=== PATIENT | female | born 1940 | race Caucasian/White ===

== ENCOUNTER 2016-11-30 12:11 | Outpatient (CLI) | END 2016-11-30 12:12 | disposition home or self-care (01) ==

== ENCOUNTER 2016-12-07 10:31 | Outpatient (CLI) | payer MEDICARE, OTHER | END 2016-12-07 10:32 | disposition home or self-care (01) | DX: G47.33 Obstructive sleep apnea (adult) (pediatric) (principal) | CPT/HCPCS: 99214; G0463 ==

== ENCOUNTER 2016-12-27 06:30 | Outpatient (CLI) | payer MEDICARE, OTHER | END 2016-12-27 06:31 | disposition home or self-care (01) | DX: N05.9 Unspecified nephritic syndrome with unspecified morphologic changes (principal); D70.9 Neutropenia, unspecified; R80.9 Proteinuria, unspecified ==

== ENCOUNTER 2016-12-27 13:57 | Outpatient (CLI) | payer MEDICARE, OTHER | END 2016-12-27 13:58 | disposition home or self-care (01) | DX: N05.9 Unspecified nephritic syndrome with unspecified morphologic changes (principal); D70.9 Neutropenia, unspecified; R80.9 Proteinuria, unspecified ==

== ENCOUNTER 2017-01-08 08:00 | Outpatient (CLI) | payer MEDICARE, OTHER | END 2017-01-08 23:59 | disposition home or self-care (01) | DX: D64.9 Anemia, unspecified (principal) ==

== ENCOUNTER 2017-01-17 08:00 | Outpatient (CLI) | payer MEDICARE, OTHER | END 2017-01-17 08:01 | disposition home or self-care (01) | DX: I50.9 Heart failure, unspecified (principal); N05.9 Unspecified nephritic syndrome with unspecified morphologic changes; D50.0 Iron deficiency anemia secondary to blood loss (chronic); D64.9 Anemia, unspecified; R80.9 Proteinuria, unspecified; D47.2 Monoclonal gammopathy ==

== ENCOUNTER 2017-03-19 14:47 | Outpatient (CLI) | payer MEDICARE, OTHER | END 2017-03-19 14:48 | disposition home or self-care (01) | DX: N19 Unspecified kidney failure (principal) ==

== ENCOUNTER 2017-04-09 09:23 | Outpatient (CLI) | payer MEDICARE, OTHER | END 2017-04-09 09:24 | disposition home or self-care (01) | DX: N05.9 Unspecified nephritic syndrome with unspecified morphologic changes (principal); I50.9 Heart failure, unspecified; D70.9 Neutropenia, unspecified ==

== ENCOUNTER 2017-06-25 08:00 | Outpatient (CLI) | payer MEDICARE, OTHER ==
[2017-06-25 10:48] LABS: BASOPHILS # (AUTO) 0.1 10^3/uL (0.0-0.1); EOSINOPHILS # (AUTO) 0.2 10^3/uL (0.0-0.7); EOSINOPHILS % (AUTO) 3.6 %; HCT - HEMATOCRIT 31.9 % (37.0-47.0); HGB - HEMOGLOBIN 10.4 g/dL (12.0-16.0); LYMPHOCYTES # (AUTO) 1.3 10^3/uL (1.5-3.5); LYMPHOCYTES % (AUTO) 25.2 %; MEAN CORPUSCULAR HEMOGLOBIN 28.8 pg (27.0-31.0); MEAN CORPUSCULAR HGB CONC 32.7 g/dL (32.0-36.0); MEAN CORPUSCULAR VOLUME 87.9 fL (81.0-99.0); MEAN PLATELET VOLUME 7.7 fL (7.9-10.8); MONOCYTES # (AUTO) 0.4 10^3/uL (0.0-1.0); MONOCYTES % (AUTO) 8.2 %; NEUTROPHILS # (AUTO) 3.2 10^3/uL (1.5-6.6); RED BLOOD COUNT 3.63 10^6/uL (4.20-5.40); RED CELL DISTRIBUTION WIDTH 16.7 % (12.0-15.0); UNCORRECTED WHITE BLOOD COUNT 5.2 x10^3/uL; WHITE BLOOD COUNT 5.2 x10^3/uL (4.8-10.8)
[2017-06-25 19:25] LABS: ALBUMIN/GLOBULIN RATIO 1.3 (1.0-2.2); BILIRUBIN,TOTAL 0.5 mg/dL (0.2-1.0); BUN - BLOOD UREA NITROGEN 38 mg/dL (6-20); CALCIUM 9.3 mg/dL (8.5-10.3); CARBON DIOXIDE - CO2 19 mmol/L (21-32); CHLORIDE 111 mmol/L (101-111); CHOL/HDL RATIO 2.3 (<4.4); CHOLESTEROL 205 mg/dL; CREATININE 1.9 mg/dL (0.4-1.0); GFR - MDRD 26 (>89); GLUCOSE 84 mg/dL (70-100); HDL CHOLESTEROL 90 mg/dL; LDL/HDL RATIO 0.9 (<4.4); SODIUM 143 mmol/L (135-145); TOTAL PROTEIN 7.8 g/dL (6.7-8.2); TRIGLYCERIDES 169 mg/dL; VLDL CHOLESTEROL 34 mg/dL
[2017-06-25 20:18] LABS: HEMOGLOBIN A1C 0.39 g/dL
== END 2017-06-25 08:01 | disposition home or self-care (01) ==
LOC: LAB.F 08:00
PROVIDERS: ATTEND Family Medicine
DX: E78.5 Hyperlipidemia, unspecified (principal); I13.0 Hypertensive heart and chronic kidney disease with heart failure and stage 1 through stage 4 chronic kidney disease, or unspecified chronic kidney disease; N18.3 Chronic kidney disease, stage 3 (moderate); I50.33 Acute on chronic diastolic (congestive) heart failure; D63.1 Anemia in chronic kidney disease; I48.0 Paroxysmal atrial fibrillation; R73.01 Impaired fasting glucose
CPT/HCPCS: 36415; 80053; 80061; 83036; 84443; 85025

== ENCOUNTER 2017-07-05 15:15 | Outpatient (CLI) | payer MEDICARE, OTHER ==
[2017-07-05 17:57] LABS: CALCIUM 8.8 mg/dL (8.5-10.3); CREATININE 2.3 mg/dL (0.4-1.0); POTASSIUM 3.7 mmol/L (3.5-5.0)
== END 2017-07-05 15:16 | disposition home or self-care (01) ==
LOC: LAB.F 15:15
PROVIDERS: ATTEND Family Medicine
DX: N28.9 Disorder of kidney and ureter, unspecified (principal)
CPT/HCPCS: 36415; 80048

== ENCOUNTER 2017-07-20 15:32 | Outpatient (CLI) | payer MEDICARE, OTHER ==
[2017-07-20 17:40] LABS: CALCIUM 8.9 mg/dL (8.5-10.3); POTASSIUM 4.4 mmol/L (3.5-5.0)
== END 2017-07-20 15:33 | disposition home or self-care (01) ==
LOC: LAB.F 15:32
PROVIDERS: ATTEND Family Medicine
DX: E87.6 Hypokalemia (principal); I50.9 Heart failure, unspecified; N28.9 Disorder of kidney and ureter, unspecified
CPT/HCPCS: 36415; 80048

== ENCOUNTER 2017-08-28 16:10 | Outpatient (CLI) | payer MEDICARE, OTHER ==
[2017-08-28 19:16] LABS: HCT - HEMATOCRIT 32.7 % (37.0-47.0); HGB - HEMOGLOBIN 10.4 g/dL (12.0-16.0); MEAN CORPUSCULAR HEMOGLOBIN 29.1 pg (27.0-31.0); MEAN CORPUSCULAR HGB CONC 31.9 g/dL (32.0-36.0); MEAN CORPUSCULAR VOLUME 91.3 fL (81.0-99.0); MEAN PLATELET VOLUME 7.9 fL (7.9-10.8); RED BLOOD COUNT 3.58 10^6/uL (4.20-5.40); RED CELL DISTRIBUTION WIDTH 17.4 % (12.0-15.0); WHITE BLOOD COUNT 5.8 x10^3/uL (4.8-10.8)
[2017-08-28 19:42] LABS: CALCIUM 8.8 mg/dL (8.5-10.3)
== END 2017-08-28 16:11 | disposition home or self-care (01) ==
LOC: LAB.F 16:10
PROVIDERS: ATTEND Internal Medicine Nephrology
DX: N05.9 Unspecified nephritic syndrome with unspecified morphologic changes (principal); I50.32 Chronic diastolic (congestive) heart failure; D63.1 Anemia in chronic kidney disease
CPT/HCPCS: 36415; 80048; 83880; 85025

== ENCOUNTER 2017-12-17 14:10 | Outpatient (CLI) | payer MEDICARE, OTHER ==
[2017-12-17 17:48] LABS: HGB - HEMOGLOBIN 13.6 g/dL (12.0-16.0); MEAN CORPUSCULAR HEMOGLOBIN 32.5 pg (27.0-31.0); MEAN CORPUSCULAR HGB CONC 32.6 g/dL (32.0-36.0); MEAN CORPUSCULAR VOLUME 99.7 fL (81.0-99.0); MEAN PLATELET VOLUME 7.8 fL (7.9-10.8); RED BLOOD COUNT 4.2 10^6/uL (4.20-5.40); RED CELL DISTRIBUTION WIDTH 15.5 % (12.0-15.0); WHITE BLOOD COUNT 6.6 x10^3/uL (4.8-10.8)
[2017-12-17 18:11] LABS: CALCIUM 8.8 mg/dL (8.5-10.3); CREATININE 1.8 mg/dL (0.4-1.0)
== END 2017-12-17 14:11 | disposition home or self-care (01) ==
LOC: LAB.F 14:10
PROVIDERS: ATTEND Internal Medicine Nephrology
DX: N05.9 Unspecified nephritic syndrome with unspecified morphologic changes (principal); I50.32 Chronic diastolic (congestive) heart failure; D70.9 Neutropenia, unspecified
CPT/HCPCS: 36415; 80048; 83880

== ENCOUNTER 2018-03-15 15:17 | Outpatient (CLI) | payer MEDICARE, OTHER ==
[2018-03-15 18:42] LABS: CALCIUM 9.1 mg/dL (8.5-10.3)
== END 2018-03-15 15:18 | disposition home or self-care (01) ==
LOC: LAB.F 15:17
PROVIDERS: ATTEND Nurse Practitioner Family
DX: E87.6 Hypokalemia (principal); I50.9 Heart failure, unspecified; N18.3 Chronic kidney disease, stage 3 (moderate)
CPT/HCPCS: 36415; 80048; 83880

== ENCOUNTER 2018-05-16 11:58 | Emergency (ER) | payer MEDICARE, OTHER ==
--- NOTE | 2018-05-16 13:06 | XRAY Report ---
Procedure Date: 05/16/2018 Accession Number: [id number] / [id number] Procedure: XR - Chest 2 View X-Ray CPT Code: 97013 FULL RESULT: EXAM: CHEST RADIOGRAPHY EXAM DATE: 05/16/2018 12:40 PM. CLINICAL HISTORY: SOA. COMPARISON: 10/02/2016. TECHNIQUE: 2 views. FINDINGS: Lungs/Pleura: No focal consolidation. No pneumothorax or pleural effusion. Mild blunting of the costophrenic angles is similar to prior. Mild hyperinflation. Mediastinum: Borderline enlargement of the cardiac silhouette. Tortuous, atherosclerotic thoracic aorta as before. Other: None. IMPRESSION: No radiographically apparent acute abnormality in the chest. No significant change from prior. COPD. RADIA
--- NOTE | 2018-05-16 13:56 | ED Physician Documentation ---
PD HPI DYSPNEA - Stated complaint Stated Complaint: SOA - Chief complaint Chief Complaint: Resp - History obtained from History obtained from: Patient - History of Present Illness Timing - onset: How many weeks ago (several) Timing - onset during: Exertion Timing - details: Gradual onset, Still present (has noted it more the past few days. Having dyspnea with activity, watery eyes, and some congestion.), Waxing and waning Inciting event(s): Other (some allergy symptoms. Dyspnea with activity. Feels okay rested.) Worsened by: Exertion Associated symptoms: Wheezing. No: Fever, Cough, Chest pain / discomfort, Bilateral edema Recently seen: Clinic (seen by PMD and given budesonide inhaler for this, considering COPD. She also was seen by [employer] today, who felt that it was not heart related (lungs sounded wheezing, no leg edema) and seemed COPD. She was feeling dypsnea so came to ED for further treatment ideas.) Review of Systems Constitutional: denies: Fever Eyes: reports: Irritation (watery and red eyes) Nose: reports: Rhinorrhea / runny nose, Congestion Throat: denies: Sore throat Cardiac: denies: Chest pain / pressure, Palpitations Respiratory: reports: Dyspnea, Wheezing. denies: Cough GI: denies: Nausea, Vomiting, Diarrhea Musculoskeletal: denies: Extremity swelling PD PAST MEDICAL HISTORY - Past Medical History Cardiovascular: Hypertension, High cholesterol, Arrhythmia Respiratory: Sleep apnea, CPAP use Endocrine/Autoimmune: HyPOthyroidism GI: GERD, C.difficile : None HEENT: Chronic vision loss Psych: Depression Musculoskeletal: None Derm: None - Past Surgical History Past Surgical History: Yes Ortho: Other Cardiovascular: Fempop bypass HEENT: Cataracts Derm: Skin cancer surgery - Present Medications Home Medications: Ambulatory Orders Medication Instructions Recorded Confirmed Acetaminophen [Pain Relief] 500 mg PO Q6HR PRN 04/18/14 01/05/16 Lactobacillus Combo No.6 1 cap PO DAILY 04/18/14 05/24/16 [Probiotic Complex] Levothyroxine [Synthroid] 50 mcg PO DAILY 04/18/14 05/24/16 Metoprolol Tartrate 50 mg PO BID 04/18/14 05/24/16 Pantoprazole Sodium 20 mg PO DAILY 04/18/14 05/24/16 Rosuvastatin Calcium [Crestor] 40 mg PO DAILY 04/18/14 05/24/16 amLODIPine [Norvasc] 10 mg PO DAILY 04/18/14 05/24/16 Zolpidem [Ambien] 10 mg PO HS 10/16/14 05/24/16 Furosemide 20 mg DAILY 01/05/16 05/24/16 Sertraline HCl 50 mg DAILY 01/05/16 05/24/16 Albuterol Sulf [Ventolin Hfa 1 - 2 puffs INH Q4HR PRN #1 inhaler 05/16/18 Inhaler] Budesonide [Pulmicort] 1 puffs INH BID #1 inhaler 05/16/18 Cetirizine [ZyrTEC] 10 mg PO DAILY #20 tablet 05/16/18 Dexamethasone [Decadron] 4 mg PO DAILY #8 tablet 05/16/18 Esomeprazole Magnesium [Nexium] 20 mg PO 05/16/18 - Allergies Allergies/Adverse Reactions: Allergies Allergy/AdvReac Type Severity Reaction Status Date / Time meperidine HCl * Allergy Unknown Unknown Verified 03/09/14 23:45 [From Demerol] sulfamethoxazole Allergy Unknown Unknown Verified 03/09/14 23:19 [From Bactrim] trimethoprim [From Bactrim] Allergy Unknown Unknown Verified 03/09/14 23:19 morphine AdvReac Intermediate Nausea Verified 05/16/18 12:03 - Social History Does the pt smoke?: No Smoking Status: Never smoker Does the pt drink ETOH?: Yes Does the pt have substance abuse?: No - Immunizations Immunizations are current?: Yes - POLST Patient has POLST: Yes PD ED PE NORMAL - Vitals Vital signs reviewed: Yes - General General: Alert and oriented X 3, Well developed/nourished - HEENT HEENT: PERRL (has some redness and mild edema of lower conjunctiva both sides. ) , Pharynx benign - Neck Neck: Supple, no meningeal sign, No adenopathy - Cardiac Cardiac: RRR, No murmur - Respiratory Respiratory: No respiratory distress, Other (expiratory wheezing diffusely. No coarse sounds. No fine crackles. ) - Abdomen Abdomen: Soft, Non tender - Back Back: No CVA TTP - Derm Derm: Normal color, Warm and dry - Extremities Extremities: No deformity, No tenderness to palpate, Normal ROM s pain, No edema , No calf tenderness / cord - Neuro Neuro: Alert and oriented X 3, No motor deficit, Normal speech Results - Vitals Vitals: Oxygen O2 Source [Without Activity] Room air O2 Source Room air - Rads (name of study) chest Radiology: Prelim report reviewed, EMP read contemporaneously (hyperinflated c/ w COPD. No infiltrates. ) PD MEDICAL DECISION MAKING - Sepsis Event Vital Signs: Oxygen O2 Source [Without Activity] Room air O2 Source Room air Departure - Departure Disposition: 01 Home, Self Care Clinical Impression: Mild chronic obstructive pulmonary disease Dyspnea Qualifiers: Dyspnea type: dyspnea on exertion Qualified Code(s): R06.09 - Other forms of dyspnea Condition: Stable Record reviewed to determine appropriate education?: Yes Instructions: ED COPD Flare Follow-Up: Terry Jameson MD [Primary Care Provider] - Prescriptions: Albuterol Sulf [Ventolin Hfa Inhaler] 1 - 2 puffs INH Q4HR PRN #1 inhaler PRN Reason: Shortness Of Air/Wheezing Budesonide [Pulmicort] 1 puffs INH BID #1 inhaler Cetirizine [ZyrTEC] 10 mg PO DAILY #20 tablet Dexamethasone [Decadron] 4 mg PO DAILY #8 tablet Comments: Continue your TR ectropium inhaler. Add Decadron oral steroid for the next week. After that start budesonide inhaled steroid twice daily. Add cetirizine allergy medicine daily for the next week or 2. Use albuterol rescue inhaler 2- 3 puffs initially 4 times a day regularly and extra times as needed. After 5 or 6 days, you can then cut back to just as needed. Recheck if not improved overall in the next several days to week. Discharge Date/Time: 05/16/18 15:24
[2018-05-16] MEDS ORDERED: ALBUTEROL NEB 2.5 MG/3 ML INH STA (14:21)
[2018-05-16] MEDS ORDERED: DEXAMETHASONE 10 MG/ML VIAL PO STA (14:21)
[2018-05-16 14:52] VITALS: BP 153/57
== END 2018-05-16 15:24 | disposition home or self-care (01) ==
LOC: ED 11:58
DX: J44.9 Chronic obstructive pulmonary disease, unspecified (principal); I10 Essential (primary) hypertension
CPT/HCPCS: 71046; 93005; 94640; 99283; 99284

== ENCOUNTER 2018-06-18 15:14 | Outpatient (CLI) | payer MEDICARE, OTHER ==
[2018-06-18 17:40] LABS: HGB - HEMOGLOBIN 13.8 g/dL (12.0-16.0); MEAN CORPUSCULAR HGB CONC 33.5 g/dL (32.0-36.0); MEAN CORPUSCULAR VOLUME 101.4 fL (81.0-99.0); MEAN PLATELET VOLUME 7.1 fL (7.9-10.8); RED BLOOD COUNT 4.07 10^6/uL (4.20-5.40); RED CELL DISTRIBUTION WIDTH 15.6 % (12.0-15.0); WHITE BLOOD COUNT 5.2 x10^3/uL (4.8-10.8)
[2018-06-18 17:52] LABS: CALCIUM 9.4 mg/dL (8.5-10.3); CREATININE 1.3 mg/dL (0.4-1.0)
== END 2018-06-18 15:15 | disposition home or self-care (01) ==
LOC: LAB.F 15:14
PROVIDERS: ATTEND Internal Medicine Nephrology
DX: N05.9 Unspecified nephritic syndrome with unspecified morphologic changes (principal); D70.9 Neutropenia, unspecified; D63.1 Anemia in chronic kidney disease; D50.0 Iron deficiency anemia secondary to blood loss (chronic)
CPT/HCPCS: 36415; 80048; 82728; 85027

== ENCOUNTER 2018-06-21 12:21 | Outpatient (CLI) | payer MEDICARE, OTHER | END 2018-06-21 12:22 | disposition critical access hospital (66) | LOC: EMS 12:21 | PROVIDERS: ATTEND Surgery | DX: S09.93XA Unspecified injury of face, initial encounter (principal); S81.012A Laceration without foreign body, left knee, initial encounter; S81.011A Laceration without foreign body, right knee, initial encounter; W10.1XXA Fall (on)(from) sidewalk curb, initial encounter; Y92.480 Sidewalk as the place of occurrence of the external cause | CPT/HCPCS: A0425; A0429 ==

== ENCOUNTER 2018-06-21 12:39 | Emergency (ER) | payer MEDICARE, OTHER ==
--- NOTE | 2018-06-21 12:58 | ED Physician Documentation ---
PD HPI HEAD INJURY - Stated complaint Stated Complaint: GLF - Chief complaint Chief Complaint: Laceration - History obtained from History obtained from: Patient, EMS - History of Present Illness Mechanism of head injury: Fell (She tripped on a curb and landed on concrete. There was no loss of consciousness or syncope and it was a mechanical fall. The paramedics were most concerned about a large subconjunctival hematoma on the left, but her vision is normal and she really does not have any pain there is just irritated. She does have pain of the right knee and left wrist and a little bit to the neck. Her tetanus is up-to-date.) Review of Systems Constitutional: denies: Fever Respiratory: denies: Dyspnea, Cough GI: denies: Abdominal Pain, Nausea, Vomiting PD PAST MEDICAL HISTORY - Past Medical History Cardiovascular: Hypertension, High cholesterol, Arrhythmia Respiratory: Sleep apnea, CPAP use Endocrine/Autoimmune: HyPOthyroidism GI: GERD, C.difficile : None HEENT: Chronic vision loss Psych: Depression Musculoskeletal: None Derm: None - Past Surgical History Past Surgical History: Yes Ortho: Other Cardiovascular: Fempop bypass HEENT: Cataracts Derm: Skin cancer surgery - Present Medications Home Medications: Ambulatory Orders Medication Instructions Recorded Confirmed Acetaminophen [Pain Relief] 500 mg PO Q6HR PRN 04/18/14 01/05/16 Lactobacillus Combo No.6 1 cap PO DAILY 04/18/14 05/24/16 [Probiotic Complex] Levothyroxine [Synthroid] 50 mcg PO DAILY 04/18/14 05/24/16 Metoprolol Tartrate 50 mg PO BID 04/18/14 05/24/16 Pantoprazole Sodium 20 mg PO DAILY 04/18/14 05/24/16 Rosuvastatin Calcium [Crestor] 40 mg PO DAILY 04/18/14 05/24/16 amLODIPine [Norvasc] 10 mg PO DAILY 04/18/14 05/24/16 Zolpidem [Ambien] 10 mg PO HS 10/16/14 05/24/16 Furosemide 20 mg DAILY 01/05/16 05/24/16 Sertraline HCl 50 mg DAILY 01/05/16 05/24/16 Albuterol Sulf [Ventolin Hfa 1 - 2 puffs INH Q4HR PRN #1 inhaler 05/16/18 Inhaler] Budesonide [Pulmicort] 1 puffs INH BID #1 inhaler 05/16/18 Cetirizine [ZyrTEC] 10 mg PO DAILY #20 tablet 05/16/18 Dexamethasone [Decadron] 4 mg PO DAILY #8 tablet 05/16/18 Esomeprazole Magnesium [Nexium] 20 mg PO 05/16/18 - Allergies Allergies/Adverse Reactions: Allergies Allergy/AdvReac Type Severity Reaction Status Date / Time meperidine HCl * Allergy Unknown Unknown Verified 03/09/14 23:45 [From Demerol] sulfamethoxazole Allergy Unknown Unknown Verified 03/09/14 23:19 [From Bactrim] trimethoprim [From Bactrim] Allergy Unknown Unknown Verified 03/09/14 23:19 morphine AdvReac Intermediate Nausea Verified 05/16/18 12:03 - Social History Does the pt smoke?: No Smoking Status: Never smoker Does the pt drink ETOH?: Yes Does the pt have substance abuse?: No - Immunizations Immunizations are current?: Yes - POLST Patient has POLST: Yes PD ED PE NORMAL - Vitals Vital signs reviewed: Yes - General General: Alert and oriented X 3, No acute distress - HEENT HEENT: PERRL, EOMI, Other (On the left side there is a circumferential and slightly swollen sub-conjunctival hematoma, but the pupil is normal and her visual acuity is normal. She does have evidence of allergic conjunctivitis on the right as well and there is some ecchymosis there as well although she says that is not bothering her. There is no facial bony tenderness.) - Neck Neck: Other (She has very mild low C-spine tenderness and is maintained in a collar pending imaging) - Cardiac Cardiac: RRR, No murmur - Respiratory Respiratory: No respiratory distress, Clear bilaterally - Abdomen Abdomen: Normal bowel sounds, Soft, Non tender - Back Back: No CVA TTP, No spinal TTP - Extremities Extremities: Other (There is a shallow stellate skin tear over the right knee and a little abrasion on the left knee, right knee does have some tenderness of the patella but the left knee is non Tender with normal range of motion, she is focal tenderness over the proximal thumb of the left wrist but she says it really does not hurt and she has full range of motion there.) - Neuro Neuro: Alert and oriented X 3, Normal speech Results - Vitals Vitals: Vital Signs - 24 hr 06/21/18 06/21/18 12:44 15:55 Temperature 36.4 C L Heart Rate 75 83 Respiratory 18 15 Rate Blood Pressure 155/59 H 151/74 H O2 Saturation 95 98 Oxygen O2 Source [] Room air O2 Source Room air - Rads (name of study) Ct Head and C Spine Radiology: EMP read contemporaneously (Atrophy in the head and cervical spine degenerative changes and submandibular stones without acute disease in the neck. ) X-rays of the left wrist and right knee Radiology: EMP read contemporaneously (There is a concern for dorsal tilt with the scapholunate interval measuring 3.5 mm concerning for ligamentous laxity or injury there. On the knee no obviously acute fracture but there appears to be potentially an old fracture or an acute on chronic fracture with the tibial plateau laterally subluxed 5 mm to the femoral condyles.) R knee CT Radiology: EMP read contemporaneously (There is an old depressed fracture of the tibial condyle without acute fracture, there is a joint effusion and osteoarthritis.) Procedures - Laceration (location) R knee Length in cm: 3 Wound type: Stellate, Flap, Superficial Wound Preparation: Irrigated copiously NS Skin layer closure: Steri strips Other: Tetanus UTD Complexity: Simple PD MEDICAL DECISION MAKING - ED course ED course: 78-year-old woman with mechanical ground-level fall, large some conjunctival hematoma but no major injuries found about the head or neck. She does have ligamentous instability in the wrist on the left and a concern for may be an acute on chronic right knee injury which was discussed by phone with the orthopedic beauty consultant, Dr. Witt who agreed with CT of that to see the acuity of it, although it is unlikely to be acute given the lack of lipohemarthrosis. If there is no acute injury she can weight-bear and if there is only a mild acute injury she can weight-bear. CT demonstrates no acute fracture, she was unaware of an old fracture but does remember an injury. The left wrist was placed in a splint and she will follow- up with orthopedics for that. - Sepsis Event Vital Signs: Vital Signs - 24 hr 06/21/18 06/21/18 12:44 15:55 Temperature 36.4 C L Heart Rate 75 83 Respiratory 18 15 Rate Blood Pressure 155/59 H 151/74 H O2 Saturation 95 98 Oxygen O2 Source [] Room air O2 Source Room air Departure - Departure Disposition: 01 Home, Self Care Clinical Impression: Laceration, Fall from ground level Contusion of right knee Qualifiers: Encounter type: initial encounter Qualified Code(s): S80.01XA - Contusion of right knee, initial encounter Left wrist sprain Qualifiers: Encounter type: initial encounter Qualified Code(s): S63.502A - Unspecified sprain of left wrist, initial encounter Subconjunctival hematoma Qualifiers: Laterality: left Qualified Code(s): H11.32 - Conjunctival hemorrhage, left eye Condition: Good Record reviewed to determine appropriate education?: Yes Instructions: ED Sprain Knee, ED Sprain Wrist, Subconjunctival Hemorrhage Follow-Up: [facility] [Provider Group] - Within 1 week Comments: Your blood pressure was elevated today on check into the emergency department. This does not mean that you have hypertension, it is a common phenomenon to come to the emergency department and have elevated blood pressure. I recommend that you see your primary care physician within the week to have it rechecked when you are feeling better.
--- NOTE | 2018-06-21 15:39 | XRAY Report ---
Procedure Date: 06/21/2018 Accession Number: [id number] / [id number] Procedure: XR - Knee 4 View RT CPT Code: FULL RESULT: EXAM: RIGHT KNEE RADIOGRAPHY EXAM DATE: 06/21/2018 02:17 PM. CLINICAL HISTORY: Knee injury. COMPARISON: None. TECHNIQUE: 4 views. FINDINGS: Bones: Normal. No fractures or bone lesions. Joints: Mild medial compartment narrowing, osteophytosis, and subchondral sclerosis. Mild patellofemoral compartment narrowing, osteophytosis, and subchondral sclerosis. Moderate to marked lateral compartment narrowing, osteophytosis, and subchondral sclerosis. No effusion. No dislocation. Tibial plateau is laterally subluxed 5 mm with respect to the femoral condyles. Soft Tissues: Mild infrapatellar soft tissue swelling. IMPRESSION: 1. No fracture. 2. No dislocation. 5 mm of lateral subluxation of the tibial plateau with respect to the femoral condyles. 3. Mild infrapatellar soft tissue swelling. 4. Moderate to marked lateral and mild right patellofemoral and medial compartment arthritis. RADIA
--- NOTE | 2018-06-21 15:39 | XRAY Report ---
Procedure Date: 06/21/2018 Accession Number: [id number] / [id number] Procedure: XR - Wrist 4 View LT CPT Code: FULL RESULT: EXAM: LEFT WRIST RADIOGRAPHY EXAM DATE: 06/21/2018 02:17 PM. CLINICAL HISTORY: Wrist injury. COMPARISON: None. TECHNIQUE: 3 views. FINDINGS: Bones: Normal. No fractures or bone lesions. Joints: No dislocation. Moderate to marked first carpometacarpal joint space narrowing, subchondral sclerosis and osteophytosis. Scapholunate interval measures 3.5 mm. On the lateral view, there is mild dorsal tilt of the lunate. Soft Tissues: Moderate soft tissue swelling noted. IMPRESSION: 1. No fracture. 2. No dislocation. Mild dorsal tilt of the lunate with scapholunate interval measuring 3.5 mm. Ligamentous laxity or injury not excluded. Correlate clinically. Wrist MRI would be confirmatory. 3. First carpometacarpal joint moderate osteoarthritis. 4. Mild to moderate wrist swelling. RADIA
--- NOTE | 2018-06-21 15:40 | CT Report ---
Procedure Date: 06/21/2018 Accession Number: [id number] / [id number] Procedure: CT - Head W/O CPT Code: FULL RESULT: EXAM: CT HEAD EXAM DATE: 06/21/2018 02:26 PM. CLINICAL HISTORY: Fall, head and neck injury. Left eye deformity. COMPARISON: None. TECHNIQUE: Multiaxial CT images were obtained from the foramen magnum to the vertex. Reformats: Coronal. IV contrast: None. In accordance with CT protocol optimization, one or more of the following dose reduction techniques were utilized for this exam: automated exposure control, adjustment of mA and/or KV based on patient size, or use of iterative reconstructive technique. FINDINGS: Parenchyma: No intraparenchymal hemorrhage. No evidence of mass, midline shift, or CT findings of acute infarction. Bell-white differentiation is distinct. Diffuse chronic microangiopathic white matter changes are evident. Extraaxial Spaces: Normal for age. No subdural or epidural collections identified. Ventricles: The ventricles and cortical sulci are enlarged, consistent with age-related tissue loss. Sinuses and orbits: Imaged paranasal sinuses, orbits, and mastoids show no significant abnormality. Bones: No evidence of fracture or calvarial defect. Other: None. IMPRESSION: Generalized age-related cortical atrophic changes without evidence of acute intracranial abnormality. RADIA
--- NOTE | 2018-06-21 15:41 | CT Report ---
Procedure Date: 06/21/2018 Accession Number: [id number] / [id number] Procedure: CT - Cervical Spine W/O CPT Code: FULL RESULT: EXAM: CT CERVICAL SPINE WITHOUT CONTRAST DATE: 06/21/2018 02:26 PM. HISTORY: Fall, head and neck injury. COMPARISONS: None. TECHNIQUE: Thin-section axial images were acquired of the cervical spine without contrast. Post-processing: Coronal and sagittal reformats. Other: None. In accordance with CT protocol optimization, one or more of the following dose reduction techniques were utilized for this exam: automated exposure control, adjustment of mA and/or KV based on patient size, or use of iterative reconstructive technique. FINDINGS: Alignment: Moderate kyphosis centered at C5. Multilevel grade 1 degenerative subluxation. Bones: No fracture or bone lesion. Interspace Levels/Facets: Multilevel marked degenerative changes, greatest at C5-C6 and T1-T2. Greatest degree of central spinal canal stenosis is mild at C4-C5 and C5-C6. T2-T3 acquired or congenital fusion. Multilevel mild to marked bony neural foramina compromise. Musculature: Normal. No fatty atrophy. Other: Several 1.8 cm stones clustered together in the left submandibular hilum. Moderate atrophy left submandibular gland. The lung apices are clear. IMPRESSION: 1. No acute bony abnormality. 2. Several large stones left submandibular gland hilum causing moderate atrophy. Incidental finding. RADIA
--- NOTE | 2018-06-21 17:14 | CT Report ---
Procedure Date: 06/21/2018 Accession Number: [id number] / [id number] Procedure: CT - Lower Extremity Right W/O CPT Code: FULL RESULT: EXAM: RIGHT KNEE CT WITHOUT CONTRAST EXAM DATE: 06/21/2018 04:08 PM. CLINICAL HISTORY: Possible tibial plateau fracture, knee pain post fall. COMPARISON: X-rays same day. Knee 4 view right 06/21/2018. TECHNIQUE: Thin-section axial images were acquired of the knee without contrast. Post-processing: Coronal and sagittal reformats. Other: None. In accordance with CT protocol optimization, one or more of the following dose reduction techniques were utilized for this exam: automated exposure control, adjustment of mA and/or KV based on patient size, or use of iterative reconstructive technique. FINDINGS: Bones: There is concavity of the posterior half of the lateral tibial condyle with underlying sclerosis and cyst formation. The findings are consistent with an old depressed tibial plateau fracture. There is tricompartmental osteophyte formation worst in the lateral compartment. There are no visible acute fractures. Joints: There is a moderate-sized joint effusion. Musculature: Normal. No fatty atrophy. Other: No Bakers cyst. No soft tissue swelling. IMPRESSION: 1. Old depressed fracture of the lateral tibial condyle. 2. 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 3. Joint effusion. 4. No acute fracture. RADIA
[2018-06-21 17:30] VITALS: BP 150/75
== END 2018-06-21 17:30 | disposition home or self-care (01) ==
LOC: EDUNIT# → ED 12:39
DX: S81.011A Laceration without foreign body, right knee, initial encounter (principal); S80.01XA Contusion of right knee, initial encounter; S80.212A Abrasion, left knee, initial encounter; S63.502A Unspecified sprain of left wrist, initial encounter; H11.32 Conjunctival hemorrhage, left eye; W01.198A Fall on same level from slipping, tripping and stumbling with subsequent striking against other object, initial encounter; Y93.01 Activity, walking, marching and hiking; I10 Essential (primary) hypertension
CPT/HCPCS: 70450; 72125; 99283; 99284

== ENCOUNTER 2018-08-15 08:00 | Outpatient (CLI) | payer MEDICARE, OTHER ==
[2018-08-15 17:37] LABS: CALCIUM 9.3 mg/dL (8.5-10.3); CREATININE 1.4 mg/dL (0.4-1.0)
== END 2018-08-15 08:01 | disposition home or self-care (01) ==
LOC: LAB.F 08:00
PROVIDERS: ATTEND Internal Medicine Nephrology
DX: N05.9 Unspecified nephritic syndrome with unspecified morphologic changes (principal); I50.32 Chronic diastolic (congestive) heart failure
CPT/HCPCS: 36415; 80048; 83880

== ENCOUNTER 2018-09-03 13:16 | Outpatient (CLI) | payer MEDICARE, OTHER | END 2018-09-03 13:17 | disposition home or self-care (01) | LOC: SC 13:16 | PROVIDERS: ATTEND Nurse Practitioner Family | DX: G47.33 Obstructive sleep apnea (adult) (pediatric) (principal) | CPT/HCPCS: 99215; G0463; 99212 ==

== ENCOUNTER 2018-10-04 08:52 | Outpatient (CLI) | payer MEDICARE, OTHER ==
[2018-10-04 17:44] LABS: BASOPHILS % (AUTO) 0.5 %; EOSINOPHILS # (AUTO) 0.2 10^3/uL (0.0-0.7); EOSINOPHILS % (AUTO) 3.9 %; HGB - HEMOGLOBIN 13.6 g/dL (12.0-16.0); LYMPHOCYTES # (AUTO) 1.4 10^3/uL (1.5-3.5); LYMPHOCYTES % (AUTO) 27.8 %; MEAN CORPUSCULAR HEMOGLOBIN 33.1 pg (27.0-31.0); MEAN CORPUSCULAR HGB CONC 33.4 g/dL (32.0-36.0); MEAN CORPUSCULAR VOLUME 99.2 fL (81.0-99.0); MEAN PLATELET VOLUME 8.1 fL (7.9-10.8); MONOCYTES # (AUTO) 0.5 10^3/uL (0.0-1.0); MONOCYTES % (AUTO) 10.1 %; NEUTROPHILS % (AUTO) 57.7 %; PLT - PLATELET COUNT 235 10^3/uL (130-450); RED BLOOD COUNT 4.12 10^6/uL (4.20-5.40); RED CELL DISTRIBUTION WIDTH 13.8 % (12.0-15.0); WHITE BLOOD COUNT 5.2 x10^3/uL (4.8-10.8)
[2018-10-04 18:38] LABS: ALBUMIN 4.1 g/dL (3.2-5.5); ALBUMIN/GLOBULIN RATIO 1.4 (1.0-2.2); ALKALINE PHOSPHATASE 72 IU/L (42-121); ALT ALANINE AMINOTRANSFERASE 17 IU/L (10-60); AST ASPARTATE AMINOTRANSFERASE 24 IU/L (10-42); BILIRUBIN,TOTAL 0.8 mg/dL (0.2-1.0); BUN - BLOOD UREA NITROGEN 32 mg/dL (6-20); CALCIUM 9.2 mg/dL (8.5-10.3); CARBON DIOXIDE - CO2 26 mmol/L (21-32); CHLORIDE 103 mmol/L (101-111); CHOL/HDL RATIO 2.9 (<4.4); CHOLESTEROL 203 mg/dL; CREATININE 1.3 mg/dL (0.4-1.0); GFR - MDRD 39 (>89); GLUCOSE 92 mg/dL (70-100); HDL CHOLESTEROL 70 mg/dL; LDL CHOLESTEROL,CALCULATED 111 mg/dL; LDL/HDL RATIO 1.6 (<4.4); SODIUM 140 mmol/L (135-145); TOTAL PROTEIN 7.1 g/dL (6.7-8.2); VLDL CHOLESTEROL 22 mg/dL
== END 2018-10-04 08:53 | disposition home or self-care (01) ==
LOC: LAB.F 08:52
PROVIDERS: ATTEND Nurse Practitioner Family
DX: N18.3 Chronic kidney disease, stage 3 (moderate) (principal); E78.5 Hyperlipidemia, unspecified; E03.9 Hypothyroidism, unspecified; I50.9 Heart failure, unspecified; D63.1 Anemia in chronic kidney disease
CPT/HCPCS: 36415; 80053; 80061; 83721; 84443; 85025

== ENCOUNTER 2018-10-14 08:00 | Outpatient (CLI) | payer MEDICARE, OTHER | END 2018-10-14 08:01 | LOC: LAB.R 08:00 | PROVIDERS: ATTEND Nurse Practitioner Family | DX: K11.5 Sialolithiasis (principal); K11.20 Sialoadenitis, unspecified | CPT/HCPCS: 82365 ==

== ENCOUNTER 2018-10-16 21:09 | Outpatient (CLI) | payer MEDICARE, OTHER | END 2018-10-16 21:10 | disposition EMS.NT | LOC: EMS 21:09 | PROVIDERS: ATTEND Surgery | DX: Z03.89 Encounter for observation for other suspected diseases and conditions ruled out (principal) ==

== ENCOUNTER 2019-02-10 12:41 | Outpatient (CLI) | payer MEDICARE, OTHER ==
[2019-02-10 18:06] LABS: CALCIUM 9.1 mg/dL (8.5-10.3); CREATININE 1.6 mg/dL (0.4-1.0)
== END 2019-02-10 12:42 | disposition home or self-care (01) ==
LOC: LAB.F 12:41
PROVIDERS: ATTEND Internal Medicine Nephrology
DX: N05.9 Unspecified nephritic syndrome with unspecified morphologic changes (principal); I50.32 Chronic diastolic (congestive) heart failure
CPT/HCPCS: 36415; 80048; 83880

== ENCOUNTER 2019-07-06 10:28 | Outpatient (CLI) | payer MEDICARE, OTHER | END 2019-07-06 10:29 | disposition critical access hospital (66) | LOC: EMS 10:28 | PROVIDERS: ATTEND Surgery | DX: R06.02 Shortness of breath (principal) | CPT/HCPCS: A0425; A0427 ==

== ENCOUNTER 2019-07-06 10:59 | Emergency (ER) | payer MEDICARE, OTHER ==
--- NOTE | 2019-07-06 12:02 | ED Physician Documentation ---
History of Present Illness - Stated complaint Stated Complaint: SOA - Chief complaint Chief Complaint: Resp - History obtained from History obtained from: Patient - Additonal information Additional information: Patient is an 79-year-old female with history of COPD and multiple other comorbidities although no diagnosis of CHF presenting with several days of worsening shortness of breath without cough, pain, or fever. Patient normally only requires oxygen at night, but is requiring oxygen during the day at this time. Patient uses multiple inhalers at home and these have not helped. No other abdominal complaints such as pain, nausea, vomiting, urinary or stool changes. No other improving or worsening factors noted. Review of Systems Constitutional: denies: Fever Cardiac: denies: Chest pain / pressure Respiratory: reports: Dyspnea. denies: Cough GI: denies: Abdominal Pain, Nausea, Vomiting, Diarrhea : denies: Dysuria PD PAST MEDICAL HISTORY - Past Medical History Past Medical History: Yes Cardiovascular: High cholesterol, Hypertension, Arrhythmia Respiratory: CPAP use, Sleep apnea Endocrine/Autoimmune: HyPOthyroidism GI: GERD, C.difficile : None HEENT: Chronic vision loss Psych: Depression Musculoskeletal: None Derm: None - Past Surgical History Past Surgical History: Yes Ortho: Other Cardiovascular: Fempop bypass HEENT: Cataracts Derm: Skin cancer surgery - Present Medications Home Medications: Ambulatory Orders Medication Instructions Recorded Confirmed Acetaminophen [Pain Relief] 500 mg PO Q6HR PRN 04/18/14 07/06/19 Lactobacillus Combo No.6 1 cap PO DAILY 04/18/14 07/06/19 [Probiotic Complex] Levothyroxine [Synthroid] 50 mcg PO DAILY 04/18/14 07/06/19 Metoprolol Tartrate 50 mg PO BID 04/18/14 07/06/19 Rosuvastatin Calcium [Crestor] 40 mg PO DAILY 04/18/14 07/06/19 amLODIPine [Norvasc] 10 mg PO DAILY 04/18/14 07/06/19 Furosemide 40 mg DAILY 01/05/16 07/06/19 Sertraline HCl 50 mg DAILY 01/05/16 07/06/19 Albuterol Sulf [Ventolin Hfa 1 - 2 puffs INH Q4HR PRN #1 inhaler 05/16/18 07/06/19 Inhaler] Budesonide [Pulmicort] 1 puffs INH BID #1 inhaler 05/16/18 07/06/19 Cetirizine [ZyrTEC] 10 mg PO DAILY #20 tablet 05/16/18 07/06/19 Esomeprazole Magnesium [Nexium] 20 mg PO DAILY 05/16/18 07/06/19 Tiotropium Br/Olodaterol HCl 4 gm IH DAILY 07/06/19 07/06/19 [Stiolto Respimat Inhal Isabella] - Allergies Allergies/Adverse Reactions: Allergies Allergy/AdvReac Type Severity Reaction Status Date / Time meperidine HCl * Allergy Unknown Unknown Verified 03/09/14 23:45 [From Demerol] sulfamethoxazole Allergy Unknown Unknown Verified 03/09/14 23:19 [From Bactrim] trimethoprim [From Bactrim] Allergy Unknown Unknown Verified 03/09/14 23:19 morphine AdvReac Intermediate Nausea Verified 05/16/18 12:03 - Social History Does the pt smoke?: No Smoking Status: Never smoker Does the pt drink ETOH?: Yes Does the pt have substance abuse?: No - Immunizations Immunizations are current?: Yes - POLST Patient has POLST: Yes PD ED PE NORMAL - Vitals Vital signs reviewed: Yes - General General: Alert and oriented X 3, No acute distress, Well developed/nourished - HEENT HEENT: Atraumatic, Moist mucous membranes - Neck Neck: Supple, no meningeal sign - Cardiac Cardiac: RRR, No murmur - Respiratory Respiratory: No respiratory distress. No: Clear bilaterally (Poor air movement and coarse breath sounds bilaterally with an occasional expiratory wheeze) - Abdomen Abdomen: Soft, Non tender, Non distended - Derm Derm: Normal color, Warm and dry, No rash - Extremities Extremities: No deformity, No tenderness to palpate, No edema - Neuro Neuro: Alert and oriented X 3, No motor deficit, No sensory deficit - Psych Psych: Normal mood, Normal affect Results - Vitals Vitals: Vital Signs - 24 hr 07/06/19 07/06/19 07/06/19 11:06 11:49 12:34 Temperature 36.9 C Heart Rate 82 79 77 Respiratory 22 23 19 Rate Blood Pressure 145/55 H 140/55 H O2 Saturation 95 93 07/06/19 13:32 Temperature Heart Rate 95 Respiratory 28 H Rate Blood Pressure 128/54 L O2 Saturation 88 L Oxygen O2 Source [] Room air O2 Source Nasal cannula Oxygen Flow Rate 3 - EKG (time done) 1150 Rate: Rate (enter#) (79) Rhythm: NSR Intervals: Prolonged QT Ischemia: Non specific changes - Labs Labs: Laboratory Tests 07/06/19 07/06/19 07/06/19 12:43 12:43 12:43 WBC 7.5 RBC 3.94 L Hgb 12.8 Hct 39.7 MCV 100.8 H MCH 32.5 H MCHC 32.2 RDW 14.5 Plt Count 221 MPV 9.8 Neut # (Auto) 6.1 Lymph # (Auto) 0.7 L Meeker # (Auto) 0.5 Eos # (Auto) 0.1 Baso # (Auto) 0.0 Absolute Nucleated RBC 0.00 Nucleated RBC % 0.0 VBG pH VBG pCO2 VBG pO2 VBG HCO3 VBG Total CO2 VBG O2 Saturation VBG Base Excess Sodium 142 Potassium 3.5 Chloride 108 Carbon Dioxide 21 Anion Gap 13.0 BUN 28 H Creatinine 1.5 H Estimated GFR (MDRD) 33 L Glucose 116 H Calcium 8.9 Total Bilirubin 1.2 H AST 19 ALT 16 Alkaline Phosphatase 73 Troponin I High Sens 4.9 B-Natriuretic Peptide Total Protein 7.7 Albumin 4.0 Globulin 3.7 Albumin/Globulin Ratio 1.1 Lipase 24 07/06/19 07/06/19 12:43 12:55 WBC RBC Hgb Hct MCV MCH MCHC RDW Plt Count MPV Neut # (Auto) Lymph # (Auto) Meeker # (Auto) Eos # (Auto) Baso # (Auto) Absolute Nucleated RBC Nucleated RBC % VBG pH 7.361 VBG pCO2 39.9 L VBG pO2 43.7 VBG HCO3 22.1 L VBG Total CO2 23.3 L VBG O2 Saturation 78.8 VBG Base Excess -3.1 L Sodium Potassium Chloride Carbon Dioxide Anion Gap BUN Creatinine Estimated GFR (MDRD) Glucose Calcium Total Bilirubin AST ALT Alkaline Phosphatase Troponin I High Sens B-Natriuretic Peptide 399 H Total Protein Albumin Globulin Albumin/Globulin Ratio Lipase PD MEDICAL DECISION MAKING - ED course Complexity details: reviewed old records, reviewed results, re-evaluated patient, considered differential, d/w patient, d/w family, d/w residential sales consultant ED course: Patient presenting with likely COPD exacerbation and started on multiple duo nebs, as well as Solu-Medrol and magnesium. Patient requiring submental oxygen by nasal cannula. Patient denies discomfort and have lower suspicion for PE, ACS, [place], unstable angina, dissection, aneurysm, but considered. EKG did not reflect ischemia and cardiac enzymes within normal limits. Chest x-ray also concerning for mild pulmonary edema, although no history of CHF diagnosis or significant fluid overload on exam. Patient to receive a dose of Lasix as well.Patient additionally received first dose of azithromycin given concern for COPD exacerbation. Patient continued to be monitored in the ED and had significant improvement although was not able to be weaned fully off of oxygen. Remainder of screening lab work was relatively unremarkable except for elevation in BNP. Hopeful of discharging patient home on oral medications and supplemental oxygen as she has some oxygen available to her at home, however, this is difficult to obtain given multiple issues including insurance and supplies available to her. At this time, patient will require hospitalization given her hypoxia. Discussed results recommendations with patient and friend who are amenable to this plan. Also spoke with hospitalist, who is amenable to this plan. Departure - Departure Disposition: ED Place in Observation Clinical Impression: COPD exacerbation
--- NOTE | 2019-07-06 12:08 | XRAY Report ---
Reason: shortness of breath Procedure Date: 07/06/2019 Accession Number: [id number] / [id number] Procedure: XR - Chest 1 View X-Ray CPT Code: 18246 FULL RESULT: EXAM: CHEST RADIOGRAPHY EXAM DATE: 07/06/2019 11:49 AM. CLINICAL HISTORY: Shortness of breath. COMPARISON: CHEST 2 VIEW 05/16/2018 12:32 PM. TECHNIQUE: 1 view. FINDINGS: Lungs/Pleura: Developing mild pulmonary edema pattern, with trace bilateral effusions. Mediastinum: Heart size at upper limits of normal. Other: None. IMPRESSION: Developing mild pulmonary edema pattern with trace bilateral effusions. RADIA
[2019-07-06] MEDS ORDERED: IPRATROPIUM/ALBUTEROL 3 ML NEB INH STA (12:15)
[2019-07-06] MEDS ORDERED: methylPREDNISolone SUCCINATE 125 MG/2 ML VIAL IVP STA (12:15)
[2019-07-06] MEDS ORDERED: FUROSEMIDE 40 MG/4 ML VIAL IVP STA (12:41)
[2019-07-06 12:53] LABS: BASOPHILS % (AUTO) 0.4 %; EOSINOPHILS # (AUTO) 0.1 10^3/uL (0.0-0.7); EOSINOPHILS % (AUTO) 0.8 %; HGB - HEMOGLOBIN 12.8 g/dL (12.0-16.0); LYMPHOCYTES # (AUTO) 0.7 10^3/uL (1.5-3.5); LYMPHOCYTES % (AUTO) 9.7 %; MEAN CORPUSCULAR HEMOGLOBIN 32.5 pg (27.0-31.0); MEAN CORPUSCULAR HGB CONC 32.2 g/dL (32.0-36.0); MEAN CORPUSCULAR VOLUME 100.8 fL (81.0-99.0); MEAN PLATELET VOLUME 9.8 fL (7.9-10.8); MONOCYTES # (AUTO) 0.5 10^3/uL (0.0-1.0); MONOCYTES % (AUTO) 6.9 %; NEUTROPHILS # (AUTO) 6.1 10^3/uL (1.5-6.6); NEUTROPHILS % (AUTO) 81.9 %; PLT - PLATELET COUNT 221 10^3/uL (130-450); RED BLOOD COUNT 3.94 10^6/uL (4.20-5.40); RED CELL DISTRIBUTION WIDTH 14.5 % (12.0-15.0); WHITE BLOOD COUNT 7.5 x10^3/uL (4.8-10.8)
[2019-07-06] MEDS ORDERED: MAGNESIUM SULFATE 2 GRAM 2 GM/50 ML BAG IV ONE (13:01)
[2019-07-06 13:05] LABS: VBG BASE EXCESS -3.1 mmol/L (-2 - +2); VBG PCO2 39.9 mmHg (41-51); VBG PH 7.361 (7.31-7.41); VBG PO2 43.7 mmHg (25-47); VBG TOTAL CO2 23.3 mmol/L (24-29)
[2019-07-06 13:19] LABS: ALBUMIN/GLOBULIN RATIO 1.1 (1.0-2.2); BILIRUBIN,TOTAL 1.2 mg/dL (0.2-1.0); CALCIUM 8.9 mg/dL (8.5-10.3); CREATININE 1.5 mg/dL (0.4-1.0); TOTAL PROTEIN 7.7 g/dL (6.7-8.2)
[2019-07-06] MEDS ORDERED: AZITHROMYCIN 250 MG TABLET PO STA (15:08)
--- NOTE | 2019-07-06 16:21 | HISTORY & PHYSICAL EXAMINATION ---
Chief Complaint - Chief Complaint Chief Complaint: shortness of breath History of Present Illness - Admitted From Admitted From:: HOme/ER - History Obtained From Records Reviewed: [facility] History obtained from: patient and ED MD Exam Limitations: none - History of Present Illness HPI Comment/Other: She is an 79 year old white femal with COPD and who is suppose to be on home O2 but ran out months ago. She has a concentrator, but did not see her PCP for this nor did she contact her pharmacy that took care of the O2 tanks. She last saw her PCP 06/16/19: Visit Type: Consult CC: Chronic conditions. History of Present Illness: Transition of care and to discuss Chronic conditions ...................................................................Severiano Carrasco MA June 16, 2019 9:42 AM Chief concern(s): Transfer care Present illness: None Chronic conditions include: COPD - Patient doesn't feel that it impacts her daily life much with the exception that she was told she is not a surgical candidate for knee replacement due to poor pulmonary function. Quit smoking 20 years ago. Takes Stiolto respimat and pulmicort inhalers daily as prescribed. SaO2 95% on room air. CKD Stage 3 - takes furosemide daily. Last saw prepper a few months ago and was told she would need to follow up in one year. No known changes in care plan. Congestive heart failure - doesn't feel as if she is affected much daily. Saw drive away driver for her annual check a few months ago; told she should follow up in a year. Sleep apnea - CPAP-adherent; wakes rested. Insomnia - taking Ambien for years; willing to try something else. Goes to sleep easily, wakes in middle of night. Has habit of falling asleep in front of television. Denies any anxiety or situational worries. GERD - OTC Nexium controls symptoms of heartburn. Hyperlipidemia - denies myalgias on statin therapy. Annual depression screening completed today with PHQ-9 and brief discussion. Screening for alcohol misuse: In the past 3 months, have you on any occasion consumed 4 (women) or 5 (men) or more drinks containing alcohol? Patient answered, "no" She now present to the ER with grey that has worsened over several days. No fever, chills, cough. Mild increase in pitting edema. Denies chest pain, change in her meds or diet. She came to the ER and is alert, well nourished and NAD. Not dehydrated on exam. Clear lungs from rhonchi or crackels but poor air movement and coarse breath sounds with occ wheeze. No JVD and no edema. She responded to nebs, steroids and IV lasix. Feels much better and can go home, but is noted to have increased O2 requirements from the last time she was certified. She needs O2 tanks at home. But her pharmacy is not open and they no longer handle O2 anyway. So I have to bring her in to OBV status, since DME certification is not allowed out of the ER. History - Past Medical History Cardiovascular: reports: Congestive heart failure (with pEF. ALIX with EF 60-70%, diastolic dysfunction, and pulmonary HTN), Hypertension, High cholesterol, Coronary artery disease, Peripheral Vascular Disease (Right iliac stenting and right to left femoral-femoral bypass 09/2013. Seen 04/17/19 before being considered for TKR. 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 Last visit 06/21/18 had her Stage 4, hgb 13.8, O2 at 92% RA rest and he doubled her lasix from 20 to 40.) HEENT: reports: Chronic vision loss, Other (sialadenitis w stone in past) Psych: reports: Depression, Anxiety Musculoskeletal: reports: Chronic back pain, Other (chronic leg pain) Derm: reports: None MRSA Hx?: No - Past Surgical History Ortho: reports: Other Cardiovascular: reports: Fempop bypass HEENT: reports: Cataracts Derm: reports: Skin cancer surgery (sq cell of thigh) - Family & Social History Family History Comment/Other: Mom had stomach cancer,HTN, heart disease. Dad had heart attack, HTN. Brother with a bleeding disease. Sisterd of COPD Living arrangement: At home Living Situation: Alone Social History Notes: former smoker, 3 ppd for 35 years, quit 11/12/1990. drinks ~10 oz/week with two "BIG" vodka drinks a day - Substance History Use: Uses substance without health or social issues: NONE Abuse: Recurrent use of substance despite neg consequences: NONE - POLST Patient has POLST: No Meds/Allgy - Home Medications Home Medications: Ambulatory Orders Medication Instructions Recorded Confirmed Acetaminophen [Pain Relief] 500 mg PO Q6HR PRN 04/18/14 07/06/19 Lactobacillus Combo No.6 1 cap PO DAILY 04/18/14 07/06/19 [Probiotic Complex] Levothyroxine [Synthroid] 50 mcg PO DAILY 04/18/14 07/06/19 Metoprolol Tartrate 50 mg PO BID 04/18/14 07/06/19 Rosuvastatin Calcium [Crestor] 40 mg PO DAILY 04/18/14 07/06/19 amLODIPine [Norvasc] 10 mg PO DAILY 04/18/14 07/06/19 Furosemide 40 mg DAILY 01/05/16 07/06/19 Sertraline HCl 50 mg DAILY 01/05/16 07/06/19 Albuterol Sulf [Ventolin Hfa 1 - 2 puffs INH Q4HR PRN #1 inhaler 05/16/18 07/06/19 Inhaler] Budesonide [Pulmicort] 1 puffs INH BID #1 inhaler 05/16/18 07/06/19 Cetirizine [ZyrTEC] 10 mg PO DAILY #20 tablet 05/16/18 07/06/19 Esomeprazole Magnesium [Nexium] 20 mg PO DAILY 05/16/18 07/06/19 Prednisone [Saba] 5 mg PO UD #20 tablet. 07/06/19 Tiotropium Br/Olodaterol HCl 4 gm IH DAILY 07/06/19 07/06/19 [Stiolto Respimat Inhal [place]] traZODone [Desyrel] 25 mg PO DAILY PRN 07/06/19 07/06/19 - Allergies Allergies/Adverse Reactions: Allergies Allergy/AdvReac Type Severity Reaction Status Date / Time meperidine HCl * Allergy Unknown Unknown Verified 03/09/14 23:45 [From Demerol] sulfamethoxazole Allergy Unknown Unknown Verified 03/09/14 23:19 [From Bactrim] trimethoprim [From Bactrim] Allergy Unknown Unknown Verified 03/09/14 23:19 morphine AdvReac Intermediate Nausea Verified 05/16/18 12:03 Review of Systems - Constitutional Constitutional: denies: Fever, Chills, Malaise, Weakness, Poor appetite - Eyes Eyes: denies: Pain, Amaurosis, Blurred vision - Ears, Nose & Throat Ears, Nose & Throat: reports: Hearing loss. denies: Ear pain, Hearing aids, Nasal obstruction, Nasal congestion, Postnasal drainage, Sore throat - Cardiovascular Cariovascular: reports: Exertional dyspnea, Decr. exercise tolerance. denies: Irregular heart rate, Palpitations, Chest pain, Edema, Lightheadedness, Syncope - Respiratory Respiratory: reports: Wheezing, SOB with exertion. denies: Cough, Sputum production, Snoring, Hemoptysis, Orthopnea, SOB at rest - Gastrointestinal Gastrointestinal: denies: Abdominal pain, Constipation, Diarrhea - Genitourinary Genitourinary: denies: Dysuria, Frequency, Urgency - Musculoskeletal Musculoskeletal: denies: Muscle pain, Back pain, Joint pain - Integumentary Integumentary: denies: Rash, Lesions - Neurological Neurological: reports: Memory problems. denies: General weakness, Focal weakness, Headache - Psychiatric Psychiatric: denies: Depression, Anxiety, Suicidal - Endocrine Endocrine: denies: Polyuria, Polydypsia - Hematologic/Lymphatic Hematologic/Lymphatic: denies: Anemia, Bruising Prior Level of Functionality: Independent at home. Needs some help with housework bc of knees but able to take care of ADLs Exam - Vital Signs Reviewed Vital Signs: Yes Vital Signs: Vital Signs x48h Temp Pulse Resp BP Pulse Ox 07/06/19 13:32 95 28 H 128/54 L 88 L 07/06/19 12:34 77 19 07/06/19 11:49 79 23 140/55 H 93 07/06/19 11:06 36.9 C 82 22 145/55 H 95 - Physical Exam General Appearance: positive: No acute distress, Other (short, stocky white female at 4'11", 72.57 kg who is sitting at bedside, speaking to another frien d/sister? at the bedside. NAD) Eyes Bilateral: positive: PERRL ENT: positive: No signs of dehydration Neck: positive: No JVD Respiratory: positive: Chest non-tender, No respiratory distress, Wheezes. negative: Rales, Rhonchi Cardiovascular: positive: Regular rate & rhythm, Systolic murmur. negative: Gallop/S4, Friction rub Peripheral Pulses: positive: 1+ Abdomen: positive: Non-tender, No distention, Other (obese). negative: Tenderness Skin: positive: Warm, Dry Extremities: positive: Non-tender, Pedal edema (1+ or less) Neurologic/Psychiatric: positive: Oriented x3, CN's nml (2-12), Motor nml Conclusion/Plan - Problem List (1) COPD exacerbation Conclusion/Plan: No history of infection and no pneumonia. responded to ER treatment. Will go home with same meds except will now go home with increased O2. Room air O2 sats at rest were 88% At rest on 2 lpm NC her sats were 92% With exertion on 2 lpm, her sats were 84%, 3 lpm were 85%, 4 lpm were 87% and finally on 5 lpm with exertion, her O2 sats improved to 90% I am ordering home O2, 2 lpm at rest, and 5 lpm with exertion to treat her COPD, CHF and hypoxia. (2) Acute diastolic CHF (congestive heart failure), NYHA class 2 Conclusion/Plan: go home on lasix 3 in the morning for 2 days then resume 2 a day as usual. Followup with PCP in the next 1-2 weeks. Needs BMP and BNP checked in office. She responded well to the ER lasix and wants to go home. Feels back to baseline. (3) CKD (chronic kidney disease) stage 3, GFR 30-59 ml/min Conclusion/Plan: Her nephrology notes state Stage 4 but she is stable here. NO change in meds to fu at usal time frame. - Lab Results Lab results reviewed: Yes Fish Bones: 07/06/19 12:43 07/06/19 12:43 - Diagnostic Imaging Results Diagnostic Imaging Results: positive: Final report reviewed Diagnostic Imaging Results Comments: CHEST RADIOGRAPHY EXAM DATE: 07/06/2019 11:49 AM. CLINICAL HISTORY: Shortness of breath. COMPARISON: CHEST 2 VIEW 05/16/2018 12:32 PM. TECHNIQUE: 1 view. FINDINGS: Lungs/Pleura: Developing mild pulmonary edema pattern, with trace bilateral effusions. Mediastinum: Heart size at upper limits of normal. Other: None. IMPRESSION: Developing mild pulmonary edema pattern with trace bilateral effusions. Core Measures - Anticipated LOS I expect patient to be DC'd or transferred within 96 hours.: Yes - DVT/VTE - Prophylaxis VTE/DVT Device ordered at admit?: Yes
--- NOTE | 2019-07-06 17:34 | Discharge Plan ---
Discharge Plan Problem Reviewed?: Yes Disposition: Home, Self Care Condition: Stable Prescriptions: Prednisone [Saba] 5 mg PO UD #20 tablet. Diet: Low Sodium Activity Restrictions: Activity as Tolerated Shower Restrictions: No Driving Restrictions: No Health Concerns: You presented to the emergency room with shortness of breath gradually getting worse for the last few days. We know that you have emphysema and congestive heart failure and you were evaluated for worsening of those diseases. You did not have pneumonia and your EKG and blood tests showed stable chronic kidney disease, no infection, and no heart attack. Plan of Treatment: You responded well to the intravenous lasix given to you as well as the steroids and nebulizers. The chest xray showed fluid from congestive heart failure that was mild. Care Goals: 1. Finish a tapering dose of steroids for the emphysema over the next 5 days 2. We are sending you home with a new oxygen prescription. 3. Take (3) 20 mg lasix tablets in the morning for the next 2 days then go back to 2 tablets a day as Dr. Aguillon ordered last year. 4. See Dr. Aguillon and your Bi Lead in the next few weeks for followup. Do not wait for your regularly scheduled time. Be seen sooner. 5. See your new primary care provider that you saw 06/16/19 in followup as well so they know you use oxygen and can keep on top of the prescription. Assessment: Patient feels stable enough and at baseline to go home. Agrees to plan. No Smoking: If you smoke, Please STOP! Call for help. Follow-up with: Indira Ledesma ARNP [Credentialed Staff Provider] -
[2019-07-06 18:03] VITALS: BP 143/78
== END 2019-07-06 18:54 | disposition home or self-care (01) ==
LOC: EDUNIT# → ED 10:59
DX: J44.1 Chronic obstructive pulmonary disease with (acute) exacerbation (principal); R09.02 Hypoxemia; I10 Essential (primary) hypertension; Z99.81 Dependence on supplemental oxygen
CPT/HCPCS: 36415; 71045; 80053; 82803; 83690; 83880; 84484; 85025; 93005; 94640; 94761; 96374; 96375; 99284; 99285; A9270

== ENCOUNTER 2019-10-16 08:56 | Outpatient (CLI) | payer MEDICARE, OTHER ==
[2019-10-16 18:01] LABS: BASOPHILS % (AUTO) 0.6 %; EOSINOPHILS # (AUTO) 0.2 10^3/uL (0.0-0.7); EOSINOPHILS % (AUTO) 3.1 %; HGB - HEMOGLOBIN 12.5 g/dL (12.0-16.0); LYMPHOCYTES # (AUTO) 1.6 10^3/uL (1.5-3.5); LYMPHOCYTES % (AUTO) 31.1 %; MEAN CORPUSCULAR HGB CONC 30.4 g/dL (32.0-36.0); MEAN PLATELET VOLUME 9.8 fL (7.9-10.8); MONOCYTES # (AUTO) 0.5 10^3/uL (0.0-1.0); MONOCYTES % (AUTO) 9.3 %; NEUTROPHILS # (AUTO) 2.9 10^3/uL (1.5-6.6); NEUTROPHILS % (AUTO) 55.5 %; PLT - PLATELET COUNT 246 10^3/uL (130-450); RED BLOOD COUNT 4.03 10^6/uL (4.20-5.40); RED CELL DISTRIBUTION WIDTH 15.1 % (12.0-15.0); WHITE BLOOD COUNT 5.2 x10^3/uL (4.8-10.8)
[2019-10-16 18:10] LABS: HB2 TOTAL 13.1 g/dL; HEMOGLOBIN A1C 0.53 g/dL; HEMOGLOBIN A1C % 5.9 % (4.6-6.2)
[2019-10-16 18:15] LABS: ALBUMIN 4.4 g/dL (3.2-5.5); ALBUMIN/GLOBULIN RATIO 1.3 (1.0-2.2); ALKALINE PHOSPHATASE 67 IU/L (42-121); ALT ALANINE AMINOTRANSFERASE 20 IU/L (10-60); AST ASPARTATE AMINOTRANSFERASE 30 IU/L (10-42); BILIRUBIN,TOTAL 0.8 mg/dL (0.2-1.0); BUN - BLOOD UREA NITROGEN 27 mg/dL (6-20); CARBON DIOXIDE - CO2 24 mmol/L (21-32); CHLORIDE 105 mmol/L (101-111); CHOL/HDL RATIO 2.7 (<4.4); CHOLESTEROL 195 mg/dL; CREATININE 1.7 mg/dL (0.4-1.0); GFR - MDRD 29 (>89); GLUCOSE 104 mg/dL (70-100); HDL CHOLESTEROL 71 mg/dL; LDL CHOLESTEROL,CALCULATED 104 mg/dL; LDL/HDL RATIO 1.5 (<4.4); SODIUM 142 mmol/L (135-145); TOTAL PROTEIN 7.7 g/dL (6.7-8.2); VLDL CHOLESTEROL 20 mg/dL
[2019-10-16 18:20] LABS: CREATININE,URINE 63.2 mg/dL; MICROALBUM/CREATININE RATIO,UR 441.5 ug/mg (<30.0); MICROALBUMIN,URINE 27.9 mg/dL (0-300.0)
== END 2019-10-16 08:57 | disposition home or self-care (01) ==
LOC: LAB.S 08:56
PROVIDERS: ATTEND Registered Nurse
DX: I11.0 Hypertensive heart disease with heart failure (principal); I50.9 Heart failure, unspecified; I13.0 Hypertensive heart and chronic kidney disease with heart failure and stage 1 through stage 4 chronic kidney disease, or unspecified chronic kidney disease; N18.3 Chronic kidney disease, stage 3 (moderate); D63.1 Anemia in chronic kidney disease; J44.9 Chronic obstructive pulmonary disease, unspecified; E78.5 Hyperlipidemia, unspecified
CPT/HCPCS: 36415; 80053; 80061; 82043; 82570; 83036; 83721; 84443; 85025

== ENCOUNTER 2020-02-24 13:29 | Outpatient (CLI) | payer MEDICARE, OTHER ==
--- NOTE | 2020-02-24 13:09 | SLEEP CARE CONSULTATION ---
Information from patient questionnaire entered by Mary Deshpande. I have reviewed and concur with the information entered by Mary Deshpande. This document represents the service I personally performed and the decisions made by me, Opal Vang MD, [facility]. History of Present Illness Previous diagnosis: Moderate, Obstructive Sleep Apnea-Hypopnea Syndrome AHI: 25.3 (in 2016) Reason for follow up: annual (last seen 2018) Equipment type: CPAP Equipment obtained from: [facility] HPI additional information: To minimize the risk of COVID-19 exposure, we have the option to conduct your visit with me over the phone. I will be able to discuss your health and offer medical advice. If you agree, we will bill your insurance. Do you agree to this telephone service: YES. HPI: Ms. Ho was called today to follow up of nasal CPAP therapy. She was diagnosed to have moderate obstructive sleep apnea-hypopnea syndrome. The patient wears with a full face mask. She has not gotten supplies from [facility] for a while. She reports using the device nightly and all through the night. The compliance data show usage in 180 out of the past 180 nights, averagi ng 9.6 hours a night. The > 4 hour compliance rate for the past 180 days is 100%. She complained of no particular problem with the device such as soreness on the face, dry nose, epistaxis, nasal congestion or headache. She thinks that the pressure at 9 cmH2O is comfortable. On the CPAP therapy she notices improvement in her sleep quality, and that she wakes up feeling fresher in the morning and more awake/alert during the day. The average residual AHI is 1.6; and average time in large leak per day is 11 minutes. CPAP Compliance Data - Data Reviewed with Patient Average duration of nightly device use: 9.6 Compliance rate %: 100 (180 days) Current pressure setting (cmH2O): 9 Humidity settin Average residual AHI: 1.6 Average large leak: 11 min 43 sec Subjective Initial [place] Sleepiness Scale score: 0 Allergies and Home Medications Drug allergies reviewed: Yes Home medication list reviewed: Yes Review of Systems Review of systems same as previous: Yes Physical Exam Height: 4 ft 11 in Impression and Plan IMPRESSION: 1. Obstructive Sleep Apnea-Hypopnea Syndrome, moderate (AHI was 25.3) with the patient doing well on nasal CPAP therapy. She has excellent compliance and significant clinical improvement. The current pressure appears effective and comfortable. Her mask fits well. Overall, she is very satisfied with treatment and plans to continue with it long-term. No adjustment is necessary today. PLAN: 1. Continue with CPAP set at 9 cmH2O. 2. Try newer full face masks 3. Prescription made for supplies. 4. Return in 6 months when she is eligible for a new machine. I spent 100% of the 12 minute phone call with the patient with greater than 50% of this spent counseling the patient and coordination of care.
== END 2020-02-24 13:30 | disposition home or self-care (01) ==
LOC: SC 13:29
PROVIDERS: ATTEND Internal Medicine Pulmonary Disease
DX: G47.33 Obstructive sleep apnea (adult) (pediatric) (principal)

== ENCOUNTER 2020-10-06 14:59 | Outpatient (CLI) | payer MEDICARE, OTHER ==
[2020-10-06 20:10] LABS: BASOPHILS % (AUTO) 0.5 %; EOSINOPHILS # (AUTO) 0.3 10^3/uL (0.0-0.7); EOSINOPHILS % (AUTO) 4.1 %; LYMPHOCYTES # (AUTO) 1.8 10^3/uL (1.5-3.5); LYMPHOCYTES % (AUTO) 30.2 %; MEAN CORPUSCULAR VOLUME 103.3 fL (81.0-99.0); MEAN PLATELET VOLUME 9.4 fL (7.9-10.8); MONOCYTES # (AUTO) 0.4 10^3/uL (0.0-1.0); NEUTROPHILS # (AUTO) 3.5 10^3/uL (1.5-6.6); PLT - PLATELET COUNT 253 10^3/uL (130-450); RED BLOOD COUNT 4.24 10^6/uL (4.20-5.40); RED CELL DISTRIBUTION WIDTH 14.8 % (12.0-15.0)
[2020-10-06 20:24] LABS: ALBUMIN 4.2 g/dL (3.2-5.5); ALBUMIN/GLOBULIN RATIO 1.3 (1.0-2.2); BILIRUBIN,TOTAL 0.9 mg/dL (0.2-1.0); CREATININE 1.7 mg/dL (0.4-1.0); TOTAL PROTEIN 7.5 g/dL (6.7-8.2)
== END 2020-10-06 15:00 | disposition home or self-care (01) ==
LOC: LAB.S 14:59
PROVIDERS: ATTEND Registered Nurse
DX: E78.5 Hyperlipidemia, unspecified (principal); E03.9 Hypothyroidism, unspecified; I48.0 Paroxysmal atrial fibrillation; I10 Essential (primary) hypertension; K21.9 Gastro-esophageal reflux disease without esophagitis
CPT/HCPCS: 36415; 80053; 84443; 85025

== ENCOUNTER 2020-10-26 08:00 | Outpatient (CLI) | payer MEDICARE, OTHER | END 2020-10-26 08:01 | disposition critical access hospital (66) | LOC: EMS 08:00 | PROVIDERS: ATTEND Surgery | DX: R42 Dizziness and giddiness (principal); R53.1 Weakness | CPT/HCPCS: A0425; A0427 ==

== ENCOUNTER 2020-11-30 11:06 | Outpatient (CLI) | payer MEDICARE ==
--- OUTSIDE RECORDS SUMMARY | 2020-12-08 00:20 | EXTERNAL MEDICAL SUMMARY RPT | Continuity of Care Document ---
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 Unavailable Unavailable Trino Unavailable Unavailable Katus Unavailable Unavailable TRINO Unavailable Unavailable Picco Unavailable Unavailable Kosloff Unavailable Unavailable Werve Unavailable Unavailable Henna Unavailable Unavailable Problems Allergies date description facility ADHESIVE \T\ TAPE [facility] AMOXICILLIN [facility] CODEINE [facility] DULOXETINE [facility] LEVETIRACETAM [facility] METHADONE [facility] PHENAZOPYRIDINE HCL [facility] PREGABALIN [facility] SULFAMETHOXAZOLE-TRIMETHOPRIM [facility] NO KNOWN ENVIRONMENTAL ALLERGIES [facility] PENICILLINS [facility] NO KNOWN ALLERGIES [facility] LACTOSE [facility] PREGABALIN [facility] ALOE VERA OIL [facility] VARENICLINE [facility] BROCCOLI [facility] HYDROCODONE [facility] SHRIMP [facility] CARBAMAZEPINE [facility] ALOE VERA [facility] FLUOXETINE [facility] MELOXICAM [facility] VENOM-HONEY BEE [facility] BANANA [facility] DULOXETINE [facility] meperidine HCl * [facility] morphine [facility] sulfamethoxazole [facility] trimethoprim [facility] ACETAMINOPHEN [facility] CODEINE [facility] FLUOCINOLONE [facility] SULFA ANTIBIOTICS [facility] NO KNOWN ALLERGIES [facility] CODEINE [facility] LISINOPRIL [facility] Gluten* [facility] ACETAMINOPHEN [facility] ADHESIVE \T\ TAPE [facility] ATORVASTATIN [facility] CODEINE [facility] HYDROCODONE [facility] LOVASTATIN [facility] OXYCODONE [facility] POLLEN [facility]TR[facility] MEPERIDINE AND RELATED [facility] NO KNOWN ENVIRONMENTAL ALLERGIES [facility] PENICILLINS [facility] SULFA ANTIBIOTICS [facility] Ciprofloxacin [facility] Penicillins [facility] Statins [facility] DISPOSABLE GLOVES [facility] PENICILLINS [facility] NO KNOWN ALL[facility]GIES [facility] CHEESE [facility] LATEX [facility] PEANUTS [facility] CODEINE [facility] RISPERIDONE [facility] ATORVASTATIN [facility] BEE VENOM PROTEIN (HONEY BEE) [facility] meperidine HCl * [facility] morphine [facility] sulfamethoxazole [facility] trimethoprim [facility] ADHESIVE \T\ TAPE [facility] CODEINE [facility] HYDROCODONE [facility] METHSCOPOLAMINE [facility] ONDANSETRON [facility] NO ALLERGY INFORMATION AVAILABLE [facility] LATEX [facility] MARCUS [facility] MILK [facility] WHEAT [facility] CODEINE [facility] METOPROLOL [facility] ISOSORBIDE MONONITRATE [facility] LISINOPRIL [facility] [id number] [facility] [place] meperidine HCl * [facility] morphine [facility] sulfamethoxazole [facility] trimethoprim [facility] meperidine HCl * [facility] morphine [facility] sulfamethoxazole [facility] trimethoprim [facility] ADHESIVE \T\ TAPE [facility] ATORVASTATIN [facility] CIPROFLOXACIN [facility]INE [facility]IBROZIL [facility] MORPHINE [facility] TRAMADOL [facility] LIPITOR [facility] PENICILLINS [facility] NO ALLERGY INFORMATION ON FILE [facility] NO ALLERGY INFORMATION AVAILABLE [facility] meperidine HCl * [facility] morphine [facility] sulfamethoxazole [facility] trimethoprim [facility] AMOXICILLIN [facility] HYDROCODONE [facility] LISINOPRIL [facility] MORPHINE [facility] ROSUVASTATIN CALCIUM [facility] SULFAMETHOXAZOLE W/TRIMETHOPRIM [facility] (CO-TRIMOXAZOLE) SULFAMETHOXAZOLE-TRIMETHOPRIM [facility] NO KNOWN ALLERGIES [facility] TOPAMAX [facility] NO KNOWN ENVIRONMENTAL ALLERGIES [facility] SULFA ANTIBIOTICS [facility] CLINDAMYCIN [facility] DIPHENHYDRAMINE-PSEUDOEPHED [facility] IODINE [facility] LATEX [facility] LISINOPRIL [facility] MORPHINE [facility] PACLITAXEL [facility] PENICILLINS [facility] [id number] REDUCTASE INHIBITORS [facility] SULFA (SULFONAMIDE ANTIBIOTICS) [facility] TRAMADOL [facility] No Known Medication Allergies [facility] NO ALLERGY INFORMATION AVAILABLE [facility] SULFA (SULFONAMIDE ANTIBIOTICS) [facility] NO KNOWN ALLERGIES [facility] GLUTEN MEAL [facility] LATEX [facility] MORPHINE [facility] SPIRONOLACTONE [facility] ACETAZOLAMIDE [facility] HYDRALAZINE [facility] TERBUTALINE [facility] ATORVASTATIN [facility] meperidine HCl * [facility] morphine [facility] sulfamethoxazole [facility] trimethoprim [facility] DOXYCYCLINE [facility] GABAPENTIN [facility] METOPROLOL [facility] LATEX [facility] meperidine HCl * [facility] morphine [facility] sulfamethoxazole [facility] trimethoprim [facility] Medications date description facility 2020-11-04 00:00:00 null [facility] 2020-11-04 00:00:00 null [facility] 2020-11-04 00:00:00 null [facility] 2020-11-04 00:00:00 null [facility] 2020-11-04 00:00:00 ESOMEPRAZOLE MAGNESIUM [facility] [place] [facility] 2020-11-04 00:00:00 DICLOFENAC SODIUM [facility] 2020-11-04 00:00:00 ESOMEPRAZOLE MAGNESIUM [facility] [place] [facility] Procedures date description facility 2020-09-26 00:00:00 COMPREHENSIVE METABOLIC PANEL [facility] date description facility 2020-09-26 00:00:[address] [facility] date description facility 2020-09-26 00:00:00 CBC W/Diff/Plt [facility] date description facility 2020-09-26 00:00:00 [facility] Results Social History date description facility 2020-11-04 00:00:00 Former smoker [facility] Social History date description facility 2020-11-04 00:00:00 Former smoker [facility] date description facility [id number]
== END 2020-11-30 11:07 | disposition critical access hospital (66) ==
LOC: EMS 11:06
PROVIDERS: ATTEND Surgery
DX: R06.09 Other forms of dyspnea (principal); R53.1 Weakness; R05 Cough
CPT/HCPCS: A0425; A0429

== ENCOUNTER 2020-11-30 11:34 | Observation (INO) | payer MEDICARE ==
--- NOTE | 2020-11-30 13:45 | XRAY Report ---
PROCEDURE: Chest 1 View X-Ray INDICATIONS: Chest Pain TECHNIQUE: One view of the chest was acquired. COMPARISON: CXR 10/26/2020, 07/06/2019. Lung apices on CT cervical spine 06/23/2018. FINDINGS: Surgical changes and devices: None. Lungs and pleura: No definite pleural effusions. No pneumothorax. Similar diffuse increased pulmonar y markings. No consolidative opacity is identified. Mediastinum: Mediastinal contours appear normal. Heart size is prominent. Bones and chest wall: No suspicious bony lesions. Overlying soft tissues appear unremarkable. IMPRESSION: Similar diffuse increased pulmonary markings. Prominent heart size. This could be due to pulmonary va sculature encouragement/pulmonary edema. Interstitial disease could have a similar appearance. Reviewed by: Angel Brito MD on 11/30/2020 12:43 PM [facility] Approved by: Angel Brito MD on 11/30/2020 12:43 PM [facility]UST Station ID: [id number]
[2020-11-30 14:10] LABS: BASOPHILS % (AUTO) 0.3 %; EOSINOPHILS # (AUTO) 0.1 10^3/uL (0.0-0.7); EOSINOPHILS % (AUTO) 0.9 %; HGB - HEMOGLOBIN 13.6 g/dL (12.0-16.0); LYMPHOCYTES # (AUTO) 0.9 10^3/uL (1.5-3.5); LYMPHOCYTES % (AUTO) 13.9 %; MEAN CORPUSCULAR HEMOGLOBIN 33.1 pg (27.0-31.0); MEAN CORPUSCULAR HGB CONC 32.7 g/dL (32.0-36.0); MEAN CORPUSCULAR VOLUME 101.2 fL (81.0-99.0); MEAN PLATELET VOLUME 9.5 fL (7.9-10.8); MONOCYTES # (AUTO) 0.4 10^3/uL (0.0-1.0); MONOCYTES % (AUTO) 6.7 %; NEUTROPHILS # (AUTO) 5.1 10^3/uL (1.5-6.6); NEUTROPHILS % (AUTO) 77.9 %; PLT - PLATELET COUNT 225 10^3/uL (130-450); RED BLOOD COUNT 4.11 10^6/uL (4.20-5.40); RED CELL DISTRIBUTION WIDTH 14.7 % (12.0-15.0); WHITE BLOOD COUNT 6.5 x10^3/uL (4.8-10.8)
[2020-11-30 14:28] LABS: ALBUMIN 4.5 g/dL (3.2-5.5); ALBUMIN/GLOBULIN RATIO 1.3 (1.0-2.2); BILIRUBIN,TOTAL 1.1 mg/dL (0.2-1.0); CALCIUM 9.2 mg/dL (8.5-10.3); CREATININE 1.5 mg/dL (0.4-1.0); TOTAL PROTEIN 8.1 g/dL (6.7-8.2)
--- NOTE | 2020-11-30 14:50 | ED Physician Documentation ---
PD HPI DYSPNEA - Stated complaint Stated Complaint: SOA - Chief complaint Chief Complaint: Resp - History obtained from History obtained from: Patient - History of Present Illness Timing - onset: How many days ago (3-4) Timing - onset during: Light activity Timing - duration: Days (3-4) Timing - details: Gradual onset, Still present (The patient has had gradual onset and worsening of shortness of breath initially with moderate activity and now with just walking across the room. History of COPD as well as CHF in the past.) Inciting event(s): No: Out of meds, URI (She denies any fever productive cough sore throat or congestion) Improved by: O2 (She typically uses 3 L nasal cannula for sleep but is not on it during the day. She was using it during the day to help with symptoms.). No: Inhaler/neb (She has inhaler but no nebulizer at home. Only mild improvement with this.) Associated symptoms: Cough, Wheezing, Chest pain / discomfort (tightness), Bilateral edema (somewhat worse than baseline). No: Fever Similar symptoms before: Diagnosis (COPD and CHF.) Recently seen: Admitted (1month ago for similar symptoms. She states current symptoms feel worse than that episode.) Review of Systems Constitutional: reports: Myalgias, Fatigue. denies: Fever, Chills Nose: denies: Rhinorrhea / runny nose, Congestion Throat: denies: Sore throat Cardiac: reports: Chest pain / pressure, Pedal edema. denies: Palpitations, Calf pain Respiratory: reports: Dyspnea, Cough (nonproductive), Wheezing GI: denies: Abdominal Pain, Nausea, Vomiting, Diarrhea, Bloody / black stool : denies: Dysuria Skin: denies: Rash Neurologic: denies: Near syncope, Altered mental status, Headache Endocrine: denies: Weight loss Immunocompromised: denies: Immunocompromised PD PAST MEDICAL HISTORY - Past Medical History Past Medical History: Yes Cardiovascular: Congestive heart failure, Hypertension, High cholesterol, Coronary artery disease, Peripheral Vascular Disease, Arrhythmia Respiratory: COPD, Sleep apnea, CPAP use Neuro: None Endocrine/Autoimmune: HyPOthyroidism, Other GI: GERD, C.difficile, 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 : Other HEENT: Chronic vision loss, Other Psych: Depression, Anxiety Musculoskeletal: Chronic back pain, Other Derm: None - Past Surgical History Past Surgical History: Yes Ortho: Other Cardiovascular: Fempop bypass HEENT: Cataracts Derm: Skin cancer surgery - Present Medications Home Medications: Ambulatory Orders Medication Instructions Recorded Confirmed Acetaminophen [Pain Relief] 500 mg PO Q6HR PRN 04/18/14 11/30/20 Lactobacillus Combo No.6 1 cap PO BID 04/18/14 11/30/20 [Probiotic Complex] Levothyroxine [Synthroid] 50 mcg PO DAILY 04/18/14 11/30/20 Rosuvastatin Calcium [Crestor] 40 mg PO QPM 04/18/14 11/30/20 amLODIPine [Norvasc] 10 mg PO DAILY 04/18/14 11/30/20 Furosemide 40 mg PO DAILY 01/05/16 11/30/20 Albuterol Sulf [Ventolin Hfa 1 - 2 puffs INH Q4HR PRN #1 inhaler 05/16/18 11/30/20 Inhaler] traZODone [Desyrel] 25 - 50 mg PO QPM PRN 07/06/19 11/30/20 Ipratropium [Atrovent] 2 puffs INH TID 10/26/20 11/30/20 Metoprolol Succinate [Toprol Xl] 150 mg PO DAILY 10/26/20 11/30/20 Potassium Chloride [Klor-Con 10] 20 meq PO DAILY 10/26/20 11/30/20 Sertraline [Zoloft] 50 mg PO DAILY 10/26/20 11/30/20 Umeclidinium Brm/Vilanterol Tr 1 puffs INH DAILY 10/26/20 11/30/20 [Anoro Ellipta 62.5-25 Mcg INH] Esomeprazole Magnesium [Nexium 20 mg PO DAILY 12/01/20 12/01/20 24Hr] - Allergies Allergies/Adverse Reactions: Allergies Allergy/AdvReac Type Severity Reaction Status Date / Time meperidine HCl * Allergy Unknown Unknown Verified 11/30/20 11:39 [From Demerol] sulfamethoxazole Allergy Unknown Unknown Verified 11/30/20 11:39 [From Bactrim] trimethoprim [From Bactrim] Allergy Unknown Unknown Verified 11/30/20 11:39 morphine AdvReac Intermediate Nausea Verified 11/30/20 11:39 - Social History Does the pt smoke?: No Smoking Status: Former smoker Does the pt drink ETOH?: Yes Does the pt have substance abuse?: No - Immunizations Immunizations are current?: Yes - POLST Patient has POLST: No PD ED PE NORMAL - Vitals Vital signs reviewed: Yes (sats 86-88% RA initially) - General General: Alert and oriented X 3, Well developed/nourished, Other (On oxygen initially on presentation. She is taken off oxygen and showed a 86 to 88% on room air. She had work of breathing with some accessory muscle use even with oxygen.) - HEENT HEENT: Pharynx benign - Neck Neck: Supple, no meningeal sign, No adenopathy, No bruit, Other (mild JVD noted at 45 degrees) - Cardiac Cardiac: RRR, No murmur - Respiratory Respiratory: No respiratory distress (some accessory muscle use, orthopnea - feels much worse lying reclined. ). No: Clear bilaterally (diffuse exp wheezing and prolonged exp phase. No coarse sounds. ) - Abdomen Abdomen: Normal bowel sounds, Soft, Non distended, No organomegaly - Back Back: No CVA TTP - Derm Derm: Normal color, Warm and dry - Extremities Extremities: No tenderness to palpate, Normal ROM s pain, No calf tenderness / cord, Other (1+ edema in both lower legs up to the knees. No calf tenderness or swelling.) - Neuro Neuro: Alert and oriented X 3, No motor deficit, Normal speech Eye Opening: Spontaneous Motor: Obeys Commands Verbal: Oriented GCS Score: 15 - Psych Psych: No: Normal affect (anxious) Results - Vitals Vitals: Vital Signs - 24 hr 11/30/20 11/30/20 11/30/20 11:39 15:25 15:40 Temperature 36.9 C Heart Rate 77 81 Respiratory 18 19 Rate Blood Pressure 155/56 H 160/62 H O2 Saturation 99 88 L 95 11/30/20 15:51 Temperature Heart Rate 79 Respiratory 26 H Rate Blood Pressure O2 Saturation Oxygen O2 Source [Without Activity] Room air O2 Source Nasal cannula Oxygen Flow Rate 2 - Labs Labs: Laboratory Tests 11/30/20 11/30/20 11/30/20 13:36 13:36 13:36 WBC 6.5 RBC 4.11 L Hgb 13.6 Hct 41.6 MCV 101.2 H MCH 33.1 H MCHC 32.7 RDW 14.7 Plt Count 225 MPV 9.5 Neut # (Auto) 5.1 Lymph # (Auto) 0.9 L [place] # (Auto) 0.4 Eos # (Auto) 0.1 Baso # (Auto) 0.0 Absolute Nucleated RBC 0.00 Nucleated RBC % 0.0 Sodium 141 Potassium 3.4 L Chloride 103 Carbon Dioxide 26 Anion Gap 12.0 BUN 31 H Creatinine 1.5 H Estimated GFR (MDRD) 33 L Glucose 110 H Calcium 9.2 Total Bilirubin 1.1 H AST 22 ALT 20 Alkaline Phosphatase 69 Troponin I High Sens 5.4 B-Natriuretic Peptide Total Protein 8.1 Albumin 4.5 Globulin 3.6 Albumin/Globulin Ratio 1.3 Lipase 24 Nasal Adenovirus (PCR) Nasal B. parapertussis DNA (PCR) Nasal Coronavir 229E PCR Nasal Coronavir HKU1 PCR Nasal Coronavir NL63 PCR Nasal Coronavir OC43 PCR Nasal Enterovir/Rhinovir PCR Nasal Influenza B PCR Nasal Influenza A PCR Nasal Parainfluen 1 PCR Nasal Parainfluen 2 PCR Nasal Parainfluen 3 PCR Nasal Parainfluen 4 PCR Nasal RSV (PCR) Nasal B.pertussis DNA PCR Nasal C.pneumoniae (PCR) Cedric Human Metapneumo PCR Nasal M.pneumoniae (PCR) Nasal SARS-CoV-2 (PCR) 11/30/20 11/30/20 13:36 15:33 WBC RBC Hgb Hct MCV MCH MCHC RDW Plt Count MPV Neut # (Auto) Lymph # (Auto) [place] # (Auto) Eos # (Auto) Baso # (Auto) Absolute Nucleated RBC Nucleated RBC % Sodium Potassium Chloride Carbon Dioxide Anion Gap BUN Creatinine Estimated GFR (MDRD) Glucose Calcium Total Bilirubin AST ALT Alkaline Phosphatase Troponin I High Sens B-Natriuretic Peptide 334 H Total Protein Albumin Globulin Albumin/Globulin Ratio Lipase Nasal Adenovirus (PCR) NOT DETECTED Nasal B. parapertussis DNA (PCR) NOT DETECTED Nasal Coronavir 229E PCR NOT DETECTED Nasal Coronavir HKU1 PCR NOT DETECTED Nasal Coronavir NL63 PCR NOT DETECTED Nasal Coronavir OC43 PCR NOT DETECTED Nasal Enterovir/Rhinovir PCR NOT DETECTED Nasal Influenza B PCR NOT DETECTED Nasal Influenza A PCR NOT DETECTED Nasal Parainfluen 1 PCR NOT DETECTED Nasal Parainfluen 2 PCR NOT DETECTED Nasal Parainfluen 3 PCR NOT DETECTED Nasal Parainfluen 4 PCR NOT DETECTED Nasal RSV (PCR) NOT DETECTED Nasal B.pertussis DNA PCR NOT DETECTED Nasal C.pneumoniae (PCR) NOT DETECTED Cedric Human Metapneumo PCR NOT DETECTED Nasal M.pneumoniae (PCR) NOT DETECTED Nasal SARS-CoV-2 (PCR) NOT DETECTED - Rads (name of study) chest xray Radiology: Prelim report reviewed (Increased interstitial markings consistent with possible failure. Diffuse infectious process could look similar.), See rad report PD MEDICAL DECISION MAKING - ED course Complexity details: reviewed old records, reviewed results, re-evaluated patient (Less work of breathing after nebulizer treatments. She has been given Decadron and furosemide as well. It seems a combination of COPD and CHF.), considered differential, d/w patient, d/w bilingual sales consultant (hospitalist) Departure - Departure Disposition: ED Place in Observation Clinical Impression: Acute exacerbation of COPD with asthma, Hypoxia Dyspnea Qualifiers: Dyspnea type: shortness of breath Qualified Code(s): R06.02 - Shortness of breath CHF (congestive heart failure) Qualifiers: Heart failure type: unspecified Heart failure chronicity: acute on chronic Qualified Code(s): I50.9 - Heart failure, unspecified Condition: Stable Record reviewed to determine appropriate education?: Yes Discharge Date/Time: 11/30/20 17:10
[2020-11-30] MEDS ORDERED: FUROSEMIDE 40 MG/4 ML VIAL IVP STA ×2 (15:08→16:58)
[2020-11-30] MEDS ORDERED: IPRATROPIUM/ALBUTEROL 3 ML NEB INH STA (15:08)
[2020-11-30] MEDS ORDERED: DEXAMETHASONE 10 MG/ML VIAL IVP STA (15:08)
[2020-11-30] MEDS ORDERED: ALBUTEROL NEB 2.5 MG/3 ML INH STA (16:22)
[2020-11-30] MEDS ORDERED: ONDANSETRON ODT 4 MG TABLET TL PRN (16:35)
[2020-11-30] MEDS ORDERED: PROCHLORPERAZINE 10 MG/2 ML VIAL IVP PRN (16:35)
[2020-11-30] MEDS ORDERED: oxyCODONE 5 MG TABLET PO PRN (16:35)
[2020-11-30] MEDS ORDERED: ONDANSETRON 4 MG/2 ML VIAL IVP PRN (16:35)
[2020-11-30 16:44] LABS: C. PNEUMONIAE- RESP PCR PANEL NOT DETECTED
[2020-11-30] MEDS ORDERED: POTASSIUM CHLORIDE 20 MEQ TABLET PO ONE (16:46)
--- NOTE | 2020-11-30 17:28 | HISTORY & PHYSICAL EXAMINATION ---
Chief Complaint - Chief Complaint Chief Complaint: shortness of breath History of Present Illness - Admitted From Admitted From:: ER - History Obtained From Records Reviewed: [facility] History obtained from: pt Exam Limitations: no - History of Present Illness HPI Comment/Other: This is a 80-yrs old female with a PMH significant for COPD with home oxygen usage, Congestive heart failure, Hypertension, High cholesterol, Coronary artery disease, Peripheral Vascular Disease, Arrhythmia, Sleep apnea, CPAP use, HyPOthyroidism, GERD, C.difficile, Chronic vision loss, Depression, Anxiety, Chronic back pain, who present ER complain of shortness of breath. Pt report she has increased shortness of breath over last 3 days and felt she was getting progressively worse, " when I tried to get something out of the kitchen and couldn't breath. It takes me so long time to recover from difficult breath after I walk short distance". Pt can speak full sentences without difficult. She denies fever, chill, chest pain, abdominal pain, nausea, vomiting or diarrhea. Patient report she takes 3 L oxygen at night, and on and off oxygen in the daytime and depend her need. Routine laboratory show patient had creatinine 1.5, elevated BNP 334. Chest x-ray show Similar diffuse increased pulmonary markings which could be due to pulmonary vasculature encouragement or pulmonary edema. Echo in 10/2020 review preserved EF with elevated right heart abnormal pressure and elevated RVSP. COVID-19 test is negative. 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 Dad had heart attack, HTN. Brother with a bleeding disease. Sisterd of COPD Social History Notes: former smoker, 3 ppd for 35 years, quit 11/12/1990. drinks ~10 oz/week with two "BIG" vodka drinks a day - Substance History Use: Uses substance without health or social issues: NONE - POLST Patient has POLST: No Meds/Allgy - Home Medications Home Medications: Ambulatory Orders Medication Instructions Recorded Confirmed Acetaminophen [Pain Relief] 500 mg PO Q6HR PRN 04/18/14 11/30/20 Lactobacillus Combo No.6 1 cap PO BID 04/18/14 11/30/20 [Probiotic Complex] Levothyroxine [Synthroid] 50 mcg PO DAILY 04/18/14 11/30/20 Rosuvastatin Calcium [Crestor] 40 mg PO QPM 04/18/14 11/30/20 amLODIPine [Norvasc] 10 mg PO DAILY 04/18/14 11/30/20 Furosemide 40 mg PO DAILY 01/05/16 11/30/20 Albuterol Sulf [Ventolin Hfa 1 - 2 puffs INH Q4HR PRN #1 inhaler 05/16/18 11/30/20 Inhaler] traZODone [Desyrel] 25 - 50 mg PO QPM PRN 07/06/19 11/30/20 Ipratropium [Atrovent] 2 puffs INH TID 10/26/20 11/30/20 Metoprolol Succinate [Toprol Xl] 150 mg PO DAILY 10/26/20 11/30/20 Potassium Chloride [Klor-Con 10] 20 meq PO DAILY 10/26/20 11/30/20 Sertraline [Zoloft] 50 mg PO DAILY 10/26/20 11/30/20 Umeclidinium Brm/Vilanterol Tr 1 puffs INH DAILY 10/26/20 11/30/20 [Anoro Ellipta 62.5-25 Mcg INH] - Allergies Allergies/Adverse Reactions: Allergies Allergy/AdvReac Type Severity Reaction Status Date / Time meperidine HCl * Allergy Unknown Unknown Verified 11/30/20 11:39 [From Demerol] sulfamethoxazole Allergy Unknown Unknown Verified 11/30/20 11:39 [From Bactrim] trimethoprim [From Bactrim] Allergy Unknown Unknown Verified 11/30/20 11:39 morphine AdvReac Intermediate Nausea Verified 11/30/20 11:39 Review of Systems - Constitutional Constitutional: denies: Fatigue, Fever, Chills, Malaise, Weakness, Diaphoresis, Night sweats - Eyes Eyes: denies: Pain, Blurred vision, Field loss, Vision loss - Ears, Nose & Throat Ears, Nose & Throat: denies: Ear pain, Vertigo, Nosebleeds, Sore throat, Mouth lesions - Cardiovascular Cariovascular: reports: Exertional dyspnea, Decr. exercise tolerance. denies: Irregular heart rate, Palpitations, Chest pain, Lightheadedness, Syncope - Respiratory Respiratory: reports: SOB with exertion. denies: Cough, Sputum production, Wheezing, Snoring, Hemoptysis, Orthopnea, SOB at rest - Gastrointestinal Gastrointestinal: denies: Abdominal pain, Constipation, Diarrhea, Rectal bleeding, Nausea, Vomiting - Genitourinary Genitourinary: denies: Dysuria, Urgency, Incontinence - Musculoskeletal Musculoskeletal: denies: Muscle pain, Muscle aches - Integumentary Integumentary: denies: Rash, Lesions, Lumps - Neurological Neurological: reports: General weakness. denies: Focal weakness, Headache, Dizziness, Numbness, Pre-existing deficit, Abnormal gait, Seizures, Incoordination, Slurred speech - Psychiatric Psychiatric: denies: Depression, Delusions, Hallucinations - Endocrine Endocrine: denies: Polyuria, Polyphagia - Hematologic/Lymphatic Hematologic/Lymphatic: denies: Anemia, Blood clots Exam - Vital Signs Vital Signs: Vital Signs x48h Temp Pulse Resp BP Pulse Ox 11/30/20 16:50 104 H 28 H 11/30/20 16:46 90 20 155/57 H 97 11/30/20 15:51 79 26 H 11/30/20 15:40 81 19 160/62 H 95 11/30/20 15:25 88 L 11/30/20 11:39 36.9 C 77 18 155/56 H 99 - Physical Exam General Appearance: positive: No acute distress, Alert. negative: Lethargic Eyes Bilateral: positive: Normal inspection, PERRL, No lid inflammation ENT: positive: ENT inspection nml, No signs of dehydration. negative: Purulent nasal drainage Neck: positive: Nml inspection, Trachea midline. negative: Thyromegaly, Tracheal deviation Respiratory: positive: Chest non-tender, Rales. negative: Breath sounds nml, Wheezes Cardiovascular: positive: Regular rate & rhythm, No murmur. negative: Tachycardia, Bradycardia, Systolic murmur, Diastolic murmur Peripheral Pulses: positive: 2+ Abdomen: positive: Non-tender, Nml bowel sounds, No distention. negative: Tenderness, Guarding, Rebound Back: positive: Nml inspection Skin: positive: Color nml, Warm, Dry. negative: Cyanosis, Diaphoresis, Pallor Extremities: positive: Non-tender, Full ROM, Nml appearance. negative: Calf tenderness Neurologic/Psychiatric: positive: Oriented x3, Motor nml, Sensation nml, Mood/affect nml. negative: Weakness, Sensory loss, Facial droop, Slurred/abnml speech, Depressed mood/affect Sepsis Event Note (H) - Evaluation Current Stage of Sepsis: Ruled out Conclusion/Plan - Problem List (1) Acute on chronic diastolic heart failure Conclusion/Plan: Patient had hx of chronic diastolic heart failure, Echo in last time show patient had diastolic heart failure with preserved EF. patient had elevated BNP, chest x-ray show Pulmonary edema. Patient take oral Lasix in the home, we will give patient intravenous twice daily of Lasix, spironolactone. BNP monitor, Supplemental oxygen as needed. (2) COPD exacerbation Patient shortness of breathing, weakness. Patient Report she take 3 liter of oxygen in the night but she was on and off in the daytime with oxygen. She denies fever, chill. COVID-19 test is negative. 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
[2020-11-30] MEDS: methylPREDNISolone SUCCINATE 40 MG/ML VIAL IVP SCH ×2 (18:09→21:32)
[2020-11-30] MEDS: SODIUM CHLORIDE FLUSH 0.9% 10 ML SYRINGE IVP SCH (18:10)
[2020-11-30] MEDS: SPIRONOLACTONE 25 MG TABLET PO SCH (19:20)
[2020-11-30] MEDS: AZITHROMYCIN 250 MG TABLET PO SCH (19:20)
[2020-11-30] MEDS: ACETAMINOPHEN 325 MG TABLET PO PRN (19:24)
[2020-11-30] MEDS ORDERED: FUROSEMIDE 40 MG/4 ML VIAL IVP SCH ×2 (21:00)
[2020-11-30] MEDS: BUDESONIDE 0.5 MG/2 ML NEB INH SCH (21:02)
[2020-11-30] MEDS: IPRATROPIUM/ALBUTEROL 3 ML NEB INH PRN (21:03)
[2020-11-30] MEDS: traZODone 50 MG TABLET PO PRN (21:26)
[2020-12-01] MEDS: ACETAMINOPHEN 325 MG TABLET PO PRN ×2 (01:35→21:31)
[2020-12-01] MEDS: SODIUM CHLORIDE FLUSH 0.9% 10 ML SYRINGE IVP SCH ×3 (01:35→17:10)
[2020-12-01 06:36] LABS: HGB - HEMOGLOBIN 12.6 g/dL (12.0-16.0); LYMPHOCYTES # (AUTO) 0.4 10^3/uL (1.5-3.5); LYMPHOCYTES % (AUTO) 9.5 %; MEAN CORPUSCULAR HEMOGLOBIN 33.2 pg (27.0-31.0); MEAN CORPUSCULAR HGB CONC 32.9 g/dL (32.0-36.0); MEAN CORPUSCULAR VOLUME 101.1 fL (81.0-99.0); MEAN PLATELET VOLUME 9.7 fL (7.9-10.8); MONOCYTES % (AUTO) 1.1 %; NEUTROPHILS # (AUTO) 3.4 10^3/uL (1.5-6.6); NEUTROPHILS % (AUTO) 88.9 %; PLT - PLATELET COUNT 207 10^3/uL (130-450); RED BLOOD COUNT 3.79 10^6/uL (4.20-5.40); RED CELL DISTRIBUTION WIDTH 14.6 % (12.0-15.0); WHITE BLOOD COUNT 3.8 x10^3/uL (4.8-10.8)
[2020-12-01 06:40] LABS: CREATININE 1.5 mg/dL (0.4-1.0)
[2020-12-01] MEDS: methylPREDNISolone SUCCINATE 40 MG/ML VIAL IVP SCH ×3 (06:46→21:20)
[2020-12-01] MEDS: FUROSEMIDE 40 MG/4 ML VIAL IVP SCH ×2 (06:47→14:23)
[2020-12-01] MEDS: SODIUM CHLORIDE FLUSH 0.9% 10 ML SYRINGE IVP PRN ×3 (06:47→21:20)
[2020-12-01] MEDS: IPRATROPIUM/ALBUTEROL 3 ML NEB INH PRN ×3 (07:44→18:18)
[2020-12-01] MEDS: BUDESONIDE 0.5 MG/2 ML NEB INH SCH ×2 (07:44→18:18)
[2020-12-01] MEDS: AZITHROMYCIN 250 MG TABLET PO SCH (08:10)
[2020-12-01] MEDS: METOPROLOL SUCCINATE 50 MG TABLET PO SCH (08:10)
[2020-12-01] MEDS: LEVOTHYROXINE 25 MCG TABLET PO SCH (08:10)
[2020-12-01] MEDS: SERTRALINE 25 MG TABLET PO SCH (08:10)
[2020-12-01] MEDS: SPIRONOLACTONE 25 MG TABLET PO SCH (08:10)
[2020-12-01] MEDS: amLODIPine 5 MG TABLET PO SCH (08:10)
--- NOTE | 2020-12-01 10:45 | PHARMACY PROGRESS NOTE ---
- Best Possible Medication History Admit Date and Time: 11/30/20 1635 Processed by: Pharmacy Medication History completed: Yes Patient Interview: Completed Secondary Source(s): Insurance records (PATIENT INTERVIEWED BY DOGMAN/WOMAN. PATIENT ABLE TO CONFIRM HOME MEDICATIONS.) As the person ultimately responsible for medication therapy, providers are able to order a medication from an existing home medication list in [facility] via the "Reconcile Routine" prior to Confirmation of that medication by learning support assistant. Such practice is discouraged except when the physician, in their clinical judgment, deems that a medical need exists for a medication without regard to previous use.
--- NOTE | 2020-12-01 15:12 | PROVIDER PROGRESS NOTE ---
Subjective - Prog Note Date Prog Note Date: 12/01/20 - Subjective Pt reports feeling: No change Subjective: I observe patient still show significantly short of breathing when she go to bathroom. Patient denied fever, Chest pain. Current Medications - Current Medications Current Medications: Active Medications Acetaminophen (Acetaminophen 325 Mg Tablet) 650 mg PO Q4HR PRN PRN Reason: Pain 1 to 4 Last Admin: 12/01/20 01:35 Dose: 650 mg Documented by: Albuterol/Ipratropium (Ipratropium/Albuterol 3 Ml Neb) 3 ml INH Q4HR PRN PRN Reason: Wheezing Last Admin: 12/01/20 13:49 Dose: 3 ml Documented by: Amlodipine Besylate (Amlodipine 5 Mg Tablet) 10 mg PO DAILY [facility] Last Admin: 12/01/20 08:10 Dose: 10 mg Documented by: Azithromycin (Azithromycin 250 Mg Tablet) 250 mg PO DAILY [facility] Stop: 12/04/20 09:01 Last Admin: 12/01/20 08:10 Dose: 250 mg Documented by: Budesonide (Budesonide 0.5 Mg/2 Ml Neb) 0.5 mg INH RTBID [facility] Last Admin: 12/01/20 07:44 Dose: 0.5 mg Documented by: Furosemide (Furosemide 40 Mg/4 Ml Vial) 40 mg IVP BIDDIURETIC [facility] Last Admin: 12/01/20 14:23 Dose: 40 mg Documented by: Levothyroxine Sodium (Levothyroxine 25 Mcg Tablet) 50 mcg PO DAILY [facility] Last Admin: 12/01/20 08:10 Dose: 50 mcg Documented by: Methylprednisolone (Methylprednisolone Succinate 40 Mg/Ml Vial) 40 mg IVP TID [facility] Last Admin: 12/01/20 14:23 Dose: 40 mg Documented by: Metoprolol Succinate (Metoprolol Succinate 50 Mg Tablet) 150 mg PO DAILY [facility] Last Admin: 12/01/20 08:10 Dose: 150 mg Documented by: Ondansetron HCl (Ondansetron Odt 4 Mg Tablet) 4 mg TL Q6HR PRN PRN Reason: Nausea / Vomiting Ondansetron HCl (Ondansetron 4 Mg/2 Ml Vial) 4 mg IVP Q6HR PRN PRN Reason: Nausea / Vomiting Oxycodone HCl (Oxycodone 5 Mg Tablet) 5 mg PO Q4HR PRN PRN Reason: Pain 5 to 7 Prochlorperazine Edisylate (Prochlorperazine 10 Mg/2 Ml Vial) 10 mg IVP Q6HR PRN PRN Reason: Nausea / Vomiting Sertraline HCl (Sertraline 25 Mg Tablet) 50 mg PO DAILY [facility] Last Admin: 12/01/20 08:10 Dose: 50 mg Documented by: Sodium Chloride (Sodium Chloride Flush 0.9% 10 Ml Syringe) 10 ml IVP PRN PRN PRN Reason: NEEDED PER PROVIDER ORDERS Last Admin: 12/01/20 14:23 Dose: 10 ml Documented by: Sodium Chloride (Sodium Chloride Flush 0.9% 10 Ml Syringe) 10 ml IVP 0100,0900,1700 [facility] Last Admin: 12/01/20 06:47 Dose: 10 ml Documented by: Spironolactone (Spironolactone 25 Mg Tablet) 25 mg PO DAILY [facility] Last Admin: 12/01/20 08:10 Dose: 25 mg Documented by: Trazodone HCl (Trazodone 50 Mg Tablet) 50 mg PO QPM PRN PRN Reason: Insomnia Last Admin: 11/30/20 21:26 Dose: 50 mg Documented by: Acetaminophen [Pain Relief] 1 - 2 tab PO Q6HR PRN 04/18/14 Lactobacillus Combo No.6 [Probiotic Complex] 1 cap PO BID 04/18/14 Levothyroxine [Synthroid] 50 mcg PO DAILY 04/18/14 Rosuvastatin Calcium [Crestor] 40 mg PO QPM 04/18/14 amLODIPine [Norvasc] 10 mg PO DAILY 04/18/14 Furosemide 40 mg PO DAILY 01/05/16 traZODone [Desyrel] 25 - 50 mg PO QPM PRN 07/06/19 Ipratropium [Atrovent] 2 puffs INH TID 10/26/20 Metoprolol Succinate [Toprol Xl] 150 mg PO DAILY 10/26/20 Potassium Chloride [Klor-Con 10] 20 meq PO DAILY 10/26/20 Sertraline [Zoloft] 50 mg PO DAILY 10/26/20 Umeclidinium Brm/Vilanterol Tr [Anoro Ellipta 62.5-25 Mcg INH] 1 puffs INH DAILY 10/26/20 Aspirin Chewable [[facility] Eudardo Aspirin] 81 mg PO DAILY 12/01/20 Cetirizine [ZyrTEC] 10 mg PO DAILY 12/01/20 Esomeprazole Magnesium [Nexium 24Hr] 20 mg PO DAILY 12/01/20 Multivitamin/Iron/Folic Acid [Centrum Women Tablet] 1 tab PO DAILY 12/01/20 Objective - Vital Signs/Intake & Output Vital Signs: Vital Signs x48h Temp Pulse Pulse Pulse Pulse Resp BP 12/01/20 13:49 78 18 12/01/20 11:45 85 82 119/67 12/01/20 11:42 36.9 C 82 16 12/01/20 07:50 36.6 C 85 16 12/01/20 07:44 82 18 BP BP Pulse Ox 12/01/20 13:49 12/01/20 11:45 129/49 L 12/01/20 11:42 124/49 L 93 12/01/20 07:50 145/60 H 95 12/01/20 07:44 Intake & Output: Intake & Output 11/28/20 11/29/20 11/30/20 12/01/20 23:59 23:59 23:59 23:59 Intake Total 640 690 Output Total 450 850 Balance 190 -160 - Objective General Appearance: positive: Alert, Mild distress. negative: Lethargic Eyes Bilateral: positive: Normal inspection, PERRL, No lid inflammation ENT: positive: ENT inspection nml, No signs of dehydration. negative: Purulent nasal drainage Neck: positive: Nml inspection, Trachea midline. negative: Thyromegaly, Tracheal deviation Respiratory: positive: Chest non-tender, Rhonchi. negative: No respiratory distress, Breath sounds nml, Wheezes, Rales Cardiovascular: positive: Regular rate & rhythm, No murmur. negative: Tachycardia, Bradycardia, Systolic murmur, Diastolic murmur Peripheral Pulses: 2+ Radial (R), 2+ Radial (L) Abdomen: positive: Non-tender, Nml bowel sounds, No distention. negative: Tenderness, Guarding, Rebound Back: positive: Nml inspection. negative: CVA tenderness (R), CVA tenderness (L) Skin: positive: Color nml, Warm, Dry. negative: Cyanosis, Diaphoresis, Pallor Extremities: positive: Non-tender, Full ROM, Nml appearance. negative: Calf tenderness Neurologic/Psychiatric: positive: Oriented x3, Motor nml, Sensation nml, Mood/affect nml. negative: Weakness, Sensory loss, Facial droop, Slurred/abnml speech, Depressed mood/affect - Lab Results Fish Bones: 12/01/20 06:12 12/01/20 06:12 Other Labs: Lab Results x24hrs 12/01/20 12/01/20 12/01/20 Range/Units 06:12 06:12 06:12 WBC 3.8 L (4.8-10.8) x10^3/uL RBC 3.79 L (4.20-5.40) 10^6/uL Hgb 12.6 (12.0-16.0) g/dL Hct 38.3 (37.0-47.0) % MCV 101.1 H (81.0-99.0) fL MCH 33.2 H (27.0-31.0) pg MCHC 32.9 (32.0-36.0) g/dL RDW 14.6 (12.0-15.0) % Plt Count 207 (130-450) 10^3/uL MPV 9.7 (7.9-10.8) fL Neut # (Auto) 3.4 (1.5-6.6) 10^3/uL Lymph # (Auto) 0.4 L (1.5-3.5) 10^3/uL [place] # (Auto) 0.0 (0.0-1.0) 10^3/uL Eos # (Auto) 0.0 (0.0-0.7) 10^3/uL Baso # (Auto) 0.0 (0.0-0.1) 10^3/uL Absolute Nucleated RBC 0.00 x10^3/uL Nucleated RBC % 0.0 /100WBC Sodium 143 (135-145) mmol/L Potassium 3.7 (3.5-5.0) mmol/L Chloride 107 (101-111) mmol/L Carbon Dioxide 25 (21-32) mmol/L Anion Gap 11.0 (6-13) BUN 31 H (6-20) mg/dL Creatinine 1.5 H (0.4-1.0) mg/dL Estimated GFR (MDRD) 33 L (>89) Glucose 165 H (70-100) mg/dL Calcium 9.0 (8.5-10.3) mg/dL B-Natriuretic Peptide 447 H (5-100) pg/mL TSH (0.34-5.60) uIU/mL Nasal Adenovirus (PCR) Nasal B. parapertussis DNA (PCR) Nasal Coronavir 229E PCR Nasal Coronavir HKU1 PCR Nasal Coronavir NL63 PCR Nasal Coronavir OC43 PCR Nasal Enterovir/Rhinovir PCR Nasal Influenza B PCR Nasal Influenza A PCR Nasal Parainfluen 1 PCR Nasal Parainfluen 2 PCR Nasal Parainfluen 3 PCR Nasal Parainfluen 4 PCR Nasal RSV (PCR) Nasal B.pertussis DNA PCR Nasal C.pneumoniae (PCR) Cedric Human Metapneumo PCR Nasal M.pneumoniae (PCR) Nasal SARS-CoV-2 (PCR) 12/01/20 11/30/20 Range/Units 06:12 15:33 WBC (4.8-10.8) x10^3/uL RBC (4.20-5.40) 10^6/uL Hgb (12.0-16.0) g/dL Hct (37.0-47.0) % MCV (81.0-99.0) fL MCH (27.0-31.0) pg MCHC (32.0-36.0) g/dL RDW (12.0-15.0) % Plt Count (130-450) 10^3/uL MPV (7.9-10.8) fL Neut # (Auto) (1.5-6.6) 10^3/uL Lymph # (Auto) (1.5-3.5) 10^3/uL [place] # (Auto) (0.0-1.0) 10^3/uL Eos # (Auto) (0.0-0.7) 10^3/uL Baso # (Auto) (0.0-0.1) 10^3/uL Absolute Nucleated RBC x10^3/uL Nucleated RBC % /100WBC Sodium (135-145) mmol/L Potassium (3.5-5.0) mmol/L Chloride (101-111) mmol/L Carbon Dioxide (21-32) mmol/L Anion Gap (6-13) BUN (6-20) mg/dL Creatinine (0.4-1.0) mg/dL Estimated GFR (MDRD) (>89) Glucose (70-100) mg/dL Calcium (8.5-10.3) mg/dL B-Natriuretic Peptide (5-100) pg/mL TSH 0.76 (0.34-5.60) uIU/mL Nasal Adenovirus (PCR) NOT DETECTED Nasal B. parapertussis DNA (PCR) NOT DETECTED Nasal Coronavir 229E PCR NOT DETECTED Nasal Coronavir HKU1 PCR NOT DETECTED Nasal Coronavir NL63 PCR NOT DETECTED Nasal Coronavir OC43 PCR NOT DETECTED Nasal Enterovir/Rhinovir PCR NOT DETECTED Nasal Influenza B PCR NOT DETECTED Nasal Influenza A PCR NOT DETECTED Nasal Parainfluen 1 PCR NOT DETECTED Nasal Parainfluen 2 PCR NOT DETECTED Nasal Parainfluen 3 PCR NOT DETECTED Nasal Parainfluen 4 PCR NOT DETECTED Nasal RSV (PCR) NOT DETECTED Nasal B.pertussis DNA PCR NOT DETECTED Nasal C.pneumoniae (PCR) NOT DETECTED Cedric Human Metapneumo PCR NOT DETECTED Nasal M.pneumoniae (PCR) NOT DETECTED Nasal SARS-CoV-2 (PCR) NOT DETECTED ABX Reporting Has patient been on IV antibiotics over the past 48 hours?: No Sepsis Event Note (H) - Evaluation Current Stage of Sepsis: Ruled out Assessment/Plan - Problem List (1) Shortness of breath on exertion Impression: Patient Show significantly shortness breathing in exertion. Patient has a history of diastolic heart failure and COPD. None patient was treated for acute on chronic diastolic heart failure and COPD exacerbation. We will continue treat patient with intravenous diuretics, patient intravenous steroids and DuoNeb breathing treatment, supply oxygen as needed. 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 patient had elevated BNP, chest x-ray show Pulmonary edema. Patient take oral Lasix in the home, we will give patient intravenous twice daily of Lasix, spironolactone. BNP monitor, Supplemental oxygen as needed. (3) COPD exacerbation 12/01 lung sound show right more than left crackles, We will continue DuoNeb, Pulmicort and intravenous Solu-Medrol, Supplemental oxygen as needed Patient shortness of breathing, weakness. Patient Report she take 3 liter of oxygen in the night but she was on and off in the daytime with oxygen. She denies fever, chill. COVID-19 test is negative. 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
[2020-12-01] MEDS: traZODone 50 MG TABLET PO PRN (21:20)
[2020-12-02] MEDS: IPRATROPIUM/ALBUTEROL 3 ML NEB INH PRN ×2 (00:22→07:20)
[2020-12-02] MEDS: SODIUM CHLORIDE FLUSH 0.9% 10 ML SYRINGE IVP SCH ×2 (01:17→05:28)
[2020-12-02 05:21] LABS: BASOPHILS % (AUTO) 0.1 %; EOSINOPHILS % (AUTO) 0.1 %; HGB - HEMOGLOBIN 13.1 g/dL (12.0-16.0); LYMPHOCYTES # (AUTO) 0.5 10^3/uL (1.5-3.5); LYMPHOCYTES % (AUTO) 6.7 %; MEAN CORPUSCULAR HEMOGLOBIN 33.1 pg (27.0-31.0); MEAN CORPUSCULAR HGB CONC 32.6 g/dL (32.0-36.0); MEAN CORPUSCULAR VOLUME 101.5 fL (81.0-99.0); MEAN PLATELET VOLUME 9.6 fL (7.9-10.8); MONOCYTES # (AUTO) 0.2 10^3/uL (0.0-1.0); MONOCYTES % (AUTO) 2.9 %; NEUTROPHILS # (AUTO) 6.6 10^3/uL (1.5-6.6); NEUTROPHILS % (AUTO) 89.9 %; PLT - PLATELET COUNT 239 10^3/uL (130-450); RED BLOOD COUNT 3.96 10^6/uL (4.20-5.40); RED CELL DISTRIBUTION WIDTH 14.6 % (12.0-15.0); WHITE BLOOD COUNT 7.4 x10^3/uL (4.8-10.8)
[2020-12-02 05:25] LABS: CALCIUM 9.1 mg/dL (8.5-10.3); CREATININE 1.6 mg/dL (0.4-1.0)
[2020-12-02] MEDS: FUROSEMIDE 40 MG/4 ML VIAL IVP SCH (05:28)
[2020-12-02] MEDS: methylPREDNISolone SUCCINATE 40 MG/ML VIAL IVP SCH (05:28)
[2020-12-02] MEDS: SODIUM CHLORIDE FLUSH 0.9% 10 ML SYRINGE IVP PRN ×2 (05:28→09:51)
[2020-12-02] MEDS: BUDESONIDE 0.5 MG/2 ML NEB INH SCH (07:20)
[2020-12-02] MEDS ORDERED: POTASSIUM CHLORIDE 20 MEQ TABLET PO ONE (07:42)
[2020-12-02] MEDS: LEVOTHYROXINE 25 MCG TABLET PO SCH (09:50)
[2020-12-02] MEDS: METOPROLOL SUCCINATE 50 MG TABLET PO SCH (09:50)
[2020-12-02] MEDS: amLODIPine 5 MG TABLET PO SCH (09:50)
[2020-12-02] MEDS: SERTRALINE 25 MG TABLET PO SCH (09:51)
[2020-12-02] MEDS: AZITHROMYCIN 250 MG TABLET PO SCH (09:51)
[2020-12-02] MEDS: SPIRONOLACTONE 25 MG TABLET PO SCH (09:51)
--- NOTE | 2020-12-02 10:37 | Discharge Plan ---
Discharge Plan Problem Reviewed?: Yes Disposition: Home, Self Care Condition: Stable Prescriptions: Spironolactone [Aldactone] 25 mg PO DAILY #30 tablet predniSONE [Deltasone] 10 mg PO DAILY #16 tab Azithromycin [Zithromax] 250 mg PO DAILY #3 tablet Diet: Cardiac Activity Restrictions: Activity as Tolerated Shower Restrictions: No (fall precaution) Instruction Topics: Azithromycin tablets, Prednisone tablets, Spironolactone tablets, Heart Failure Meds Control, Heart Failure, COPD, Oxygen Home Use, Heart Failure Coping Health Concerns: heart failure, COPD Plan of Treatment: you are prescribed new medication Spironolactone plus your home medication Lasix help to remove your extra body fluid, you may control your sodium intake and watch closely your weight, followup with your PCP and your orchestra leader as out- pt, and followup with [facility] and cardiac rehab. You are prescribed shortness term of Steroid Prednisone and Azithromycin, continue home breathing treatment, followup with [facility]hab and out-pt channel marketing specialist. Care Goals: stabilization, improvement of your medical conditions, and reduce of hospitalization times Assessment: discussed the care plan with you, you understood and agreed. Additional Instructions or Follow Up instructions: You may followup with your PCP in one week, followup with orchestra leader and channel marketing specialist as out-pt, followup with [facility] and cardiac rehab. Should your symptoms return or worsen, you may present ER or call 911 for help. Follow-Up Care: [facility], [facility], [facility] No Smoking: If you smoke, Please STOP! Call for help. Follow-up with: Indira Ledesma ARNP [Primary Care Provider] -
--- NOTE | 2020-12-02 11:02 | DISCHARGE SUMMARY ---
Discharge Summary Admit Date: 11/30/20 Discharge Date: 12/02/20 Discharging Provider: Tod Santos Primary Care Provider: Indira Pollock Condition at Discharge: Stable Discharge Disposition: 01 Home, Self Care Discharge Facility Name: home - DIAGNOSES Discharge Diagnoses with Status of Each Condition: (1) Shortness of breath on exertion Resolved.Patient has no acute respiratory distress. Respiratory rate is 16, pt had 95% sat on room air. (2) Acute on chronic diastolic heart failure improved. BNP is down to 250, Patient has no acute respiratory distress. Respiratory rate is 16, pt had 95% sat on room air. Patient will arrange for cardiac wellness rehab, (3) COPD exacerbation resolved in exacerbation. Patient has no acute respiratory distress. Respiratory rate is 16, pt had 95% sat on room air. Patient is prescribed short-term of Prednisone. Resume home medication (4) CKD (chronic kidney disease) stage 3, GFR 30-59 ml/min stable (5)Hypertension Stable (6)Hypothyroidism stable - HPI History of Present Illness: This is a 80-yrs old female with a PMH significant for COPD with home oxygen usage, Congestive heart failure, Hypertension, High cholesterol, Coronary artery disease, Peripheral Vascular Disease, Arrhythmia, Sleep apnea, CPAP use, H yPOthyroidism, GERD, C.difficile, Chronic vision loss, Depression, Anxiety, Chronic back pain, who present ER complain of shortness of breath. Pt report she has increased shortness of breath over last 3 days and felt she was getting progressively worse, " when I tried to get something out of the kitchen and couldn't breath. It takes me so long time to recover from difficult breath after I walk short distance". Pt can speak full sentences without difficult. She denies fever, chill, chest pain, abdominal pain, nausea, vomiting or diarrhea. Patient report she takes 3 L oxygen at night, and on and off oxygen in the daytime and depend her need. Routine laboratory show patient had creatinine 1.5, elevated BNP 334. Chest x-ray show Similar diffuse increased pulmonary markings which could be due to pulmonary vasculature encouragement or pulmonary edema. Echo in 10/2020 review preserved EF with elevated right heart abnormal pressure and elevated RVSP. COVID-19 test is negative. Discussed the care goal with the patient patient request full code - HOSPITAL COURSE Hospital Course: Patient was admitted for shortness of breathing. Patient was found to have CHF exacerbation and COPD exacerbation. Patient was treated with intravenous diuretic Lasix, intravenous Solu-Medrol and DuoNeb for COPD. After treatment, patient symptoms had significantly improved, patient prescript short term of steroid. Patient had PT treatment and evaluation in hospital. Patient also was arranged for cardiac and pulmonary rehab. - ALLERGIES Allergies/Adverse Reactions: Allergies Allergy/AdvReac Type Severity Reaction Status Date / Time meperidine HCl * Allergy Unknown Unknown Verified 11/30/20 11:39 [From Demerol] sulfamethoxazole Allergy Unknown Unknown Verified 11/30/20 11:39 [From Bactrim] trimethoprim [From Bactrim] Allergy Unknown Unknown Verified 11/30/20 11:39 morphine AdvReac Intermediate Nausea Verified 11/30/20 11:39 - MEDICATIONS Home Medications: Ambulatory Orders Medication Instructions Recorded Confirmed Acetaminophen [Pain Relief] 1 - 2 tab PO Q6HR PRN 04/18/14 12/01/20 Lactobacillus Combo No.6 1 cap PO BID 04/18/14 12/01/20 [Probiotic Complex] Levothyroxine [Synthroid] 50 mcg PO DAILY 04/18/14 11/30/20 Rosuvastatin Calcium [Crestor] 40 mg PO QPM 04/18/14 11/30/20 amLODIPine [Norvasc] 10 mg PO DAILY 04/18/14 11/30/20 Furosemide 40 mg PO DAILY 01/05/16 11/30/20 Albuterol Sulf [Ventolin Hfa 1 - 2 puffs INH Q4HR PRN #1 inhaler 05/16/18 11/30/20 Inhaler] traZODone [Desyrel] 25 - 50 mg PO QPM PRN 07/06/19 11/30/20 Ipratropium [Atrovent] 2 puffs INH TID 10/26/20 11/30/20 Metoprolol Succinate [Toprol Xl] 150 mg PO DAILY 10/26/20 11/30/20 Potassium Chloride [Klor-Con 10] 20 meq PO DAILY 10/26/20 11/30/20 Sertraline [Zoloft] 50 mg PO DAILY 10/26/20 11/30/20 Umeclidinium Brm/Vilanterol Tr 1 puffs INH DAILY 10/26/20 11/30/20 [Anoro Ellipta 62.5-25 Mcg INH] Aspirin Chewable [St Eduardo 81 mg PO DAILY 12/01/20 12/01/20 Aspirin] Cetirizine [ZyrTEC] 10 mg PO DAILY 12/01/20 12/01/20 Esomeprazole Magnesium [Nexium 20 mg PO DAILY 12/01/20 12/01/20 24Hr] Multivitamin/Iron/Folic Acid 1 tab PO DAILY 12/01/20 12/01/20 [Centrum Women Tablet] Azithromycin [Zithromax] 250 mg PO DAILY #3 tablet 12/02/20 Spironolactone [Aldactone] 25 mg PO DAILY #30 tablet 12/02/20 predniSONE [Deltasone] 10 mg PO DAILY #16 tab 12/02/20 - PHYSICAL EXAM AT DISCHARGE General Appearance: positive: No acute distress, Alert. negative: Lethargic Eyes Bilateral: positive: Normal inspection, PERRL, No lid inflammation ENT: positive: ENT inspection nml, No signs of dehydration. negative: Purulent nasal drainage Neck: positive: Nml inspection, Trachea midline. negative: Thyromegaly, Tracheal deviation Respiratory: positive: Chest non-tender, No respiratory distress. negative: Wheezes, Rales, Rhonchi Cardiovascular: positive: Regular rate & rhythm, No murmur. negative: Tachycardia, Bradycardia, Systolic murmur, Diastolic murmur Peripheral Pulses: positive: 2+ Abdomen: positive: Non-tender, Nml bowel sounds, No distention. negative: Tenderness, Guarding, Rebound Back: positive: Nml inspection. negative: CVA tenderness (R), CVA tenderness (L) Skin: positive: Color nml, No rash, Warm, Dry. negative: Cyanosis, Diaphoresis, Pallor Extremities: positive: Non-tender, Nml appearance. negative: Calf tenderness Neurologic/Psychiatric: positive: Oriented x3, Motor nml, Sensation nml, Mood/affect nml. negative: Weakness, Sensory loss, Facial droop, Slurred/abnml speech, Depressed mood/affect - LABS Result Diagrams: 12/02/20 05:08 12/02/20 05:08 - SEPSIS Current Stage of Sepsis: Ruled out - FOLLOW UP Follow Up: you are prescribed new medication Spironolactone plus your home medication Lasix help to remove your extra body fluid, you may control your sodium intake and watch closely your weight, followup with your PCP and your aix architect as out- pt, and followup with [facility] and cardiac rehab. You are prescribed shortness term of Steroid Prednisone and Azithromycin, continue home breathing treatment, followup with [facility] and out-pt guest room inspector. You may followup with your PCP in one week, followup with aix architect and guest room inspector as out-pt, followup with [facility] and cardiac rehab. Sh ould your symptoms return or worsen, you may present ER or call 911 for help. - TIME SPENT Time Spent in Discharge (Minutes): 30
[2020-12-02 12:58] VITALS: BP 127/53
== END 2020-12-02 14:02 | disposition home or self-care (01) ==
LOC: EDUNIT# → ED 11:34 → MS2 16:35
PROVIDERS: ADMIT Specialist; ATTEND Nurse Practitioner Gerontology
DX: I13.10 Hypertensive heart and chronic kidney disease without heart failure, with stage 1 through stage 4 chronic kidney disease, or unspecified chronic kidney disease (principal); I50.33 Acute on chronic diastolic (congestive) heart failure; J44.1 Chronic obstructive pulmonary disease with (acute) exacerbation; N18.30 Chronic kidney disease, stage 3 unspecified; G47.30 Sleep apnea, unspecified; E03.9 Hypothyroidism, unspecified; E78.00 Pure hypercholesterolemia, unspecified; I25.10 Atherosclerotic heart disease of native coronary artery without angina pectoris; I73.9 Peripheral vascular disease, unspecified; I49.9 Cardiac arrhythmia, unspecified; K21.9 Gastro-esophageal reflux disease without esophagitis; H54.7 Unspecified visual loss; F32.9 Major depressive disorder, single episode, unspecified; F41.9 Anxiety disorder, unspecified; G89.29 Other chronic pain; M54.9 Dorsalgia, unspecified; Z99.81 Dependence on supplemental oxygen; Z87.891 Personal history of nicotine dependence; Z79.51 Long term (current) use of inhaled steroids
CPT/HCPCS: 36415; 71045; 80048; 80053; 83690; 83880; 84443; 84484; 85025; 87631; 93005; 94640; 96374; 96375; 96376; 97116; 97161; 99284; 99285; A9270; G0378; J7626; Q0162; 0202U

== ENCOUNTER 2021-06-07 12:14 | Outpatient (CLI) | payer MEDICARE ==
[2021-06-07 14:49] LABS: BASOPHILS % (AUTO) 0.2 %; EOSINOPHILS # (AUTO) 0.2 10^3/uL (0.0-0.7); EOSINOPHILS % (AUTO) 3.1 %; HCT - HEMATOCRIT 42.1 % (37.0-47.0); HGB - HEMOGLOBIN 13.5 g/dL (12.0-16.0); LYMPHOCYTES # (AUTO) 1.6 10^3/uL (1.5-3.5); LYMPHOCYTES % (AUTO) 29.3 %; MEAN CORPUSCULAR HEMOGLOBIN 32.6 pg (27.0-31.0); MEAN CORPUSCULAR HGB CONC 32.1 g/dL (32.0-36.0); MEAN CORPUSCULAR VOLUME 101.7 fL (81.0-99.0); MEAN PLATELET VOLUME 9.6 fL (7.9-10.8); MONOCYTES # (AUTO) 0.4 10^3/uL (0.0-1.0); MONOCYTES % (AUTO) 6.5 %; NEUTROPHILS # (AUTO) 3.3 10^3/uL (1.5-6.6); NEUTROPHILS % (AUTO) 60.5 %; PLT - PLATELET COUNT 232 10^3/uL (130-450); RED BLOOD COUNT 4.14 10^6/uL (4.20-5.40); RED CELL DISTRIBUTION WIDTH 14.6 % (12.0-15.0); WHITE BLOOD COUNT 5.4 x10^3/uL (4.8-10.8)
[2021-06-07 15:01] LABS: CALCIUM 8.9 mg/dL (8.5-10.3); CREATININE 1.6 mg/dL (0.4-1.0); POTASSIUM 3.7 mmol/L (3.5-5.0)
== END 2021-06-07 12:15 | disposition home or self-care (01) ==
LOC: LAB.S 12:14
PROVIDERS: ATTEND Registered Nurse
DX: I50.9 Heart failure, unspecified (principal)
CPT/HCPCS: 36415; 80048; 83880; 85025

== ENCOUNTER 2021-07-19 12:46 | Observation (INO) | payer MEDICARE ==
--- NOTE | 2021-07-19 14:19 | XRAY Report ---
PROCEDURE: Chest 2 View X-Ray INDICATIONS: dyspnea/ cough TECHNIQUE: 2 view(s) of the chest. COMPARISON: CXR 11/30/20 FINDINGS: Surgical changes and devices: None. Lungs and pleura: Increased vascularity is present. There is blunting of the costophrenic angles. Mediastinum: Mediastinal contours are normal. Heart size is enlarged. Bones and chest wall: No suspicious bony abnormalities. Soft tissues appear unremarkable. IMPRESSION: Cardiomegaly with increased vascularity consistent with edema. There are trace effusion s. Reviewed by: Zaida Dalton MD on 07/19/2021 2:17 PM PDT Approved by: Zaida Dalton MD on 07/19/2021 2:17 PM PDT Station ID: [id number]
[2021-07-19 15:21] LABS: BASOPHILS % (AUTO) 0.2 %; EOSINOPHILS # (AUTO) 0.1 10^3/uL (0.0-0.7); EOSINOPHILS % (AUTO) 1.1 %; HCT - HEMATOCRIT 40.6 % (37.0-47.0); HGB - HEMOGLOBIN 13.2 g/dL (12.0-16.0); LYMPHOCYTES % (AUTO) 15.2 %; MEAN CORPUSCULAR HEMOGLOBIN 32.8 pg (27.0-31.0); MEAN CORPUSCULAR HGB CONC 32.5 g/dL (32.0-36.0); MONOCYTES # (AUTO) 0.4 10^3/uL (0.0-1.0); MONOCYTES % (AUTO) 6.5 %; NEUTROPHILS % (AUTO) 76.7 %; PLT - PLATELET COUNT 204 10^3/uL (130-450); RED BLOOD COUNT 4.02 10^6/uL (4.20-5.40); RED CELL DISTRIBUTION WIDTH 14.1 % (12.0-15.0); WHITE BLOOD COUNT 6.5 x10^3/uL (4.8-10.8)
[2021-07-19] MEDS ORDERED: FUROSEMIDE 40 MG/4 ML VIAL IVP STA (15:41)
[2021-07-19] MEDS ORDERED: IPRATROPIUM/ALBUTEROL 3 ML NEB INH STA (15:41)
--- NOTE | 2021-07-19 15:46 | ED Physician Documentation ---
History of Present Illness - Stated complaint Stated Complaint: SOA - Chief complaint Chief Complaint: Resp - Additonal information Additional information: 81-year-old female presents to the emergency department for evaluation of 3 days progressive dyspnea especially with exertion as well as orthopnea. She denies any cough or fevers. She denies any wheezing. She has not had any change in her baseline pedal edema/leg swelling. Pt was noted to be quite dyspneic simply transferring from wheelchair to the bed She does have a history of COPD. Former smoker quitting more than 30 years ago. At baseline she is on 3 L nasal cannula. For about 1 week she was taking 60 mg of Lasix daily on the advice of her primary care provider but did not feel that this improved her dyspnea. For the last 4 to 5 days she is only been taking 40 mg. She denies any chest pain. She is fully vaccinated for Covid. She denies cough, congestion loss of taste or smell. No abdominal pain nausea vomiting or diarrhea. Last echocardiogram completed in October 2020 showed a preserved ejection fraction of 65%. Noted pulmonary hypertension however normal right ventricular size. There is some mild mitral valve regurgitation as well as findings of d iastolic dysfunction. Review of Systems Constitutional: denies: Fever, Chills Eyes: reports: Reviewed and negative Ears: reports: Reviewed and negative Nose: reports: Reviewed and negative Throat: reports: Reviewed and negative Cardiac: reports: Pedal edema. denies: Chest pain / pressure, Palpitations Respiratory: reports: Dyspnea. denies: Cough, Hemoptysis, Wheezing GI: denies: Abdominal Pain, Nausea, Vomiting : denies: Dysuria, Frequency, Hesitancy, Unable to Void Skin: denies: Rash, Lesions Musculoskeletal: reports: Reviewed and negative Neurologic: reports: Generalized weakness Psychiatric: denies: Depressed, Suicidal PD PAST MEDICAL HISTORY - Past Medical History Cardiovascular: Congestive heart failure, Hypertension, High cholesterol, Coronary artery disease, Peripheral Vascular Disease, Arrhythmia Respiratory: COPD, Sleep apnea, CPAP use Neuro: None Endocrine/Autoimmune: HyPOthyroidism, Other GI: GERD, C.difficile, 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 : Other HEENT: Chronic vision loss, Other Psych: Depression, Anxiety Musculoskeletal: Chronic back pain, Other Derm: None - Past Surgical History Past Surgical History: Yes Ortho: Other Cardiovascular: Fempop bypass HEENT: Cataracts Derm: Skin cancer surgery - Present Medications Home Medications: Ambulatory Orders Medication Instructions Recorded Confirmed Acetaminophen [Pain Relief] 1 - 2 tab PO Q6HR PRN 04/18/14 12/01/20 Lactobacillus Combo No.6 1 cap PO BID 04/18/14 12/01/20 [Probiotic Complex] Levothyroxine [Synthroid] 50 mcg PO DAILY 04/18/14 11/30/20 Rosuvastatin Calcium [Crestor] 40 mg PO QPM 04/18/14 11/30/20 amLODIPine [Norvasc] 10 mg PO DAILY 04/18/14 11/30/20 Furosemide 40 mg PO DAILY 01/05/16 11/30/20 Albuterol Sulf [Ventolin Hfa 1 - 2 puffs INH Q4HR PRN #1 inhaler 05/16/18 11/30/20 Inhaler] traZODone [Desyrel] 25 - 50 mg PO QPM PRN 07/06/19 11/30/20 Ipratropium [Atrovent] 2 puffs INH TID 10/26/20 11/30/20 Metoprolol Succinate [Toprol Xl] 150 mg PO DAILY 10/26/20 11/30/20 Potassium Chloride [Klor-Con 10] 20 meq PO DAILY 10/26/20 11/30/20 Sertraline [Zoloft] 50 mg PO DAILY 10/26/20 11/30/20 Umeclidinium Brm/Vilanterol Tr 1 puffs INH DAILY 10/26/20 11/30/20 [Anoro Ellipta 62.5-25 Mcg INH] Aspirin Chewable [St Eduardo 81 mg PO DAILY 12/01/20 12/01/20 Aspirin] Cetirizine [ZyrTEC] 10 mg PO DAILY 12/01/20 12/01/20 Esomeprazole Magnesium [Nexium 20 mg PO DAILY 12/01/20 12/01/20 24Hr] Multivitamin/Iron/Folic Acid 1 tab PO DAILY 12/01/20 12/01/20 [Centrum Women Tablet] Azithromycin [Zithromax] 250 mg PO DAILY #3 tablet 12/02/20 Spironolactone [Aldactone] 25 mg PO DAILY #30 tablet 12/02/20 predniSONE [Deltasone] 10 mg PO DAILY #16 tab 12/02/20 - Allergies Allergies/Adverse Reactions: Allergies Allergy/AdvReac Type Severity Reaction Status Date / Time meperidine HCl * Allergy Unknown Unknown Verified 07/19/21 12:49 [From Demerol] sulfamethoxazole Allergy Unknown Unknown Verified 07/19/21 12:49 [From Bactrim] trimethoprim [From Bactrim] Allergy Unknown Unknown Verified 07/19/21 12:49 morphine AdvReac Intermediate Nausea Verified 07/19/21 12:49 - Social History Does the pt smoke?: No Smoking Status: Former smoker Does the pt drink ETOH?: Yes Does the pt have substance abuse?: No - Immunizations Immunizations are current?: Yes - POLST Patient has POLST: No PD ED PE EXPANDED - General General: Alert, Other (Dyspnea with mild tachypnea.) - Neck Neck: Supple w/out meningeal sx. No: Adenopathy - Cardiac Cardiac: Regular Rate, Murmur Present, Radial strong equal, Pedal strong equal, Cap refill < 2 sec - Respiratory Respiratory: Labored (Mild tachypnea and increased work of breathing without retractions. RR 26), Wheezing (Scant expiratory wheeze in bilateral upper lung luna. Otherwise generally clear to auscultation without crackles or other adventitious breath sounds.) - Abdomen Abdomen: Normal Bowel sounds. No: Tender to palpation - Derm Derm: Normal color, Warm and dry. No: Rash - Neuro Neuro: Alert and Oriented X 3, CNII-XII intact - GCS Eye Opening: Spontaneous Motor: Obeys Commands Verbal: Oriented Total: 15 Results - Vitals Vitals: Vital Signs - 24 hr 07/19/21 07/19/21 12:50 16:14 Temperature 36.9 C Heart Rate 73 78 Respiratory 16 23 Rate Blood Pressure 159/52 H 163/72 H O2 Saturation 92 99 Oxygen O2 Source [] Room air O2 Source Nasal cannula Oxygen Flow Rate 2 - EKG (time done) 1553 Rate: Rate (enter#) (70) Rhythm: NSR Lyon: Normal Intervals: Normal MA. No: Prolonged QT (480 Qtc) QRS: Normal Ischemia: Non specific changes (repol abnormality diffusely) Compare to prior EKG: Unchanged from prior EKG Computer interpretation: Agree with computer - Labs Labs: Laboratory Tests 07/19/21 07/19/21 07/19/21 15:14 15:14 15:14 WBC 6.5 RBC 4.02 L Hgb 13.2 Hct 40.6 MCV 101.0 H MCH 32.8 H MCHC 32.5 RDW 14.1 Plt Count 204 MPV 9.0 Neut # (Auto) 5.0 Lymph # (Auto) 1.0 L [place] # (Auto) 0.4 Eos # (Auto) 0.1 Baso # (Auto) 0.0 Absolute Nucleated RBC 0.00 Nucleated RBC % 0.0 Sodium 143 Potassium 3.6 Chloride 106 Carbon Dioxide 25 Anion Gap 12.0 BUN 41 H Creatinine 1.5 H Estimated GFR (MDRD) 33 L Glucose 105 H Calcium 9.3 Total Bilirubin 1.1 H AST 24 ALT 30 Alkaline Phosphatase 80 Troponin I High Sens 6.5 B-Natriuretic Peptide Total Protein 8.0 Albumin 4.4 Globulin 3.6 Albumin/Globulin Ratio 1.2 Lipase 29 TSH 07/19/21 07/19/21 15:14 15:14 WBC RBC Hgb Hct MCV MCH MCHC RDW Plt Count MPV Neut # (Auto) Lymph # (Auto) [place] # (Auto) Eos # (Auto) Baso # (Auto) Absolute Nucleated RBC Nucleated RBC % Sodium Potassium Chloride Carbon Dioxide Anion Gap BUN Creatinine Estimated GFR (MDRD) Glucose Calcium Total Bilirubin AST ALT Alkaline Phosphatase Troponin I High Sens B-Natriuretic Peptide 419 H Total Protein Albumin Globulin Albumin/Globulin Ratio Lipase TSH 2.50 - Rads (name of study) CXR Radiology: Final report received (Cardiomegaly with increased vascularity consistent with edema. Trace effusions.) PD MEDICAL DECISION MAKING - ED course Complexity details: reviewed old records, reviewed results, d/w patient, d/w rn lactation consultant ED course: 81-year-old female presents emergency department for evaluation of worsening exertional dyspnea and orthopnea over the last 3 days. She does have a known history of COPD but no increase in her baseline oxygen requirements. However simple tasks simply like transferring from the bed to the wheelchair causes significant dyspnea. In 2019 a echocardiogram showed preserved ejection fraction though she had markedly elevated pulmonary hypertension. There was noted mild mitral valve regurg but no aortic stenosis. Over the last few weeks patient has trialed increasing doses of Lasix at home without improvement in her dyspnea and it has markedly worsened over the last 3 days. Chest x-ray does suggest mild pulmonary overload. Her BNP is elevated at 419 though not markedly so from baseline. Her troponin is negative and her EKG is nonischemic. However the worsening dyspnea is likely suggestive of cor pulmonale or worsening pulmonary hypertension. Patient was given 40 mg of Lasix here in the emergency department and though she has diuresed there is no significant change in her symptoms. I doubt a COPD exacerbation given the lack of productive cough or significant wheeze. Again there is been no increase in oxygen demand. Patient will be admitted to the hospital under observation status. Dr. Paola Askew has graciously agreed. Patient has been notified and agrees. Departure - Departure Disposition: ED Place in Observation Clinical Impression: Exertional shortness of breath, Pulmonary hypertension CHF (congestive heart failure) Qualifiers: Heart failure type: diastolic Heart failure chronicity: acute on chronic Qualified Code(s): I50.33 - Acute on chronic diastolic (congestive) heart failure Condition: Stable
[2021-07-19 15:50] LABS: ALBUMIN 4.4 g/dL (3.2-5.5); ALBUMIN/GLOBULIN RATIO 1.2 (1.0-2.2); BILIRUBIN,TOTAL 1.1 mg/dL (0.2-1.0); CALCIUM 9.3 mg/dL (8.5-10.3); CREATININE 1.5 mg/dL (0.4-1.0); POTASSIUM 3.6 mmol/L (3.5-5.0)
--- NOTE | 2021-07-19 17:11 | HISTORY & PHYSICAL EXAMINATION ---
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 She only recently started weighing herself (? since last admit in Nov) and notes a 5 lb increase. She denies worsening cough (denies that she has a baseline cough or sputum w/ her known COPD), no chest pain, no lightheadedness, no diaphoresis. No fever, chills. Hasnt done her own grocery shopping for a very long time, much is prepared, of note she says by "[employer]" and may have a burger at the club when there. Reports her normal BP is 120's over/ ?. BP on presentation is 159/52, 163/72, 17 0/92 (arm may have been bent on the final check). Negative troponins, BNP 419 (255 in may) . Sleeps on 3 pillows but that has always been the case, no change, no PND Not tachynpenic on presntation. mid 90's Sa02 o home flow of 3L. CXR: Cardiomegaly w/ increased vascularity c/w edema; Trace effusions Respiratory panel negative Got covid vaccine For BP is on amlodipine and toprol 150 (she has an old discharge med rec form with her from 2019 e.g with metop tartrate 50 bid "I guess I should get rid of this list" acknowledges she is on the toprol. no missed doses No significant relief after initial dose of 40 mg lasix in ED, History - Past Medical History Cardiovascular: reports: Congestive heart failure, Hypertension, High cholesterol, Coronary artery disease (patient DENIES CAD, says the ASA is for PAD, had femoral artery "replacement" (? graft?)), Peripheral Vascular Disease, Arrhythmia Respiratory: reports: COPD, Sleep apnea, CPAP use Neuro: reports: None Endocrine/Autoimmune: reports: HyPOthyroidism, Other GI: reports: GERD, C.difficile, Other SCRAP WHEELER: reports: None : reports: Other HEENT: reports: Chronic vision loss, Other Psych: reports: Depression, Anxiety Musculoskeletal: reports: Chronic back pain, Other Derm: reports: None MRSA Hx?: No - Past Surgical History Ortho: reports: Other Cardiovascular: reports: Fempop bypass HEENT: reports: Cataracts Derm: reports: Skin cancer surgery - Family & Social History Family History: Mother: , Father: Family History Comment/Other: Mom had stomach cancer,HTN, heart disease. Dad had heart attack, HTN. Brother with a bleeding disease. Sister of COPD Living arrangement: At home (lives alone , single story small apartment, 4 steps to get in) Social History Notes: former smoker, 4 ppd for 35 years, quit 11/12/1990. drinks ~10 oz/week with two "BIG" vodka drinks a day. 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 [employer] Substance History Use: Uses substance without health or social issues: NONE - POLST Patient has POLST: No Meds/Allgy - Home Medications Home Medications: Ambulatory Orders Medication Instructions Recorded Confirmed Acetaminophen [Pain Relief] 1 - 2 tab PO Q6HR PRN 04/18/14 07/19/21 Lactobacillus Combo No.6 1 cap PO BID 04/18/14 07/19/21 [Probiotic Complex] Rosuvastatin Calcium [Crestor] 40 mg PO QPM 04/18/14 07/19/21 Albuterol Sulf [Ventolin Hfa 1 - 2 puffs INH Q4HR PRN #1 inhaler 05/16/18 07/19/21 Inhaler] traZODone [Desyrel] 25 - 50 mg PO QPM PRN 07/06/19 07/19/21 Ipratropium [Atrovent] 2 puffs INH QID 10/26/20 07/19/21 Metoprolol Succinate [Toprol Xl] 150 mg PO DAILY 10/26/20 07/19/21 Potassium Chloride [Klor-Con 10] 20 meq PO DAILY 10/26/20 07/19/21 Umeclidinium Brm/Vilanterol Tr 1 puffs INH DAILY 10/26/20 07/19/21 [Anoro Ellipta 62.5-25 Mcg INH] Aspirin Chewable [St Eduardo 81 mg PO DAILY 12/01/20 07/19/21 Aspirin] Cetirizine [ZyrTEC] 10 mg PO DAILY PRN 12/01/20 07/19/21 Esomeprazole Magnesium [Nexium 20 mg PO QDAC 12/01/20 07/19/21 24Hr] Multivitamin/Iron/Folic Acid 1 tab PO DAILY 12/01/20 07/19/21 [Centrum Women Tablet] Amlodipine Besylate [Norvasc] 10 mg PO DAILY 07/19/21 07/19/21 Furosemide [Lasix] 40 mg PO DAILY 07/19/21 07/19/21 Levothyroxine Sodium [Levoxyl] 50 mcg PO QDAC 07/19/21 07/19/21 Sertraline [Zoloft] 50 mg PO DAILY 07/19/21 07/19/21 - Allergies Allergies/Adverse Reactions: Allergies Allergy/AdvReac Type Severity Reaction Status Date / Time meperidine HCl * Allergy Unknown Unknown Verified 07/19/21 12:49 [From Demerol] sulfamethoxazole Allergy Unknown Unknown Verified 07/19/21 12:49 [From Bactrim] trimethoprim [From Bactrim] Allergy Unknown Unknown Verified 07/19/21 12:49 morphine AdvReac Intermediate Nausea Verified 07/19/21 12:49 Review of Systems - Constitutional Constitutional: reports: Weight gain (5lbs as per HPI in recent 2weeks). denies: Fever, Chills - Eyes Eyes: reports: Corrective lenses. denies: Blurred vision, Field loss, Vision loss, Dipolpia - Ears, Nose & Throat Ears, Nose & Throat: reports: Dental decay (broke a tooth while brushing yesterday, own teeth) - Cardiovascular Cariovascular: reports: Decr. exercise tolerance (as per HPI). denies: Palpitations, Chest pain, Edema, Orthopnea (Has always slept on 3 pillows, for GERD as well, not for breathing, no change) - Respiratory Respiratory: reports: Other (as per HPI) - Gastrointestinal Gastrointestinal: denies: Abdominal pain, Abdominal distention, Constipation, Diarrhea, Black stools - Genitourinary Genitourinary: denies: Dysuria, Frequency, Urgency - Musculoskeletal Musculoskeletal: reports: Muscle pain (mild chronic back pain) - Integumentary Integumentary: reports: Dryness (dry flaky lower extremtiy) - Neurological Neurological: denies: Focal weakness, Headache, Dizziness, Memory problems - Psychiatric Psychiatric: reports: Depression (mood stable on zoloft) - Hematologic/Lymphatic Hematologic/Lymphatic: denies: Anemia, Bruising Exam - Vital Signs Reviewed Vital Signs: Yes Vital Signs: Vital Signs x48h Temp Pulse Resp BP Pulse Ox 07/19/21 16:50 76 19 07/19/21 16:14 78 23 163/72 H 99 07/19/21 12:50 36.9 C 73 16 159/52 H 92 - Physical Exam General Appearance: positive: Alert, Other (pleasant rotund older female wearing glasses and covid mask sitting on edge of stretcher in ED, alert, oriented, appropriate). negative: No acute distress Eyes Bilateral: positive: Normal inspection, PERRL, EOMI, Other (wearing glasses) ENT: positive: ENT inspection nml, Pharynx nml, Other (own teeth) Respiratory: positive: Chest non-tender. negative: No respiratory distress ( not tachypneic while sitting at test, speaks full sentences, no cyanosis, Sl distant BS, do not appreciate adventitious sounds at time of my exam) Cardiovascular: positive: Regular rate & rhythm, No murmur, No gallop. negative: JVD present (unable to appreciate JVD w/ habitus) Abdomen: positive: Nml bowel sounds, No distention. negative: Tenderness (obese abdomen, no organomegaly appreciable w/ habitus) Skin: positive: Warm, Dry, Other (multiple ecchymosis bilateral upper ex tremities) Extremities: negative: Pedal edema Neurologic/Psychiatric: positive: Oriented x3, CN's nml (2-12), Motor nml, Mood/affect nml Conclusion/Plan - Problem List (1) Acute on chronic heart failure with preserved ejection fraction (HFpEF) Conclusion/Plan: I suspect her increased dyspnea given the elevated BP c/w her norm, and a diet w/ inherent salt (e.g [employer] meats) and known Grade II Ddysfxn may be primarily related to the dietary salt. Not c/w COPD exacerbation, no ischemia, trop not elevated, BNP only modestly increased . Her oxygen requirement is not really over her baseline. (in 90's on home flow). Her obesity/ habitus may be contributing There is not alot of room to diurese based on BUN;, will check in AMj No increased troponin, Since she just had a echo 10/2020, I dont think there will be marked change on echo, no Murmur to suggest new valve problem Nutrition consult re: salt (she does try, but since relies on "outside/ prepared food", needs to limit her choices Will consider added BP agent if diuresis reaches limit of renal fxn and still elevated BP Lovenox sq for VTE prophylaxis Code status; patient confirms full code (2) Prerenal azotemia Conclusion/Plan: Cr is ~ baseline at 1.5. BUN is 41 . Not much room to diurese. (3) COPD (chronic obstructive pulmonary disease) Conclusion/Plan: on Breo ellipta at home, uses regularly, rarely uses albuterol prn, takes atrovent twice daily presentation not c/w COPD exacerbation continue home fow (4) Obesity (BMI 30-39.9) Conclusion/Plan: chronic Weight loss would help her dyspnea Nutrition d/w salt and can address possible habit changes re eating (5) Peripheral arterial disease Conclusion/Plan: with history of R iliac stenting and R L femoral femoral bypass 09/2013 On ASA (patient denies CAD,says the ASA and Crestor are for PAD (6) Hyperlipemia Conclusion/Plan: stable , continue statin (7) GERD (gastroesophageal reflux disease) Conclusion/Plan: controlled on PPI per patient, sleeps sl up on pillows (8) Depression Conclusion/Plan: Stable on zoloft per patient; continue zoloft - Lab Results Fish Bones: 07/19/21 15:14 07/20/21 06:34 - EKG Results EKG Interpreted Independently: Yes EKG Findings: 12 lead today, NSR, sl low voltage rate 70, no Q's, no acute ischemic changes, poor RWP unchanged from 10/2020 EKG (septic cleaner baseline on that EKG)
[2021-07-19 17:30] LABS: B. PARAPERTUSSIS- RESP PCR PAN NOT DETECTED; B. PERTUSSIS- RESP PCR PANEL NOT DETECTED; C. PNEUMONIAE- RESP PCR PANEL NOT DETECTED; CORONAVIRUS 229E-RESP PCR NOT DETECTED; CORONAVIRUS HKU1-RESP PCR NOT DETECTED; CORONAVIRUS NL63-RESP PCR NOT DETECTED; CORONAVIRUS OC43-RESP PCR NOT DETECTED; HUMAN METAPNEUMOVIRUS NOT DETECTED; INFLUENZA A- RESP PCR PANEL NOT DETECTED; INFLUENZA B - RESP PCR PANEL NOT DETECTED; M. PNEUMONIAE- RESP PCR PANEL NOT DETECTED; PARAINFLUENZA VIRUS 1 NOT DETECTED; PARAINFLUENZA VIRUS 2 NOT DETECTED; PARAINFLUENZA VIRUS 3 NOT DETECTED; PARAINFLUENZA VIRUS 4 NOT DETECTED; RHINOVIRUS/ENTEROVIRUS NOT DETECTED; RSV- RESP PCR PANEL NOT DETECTED; SARS-CoV-2 -RESP PCR PANEL NOT DETECTED
--- NOTE | 2021-07-19 17:42 | PHARMACY PROGRESS NOTE ---
- Best Possible Medication History Admit Date and Time: 07/19/21 6859 Processed by: Pharmacy Medication History completed: Yes Patient Interview: Completed Secondary Source(s): Physician records, Pharmacy records, Insurance records As the person ultimately responsible for medication therapy, providers are able to order a medication from an existing home medication list in [facility] via the "Reconcile Routine" prior to Confirmation of that medication by clinical support associate. Such practice is discouraged except when the physician, in their clinical judgment, deems that a medical need exists for a medication without regard to previous use.
[2021-07-19] MEDS ORDERED: amLODIPine 5 MG TABLET PO STA (18:03)
[2021-07-19] MEDS ORDERED: traZODone 50 MG TABLET PO PRN (18:04)
[2021-07-19] MEDS ORDERED: CETIRIZINE 10 MG TABLET PO PRN (18:22)
[2021-07-19] MEDS ORDERED: ALBUTEROL NEB 2.5 MG/3 ML INH PRN (18:30)
[2021-07-19] MEDS ORDERED: FUROSEMIDE 40 MG/4 ML VIAL IVP SCH (19:00)
[2021-07-19] MEDS: SODIUM CHLORIDE FLUSH 0.9% 10 ML SYRINGE IVP PRN (19:07)
[2021-07-19] MEDS: ATORVASTATIN 40 MG TABLET PO SCH (20:11)
[2021-07-19] MEDS: POTASSIUM CHLORIDE 20 MEQ TABLET PO SCH (20:11)
[2021-07-19] MEDS: LACTOBACILLUS RHAMNOSUS GG CAPSULE PO SCH (20:11)
[2021-07-19] MEDS ORDERED: IPRATROPIUM/ALBUTEROL 3 ML NEB INH SCH (21:00)
[2021-07-19] MEDS: ACETAMINOPHEN 500 MG TABLET PO PRN (22:04)
[2021-07-19] MEDS: traZODone 50 MG TABLET PO PRN ×2 (22:05→22:07)
[2021-07-19] MEDS ORDERED: LORazepam 2 MG/ML VIAL IVP PRN (22:39)
[2021-07-19 22:58] LABS: CALCIUM 9.1 mg/dL (8.5-10.3); CREATININE 1.7 mg/dL (0.4-1.0); MAGNESIUM 2.6 mg/dL (1.7-2.8); POTASSIUM 3.7 mmol/L (3.5-5.0)
[2021-07-20] MEDS: SODIUM CHLORIDE FLUSH 0.9% 10 ML SYRINGE IVP SCH ×4 (00:46→23:38)
[2021-07-20] MEDS: LEVOTHYROXINE 25 MCG TABLET PO SCH (06:02)
[2021-07-20] MEDS: PANTOPRAZOLE 40 MG TABLET PO SCH (06:02)
[2021-07-20] MEDS: FUROSEMIDE 40 MG/4 ML VIAL IVP SCH ×2 (06:05→13:56)
[2021-07-20 06:56] LABS: INR 1.1 (0.8-1.2); PT - PROTHROMBIN TIME 12.6 secs (9.9-12.6)
[2021-07-20 07:02] LABS: CALCIUM 9.2 mg/dL (8.5-10.3); CREATININE 1.4 mg/dL (0.4-1.0); POTASSIUM 3.6 mmol/L (3.5-5.0)
[2021-07-20] MEDS: IPRATROPIUM 0.2 MG/ML NEB INH SCH ×4 (08:42→21:55)
[2021-07-20] MEDS: FORMOTEROL FUMARATE NEB 20 MCG/2 ML INH SCH ×3 (08:42→21:55)
[2021-07-20] MEDS ORDERED: POTASSIUM CHLORIDE 10 MEQ PO SCH (09:00)
--- NOTE | 2021-07-20 10:22 | PROVIDER PROGRESS NOTE ---
Subjective - Prog Note Date Prog Note Date: 07/20/21 Prog Note Time: 10:19 - Subjective Pt reports feeling: Improved (feels about 50% better, still winded getting to the shower, admits its been years since she was able to shower with out feeling SOB whicle showering. Re: ETOH , for years has had 2 vodka drinks a day. Denies withdrawal history (says she was once here for several days w/ Cdif , denies withdrawal the) Current Medications - Current Medications Current Medications: Active Medications Generic Name Dose Route Start Last Admin Trade Name Freq PRN Reason Stop Dose Admin Acetaminophen 500 mg 07/19/21 18:22 07/19/21 22:04 Acetaminophen 500 Mg Tablet PO 500 mg Q6HR PRN Administration PAIN Albuterol 2.5 mg 07/19/21 18:30 Albuterol Neb 2.5 Mg/3 Ml INH Q4HR PRN Shortness of Air/Wheezing Amlodipine Besylate 10 mg 07/20/21 09:00 Amlodipine 5 Mg Tablet PO DAILY ROSA Aspirin 81 mg 07/20/21 09:00 Aspirin Chew 81 Mg Tablet PO DAILY ROSA Atorvastatin Calcium 80 mg 07/19/21 21:00 07/19/21 20:11 Atorvastatin 40 Mg Tablet PO 80 mg QPM ROSA Administration Cetirizine HCl 10 mg 07/19/21 18:22 Cetirizine 10 Mg Tablet PO DAILY PRN Allergy Symptoms Enoxaparin Sodium 30 mg 07/20/21 09:00 Enoxaparin 30 Mg/0.3 Ml Syringe SUBQ DAILY ROSA Formoterol Fumarate 20 mcg 07/19/21 19:00 07/20/21 08:57 Formoterol Fumarate Neb 20 Mcg/2 Ml INH Not Given RTBID ROSA Furosemide 40 mg 07/20/21 06:00 07/20/21 06:05 Furosemide 40 Mg/4 Ml Vial IVP 40 mg BIDDIURETIC ROSA Administration Ipratropium [place] 0.5 mg 07/19/21 19:00 07/20/21 08:57 Ipratropium 0.2 Mg/Ml Neb INH Not Given RTQ6H ROSA Lactobacillus Rhamnosus 1 cap 07/19/21 21:00 07/19/21 20:11 Lactobacillus Rhamnosus Gg Capsule PO 1 cap BID ROSA Administration Levothyroxine Sodium 50 mcg 07/20/21 07:00 07/20/21 06:02 Levothyroxine 25 Mcg Tablet PO 50 mcg QDAC ROSA Administration Lorazepam 1 mg 07/19/21 22:39 Lorazepam 2 Mg/Ml Vial IVP Q30M PRN CIWA >8 Protocol Metoprolol Succinate 150 mg 07/20/21 09:00 Metoprolol Succinate 50 Mg Tablet PO DAILY ROSA Multivitamins/Minerals 1 tab 07/20/21 08:00 Multivitamin W/Minerals Tablet PO DAILYWM ROSA Pantoprazole Sodium 40 mg 07/20/21 07:00 07/20/21 06:02 Pantoprazole 40 Mg Tablet PO 40 mg QDAC ROSA Administration Potassium Chloride 20 meq 07/19/21 21:00 07/19/21 20:11 Potassium Chloride 20 Meq Tablet PO 20 meq BID ROSA Administration Multivit/Folic Acid/Iron 1 tab 07/20/21 09:00 Vitamin Tablet PO DAILY ROSA Sertraline HCl 50 mg 07/20/21 09:00 Sertraline 50 Mg Tablet PO DAILY ROSA Sodium Chloride 10 ml 07/19/21 16:58 07/19/21 19:07 Sodium Chloride Flush 0.9% 10 Ml Syringe IVP 10 ml PRN PRN Administration NEEDED PER PROVIDER ORDERS Sodium Chloride 10 ml 07/20/21 01:00 07/20/21 00:46 Sodium Chloride Flush 0.9% 10 Ml Syringe IVP 10 ml 0100,0900,1700 ROSA Administration Thiamine HCl 100 mg 07/20/21 09:00 Thiamine 100 Mg Tablet PO DAILY [facility] Trazodone HCl 25 mg 07/19/21 18:22 07/19/21 22:07 Trazodone 50 Mg Tablet PO 25 mg QPM PRN Administration Insomnia Acetaminophen [Pain Relief] 1 - 2 tab PO Q6HR PRN 04/18/14 Lactobacillus Combo No.6 [Probiotic Complex] 1 cap PO BID 04/18/14 Rosuvastatin Calcium [Crestor] 40 mg PO QPM 04/18/14 traZODone [Desyrel] 25 - 50 mg PO QPM PRN 07/06/19 Ipratropium [Atrovent] 2 puffs INH QID 10/26/20 Metoprolol Succinate [Toprol Xl] 150 mg PO DAILY 10/26/20 Potassium Chloride [Klor-Con 10] 20 meq PO DAILY 10/26/20 Umeclidinium Brm/Vilanterol Tr [Anoro Ellipta 62.5-25 Mcg INH] 1 puffs INH DAILY 10/26/20 Aspirin Chewable [[facility] [place] Aspirin] 81 mg PO DAILY 12/01/20 Cetirizine [ZyrTEC] 10 mg PO DAILY PRN 12/01/20 Esomeprazole Magnesium [Nexium 24Hr] 20 mg PO QDAC 12/01/20 Multivitamin/Iron/Folic Acid [Centrum Women Tablet] 1 tab PO DAILY 12/01/20 Amlodipine Besylate [Norvasc] 10 mg PO DAILY 07/19/21 Furosemide [Lasix] 40 mg PO DAILY 07/19/21 Levothyroxine Sodium [Levoxyl] 50 mcg PO QDAC 07/19/21 Sertraline [Zoloft] 50 mg PO DAILY 07/19/21 Objective - Vital Signs/Intake & Output Reviewed Vital Signs: Yes Vital Signs: Weight 81.6 o 07/19, 80.5 laer on 79 kg todayVital Signs x48h Temp Pulse Resp BP Pulse Ox 07/20/21 08:49 14 07/20/21 08:37 36.6 C 96 24 156/66 H 96 07/20/21 05:15 36.5 C 70 18 134/52 H 95 Intake & Output: Intake & Output 07/17/21 07/18/21 07/19/21 07/20/21 23:59 23:59 23:59 23:59 Intake Total 240 Output Total 600 900 Balance -600 -660 - Objective General Appearance: positive: No acute distress, Alert, Other (sitting up in chair, animatedly says no problem w/ SOB with eating "thats never a problem") Eyes Bilateral: positive: Normal inspection, PERRL, Other (glasss on) Respiratory: positive: Chest non-tender, No respiratory distress, Breath sounds nml (no adventitious sounds appreciated; specifically no wheeze, no crackles or rhonchi, no cough, speaks full sentences; on 3L NC) Cardiovascular: positive: Regular rate & rhythm, Systolic murmur (faint 1/6 [place]) Abdomen: positive: Non-tender, Nml bowel sounds, No distention (No distension, but obese) Extremities: positive: Pedal edema (sl nonpitting pretibial and pedal edema vs obesity; hard to distinguish (she says "thats as good as my legs get") - Lab Results Fish Bones: 07/19/21 15:14 07/21/21 04:20 Other Labs: Lab Results x24hrs 07/20/21 07/20/21 07/20/21 Range/Units 06:34 06:34 06:34 WBC (4.8-10.8) x10^3/uL RBC (4.20-5.40) 10^6/uL Hgb (12.0-16.0) g/dL Hct (37.0-47.0) % MCV (81.0-99.0) fL MCH (27.0-31.0) pg MCHC (32.0-36.0) g/dL RDW (12.0-15.0) % Plt Count (130-450) 10^3/uL MPV (7.9-10.8) fL Neut # (Auto) (1.5-6.6) 10^3/uL Lymph # (Auto) (1.5-3.5) 10^3/uL Ellis # (Auto) (0.0-1.0) 10^3/uL Eos # (Auto) (0.0-0.7) 10^3/uL Baso # (Auto) (0.0-0.1) 10^3/uL Absolute Nucleated RBC x10^3/uL Nucleated RBC % /100WBC PT 12.6 (9.9-12.6) secs INR 1.1 (0.8-1.2) Sodium 144 (135-145) mmol/L Potassium 3.6 (3.5-5.0) mmol/L Chloride 105 (101-111) mmol/L Carbon Dioxide 27 (21-32) mmol/L Anion Gap 12.0 (6-13) BUN 38 H (6-20) mg/dL Creatinine 1.4 H (0.4-1.0) mg/dL Estimated GFR (MDRD) 36 L (>89) Glucose 110 H (70-100) mg/dL Calcium 9.2 (8.5-10.3) mg/dL Magnesium (1.7-2.8) mg/dL Total Bilirubin (0.2-1.0) mg/dL GGT 55 H (8-38) IU/L AST (10-42) IU/L ALT (10-60) IU/L Alkaline Phosphatase (42-121) IU/L Troponin I High Sens (2.3-14.8) ng/L B-Natriuretic Peptide 299 H (5-100) pg/mL Total Protein (6.7-8.2) g/dL Albumin (3.2-5.5) g/dL Globulin (2.1-4.2) g/dL Albumin/Globulin Ratio (1.0-2.2) Lipase (22-51) U/L TSH (0.34-5.60) uIU/mL Nasal Adenovirus (PCR) Nasal B. parapertussis DNA (PCR) Nasal Coronavir 229E PCR Nasal Coronavir HKU1 PCR Nasal Coronavir NL63 PCR Nasal Coronavir OC43 PCR Nasal Enterovir/Rhinovir PCR Nasal Influenza B PCR Nasal Influenza A PCR Nasal Parainfluen 1 PCR Nasal Parainfluen 2 PCR Nasal Parainfluen 3 PCR Nasal Parainfluen 4 PCR Nasal RSV (PCR) Nasal B.pertussis DNA PCR Nasal C.pneumoniae (PCR) Cedric Human Metapneumo PCR Nasal M.pneumoniae (PCR) Nasal SARS-CoV-2 (PCR) 07/19/21 07/19/21 07/19/21 Range/Units 22:45 16:10 15:14 WBC (4.8-10.8) x10^3/uL RBC (4.20-5.40) 10^6/uL Hgb (12.0-16.0) g/dL Hct (37.0-47.0) % MCV (81.0-99.0) fL MCH (27.0-31.0) pg MCHC (32.0-36.0) g/dL RDW (12.0-15.0) % Plt Count (130-450) 10^3/uL MPV (7.9-10.8) fL Neut # (Auto) (1.5-6.6) 10^3/uL Lymph # (Auto) (1.5-3.5) 10^3/uL Ellis # (Auto) (0.0-1.0) 10^3/uL Eos # (Auto) (0.0-0.7) 10^3/uL Baso # (Auto) (0.0-0.1) 10^3/uL Absolute Nucleated RBC x10^3/uL Nucleated RBC % /100WBC PT (9.9-12.6) secs INR (0.8-1.2) Sodium 142 (135-145) mmol/L Potassium 3.7 (3.5-5.0) mmol/L Chloride 102 (101-111) mmol/L Carbon Dioxide 24 (21-32) mmol/L Anion Gap 16.0 H (6-13) BUN 42 H (6-20) mg/dL Creatinine 1.7 H (0.4-1.0) mg/dL Estimated GFR (MDRD) 29 L (>89) Glucose 125 H (70-100) mg/dL Calcium 9.1 (8.5-10.3) mg/dL Magnesium 2.6 (1.7-2.8) mg/dL Total Bilirubin (0.2-1.0) mg/dL GGT (8-38) IU/L AST (10-42) IU/L ALT (10-60) IU/L Alkaline Phosphatase (42-121) IU/L Troponin I High Sens (2.3-14.8) ng/L B-Natriuretic Peptide (5-100) pg/mL Total Protein (6.7-8.2) g/dL Albumin (3.2-5.5) g/dL Globulin (2.1-4.2) g/dL Albumin/Globulin Ratio (1.0-2.2) Lipase (22-51) U/L TSH 2.50 (0.34-5.60) uIU/mL Nasal Adenovirus (PCR) NOT DETECTED Nasal B. parapertussis DNA (PCR) NOT DETECTED Nasal Coronavir 229E PCR NOT DETECTED Nasal Coronavir HKU1 PCR NOT DETECTED Nasal Coronavir NL63 PCR NOT DETECTED Nasal Coronavir OC43 PCR NOT DETECTED Nasal Enterovir/Rhinovir PCR NOT DETECTED Nasal Influenza B PCR NOT DETECTED Nasal Influenza A PCR NOT DETECTED Nasal Parainfluen 1 PCR NOT DETECTED Nasal Parainfluen 2 PCR NOT DETECTED Nasal Parainfluen 3 PCR NOT DETECTED Nasal Parainfluen 4 PCR NOT DETECTED Nasal RSV (PCR) NOT DETECTED Nasal B.pertussis DNA PCR NOT DETECTED Nasal C.pneumoniae (PCR) NOT DETECTED Cedric Human Metapneumo PCR NOT DETECTED Nasal M.pneumoniae (PCR) NOT DETECTED Nasal SARS-CoV-2 (PCR) NOT DETECTED 07/19/21 07/19/21 07/19/21 Range/Units 15:14 15:14 15:14 WBC (4.8-10.8) x10^3/uL RBC (4.20-5.40) 10^6/uL Hgb (12.0-16.0) g/dL Hct (37.0-47.0) % MCV (81.0-99.0) fL MCH (27.0-31.0) pg MCHC (32.0-36.0) g/dL RDW (12.0-15.0) % Plt Count (130-450) 10^3/uL MPV (7.9-10.8) fL Neut # (Auto) (1.5-6.6) 10^3/uL Lymph # (Auto) (1.5-3.5) 10^3/uL Ellis # (Auto) (0.0-1.0) 10^3/uL Eos # (Auto) (0.0-0.7) 10^3/uL Baso # (Auto) (0.0-0.1) 10^3/uL Absolute Nucleated RBC x10^3/uL Nucleated RBC % /100WBC PT (9.9-12.6) secs INR (0.8-1.2) Sodium 143 (135-145) mmol/L Potassium 3.6 (3.5-5.0) mmol/L Chloride 106 (101-111) mmol/L Carbon Dioxide 25 (21-32) mmol/L Anion Gap 12.0 (6-13) BUN 41 H (6-20) mg/dL Creatinine 1.5 H (0.4-1.0) mg/dL Estimated GFR (MDRD) 33 L (>89) Glucose 105 H (70-100) mg/dL Calcium 9.3 (8.5-10.3) mg/dL Magnesium (1.7-2.8) mg/dL Total Bilirubin 1.1 H (0.2-1.0) mg/dL GGT (8-38) IU/L AST 24 (10-42) IU/L ALT 30 (10-60) IU/L Alkaline Phosphatase 80 (42-121) IU/L Troponin I High Sens 6.5 (2.3-14.8) ng/L B-Natriuretic Peptide 419 H (5-100) pg/mL Total Protein 8.0 (6.7-8.2) g/dL Albumin 4.4 (3.2-5.5) g/dL Globulin 3.6 (2.1-4.2) g/dL Albumin/Globulin Ratio 1.2 (1.0-2.2) Lipase 29 (22-51) U/L TSH (0.34-5.60) uIU/mL Nasal Adenovirus (PCR) Nasal B. parapertussis DNA (PCR) Nasal Coronavir 229E PCR Nasal Coronavir HKU1 PCR Nasal Coronavir NL63 PCR Nasal Coronavir OC43 PCR Nasal Enterovir/Rhinovir PCR Nasal Influenza B PCR Nasal Influenza A PCR Nasal Parainfluen 1 PCR Nasal Parainfluen 2 PCR Nasal Parainfluen 3 PCR Nasal Parainfluen 4 PCR Nasal RSV (PCR) Nasal B.pertussis DNA PCR Nasal C.pneumoniae (PCR) Cedric Human Metapneumo PCR Nasal M.pneumoniae (PCR) Nasal SARS-CoV-2 (PCR) 07/19/21 Range/Units 15:14 WBC 6.5 (4.8-10.8) x10^3/uL RBC 4.02 L (4.20-5.40) 10^6/uL Hgb 13.2 (12.0-16.0) g/dL Hct 40.6 (37.0-47.0) % MCV 101.0 H (81.0-99.0) fL MCH 32.8 H (27.0-31.0) pg MCHC 32.5 (32.0-36.0) g/dL RDW 14.1 (12.0-15.0) % Plt Count 204 (130-450) 10^3/uL MPV 9.0 (7.9-10.8) fL Neut # (Auto) 5.0 (1.5-6.6) 10^3/uL Lymph # (Auto) 1.0 L (1.5-3.5) 10^3/uL Ellis # (Auto) 0.4 (0.0-1.0) 10^3/uL Eos # (Auto) 0.1 (0.0-0.7) 10^3/uL Baso # (Auto) 0.0 (0.0-0.1) 10^3/uL Absolute Nucleated RBC 0.00 x10^3/uL Nucleated RBC % 0.0 /100WBC PT (9.9-12.6) secs INR (0.8-1.2) Sodium (135-145) mmol/L Potassium (3.5-5.0) mmol/L Chloride (101-111) mmol/L Carbon Dioxide (21-32) mmol/L Anion Gap (6-13) BUN (6-20) mg/dL Creatinine (0.4-1.0) mg/dL Estimated GFR (MDRD) (>89) Glucose (70-100) mg/dL Calcium (8.5-10.3) mg/dL Magnesium (1.7-2.8) mg/dL Total Bilirubin (0.2-1.0) mg/dL GGT (8-38) IU/L AST (10-42) IU/L ALT (10-60) IU/L Alkaline Phosphatase (42-121) IU/L Troponin I High Sens (2.3-14.8) ng/L B-Natriuretic Peptide (5-100) pg/mL Total Protein (6.7-8.2) g/dL Albumin (3.2-5.5) g/dL Globulin (2.1-4.2) g/dL Albumin/Globulin Ratio (1.0-2.2) Lipase (22-51) U/L TSH (0.34-5.60) uIU/mL Nasal Adenovirus (PCR) Nasal B. parapertussis DNA (PCR) Nasal Coronavir 229E PCR Nasal Coronavir HKU1 PCR Nasal Coronavir NL63 PCR Nasal Coronavir OC43 PCR Nasal Enterovir/Rhinovir PCR Nasal Influenza B PCR Nasal Influenza A PCR Nasal Parainfluen 1 PCR Nasal Parainfluen 2 PCR Nasal Parainfluen 3 PCR Nasal Parainfluen 4 PCR Nasal RSV (PCR) Nasal B.pertussis DNA PCR Nasal C.pneumoniae (PCR) Cedric Human Metapneumo PCR Nasal M.pneumoniae (PCR) Nasal SARS-CoV-2 (PCR) Assessment/Plan - Problem List (1) Acute on chronic heart failure with preserved ejection fraction (HFpEF) Impression: (1) Acute on chronic heart failure with preserved ejection fraction (HFpEF) Conclusion/Plan: subjectively improving w/ diuresis but not at baseline, Weight down 1.5 kg / I/O -660 BNP reducing BP still over goal (on toprol xl 150 and amlodipine 10 mg) BUN/Cr actually improving w/ diuresis (I do not suspect a systolic problem, last echo 11/14 as per H/P; no need to repeat) There is room to continue to diurese and gets another IV lasix dose this pm and tomorrow am. May need to be on bid lasix at home, BUT primarily needs dietary info ( and compliance) to not be fighting with her antihypertensive. Could add ACEI to regimen, but I think Na+ compliance is the bigger issue. Advised her ETOH can contribute to HTN as well She does know to weigh self 07/19 note I suspect her increased dyspnea given the elevated BP c/w her norm, and a diet w/ inherent salt (e.g Boars head meats) and known Grade II Ddysfxn may be primarily related to the dietary salt. Not c/w COPD exacerbation, no ischemia, trop not elevated, BNP only modestly increased . Her oxygen requirement is not really over her baseline. (in 90's on home flow). Her obesity/ habitus may be contributing There is not alot of room to diurese based on BUN;, will check in AMj No increased troponin, Since she just had a echo 10/2020, I dont think there will be marked change on echo, no Murmur to suggest new valve problem Nutrition consult re: salt (she does try, but since relies on "outside/ prepared food", needs to limit her choices Will consider added BP agent if diuresis reaches limit of renal fxn and still elevated BP Lovenox sq for VTE prophylaxis 6p; no findings on tele since admit; will d/c Code status; patient confirms full code on 07/19 admit (2) Prerenal azotemia Conclusion/Plan: As above, actually improving w/ diuresis; contiknuing w/ IV Lasix BUN/Cr 42/1.7>> 38/1.4 baseline Cr ~ 1.5-1.6 (3) COPD (chronic obstructive pulmonary disease) Conclusion/Plan: on Breo ellipta at home, uses regularly, rarely uses albuterol prn, takes atrovent twice daily presentation not c/w COPD exacerbation continue home flow 02 (4) Obesity (BMI 30-39.9) Conclusion/Plan: chronic Weight loss would help her dyspnea/deconditioning. Briefly discussed parking slightly greater distance (but she notes knee arthritis) She has had this BMI most of adult life Nutrition d/w salt and can address possible habit changes re eating (5) Peripheral arterial disease/ NOTE: NO CAD Conclusion/Plan: with history of R iliac stenting and R L femoral femoral bypass 09/2013 On ASA and statin (NOTE: reviewed outpatient records in [place]. CAD autopopulates into problem list via ED when patient admitted However patient DOES NOT HAVE DIAGNOSis of CAD (6) Hyperlipemia Conclusion/Plan: stable , continue statin 7) GERD stable continue PPI (our formulary 8) Depression ; stable mood on home zoloft ;
[2021-07-20] MEDS: ASPIRIN CHEW 81 MG TABLET PO SCH (10:29)
[2021-07-20] MEDS: MULTIVITAMIN W/MINERALS TABLET PO SCH (10:29)
[2021-07-20] MEDS: THIAMINE 100 MG TABLET PO SCH (10:29)
[2021-07-20] MEDS: amLODIPine 5 MG TABLET PO SCH (10:29)
[2021-07-20] MEDS: POTASSIUM CHLORIDE 20 MEQ TABLET PO SCH ×2 (10:29→21:19)
[2021-07-20] MEDS: PRENATAL VITAMIN TABLET PO SCH (10:29)
[2021-07-20] MEDS: SERTRALINE 50 MG TABLET PO SCH (10:30)
[2021-07-20] MEDS: ENOXAPARIN 30 MG/0.3 ML SYRINGE SUBQ SCH (10:30)
[2021-07-20] MEDS: METOPROLOL SUCCINATE 50 MG TABLET PO SCH (10:30)
[2021-07-20] MEDS: LACTOBACILLUS RHAMNOSUS GG CAPSULE PO SCH ×2 (10:30→21:19)
[2021-07-20] MEDS: SODIUM CHLORIDE FLUSH 0.9% 10 ML SYRINGE IVP PRN (13:56)
[2021-07-20] MEDS: ATORVASTATIN 40 MG TABLET PO SCH (21:19)
[2021-07-20] MEDS: ACETAMINOPHEN 500 MG TABLET PO PRN (21:26)
[2021-07-20] MEDS: traZODone 50 MG TABLET PO PRN ×2 (21:26→21:37)
[2021-07-21 05:02] LABS: CALCIUM 9.1 mg/dL (8.5-10.3); CREATININE 1.8 mg/dL (0.4-1.0)
[2021-07-21] MEDS: FUROSEMIDE 40 MG/4 ML VIAL IVP SCH (05:45)
[2021-07-21] MEDS: PANTOPRAZOLE 40 MG TABLET PO SCH (05:45)
[2021-07-21] MEDS: LEVOTHYROXINE 25 MCG TABLET PO SCH (05:45)
[2021-07-21] MEDS: IPRATROPIUM 0.2 MG/ML NEB INH SCH ×3 (06:39→07:38)
[2021-07-21] MEDS: FORMOTEROL FUMARATE NEB 20 MCG/2 ML INH SCH (07:38)
[2021-07-21] MEDS: ENOXAPARIN 30 MG/0.3 ML SYRINGE SUBQ SCH (08:42)
[2021-07-21] MEDS: METOPROLOL SUCCINATE 50 MG TABLET PO SCH (08:45)
[2021-07-21] MEDS: ASPIRIN CHEW 81 MG TABLET PO SCH (08:45)
[2021-07-21] MEDS: LACTOBACILLUS RHAMNOSUS GG CAPSULE PO SCH (08:45)
[2021-07-21] MEDS: PRENATAL VITAMIN TABLET PO SCH (08:45)
[2021-07-21] MEDS: amLODIPine 5 MG TABLET PO SCH (08:48)
[2021-07-21] MEDS: POTASSIUM CHLORIDE 20 MEQ TABLET PO SCH (08:48)
[2021-07-21] MEDS: SERTRALINE 50 MG TABLET PO SCH (08:49)
[2021-07-21] MEDS: THIAMINE 100 MG TABLET PO SCH (08:49)
[2021-07-21] MEDS: MULTIVITAMIN W/MINERALS TABLET PO SCH (08:50)
[2021-07-21] MEDS: SODIUM CHLORIDE FLUSH 0.9% 10 ML SYRINGE IVP SCH (08:51)
--- NOTE | 2021-07-21 10:48 | Discharge Plan ---
Discharge Plan Problem Reviewed?: Yes Disposition: Home, Self Care Condition: Stable Diet: Low Sodium (as instructed! Reduce alcohol (alcohol increases Blood pressure)) Activity Restrictions: No Restrictions Shower Restrictions: Yes Driving Restrictions: No Weight Bearing: Full Weight Health Concerns: Heart Failure with Preserved EF decompensated (or "Diastolic heart failure) You came to the hospital with progressive shortness of breath over ~ 2 weeks. you also noted your weight was up by 5 lbs. . Your EKG and heart enzymes did not show a heart attack or fast rate, this did not seem to be a COPD exacerbation. There was no fever or chills. Respiratory panel was negative (no Covid), Your oxygen level was actually ok on your home oxygen flow, but you were winded with activity. CXR showed mild lung vessel congestion. In reviewing possible causes of worse heart failure it seems a salt "load" (too much salt in your diet) is causing you to hold on to fluid (doesnt allow your blood pressure pills or your water pill to work optimally You were diuresed for 2 days with IV lasix and feeling at your baseline activity tolerance by today 07/21. Continue your home medications (Resume your lasix Sunday as we discussed since we "dried you out"/ Creatinine 1.8 on 07/21. Weigh yourself on arrival home; Consider that your "goal" or "dry" weight. IF your weight increases by 2 lbs from your dry weight in a day or in a few days take 40 mg in the morning and the evening for 1 day , but do not make that a routine. Keep your cardiology appointment coming up. Your PCP may consider an additonal Blood pressure medication depending on your recorded blood pressures. 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 (On admission you weighed____81.5 kg__or 180 lb___ Take additional 40 mg lasix in the pm IF weight increasing by 2 lbs as detailed above Follow low salt diet as instructed REduce alcohol intake as above Care Goals: Avoid decompensated heart failure No Smoking: If you smoke, Please STOP! Call for help. Follow-up with: Indira Ledesma ARNP [Primary Care Provider] -
[2021-07-21 12:52] VITALS: BP 126/53
--- NOTE | 2021-07-22 14:10 | DISCHARGE SUMMARY ---
Discharge Summary Admit Date: 07/19/21 Discharge Date: 07/21/21 Discharging Provider: Bredna Almanza NP Primary Care Provider: Lillie Ledesma DAIRY STORE MANAGER Code Status: Attempt Resuscitation Condition at Discharge: Stable Discharge Disposition: 01 Home, Self Care Discharge Facility Name: [email or web address] - DIAGNOSES Admission Diagnoses: Acute on chronic heart failure w/ preserved EF Prerenal azotemia COPD Obesity BMI 30-39.9 (36) Peripheral arerial disease Hyperlipidemia GERD Depression Discharge Diagnoses with Status of Each Condition: Acute on chronic heart failure w/ preserved EF; acute resolved; D/C weight 169lbs on our standing scale. 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 She only recently started weighing herself (? since last admit in Nov) and notes a 5 lb increase. thinks her Dry is ~ 175lbs. She denies worsening cough (denies that she has a baseline cough or sputum w/ her known COPD), no chest pain, no lightheadedness, no diaphoresis. No fever, chills. Hasnt done her own grocery shopping for a very long time, much is prepared, of note she says by "[place]" and may have a burger at the club when there. Reports her normal BP is 120's over/ ?. BP on presentation is 159/52, 163/72, 170/92 (arm may have been bent on the final check). Negative troponins, BNP 419 (255 in may) . Sleeps on 3 pillows but that has always been the case, no change, no PND Not tachynpenic on presntation. mid 90's Sa02 o home flow of 3L. CXR: Cardiomegaly w/ increased vascularity c/w edema; Trace effusions Respiratory panel negative Got covid vaccine For BP is on amlodipine and toprol 150 (she has an old discharge med rec form with her from a 2019 sischarge e.g with metop tartrate 50 bid even tho her current Rx is toprol xl 150mg/ day "I guess I should get rid of this list" acknowledges she is on the toprol. no missed doses No significant relief after initial dose of 40 mg lasix in ED - HOSPITAL COURSE Hospital Course: 1) Acute on chronic heart failure with preserved ejection fraction (HFpEF) The decompensation seems most c/w dietary salt load (chronic) as the precipitant No significant hypoxemia on her home flow 02 3L, but more dyspneic (no new ischemia, no tachy or kehinde dysrthmia, no missed meds, not c/w COPD exacerbation, covid neg, CXR no infiltrate). She eats a fair bit of prepared food and has daily EToH 2 vodka drinks as well which may contribute to Htn. Mobid obesity/habitus also contributing. Improved w/ IV diuresis 40 mg IV bid over 2 days Exam ; had fine basilar crackles on admit, clear on discharge, better activity tolerance. Pretibial and pedal nonpitting edema (which couldnt be distinguished from obesity) WAS improved on d/c w/ slight saucedo wrinkling. REceived extensive education by nutritiionist re: dietary choices and Na Admit weight was 81.5 kg or 180 lbs Discharge weight ON OUR STANDING SCALE 169 Lbs (bedscale weight at same time was 79kg or 174 lbs Advised to resume Lasix on Sunday (hold off on po lasix on sunday 07/22) see #2 Advised to take a pm dose of lasix 40 po (in addition to am dose) IF weight increases by 2lbs. Advised patient very important to weigh self on arrival home and use her scale as her baseline (she reported dry weight at home of 175) (2) Prerenal azotemia Cr is ~ baseline at 1.5. BUN is 41 /1.7 on admit . this actually improved to Cr 38/1.4 07/20 after first night of diuresis 52/1.8 on morning of discharge. Weight as above 169. She is likley very slightly under her goal weight of 170 lbs on discharge As above advised to not resume her PO lasix until Sat 07/23. Same dose 40 mg daily , take 2nd dose 40 mg in pm ONLY if weight increasing by 2 lbs (3) COPD (chronic obstructive pulmonary disease) presentation not c/w COPD exacerbation continues home regimen Breo/ellipta continues home flow 3L (4) Obesity (BMI 30-39.9) chronic AdvisedWeight loss would help her dyspnea Nutrition d/w salt and can address possible habit changes re eating (5) Peripheral arterial disease with history of R iliac stenting and R L femoral femoral bypass 09/2013 On ASA (patient denies CAD,says the ASA and Crestor are for PAD Reviewed old records; Patient DOES NOT HAVE a diagnosis of CAD ; this autopopulates in the ED from prior admissions but it is not a diagnosis she has (6) Hyperlipemia stable , continue statin (7) GERD (gastroesophageal reflux disease) controlled on PPI per patient, sleeps sl up on pillows (8) Depression Stable on zoloft per patient; continue zoloft - ALLERGIES Allergies/Adverse Reactions: Allergies Allergy/AdvReac Type Severity Reaction Status Date / Time meperidine HCl * Allergy Unknown Unknown Verified 07/19/21 12:49 [From Demerol] sulfamethoxazole Allergy Unknown Unknown Verified 07/19/21 12:49 [From Bactrim] trimethoprim [From Bactrim] Allergy Unknown Unknown Verified 07/19/21 12:49 morphine AdvReac Intermediate Nausea Verified 07/19/21 12:49 - MEDICATIONS Home Medications: Ambulatory Orders Medication Instructions Recorded Confirmed Acetaminophen [Pain Relief] 1 - 2 tab PO Q6HR PRN 04/18/14 07/19/21 Lactobacillus Combo No.6 1 cap PO BID 04/18/14 07/19/21 [Probiotic Complex] Rosuvastatin Calcium [Crestor] 40 mg PO QPM 04/18/14 07/19/21 Albuterol Sulf [Ventolin Hfa 1 - 2 puffs INH Q4HR PRN #1 inhaler 05/16/18 07/19/21 Inhaler] traZODone [Desyrel] 25 - 50 mg PO QPM PRN 07/06/19 07/19/21 Ipratropium [Atrovent] 2 puffs INH QID 10/26/20 07/19/21 Metoprolol Succinate [Toprol Xl] 150 mg PO DAILY 10/26/20 07/19/21 Potassium Chloride [Klor-Con 10] 20 meq PO DAILY 10/26/20 07/19/21 Umeclidinium Brm/Vilanterol Tr 1 puffs INH DAILY 10/26/20 07/19/21 [Anoro Ellipta 62.5-25 Mcg INH] Aspirin Chewable [St Eduardo 81 mg PO DAILY 12/01/20 07/19/21 Aspirin] Cetirizine [ZyrTEC] 10 mg PO DAILY PRN 12/01/20 07/19/21 Esomeprazole Magnesium [Nexium 20 mg PO QDAC 12/01/20 07/19/21 24Hr] Multivitamin/Iron/Folic Acid 1 tab PO DAILY 12/01/20 07/19/21 [Centrum Women Tablet] Amlodipine Besylate [Norvasc] 10 mg PO DAILY 07/19/21 07/19/21 Furosemide [Lasix] 40 mg PO DAILY 07/19/21 07/19/21 Levothyroxine Sodium [Levoxyl] 50 mcg PO QDAC 07/19/21 07/19/21 Sertraline [Zoloft] 50 mg PO DAILY 07/19/21 07/19/21 - PHYSICAL EXAM AT DISCHARGE General Appearance: positive: No acute distress, Alert, Other (wearing glasses) Eyes Bilateral: positive: Normal inspection Respiratory: positive: No respiratory distress, Breath sounds nml. negative: Wheezes, Rales, Rhonchi Cardiovascular: positive: Regular rate & rhythm, No murmur Abdomen: positive: Nml bowel sounds, No distention, Other (obese abdomen). negative: Tenderness Skin: positive: Warm, Dry Extremities: negative: Pedal edema (of note , she does have a little bit of saucedo wrinkling (appropriate for age) c/w admit when none. On admit could not tell if she had slight nonpitting pretibial edema vs obese habitus. In retrospect she did have slight edema at admit weight) Neurologic/Psychiatric: positive: Oriented x3, Motor nml - LABS Result Diagrams: 07/19/21 15:14 07/21/21 04:20 - DIAGNOSTIC IMAGING Diagnostic Imaging Results: Final report reviewed Diagnostic Imaging Results Comments: CXR ; Cardiomegaly with vascularity suggestive of edema, very small pleural effusions - TIME SPENT Time Spent in Discharge (Minutes): 40 (>30 minutes spent on exam, educating patient, getting standing scale wt, ensuring pt full understanding of d/c plan)
== END 2021-07-21 13:00 | disposition home or self-care (01) ==
LOC: ED 12:46 → MS3 16:58
PROVIDERS: ADMIT Nurse Practitioner; ATTEND Nurse Practitioner
DX: I11.0 Hypertensive heart disease with heart failure (principal); I50.33 Acute on chronic diastolic (congestive) heart failure; R79.89 Other specified abnormal findings of blood chemistry; J44.9 Chronic obstructive pulmonary disease, unspecified; Z68.36 Body mass index [BMI] 36.0-36.9, adult; I73.9 Peripheral vascular disease, unspecified; E78.5 Hyperlipidemia, unspecified; K21.9 Gastro-esophageal reflux disease without esophagitis; F32.9 Major depressive disorder, single episode, unspecified; I27.20 Pulmonary hypertension, unspecified; E66.01 Morbid (severe) obesity due to excess calories; G47.30 Sleep apnea, unspecified; E03.9 Hypothyroidism, unspecified; Z87.891 Personal history of nicotine dependence
CPT/HCPCS: 36415; 71046; 80048; 80053; 82977; 83690; 83735; 83880; 84443; 84484; 85025; 85610; 87631; 93005; 94640; 94664; 96372; 96374; 96376; 99284; 99285; A9270; G0378; J1650; 0202U

== ENCOUNTER 2021-10-11 07:08 | Outpatient (CLI) | payer MEDICARE | END 2021-10-11 07:09 | disposition critical access hospital (66) | LOC: EMS 07:08 | DX: R42 Dizziness and giddiness (principal) | CPT/HCPCS: A0425; A0429 ==

== ENCOUNTER 2021-10-11 07:33 | Emergency (ER) | payer MEDICARE ==
--- NOTE | 2021-10-11 07:44 | ED Physician Documentation ---
PD HPI HEENT - Stated complaint Stated Complaint: DIZZY - Chief complaint Chief Complaint: Neuro - History obtained from History obtained from: Patient - History of Present Illness Timing - onset: Last night (awoke during the night at midnight to go to bathroom and noted feeling of vertigo and difficulty balance. No focal weakness. No headache. Awoke again at 3 am and got up again and felt worse vertigo with sitting up. Feels better with lying down.) Timing - duration: Hours (since midnight last night.) Timing - details: Abrupt onset, Still present Location: Throat. No: Right ear, Left ear Improves: Other (lying still.) Worsens: Position (sitting up and turning head.) Associated symptoms: Congestion (ongoing, not acutely worse.). No: Fever Similar symptoms before: Diagnosis (has had vertigo remotely, not a chronic i ssue.) Recently seen: Not recently seen Review of Systems Constitutional: denies: Fever, Chills Eyes: denies: Loss of vision Ears: denies: Ear pain, Tinnitus/ringing Nose: reports: Congestion. denies: Rhinorrhea / runny nose Throat: denies: Sore throat Respiratory: reports: Dyspnea (chronic and is on home oxygen.). denies: Cough GI: denies: Abdominal Pain, Nausea, Vomiting Neurologic: denies: Focal weakness, Numbness Endocrine: reports: Weight gain (has had 6 lb weight gain the past 1-2 weeks, so she is concerned about fluid retention. Minimal increase leg edema.) PD PAST MEDICAL HISTORY - Past Medical History Cardiovascular: Congestive heart failure, Hypertension, High cholesterol, Coronary artery disease (patient DENIES CAD, says the ASA is for PAD, had femoral artery "replacement" (? graft?)), Peripheral Vascular Disease, Arrhythmia Respiratory: COPD, Sleep apnea, CPAP use Neuro: None Endocrine/Autoimmune: HyPOthyroidism, Other GI: GERD, C.difficile, Other THIRD RIGGER: None : Other HEENT: Chronic vision loss, Other Psych: Depression, Anxiety Musculoskeletal: Chronic back pain, Other Derm: None - Past Surgical History Past Surgical History: Yes Ortho: Other Cardiovascular: Fempop bypass HEENT: Cataracts Derm: Skin cancer surgery - Present Medications Home Medications: Ambulatory Orders Medication Instructions Recorded Confirmed Acetaminophen [Pain Relief] 1 - 2 tab PO Q6HR PRN 04/18/14 10/11/21 Lactobacillus Combo No.6 1 cap PO BID 04/18/14 10/11/21 [Probiotic Complex] Rosuvastatin Calcium [Crestor] 40 mg PO QPM 04/18/14 10/11/21 Albuterol Sulf [Ventolin Hfa 1 - 2 puffs INH Q4HR PRN #1 inhaler 05/16/18 10/11/21 Inhaler] traZODone [Desyrel] 25 - 50 mg PO QPM PRN 07/06/19 10/11/21 Ipratropium [Atrovent] 2 puffs INH QID 10/26/20 10/11/21 Metoprolol Succinate [Toprol Xl] 150 mg PO DAILY 10/26/20 10/11/21 Potassium Chloride [Klor-Con 10] 20 meq PO DAILY 10/26/20 10/11/21 Umeclidinium Brm/Vilanterol Tr 1 puffs INH DAILY 10/26/20 10/11/21 [Anoro Ellipta 62.5-25 Mcg INH] Aspirin Chewable [St Eduardo 81 mg PO DAILY 12/01/20 10/11/21 Aspirin] Cetirizine [ZyrTEC] 10 mg PO DAILY PRN 12/01/20 10/11/21 Esomeprazole Magnesium [Nexium 20 mg PO QDAC 12/01/20 10/11/21 24Hr] Multivitamin/Iron/Folic Acid 1 tab PO DAILY 12/01/20 10/11/21 [Centrum Women Tablet] Amlodipine Besylate [Norvasc] 10 mg PO DAILY 07/19/21 10/11/21 Furosemide [Lasix] 40 mg PO DAILY 07/19/21 10/11/21 Levothyroxine Sodium [Levoxyl] 50 mcg PO QDAC 07/19/21 10/11/21 Sertraline [Zoloft] 50 mg PO DAILY 07/19/21 10/11/21 Meclizine HCl [Motion Sickness] 25 mg PO Q8H PRN #30 tablet 10/11/21 dexAMETHasone [Decadron] 4 mg PO DAILY #5 tablet 10/11/21 - Allergies Allergies/Adverse Reactions: Allergies Allergy/AdvReac Type Severity Reaction Status Date / Time meperidine HCl * Allergy Unknown Unknown Verified 07/19/21 12:49 [From Demerol] sulfamethoxazole Allergy Unknown Unknown Verified 07/19/21 12:49 [From Bactrim] trimethoprim [From Bactrim] Allergy Unknown Unknown Verified 07/19/21 12:49 morphine AdvReac Intermediate Nausea Verified 07/19/21 12:49 - Social History Does the pt smoke?: No Smoking Status: Current every day smoker Does the pt drink ETOH?: Yes Does the pt have substance abuse?: No - Immunizations Immunizations are current?: Yes - POLST Patient has POLST: No PD ED PE NORMAL - Vitals Vital signs reviewed: Yes - General General: Alert and oriented X 3, Well developed/nourished - HEENT HEENT: PERRL, EOMI (nystagmus noted to left with eye movement. No resting nystagmus. ) - Neck Neck: Supple, no meningeal sign, No adenopathy, No bruit - Cardiac Cardiac: RRR, No murmur - Respiratory Respiratory: No: Clear bilaterally (faint crackles just at bases. Lungs otherwise clear. ) - Abdomen Abdomen: Soft, Non tender - Derm Derm: Normal color, Warm and dry - Extremities Extremities: Normal ROM s pain, No calf tenderness / cord, Other (1+ edema in both lower legs and ankles. Not tender. 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, No motor deficit, No sensory deficit, Normal speech, Other Results - Vitals Vitals: Vital Signs - 24 hr 10/11/21 10/11/21 10/11/21 07:37 08:56 10:24 Temperature 36.7 C 37.0 C Heart Rate 73 80 68 Respiratory 16 16 14 Rate Blood Pressure 153/56 H 145/64 H 144/59 H O2 Saturation 100 96 99 10/11/21 12:07 Temperature 36.7 C Heart Rate 75 Respiratory 16 Rate Blood Pressure 136/69 H O2 Saturation 98 Oxygen O2 Source [Without Activity] Room air O2 Source Room air - Labs Labs: Laboratory Tests 10/11/21 10/11/21 10/11/21 08:20 08:20 08:20 WBC 5.8 RBC 4.10 L Hgb 13.6 Hct 40.7 MCV 99.3 H MCH 33.2 H MCHC 33.4 RDW 13.7 Plt Count 216 MPV 9.0 Neut # (Auto) 3.9 Lymph # (Auto) 1.4 L Austin # (Auto) 0.4 Eos # (Auto) 0.1 Baso # (Auto) 0.0 Absolute Nucleated RBC 0.00 Nucleated RBC % 0.0 ESR 25 Sodium 143 Potassium 3.6 Chloride 105 Carbon Dioxide 24 Anion Gap 14.0 H BUN 38 H Creatinine 1.6 H Estimated GFR (MDRD) 31 L Glucose 117 H Calcium 9.5 Magnesium 2.6 Total Bilirubin 0.6 AST 27 ALT 24 Alkaline Phosphatase 60 Total Protein 7.4 Albumin 4.4 Globulin 3.0 Albumin/Globulin Ratio 1.5 Lipase 35 Ethyl Alcohol < 5.0 - Rads (name of study) head CT Radiology: Prelim report reviewed (no acute process. No ICH. ), See rad report PD MEDICAL DECISION MAKING - ED course Complexity details: re-evaluated patient (improved vertigo but still feeling it moderately with sitting up and moving. AMbulation testing per nursing showed ability to walk, but was slow and deliberate, holding head still. Able to do it though, so does not seem to meet criteria for hospitalization. ), considered differential (seems like peripheral vertigo. Can try meclizine and diazepam. Check labs/sodium in particular, head CT. No other neuro symptoms; clinically seem not central. ), d/w patient Departure - Departure Disposition: 01 Home, Self Care Clinical Impression: Acute severe vertigo, Fluid retention Condition: Stable Record reviewed to determine appropriate education?: Yes Follow-Up: Indira Ledesma ARNP [Primary Care Provider] - Prescriptions: dexAMETHasone [Decadron] 4 mg PO DAILY #5 tablet Meclizine HCl [Motion Sickness] 25 mg PO Q8H PRN #30 tablet PRN Reason: Vertigo Comments: Continue usual medications. Add Decadron daily for the next 5 days. Meclizine every 6-8 hours if needed for dizziness. Move slowly and change positions slowly. Use the walker to help with your balance as needed. I would anticipate improvement with anti-inflammatories and antivertigo medicine over the next few days. Continue your other usual medications. You could potentially increase your Lasix dose to a second dose in noontime or early afternoon for the next few days if you are feeling some weight gain. I transmitted your prescriptions to [facility] in [place]. Discharge Date/Time: 10/11/21 12:35
[2021-10-11] MEDS ORDERED: diazePAM INJ 5 MG/ML SYRINGE IVP STA (08:03)
[2021-10-11] MEDS ORDERED: MECLIZINE 12.5 MG TABLET PO STA ×2 (08:03→10:21)
[2021-10-11 08:28] LABS: BASOPHILS % (AUTO) 0.5 %; EOSINOPHILS # (AUTO) 0.1 10^3/uL (0.0-0.7); EOSINOPHILS % (AUTO) 2.4 %; HCT - HEMATOCRIT 40.7 % (37.0-47.0); HGB - HEMOGLOBIN 13.6 g/dL (12.0-16.0); LYMPHOCYTES # (AUTO) 1.4 10^3/uL (1.5-3.5); LYMPHOCYTES % (AUTO) 24.3 %; MEAN CORPUSCULAR HEMOGLOBIN 33.2 pg (27.0-31.0); MEAN CORPUSCULAR HGB CONC 33.4 g/dL (32.0-36.0); MEAN CORPUSCULAR VOLUME 99.3 fL (81.0-99.0); MONOCYTES # (AUTO) 0.4 10^3/uL (0.0-1.0); NEUTROPHILS # (AUTO) 3.9 10^3/uL (1.5-6.6); NEUTROPHILS % (AUTO) 66.6 %; PLT - PLATELET COUNT 216 10^3/uL (130-450); RED CELL DISTRIBUTION WIDTH 13.7 % (12.0-15.0); WHITE BLOOD COUNT 5.8 x10^3/uL (4.8-10.8)
[2021-10-11 08:41] LABS: ALBUMIN 4.4 g/dL (3.2-5.5); ALBUMIN/GLOBULIN RATIO 1.5 (1.0-2.2); ALKALINE PHOSPHATASE 60 IU/L (42-121); ALT ALANINE AMINOTRANSFERASE 24 IU/L (10-60); AST ASPARTATE AMINOTRANSFERASE 27 IU/L (10-42); BILIRUBIN,TOTAL 0.6 mg/dL (0.2-1.0); BUN - BLOOD UREA NITROGEN 38 mg/dL (6-20); CALCIUM 9.5 mg/dL (8.5-10.3); CARBON DIOXIDE - CO2 24 mmol/L (21-32); CHLORIDE 105 mmol/L (101-111); CREATININE 1.6 mg/dL (0.4-1.0); ETOH - ETHANOL < 5.0 mg/dL; GFR - MDRD 31 (>89); GLUCOSE 117 mg/dL (70-100); LIPASE 35 U/L (22-51); MAGNESIUM 2.6 mg/dL (1.7-2.8); POTASSIUM 3.6 mmol/L (3.5-5.0); SODIUM 143 mmol/L (135-145); TOTAL PROTEIN 7.4 g/dL (6.7-8.2)
--- NOTE | 2021-10-11 08:48 | CT Report ---
PROCEDURE: HEAD WO INDICATIONS: onset vertigo with movement overnight TECHNIQUE: Noncontrast 4.5 mm thick angled axial sections acquired from the foramen magnum to the vertex. For r adiation dose reduction, the following was used: automated exposure control, adjustment of mA and/or kV according to patient size. COMPARISON: 06/21/2018 FINDINGS: Image quality: Excellent. CSF spaces: Basal cisterns are patent. No extra-axial fluid collections. Ventricles are normal in size and shape. Brain: No midline shift. No intracranial masses or hemorrhage. Bell-white matter interface is norm al. Densely calcified choroid plexus is incidentally noted. Age-appropriate brain parenchymal volume loss and chronic small vessel ischemic change can be seen. There are a few foci of low density seen along the falx anteriorly, which are similar to 2018 and regarded to be benign. Skull and face: Calvarium and visualized facial bones are intact, without suspicious lesions. Sinuses: Mild to moderate mucosal thickening is partially seen within the left maxillary sinus. Visu alized sinuses and mastoids are otherwise relatively clear. IMPRESSION: No imaging explanation is found for the patient's presenting symptoms. Age-appropriate brain parenchymal volume loss and chronic small vessel ischemic change can be seen. Reviewed by: Ruddy Antonio MD on 10/11/2021 7:47 AM [facility] Approved by: Ruddy Antonio MD on 10/11/2021 7:47 AM [facility] Station ID: [id number]
[2021-10-11] MEDS ORDERED: FUROSEMIDE 40 MG/4 ML VIAL IVP STA (09:13)
[2021-10-11 12:08] VITALS: BP 136/69
== END 2021-10-11 12:35 | disposition home or self-care (01) ==
LOC: EDUNIT# → ED 07:33
DX: R42 Dizziness and giddiness (principal); R60.9 Edema, unspecified; F17.200 Nicotine dependence, unspecified, uncomplicated
CPT/HCPCS: 36415; 70450; 80053; 83690; 83735; 85025; 85651; 93005; 96374; 96375; 99283; 99284; A9270; G0480; 80320

== ENCOUNTER 2022-01-07 10:01 | Observation (INO) | payer MEDICARE ==
--- NOTE | 2022-01-07 10:18 | ED Physician Documentation ---
PD HPI DYSPNEA - Stated complaint Stated Complaint: SOA - Chief complaint Chief Complaint: Resp - History obtained from History obtained from: Patient - History of Present Illness Timing - onset: How many days ago (several days) Timing - duration: Days (3-4 days) Timing - details: Gradual onset, Still present Inciting event(s): No: URI Improved by: O2, Rest, Sitting up Worsened by: Exertion (Even slight exertion was causing marked dyspnea which is off of her baseline. She typically is able to ambulate with her oxygen. Last night into the day was even having rest dyspnea), Laying flat (the past day) Associated symptoms: Cough, Bilateral edema (has noted edema above baseline with weight gain the past week.). No: Fever, Hemoptysis, Wheezing, Chest pain / discomfort, Palpitations Similar symptoms before: Diagnosis (history of COPD and CHF with exacerbations of both at times.) Recently seen: Not recently seen Review of Systems Constitutional: denies: Fever, Chills Nose: denies: Rhinorrhea / runny nose, Congestion Throat: denies: Sore throat Cardiac: reports: Pedal edema. denies: Chest pain / pressure, Palpitations Respiratory: reports: Dyspnea. denies: Cough, Wheezing (but is feeling tightness in chest with breathing.) GI: denies: Abdominal Pain, Nausea, Vomiting, Diarrhea, Bloody / black stool Musculoskeletal: reports: Extremity swelling (increased edema in both lower legs the past several days.) Neurologic: reports: Generalized weakness. denies: Focal weakness, Near syncope Endocrine: reports: Weight gain PD PAST MEDICAL HISTORY - Past Medical History Cardiovascular: Congestive heart failure, Hypertension, High cholesterol, Coronary artery disease (patient DENIES CAD, says the ASA is for PAD, had femoral artery "replacement" (? 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 : Other HEENT: Chronic vision loss, Other Psych: Depression, Anxiety Musculoskeletal: Chronic back pain, Other Derm: None - Past Surgical History Past Surgical History: Yes Ortho: Other Cardiovascular: Fempop bypass HEENT: Cataracts Derm: Skin cancer surgery - Present Medications Home Medications: Ambulatory Orders Medication Instructions Recorded Confirmed Acetaminophen [Pain Relief] 1 - 2 tab PO Q6HR PRN 04/18/14 10/11/21 Rosuvastatin Calcium [Crestor] 40 mg PO QPM 04/18/14 10/11/21 Albuterol Sulf [Ventolin Hfa 1 - 2 puffs INH Q4HR PRN #1 inhaler 05/16/18 10/11/21 Inhaler] traZODone [Desyrel] 25 - 50 mg PO QPM PRN 07/06/19 10/11/21 Ipratropium [Atrovent] 2 puffs INH QID 10/26/20 10/11/21 Metoprolol Succinate [Toprol Xl] 150 mg PO DAILY 10/26/20 10/11/21 Potassium Chloride [Klor-Con 10] 20 meq PO DAILY 10/26/20 10/11/21 Umeclidinium Brm/Vilanterol Tr 1 puffs INH DAILY 10/26/20 10/11/21 [Anoro Ellipta 62.5-25 Mcg INH] Aspirin Chewable [St Eduardo 81 mg PO DAILY 12/01/20 10/11/21 Aspirin] Cetirizine [ZyrTEC] 10 mg PO DAILY PRN 12/01/20 10/11/21 Esomeprazole Magnesium [Nexium 20 mg PO QDAC 12/01/20 10/11/21 24Hr] Multivitamin/Iron/Folic Acid 1 tab PO DAILY 12/01/20 10/11/21 [Centrum Women Tablet] Amlodipine Besylate [Norvasc] 10 mg PO DAILY 07/19/21 10/11/21 Furosemide [Lasix] 40 mg PO DAILY 07/19/21 10/11/21 Levothyroxine Sodium [Levoxyl] 50 mcg PO QDAC 07/19/21 10/11/21 Sertraline [Zoloft] 50 mg PO DAILY 07/19/21 10/11/21 - Allergies Allergies/Adverse Reactions: Allergies Allergy/AdvReac Type Severity Reaction Status Date / Time meperidine HCl * Allergy Unknown Unknown Verified 01/07/22 10:14 [From Demerol] sulfamethoxazole Allergy Unknown Unknown Verified 01/07/22 10:14 [From Bactrim] trimethoprim [From Bactrim] Allergy Unknown Unknown Verified 01/07/22 10:14 morphine AdvReac Intermediate Nausea Verified 01/07/22 10:14 - Social History Does the pt smoke?: No Smoking Status: Current every day smoker Does the pt drink ETOH?: Yes Does the pt have substance abuse?: No - Immunizations Immunizations are current?: Yes - POLST Patient has POLST: No PD ED PE NORMAL - Vitals Vital signs reviewed: Yes - General General: Alert and oriented X 3, Well developed/nourished, Other (sitting upright with accessory muscle use. Partial sentence dyspnea. ) - HEENT HEENT: Pharynx benign - Neck Neck: Supple, no meningeal sign, No adenopathy, Other (JVD noted at 45 degrees, improved sitting up. ) - Cardiac Cardiac: RRR, No murmur - Respiratory Respiratory: No: Clear bilaterally (no wheezes but has low tidal volume. Fine crackles noted lower third of both lungs c/w CHF.) - Abdomen Abdomen: Soft, Non tender - Derm Derm: Normal color, Warm and dry - Extremities Extremities: No calf tenderness / cord, Other (1-2+ edema both lower legs) - Neuro Neuro: Alert and oriented X 3, No motor deficit. No: Normal speech (able to talk in partial sentences on her usual NC 3 lpm. ) Results - Vitals Vitals: Vital Signs - 24 hr 01/07/22 01/07/22 01/07/22 10:09 10:22 10:46 Temperature 37.5 C Heart Rate 93 109 H 90 Respiratory 20 20 22 Rate Blood Pressure 169/62 H O2 Saturation 97 96 01/07/22 01/07/22 01/07/22 10:48 11:22 11:54 Temperature Heart Rate 90 95 88 Respiratory 25 H 16 17 Rate Blood Pressure 142/58 H 168/58 H 154/54 H O2 Saturation 100 100 97 01/07/22 01/07/22 01/07/22 12:21 12:32 13:09 Temperature Heart Rate 84 93 82 Respiratory 16 29 H 24 Rate Blood Pressure 143/55 H 121/72 121/72 O2 Saturation 100 95 99 01/07/22 01/07/22 01/07/22 13:55 14:01 14:18 Temperature Heart Rate 81 78 Respiratory 15 16 Rate Blood Pressure 130/51 L O2 Saturation 88 L 100 Oxygen O2 Source [Without Activity] Room air O2 Source Nasal cannula Oxygen Flow Rate 3 - EKG (time done) 10:14 Rate: Rate (enter#) (86) Rhythm: NSR [place]: Normal Intervals: Normal MI QRS: Normal Ischemia: Normal ST segments. No: ST elevation c/w ischemia, ST depression - Labs Labs: Laboratory Tests 01/07/22 01/07/22 01/07/22 10:15 10:15 10:15 WBC 6.9 RBC 3.92 L Hgb 12.9 Hct 39.9 MCV 101.8 H MCH 32.9 H MCHC 32.3 RDW 14.1 Plt Count 240 MPV 9.3 Neut # (Auto) 4.5 Lymph # (Auto) 1.7 [place] # (Auto) 0.4 Eos # (Auto) 0.2 Baso # (Auto) 0.0 Absolute Nucleated RBC 0.00 Nucleated RBC % 0.0 Sodium 143 Potassium 3.3 L Chloride 104 Carbon Dioxide 24 Anion Gap 15.0 H BUN 34 H Creatinine 1.4 H Estimated GFR (MDRD) 36 L Glucose 115 H Calcium 9.4 Magnesium Total Bilirubin 0.5 AST 25 ALT 22 Alkaline Phosphatase 68 Troponin I High Sens 7.1 B-Natriuretic Peptide Total Protein 7.6 Albumin 4.3 Globulin 3.3 Albumin/Globulin Ratio 1.3 Lipase 32 Nasal Adenovirus (PCR) Nasal B. parapertussis DNA (PCR) Nasal Coronavir 229E PCR Nasal Coronavir HKU1 PCR Nasal Coronavir NL63 PCR Nasal Coronavir OC43 PCR Nasal Enterovir/Rhinovir PCR Nasal Influenza B PCR Nasal Influenza A PCR Nasal Parainfluen 1 PCR Nasal Parainfluen 2 PCR Nasal Parainfluen 3 PCR Nasal Parainfluen 4 PCR Nasal RSV (PCR) Nasal B.pertussis DNA PCR Nasal C.pneumoniae (PCR) Cedric Human Metapneumo PCR Nasal M.pneumoniae (PCR) Nasal SARS-CoV-2 (PCR) 01/07/22 01/07/22 01/07/22 10:15 10:15 13:11 WBC RBC Hgb Hct MCV MCH MCHC RDW Plt Count MPV Neut # (Auto) Lymph # (Auto) [place] # (Auto) Eos # (Auto) Baso # (Auto) Absolute Nucleated RBC Nucleated RBC % Sodium Potassium Chloride Carbon Dioxide Anion Gap BUN Creatinine Estimated GFR (MDRD) Glucose Calcium Magnesium 2.5 Total Bilirubin AST ALT Alkaline Phosphatase Troponin I High Sens B-Natriuretic Peptide 254 H Total Protein Albumin Globulin Albumin/Globulin Ratio Lipase Nasal Adenovirus (PCR) NOT DETECTED Nasal B. parapertussis DNA (PCR) NOT DETECTED Nasal Coronavir 229E PCR NOT DETECTED Nasal Coronavir HKU1 PCR NOT DETECTED Nasal Coronavir NL63 PCR NOT DETECTED Nasal Coronavir OC43 PCR NOT DETECTED Nasal Enterovir/Rhinovir PCR NOT DETECTED Nasal Influenza B PCR NOT DETECTED Nasal Influenza A PCR NOT DETECTED Nasal Parainfluen 1 PCR NOT DETECTED Nasal Parainfluen 2 PCR NOT DETECTED Nasal Parainfluen 3 PCR NOT DETECTED Nasal Parainfluen 4 PCR NOT DETECTED Nasal RSV (PCR) NOT DETECTED Nasal B.pertussis DNA PCR NOT DETECTED Nasal C.pneumoniae (PCR) NOT DETECTED Cedric Human Metapneumo PCR NOT DETECTED Nasal M.pneumoniae (PCR) NOT DETECTED Nasal SARS-CoV-2 (PCR) NOT DETECTED - Rads (name of study) chest xray Radiology: Prelim report reviewed (moderate vascular congestion with small bibasilar effusions. ), See rad report PD MEDICAL DECISION MAKING - ED course Complexity details: re-evaluated patient (The patient's breathing characteristic has improved with diuresing and she has put out about 400 to 500 mL. She did feel some improvement with nebulizer as well. However still exertional dyspnea just to the commode bedside.), considered differential (The patient does have history of COPD and CHF. Current exacerbation seems more CHF on exam and symptoms. We will treat for both with nebulizers and diuretics.), d/w patient ED course: After several hours in the ER with fairly good diuresis and a couple of nebulizer treatments, the patient is much more improved at rest but still having a marked exertional component. She was walked just from bedside to the door and back to her 3 times and desatted to 86 to 88% on her normal 3 L nasal cannula. She also had considerable effort of breathing. I do not feel she is clinically well enough at this point for managing at home. We will consult the hospitalist for evaluation. Departure - Departure Disposition: ED Place in Observation Clinical Impression: Dyspnea on exertion, COPD exacerbation, CHF exacerbation, Hypoxia
[2022-01-07 10:28] LABS: BASOPHILS % (AUTO) 0.4 %; EOSINOPHILS # (AUTO) 0.2 10^3/uL (0.0-0.7); EOSINOPHILS % (AUTO) 2.5 %; HCT - HEMATOCRIT 39.9 % (37.0-47.0); HGB - HEMOGLOBIN 12.9 g/dL (12.0-16.0); LYMPHOCYTES # (AUTO) 1.7 10^3/uL (1.5-3.5); MEAN CORPUSCULAR HEMOGLOBIN 32.9 pg (27.0-31.0); MEAN CORPUSCULAR HGB CONC 32.3 g/dL (32.0-36.0); MEAN CORPUSCULAR VOLUME 101.8 fL (81.0-99.0); MEAN PLATELET VOLUME 9.3 fL (7.9-10.8); MONOCYTES # (AUTO) 0.4 10^3/uL (0.0-1.0); MONOCYTES % (AUTO) 5.8 %; NEUTROPHILS # (AUTO) 4.5 10^3/uL (1.5-6.6); PLT - PLATELET COUNT 240 10^3/uL (130-450); RED BLOOD COUNT 3.92 10^6/uL (4.20-5.40); RED CELL DISTRIBUTION WIDTH 14.1 % (12.0-15.0); WHITE BLOOD COUNT 6.9 x10^3/uL (4.8-10.8)
[2022-01-07] MEDS ORDERED: FUROSEMIDE 40 MG/4 ML VIAL IVP STA ×2 (10:30→11:34)
[2022-01-07] MEDS ORDERED: IPRATROPIUM/ALBUTEROL 3 ML NEB INH STA (10:30)
[2022-01-07 10:41] LABS: ALBUMIN 4.3 g/dL (3.2-5.5); ALBUMIN/GLOBULIN RATIO 1.3 (1.0-2.2); BILIRUBIN,TOTAL 0.5 mg/dL (0.2-1.0); CALCIUM 9.4 mg/dL (8.5-10.3); CREATININE 1.4 mg/dL (0.4-1.0); POTASSIUM 3.3 mmol/L (3.5-5.0); TOTAL PROTEIN 7.6 g/dL (6.7-8.2)
--- NOTE | 2022-01-07 11:19 | XRAY Report ---
PROCEDURE: Chest 1 View X-Ray INDICATIONS: Chest pain TECHNIQUE: One view of the chest was acquired. COMPARISON: 07/19/2021 FINDINGS: Surgical changes and devices: None. Lungs and pleura: Mild vascular congestion. Blunting the left costophrenic angle and the right costop hrenic angle. Mediastinum: Mediastinal contours appear normal. Heart size is enlarged. Atherosclerotic vascular calcification noted in the aortic arch. Bones and chest wall: No suspicious bony lesions. Overlying soft tissues appear unremarkable. Gleno humeral degenerative changes. IMPRESSION: Cardiomegaly, moderate vascular congestion small bibasilar pleural effusions Aortic atherosclerosis and bilateral shoulder osteoarthritis Reviewed by: Ba Cabezas MD on 01/07/2022 10:18 AM [facility] Approved by: Ba Cabezas MD on 01/07/2022 10:18 AM [facility] Station ID: [id number]
[2022-01-07] MEDS ORDERED: METOPROLOL 5 MG/5 ML VIAL IVP STA (11:34)
[2022-01-07] MEDS ORDERED: DEXAMETHASONE 10 MG/ML VIAL IVP STA (13:14)
[2022-01-07] MEDS: ALBUTEROL NEB 2.5 MG/3 ML INH STA (14:01)
[2022-01-07 14:19] LABS: B. PARAPERTUSSIS- RESP PCR PAN NOT DETECTED; B. PERTUSSIS- RESP PCR PANEL NOT DETECTED; C. PNEUMONIAE- RESP PCR PANEL NOT DETECTED; CORONAVIRUS 229E-RESP PCR NOT DETECTED; CORONAVIRUS HKU1-RESP PCR NOT DETECTED; CORONAVIRUS NL63-RESP PCR NOT DETECTED; CORONAVIRUS OC43-RESP PCR NOT DETECTED; HUMAN METAPNEUMOVIRUS NOT DETECTED; INFLUENZA A- RESP PCR PANEL NOT DETECTED; INFLUENZA B - RESP PCR PANEL NOT DETECTED; M. PNEUMONIAE- RESP PCR PANEL NOT DETECTED; PARAINFLUENZA VIRUS 1 NOT DETECTED; PARAINFLUENZA VIRUS 2 NOT DETECTED; PARAINFLUENZA VIRUS 3 NOT DETECTED; PARAINFLUENZA VIRUS 4 NOT DETECTED; RHINOVIRUS/ENTEROVIRUS NOT DETECTED; RSV- RESP PCR PANEL NOT DETECTED; SARS-CoV-2 -RESP PCR PANEL NOT DETECTED
[2022-01-07] MEDS ORDERED: POTASSIUM CHLORIDE 20 MEQ TABLET PO STA (14:37)
[2022-01-07] MEDS ORDERED: ONDANSETRON 4 MG/2 ML VIAL IVP PRN (14:51)
[2022-01-07] MEDS ORDERED: SODIUM CHLORIDE FLUSH 0.9% 10 ML SYRINGE IVP PRN (14:51)
[2022-01-07] MEDS ORDERED: ACETAMINOPHEN 325 MG TABLET PO PRN (14:51)
[2022-01-07] MEDS ORDERED: IPRATROPIUM/ALBUTEROL 3 ML NEB INH PRN (14:58)
[2022-01-07] MEDS ORDERED: traZODone 50 MG TABLET PO PRN (15:03)
--- NOTE | 2022-01-07 15:08 | HISTORY & PHYSICAL EXAMINATION ---
Chief Complaint - Chief Complaint Chief Complaint: dyspnea, hypoxia History of Present Illness - Admitted From Admitted From:: [facility] ED - History Obtained From Records Reviewed: yes History obtained from: patient and medical records Exam Limitations: none - History of Present Illness HPI Comment/Other: Is an 81-year-old female with an extensive medical history who presented to the ED today with complaint of dyspnea. Symptoms have been ongoing for the past couple of days. Today she got up and went to the bathroom and back. After this she was significantly winded and decided to come to the emergency room for evaluation. At baseline she is on 3 L of oxygen via nasal cannula with oxygen saturation around 96%. She also uses a CPAP at home. While this was consistent with her oxygen saturation in the ED, upon ambulation her oxygen saturation dropped into the 80s. Consequently she was presented for admission for further treatment. At bedside she is resting comfortably she has been given 40 mg of Lasix IV and had diuresed with about 1200 mils of urine out. She denies chest pain, abdominal pain, nausea, vomiting, fever or chills. Further work-up included a BNP which was in the 200s and a chest x-ray was largely unremarkable. She had mild crackles on auscultation of the lungs History - Past Medical History Cardiovascular: reports: Congestive heart failure, Hypertension, High cholesterol, Coronary artery disease (patient DENIES CAD, says the ASA is for PAD, had femoral artery "replacement" (? 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 Dad had heart attack, HTN. Brother with a bleeding disease. Sister of COPD Social History Notes: former smoker, 4 ppd for 35 years, quit 11/12/1990. drinks ~10 oz/week with two "BIG" vodka drinks a day. 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 [employer] Substance History Use: Uses substance without health or social issues: NONE - POLST Patient has POLST: No POLST Status: Full Code Meds/Allgy - Home Medications Home Medications: Ambulatory Orders Medication Instructions Recorded Confirmed Acetaminophen [Pain Relief] 1 - 2 tab PO Q6HR PRN 04/18/14 01/07/22 Rosuvastatin Calcium [Crestor] 40 mg PO QPM 04/18/14 01/07/22 Albuterol Sulf [Ventolin Hfa 1 - 2 puffs INH Q4HR PRN #1 inhaler 05/16/18 01/07/22 Inhaler] traZODone [Desyrel] 25 - 50 mg PO QPM PRN 07/06/19 01/07/22 Ipratropium [Atrovent] 2 puffs INH QID 10/26/20 01/07/22 Metoprolol Succinate [Toprol Xl] 150 mg PO DAILY 10/26/20 01/07/22 Potassium Chloride [Klor-Con 10] 20 meq PO DAILY 10/26/20 01/07/22 Umeclidinium Brm/Vilanterol Tr 1 puffs INH DAILY 10/26/20 01/07/22 [Anoro Ellipta 62.5-25 Mcg INH] Aspirin Chewable [St Eduardo 81 mg PO DAILY 12/01/20 01/07/22 Aspirin] Cetirizine [ZyrTEC] 10 mg PO DAILY PRN 12/01/20 01/07/22 Esomeprazole Magnesium [Nexium 20 mg PO QDAC 12/01/20 01/07/22 24Hr] Multivitamin/Iron/Folic Acid 1 tab PO DAILY 12/01/20 01/07/22 [Centrum Women Tablet] Amlodipine Besylate [Norvasc] 10 mg PO DAILY 07/19/21 01/07/22 Furosemide [Lasix] 40 mg PO DAILY 07/19/21 01/07/22 Levothyroxine Sodium [Levoxyl] 50 mcg PO QDAC 07/19/21 01/07/22 Sertraline [Zoloft] 50 mg PO DAILY 07/19/21 01/07/22 - Allergies Allergies/Adverse Reactions: Allergies Allergy/AdvReac Type Severity Reaction Status Date / Time meperidine HCl * Allergy Unknown Unknown Verified 01/07/22 10:14 [From Demerol] sulfamethoxazole Allergy Unknown Unknown Verified 01/07/22 10:14 [From Bactrim] trimethoprim [From Bactrim] Allergy Unknown Unknown Verified 01/07/22 10:14 morphine AdvReac Intermediate Nausea Verified 01/07/22 10:14 Review of Systems - Constitutional Constitutional: denies: Fatigue, Fever, Chills - Eyes Eyes: denies: Pain, Vision loss, Dipolpia - Ears, Nose & Throat Ears, Nose & Throat: denies: Ear pain, Vertigo, Sore throat - Cardiovascular Cariovascular: reports: Exertional dyspnea. denies: Irregular heart rate, Palpitations, Chest pain, Edema, Lightheadedness, Syncope - Respiratory Respiratory: reports: SOB with exertion, Other (Mild dyspnea). denies: Cough, Sputum production, Wheezing - Gastrointestinal Gastrointestinal: denies: Abdominal pain, Abdominal distention, Constipation, Diarrhea, Nausea, Vomiting, Coffee grounds emesis, Reflux/heartburn - Genitourinary Genitourinary: denies: Dysuria, Frequency, Urgency, Hematuria - Musculoskeletal Musculoskeletal: denies: Muscle pain, Back pain, Muscle aches - Integumentary Integumentary: denies: Rash, Pruritis - Neurological Neurological: denies: Focal weakness - Psychiatric Psychiatric: denies: Depression, Anxiety - Endocrine Endocrine: denies: Polyuria, Polydypsia - Hematologic/Lymphatic Hematologic/Lymphatic: denies: Anemia, Bruising, Petechiae Prior Level of Functionality: The patient lives alone. She is independent of activities of daily living. She gets around using her walker. She uses 3 L of oxygen via nasal cannula at home and a CPAP at night. Exam - Vital Signs Vital Signs: Vital Signs x48h Temp Pulse Resp BP Pulse Ox 01/07/22 15:04 86 24 140/82 H 97 01/07/22 14:33 88 25 H 130/53 L 100 01/07/22 14:18 78 16 01/07/22 14:01 81 15 130/51 L 100 01/07/22 13:55 88 L 01/07/22 13:09 82 24 121/72 99 01/07/22 12:32 93 29 H 121/72 95 01/07/22 12:21 84 16 143/55 H 100 01/07/22 11:54 88 17 154/54 H 97 01/07/22 11:22 95 16 168/58 H 100 01/07/22 10:48 90 25 H 142/58 H 100 01/07/22 10:46 90 22 01/07/22 10:22 109 H 20 169/62 H 96 01/07/22 10:09 37.5 C 93 20 97 - Physical Exam General Appearance: positive: No acute distress, Alert Eyes Bilateral: positive: PERRL, EOMI ENT: positive: ENT inspection nml, No signs of dehydration Neck: positive: No JVD, Trachea midline Respiratory: positive: Chest non-tender, Other (Mild crackles on auscultation of lungs) Cardiovascular: positive: Regular rate & rhythm, No murmur Abdomen: positive: Non-tender, No organomegaly, Nml bowel sounds, No distention. negative: Guarding, Rebound Back: positive: Nml inspection Skin: positive: No rash, Warm, Dry Extremities: positive: Non-tender, Full ROM, Nml appearance, No pedal edema Neurologic/Psychiatric: positive: Oriented x3, Mood/affect nml Conclusion/Plan - Problem List (1) Acute respiratory failure with hypoxia Conclusion/Plan: Likely multifactorial secondary to COPD and CHF. With ambulation and while on 3 L of oxygen via nasal cannula patient's oxygen saturation dropped into the 80s. She was given Lasix 40 mg IV x1 in the ED with significant diuresis of about 1200 mL of urine. We will continue Lasix 40 mg IV twice daily. Supplemental oxygen. Patient was given a dose of dexamethasone 10 mg IV x1 in the ED. We will continue DuoNeb every 3 hours as needed. Budesonide twice daily. Perforomist twice daily (2) COPD (chronic obstructive pulmonary disease) Conclusion/Plan: Supplemental oxygen. Patient was given a dose of dexamethasone 10 mg IV x1 in the ED. We will continue DuoNeb every 3 hours as needed. Budesonide twice daily. Perforomist twice daily (3) CHF (congestive heart failure) Conclusion/Plan: BNP was 254 She was given Lasix 40 mg IV x1 in the ED with significant diuresis of about 1200 mL of urine. We will continue Lasix 40 mg IV twice daily. Metroprolol succinate 150 mg p.o. daily Qualifiers: Heart failure type: diastolic Heart failure chronicity: acute on chronic Qualified Code(s): I50.33 - Acute on chronic diastolic (congestive) heart failure (4) Hypothyroidism Conclusion/Plan: Synthroid 50 mcg p.o. daily AC (5) Hypertension Conclusion/Plan: On Lasix daily and metoprolol succinate 150 mg p.o. daily. Amlodipine 10 mg p.o. daily. (6) Alcoholism Conclusion/Plan: Patient has to be drinks with vodka daily. CIWA protocol initiated. (7) Depression Conclusion/Plan: Sertraline 50 mg p.o. daily (8) GERD (gastroesophageal reflux disease) Conclusion/Plan: Protonix 40 mg p.o. daily ordered. (9) Hyperlipemia Conclusion/Plan: On rosuvastatin 40 mg p.o. every afternoon - Lab Results Fish Bones: 01/07/22 10:15 01/07/22 10:15 Core Measures - Anticipated LOS I expect patient to be DC'd or transferred within 96 hours.: Yes - DVT/VTE - Prophylaxis VTE/DVT Device ordered at admit?: Yes VTE/DVT Prophylaxis med ordered at admit?: Yes
[2022-01-07] MEDS: FUROSEMIDE 40 MG/4 ML VIAL IVP SCH (16:52)
[2022-01-07] MEDS: SODIUM CHLORIDE FLUSH 0.9% 10 ML SYRINGE IVP SCH (16:52)
[2022-01-07] MEDS: FORMOTEROL FUMARATE NEB 20 MCG/2 ML INH SCH (20:04)
[2022-01-07] MEDS: BUDESONIDE 0.5 MG/2 ML NEB INH SCH (20:05)
[2022-01-08 05:42] LABS: BASOPHILS % (AUTO) 0.2 %; EOSINOPHILS % (AUTO) 2.5 %; HCT - HEMATOCRIT 37.8 % (37.0-47.0); HGB - HEMOGLOBIN 12.3 g/dL (12.0-16.0); LYMPHOCYTES % (AUTO) 13.2 %; MEAN CORPUSCULAR HGB CONC 32.5 g/dL (32.0-36.0); MEAN CORPUSCULAR VOLUME 101.3 fL (81.0-99.0); MEAN PLATELET VOLUME 9.4 fL (7.9-10.8); MONOCYTES % (AUTO) 1.8 %; NEUTROPHILS % (AUTO) 82.1 %; PLT - PLATELET COUNT 224 10^3/uL (130-450); RED BLOOD COUNT 3.73 10^6/uL (4.20-5.40); RED CELL DISTRIBUTION WIDTH 14.1 % (12.0-15.0); WHITE BLOOD COUNT 4.3 x10^3/uL (4.8-10.8)
[2022-01-08 05:44] LABS: ABNORMAL LYMPHS % (MANUAL) 0 %; BAND NEUTROPHILS % (MANUAL) 0 %
[2022-01-08 05:49] LABS: CALCIUM 8.7 mg/dL (8.5-10.3); CREATININE 1.4 mg/dL (0.4-1.0); POTASSIUM 3.4 mmol/L (3.5-5.0)
[2022-01-08 06:01] LABS: DIFFERENTIAL COMMENT MANUAL DIFFERENTIAL; EOSINOPHILS # (MANUAL) 0.1 10^3/uL (0-0.7); LYMPHOCYTES # (MANUAL) 0.6 10^3/uL (1.5-3.5); LYMPHOCYTES % (MANUAL) 14 %; MONOCYTES # (MANUAL) 0.1 10^3/uL (0.0-1.0); NEUTROPHILS # (MANUAL) 3.4 10^3/uL (1.5-6.6); PLATELET ESTIMATE, MANUAL NORMAL (130-450,000) (NORMAL); PLATELET MORPHOLOGY NORMAL APPEARANCE (NORMAL); RBC MORPHOLOGY (MULTIPLE) NORMAL APPEARANCE (NORMAL); WBC MORPHOLOGY (MULTIPLE) NORMAL APPEARANCE (NORMAL)
[2022-01-08] MEDS: SODIUM CHLORIDE FLUSH 0.9% 10 ML SYRINGE IVP SCH ×2 (06:26→09:15)
[2022-01-08] MEDS: FUROSEMIDE 40 MG/4 ML VIAL IVP SCH (06:27)
[2022-01-08] MEDS ORDERED: PANTOPRAZOLE 40 MG TABLET PO SCH (07:00)
[2022-01-08] MEDS ORDERED: LEVOTHYROXINE 25 MCG TABLET PO SCH (07:00)
[2022-01-08] MEDS: BUDESONIDE 0.5 MG/2 ML NEB INH SCH (07:28)
[2022-01-08] MEDS: FORMOTEROL FUMARATE NEB 20 MCG/2 ML INH SCH (07:28)
[2022-01-08] MEDS ORDERED: POTASSIUM CHLORIDE 20 MEQ TABLET PO SCH (08:00)
--- NOTE | 2022-01-08 08:10 | PHARMACY PROGRESS NOTE ---
- Best Possible Medication History Admit Date and Time: 01/07/22 1457 Processed by: Nursing Medication History completed: Yes As the person ultimately responsible for medication therapy, providers are able to order a medication from an existing home medication list in [facility] via the "Reconcile Routine" prior to Confirmation of that medication by technical sales support specialist. Such practice is discouraged except when the physician, in their clinical judgment, deems that a medical need exists for a medication without regard to previous use.
[2022-01-08] MEDS ORDERED: PRENATAL VITAMIN TABLET PO SCH (09:00)
[2022-01-08] MEDS ORDERED: THIAMINE 100 MG TABLET PO SCH (09:00)
[2022-01-08] MEDS ORDERED: SERTRALINE 50 MG TABLET PO SCH (09:00)
[2022-01-08] MEDS ORDERED: ASPIRIN EC 81 MG TABLET PO SCH (09:00)
[2022-01-08] MEDS ORDERED: ENOXAPARIN 30 MG/0.3 ML SYRINGE SUBQ SCH (09:00)
[2022-01-08] MEDS ORDERED: METOPROLOL SUCCINATE 50 MG TABLET PO SCH (09:00)
[2022-01-08] MEDS ORDERED: ENOXAPARIN 40 MG/0.4 ML SYRINGE SUBQ SCH (09:00)
[2022-01-08] MEDS ORDERED: amLODIPine 5 MG TABLET PO SCH (09:00)
--- NOTE | 2022-01-08 10:08 | Discharge Plan ---
Discharge Plan Problem Reviewed?: Yes Disposition: Home, Self Care Condition: Stable Diet: Low Sodium Activity Restrictions: Activity as Tolerated Assistance Devices: Walker Weight Bearing: Full Weight Health Concerns: You were admitted on 01/07/2022 with difficulty breathing. It is likely that the difficulty breathing was due to fluid overload. Normally you use 3 L of oxygen via nasal cannula at home. However with ambulation even on 3 L her oxygen saturation dropped to the 80s. You were given Lasix during the course of your hospital stay with significant diuresis. The following day you report to be breathing better. Consequently you are being discharged home. You have been advised to monitor the amount of salt you consume. You have been advised to weigh yourself daily and if your weight is greater than 2 pounds from 1 day to the next you may take an extra dose of your Lasix. You expressed understanding of the above plan and are agreeable with it. You are being discharged in stable condition. You may follow-up with your primary care physician as needed. No Smoking: If you smoke, Please STOP! Call for help. Follow-up with: Indira Ledesma ARNP [Primary Care Provider] -
--- NOTE | 2022-01-08 10:09 | DISCHARGE SUMMARY ---
Discharge Summary Admit Date: 01/07/22 Discharge Date: 01/08/22 Discharging Provider: Dr. Yokasta Mcclure Primary Care Provider: PARVIN Ledesma Code Status: Attempt Resuscitation Condition at Discharge: Stable Discharge Disposition: 01 Home, Self Care - DIAGNOSES Admission Diagnoses: Acute respiratory failure with hypoxia COPD (chronic obstructive pulmonary disease CHF (congestive heart failure) Hypothyroidism Hypertension Alcoholism Depression GERD (gastroesophageal reflux disease) Hyperlipidemia Discharge Diagnoses with Status of Each Condition: Acute respiratory failure with hypoxia- acute, resolved COPD (chronic obstructive pulmonary disease- chronic, stable, continue home medication CHF (congestive heart failure); acute on chronic, improved, continue home medication Hypothyroidism-chronic, stable, continue home medication Hypertension-chronic, stable, continue home medication Alcoholism- chronic, stable Depression-chronic, stable, continue home medication GERD (gastroesophageal reflux disease)- chronic, stable, continue home medication Hyperlipidemia- chronic, stable, continue home medication - HPI History of Present Illness: Per admitting provider, Dr. Yokasta Mcclure. Is an 81-year-old female with an extensive medical history who presented to the ED today with complaint of dyspnea. Symptoms have been ongoing for the past couple of days. Today she got up and went to the bathroom and back. After this she was significantly winded and decided to come to the emergency room for evaluation. At baseline she is on 3 L of oxygen via nasal cannula with oxygen saturation around 96%. She also uses a CPAP at home. While this was consistent with her oxygen saturation in the ED, upon ambulation her oxygen saturation dropped into the 80s. Consequently she was presented for admission for further treatment. At bedside she is resting comfortably she has been given 40 mg of Lasix IV and had diuresed with about 1200 mils of urine out. She denies chest pain, abdominal pain, nausea, vomiting, fever or chills. Further work-up included a BNP which was in the 200s and a chest x-ray was largely unremarkable. She had mild crackles on auscultation of the lungs - HOSPITAL COURSE Hospital Course: Patient was admitted to the hospital for observation after presenting to the ED with dyspnea. While in the ED she received 2 doses of Lasix 40mg IVP and Dexamethasone 10mg IVP x1. She had a good response with 1200 mls of urine out and decreased dyspnea. BNP was 254. Admission chest x-ray showed "cardiomegaly, moderate vascular congestion, small bibasilar pleural effusions, aortic atheosclerosis, and bilateral shoulder osteoarthritis". While hospitalized she remained on 3L/min nasal cannula with oxygen saturations 95-97%. She continued to have fine bibasilar crackles and was given an additional Lasix 40mg IVP twice daily. She had a good response with approximately 2 additional liters of urine out. A desaturation study concluded that she does NOT require oxygen at rest with a bedside saturation of 92% on room air. With activity her saturation decreased into the 86% on room air, then 88% on 2L/min. She was able to tolerate activity with 3L/min with oxygen saturation remaining 92%. - ALLERGIES Allergies/Adverse Reactions: Allergies Allergy/AdvReac Type Severity Reaction Status Date / Time meperidine HCl * Allergy Unknown Unknown Verified 01/07/22 10:14 [From Demerol] sulfamethoxazole Allergy Unknown Unknown Verified 01/07/22 10:14 [From Bactrim] trimethoprim [From Bactrim] Allergy Unknown Unknown Verified 01/07/22 10:14 morphine AdvReac Intermediate Nausea Verified 01/07/22 10:14 - MEDICATIONS Home Medications: Ambulatory Orders Medication Instructions Recorded Confirmed Acetaminophen [Pain Relief] 1 - 2 tab PO Q6HR PRN 04/18/14 01/07/22 Rosuvastatin Calcium [Crestor] 40 mg PO QPM 04/18/14 01/07/22 Albuterol Sulf [Ventolin Hfa 1 - 2 puffs INH Q4HR PRN #1 inhaler 05/16/18 01/07/22 Inhaler] traZODone [Desyrel] 25 - 50 mg PO QPM PRN 07/06/19 01/07/22 Ipratropium [Atrovent] 2 puffs INH QID 10/26/20 01/07/22 Metoprolol Succinate [Toprol Xl] 150 mg PO DAILY 10/26/20 01/07/22 Potassium Chloride [Klor-Con 10] 20 meq PO DAILY 10/26/20 01/07/22 Umeclidinium Brm/Vilanterol Tr 1 puffs INH DAILY 10/26/20 01/07/22 [Anoro Ellipta 62.5-25 Mcg INH] Aspirin Chewable [St Eduardo 81 mg PO DAILY 12/01/20 01/07/22 Aspirin] Cetirizine [ZyrTEC] 10 mg PO DAILY PRN 12/01/20 01/07/22 Esomeprazole Magnesium [Nexium 20 mg PO QDAC 12/01/20 01/07/22 24Hr] Multivitamin/Iron/Folic Acid 1 tab PO DAILY 12/01/20 01/07/22 [Centrum Women Tablet] Amlodipine Besylate [Norvasc] 10 mg PO DAILY 07/19/21 01/07/22 Furosemide [Lasix] 40 mg PO DAILY 07/19/21 01/07/22 Levothyroxine Sodium [Levoxyl] 50 mcg PO QDAC 07/19/21 01/07/22 Sertraline [Zoloft] 50 mg PO DAILY 07/19/21 01/07/22 - PHYSICAL EXAM AT DISCHARGE General Appearance: positive: No acute distress, Alert, Other (Sitting up in chair) Eyes Bilateral: positive: Normal inspection, EOMI Respiratory: positive: Chest non-tender, No respiratory distress, Rales (Fine bibasilar rales) Cardiovascular: positive: Regular rate & rhythm, No murmur, No gallop Abdomen: positive: Non-tender, Nml bowel sounds, No distention Skin: positive: Color nml, No rash, Warm, Dry Extremities: positive: Non-tender, Nml appearance, No pedal edema Neurologic/Psychiatric: positive: Oriented x3, Motor nml, Mood/affect nml - LABS Result Diagrams: 01/08/22 05:17 01/08/22 05:17 - DIAGNOSTIC IMAGING Diagnostic Imaging Results: Final report reviewed Diagnostic Imaging Results Comments: 01/07/2022 Chest x-ray showed "Cardiomegaly, moderate vascular congestion small bibasilar pleural effusions. Aortic atherosclerosis and bilateral shoulder osteoarthritis". - SEPSIS Current Stage of Sepsis: Ruled out - QUALITY (Female Hip Fx Only) Was patient sent home on osteoporosis medication?: No - FOLLOW UP Follow Up: Follow up with your primary care provider in 1 to 2 weeks or earlier as needed. - TIME SPENT Time Spent in Discharge (Minutes): 20
[2022-01-08 11:51] VITALS: BP 134/50
== END 2022-01-08 13:30 | disposition home or self-care (01) ==
LOC: ED 10:01 → MS2 14:51
PROVIDERS: ADMIT Internal Medicine; ATTEND Internal Medicine
DX: J96.01 Acute respiratory failure with hypoxia (principal); J44.9 Chronic obstructive pulmonary disease, unspecified; I11.0 Hypertensive heart disease with heart failure; I50.33 Acute on chronic diastolic (congestive) heart failure; E03.9 Hypothyroidism, unspecified; F10.20 Alcohol dependence, uncomplicated; Z99.81 Dependence on supplemental oxygen; F32.A Depression, unspecified; E78.5 Hyperlipidemia, unspecified; K21.9 Gastro-esophageal reflux disease without esophagitis; Z20.822 Contact with and (suspected) exposure to COVID-19
CPT/HCPCS: 36415; 71045; 80048; 80053; 83690; 83735; 83880; 84484; 85025; 87631; 93005; 94640; 94664; 94761; 96372; 96374; 96375; 96376; 99284; 99285; A9270; G0378; J1650; J7626; 0202U

== ENCOUNTER 2022-01-25 09:18 | Observation (INO) | payer MEDICARE ==
[2022-01-25] MEDS ORDERED: IPRATROPIUM/ALBUTEROL 3 ML NEB INH STA (09:35)
[2022-01-25] MEDS ORDERED: DEXAMETHASONE 10 MG/ML VIAL IV STA (09:35)
[2022-01-25 09:49] LABS: BASOPHILS % (AUTO) 0.5 %; EOSINOPHILS # (AUTO) 0.5 10^3/uL (0.0-0.7); EOSINOPHILS % (AUTO) 5.6 %; HCT - HEMATOCRIT 37.6 % (37.0-47.0); HGB - HEMOGLOBIN 12.2 g/dL (12.0-16.0); LYMPHOCYTES # (AUTO) 1.7 10^3/uL (1.5-3.5); LYMPHOCYTES % (AUTO) 19.3 %; MEAN CORPUSCULAR HGB CONC 32.4 g/dL (32.0-36.0); MEAN CORPUSCULAR VOLUME 101.6 fL (81.0-99.0); MEAN PLATELET VOLUME 9.2 fL (7.9-10.8); MONOCYTES # (AUTO) 0.6 10^3/uL (0.0-1.0); MONOCYTES % (AUTO) 6.8 %; NEUTROPHILS # (AUTO) 5.8 10^3/uL (1.5-6.6); NEUTROPHILS % (AUTO) 67.5 %; PLT - PLATELET COUNT 279 10^3/uL (130-450); RED CELL DISTRIBUTION WIDTH 13.6 % (12.0-15.0); WHITE BLOOD COUNT 8.6 x10^3/uL (4.8-10.8)
[2022-01-25 09:56] LABS: ABG BASE EXCESS -1.2 mmol/L (-2.0-3.0); ABG PCO2 32 mmHg (34-45); ABG PH 7.45 (7.35-7.45); ABG PO2 68 mmHg (80-100)
[2022-01-25 09:57] LABS: ABG OXYGEN SATURATION 93 % (94-98); ALLEN TEST POSITIVE
[2022-01-25 10:01] LABS: ALBUMIN 3.7 g/dL (3.2-5.5); ALBUMIN/GLOBULIN RATIO 0.9 (1.0-2.2); BILIRUBIN,TOTAL 0.8 mg/dL (0.2-1.0); CALCIUM 9.2 mg/dL (8.5-10.3); CREATININE 1.4 mg/dL (0.4-1.0); POTASSIUM 3.4 mmol/L (3.5-5.0); TOTAL PROTEIN 7.6 g/dL (6.7-8.2)
--- NOTE | 2022-01-25 10:06 | XRAY Report ---
PROCEDURE: Chest 1 View X-Ray INDICATIONS: chest pain TECHNIQUE: One view of the chest was acquired. COMPARISON: Chest x-ray 01/07/2022 FINDINGS: Surgical changes and devices: None. Lungs and pleura: Increased pulmonary vascularity is present. There is blunting of the costophrenic a ngles bilaterally. Mild increased opacity is noted within the right base. Mediastinum: Mediastinal contours appear normal. Heart size is enlarged. Bones and chest wall: No suspicious bony lesions. Overlying soft tissues appear unremarkable. IMPRESSION: Increased pulmonary opacity suggestive of edema. However, increased opacity within the right base is present which could represent edema versus developing atelectasis/pneumonia. Reviewed by: Zaida Dalton MD on 01/25/2022 10:05 AM [facility] Approved by: Zaida Dalton MD on 01/25/2022 10:05 AM [facility] Station ID: [id number]
[2022-01-25] MEDS ORDERED: ALBUTEROL NEB 2.5 MG/3 ML INH STA (10:33)
[2022-01-25] MEDS ORDERED: FUROSEMIDE 20 MG/2 ML VIAL IVP STA (10:51)
[2022-01-25] MEDS ORDERED: LORazepam 2 MG/ML VIAL IVP STA (11:03)
[2022-01-25 11:47] LABS: B. PARAPERTUSSIS- RESP PCR PAN NOT DETECTED; B. PERTUSSIS- RESP PCR PANEL NOT DETECTED; C. PNEUMONIAE- RESP PCR PANEL NOT DETECTED; CORONAVIRUS 229E-RESP PCR NOT DETECTED; CORONAVIRUS HKU1-RESP PCR NOT DETECTED; CORONAVIRUS NL63-RESP PCR NOT DETECTED; CORONAVIRUS OC43-RESP PCR NOT DETECTED; HUMAN METAPNEUMOVIRUS NOT DETECTED; INFLUENZA A- RESP PCR PANEL NOT DETECTED; INFLUENZA B - RESP PCR PANEL NOT DETECTED; M. PNEUMONIAE- RESP PCR PANEL NOT DETECTED; PARAINFLUENZA VIRUS 1 NOT DETECTED; PARAINFLUENZA VIRUS 2 NOT DETECTED; PARAINFLUENZA VIRUS 3 NOT DETECTED; PARAINFLUENZA VIRUS 4 NOT DETECTED; RHINOVIRUS/ENTEROVIRUS NOT DETECTED; RSV- RESP PCR PANEL NOT DETECTED; SARS-CoV-2 -RESP PCR PANEL NOT DETECTED
--- NOTE | 2022-01-25 12:41 | ED Physician Documentation ---
PD HPI DYSPNEA - Stated complaint Stated Complaint: SOA, BODY ACHES - Chief complaint Chief Complaint: Resp - History obtained from History obtained from: Patient - Additional information Additional information: The patient comes to the emergency department chief complaint of difficulty breathing. She states that she has had increased shortness of breath over the last approximately 1 week, but that it suddenly got worse last night. She has a history of both COPD and CHF and normally is on 3 L of oxygen per nasal cannula at home. She does not currently smoke. She uses inhalers but does not have a nebulizer machine at home. Patient denies any chest pain. No fevers. She has been coughing a little more than usual, she states, but this has not been prominent. She has been wheezing. No swelling in her lower extremities. No unilateral pain or enlargement of one lower extremity or the other. No history of PE. The patient is vaccinated for COVID. No sick contacts. Review of Systems Ten Systems: 10 systems reviewed and negative Constitutional: reports: Reviewed and negative Eyes: reports: Reviewed and negative Ears: reports: Reviewed and negative Nose: reports: Reviewed and negative Throat: reports: Reviewed and negative Cardiac: reports: Reviewed and negative Respiratory: reports: Dyspnea, Wheezing GI: reports: Reviewed and negative : reports: Reviewed and negative Skin: reports: Reviewed and negative Musculoskeletal: reports: Reviewed and negative Neurologic: reports: Reviewed and negative Psychiatric: reports: Reviewed and negative Endocrine: reports: Reviewed and negative Immunocompromised: reports: Reviewed and negative PD PAST MEDICAL HISTORY - Past Medical History Past Medical History: Yes Cardiovascular: Congestive heart failure, Hypertension, High cholesterol, Coronary artery disease, Peripheral Vascular Disease, Arrhythmia Respiratory: COPD, Sleep apnea, CPAP use Neuro: None Endocrine/Autoimmune: HyPOthyroidism, Other GI: GERD, C.difficile, Other DECALER: None : Other HEENT: Chronic vision loss, Other Psych: Depression, Anxiety Musculoskeletal: Chronic back pain, Other Derm: None - Past Surgical History Past Surgical History: Yes Ortho: Other Cardiovascular: Fempop bypass HEENT: Cataracts Derm: Skin cancer surgery - Present Medications Home Medications: Ambulatory Orders Medication Instructions Recorded Confirmed Acetaminophen [Pain Relief] 1 - 2 tab PO Q6HR PRN 04/18/14 01/07/22 Rosuvastatin Calcium [Crestor] 40 mg PO QPM 04/18/14 01/07/22 Albuterol Sulf [Ventolin Hfa 1 - 2 puffs INH Q4HR PRN #1 inhaler 05/16/18 01/07/22 Inhaler] traZODone [Desyrel] 25 - 50 mg PO QPM PRN 07/06/19 01/07/22 Ipratropium [Atrovent] 2 puffs INH QID 10/26/20 01/07/22 Metoprolol Succinate [Toprol Xl] 150 mg PO DAILY 10/26/20 01/07/22 Potassium Chloride [Klor-Con 10] 20 meq PO DAILY 10/26/20 01/07/22 Umeclidinium Brm/Vilanterol Tr 1 puffs INH DAILY 10/26/20 01/07/22 [Anoro Ellipta 62.5-25 Mcg INH] Aspirin Chewable [St Eduardo 81 mg PO DAILY 12/01/20 01/07/22 Aspirin] Cetirizine [ZyrTEC] 10 mg PO DAILY PRN 12/01/20 01/07/22 Esomeprazole Magnesium [Nexium 20 mg PO QDAC 12/01/20 01/07/22 24Hr] Multivitamin/Iron/Folic Acid 1 tab PO DAILY 12/01/20 01/07/22 [Centrum Women Tablet] Amlodipine Besylate [Norvasc] 10 mg PO DAILY 07/19/21 01/07/22 Furosemide [Lasix] 40 mg PO DAILY 07/19/21 01/07/22 Levothyroxine Sodium [Levoxyl] 50 mcg PO QDAC 07/19/21 01/07/22 Sertraline [Zoloft] 50 mg PO DAILY 07/19/21 01/07/22 - Allergies Allergies/Adverse Reactions: Allergies Allergy/AdvReac Type Severity Reaction Status Date / Time meperidine HCl * Allergy Unknown Unknown Verified 01/25/22 09:29 [From Demerol] sulfamethoxazole Allergy Unknown Unknown Verified 01/25/22 09:29 [From Bactrim] trimethoprim [From Bactrim] Allergy Unknown Unknown Verified 01/25/22 09:29 morphine AdvReac Intermediate Nausea Verified 01/25/22 09:29 - Social History Does the pt smoke?: No Smoking Status: Never smoker Does the pt drink ETOH?: Yes Does the pt have substance abuse?: No - Immunizations Immunizations are current?: Yes - POLST Patient has POLST: No POLST Status: Full Code PD ED PE NORMAL - Vitals Vital signs reviewed: Yes - General General: Alert and oriented X 3, Well developed/nourished, Other (Moderate respiratory distress. 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, Normal speech - Psych Psych: Normal mood, Normal affect Results - Vitals Vitals: Vital Signs - 24 hr 01/25/22 01/25/22 01/25/22 09:24 09:30 09:37 Heart Rate 85 85 Respiratory 20 19 Rate Blood Pressure 144/54 H 145/75 H O2 Saturation 79 L 94 96 01/25/22 01/25/22 01/25/22 09:40 10:00 10:30 Heart Rate 84 81 83 Respiratory 24 20 33 H Rate Blood Pressure 148/58 H O2 Saturation 100 94 01/25/22 01/25/22 01/25/22 10:56 11:00 11:30 Heart Rate 80 88 90 Respiratory 21 26 H 18 Rate Blood Pressure 141/61 H 131/57 H O2 Saturation 94 92 01/25/22 01/25/22 01/25/22 12:00 12:30 13:00 Heart Rate 94 92 90 Respiratory 27 H 31 H 27 H Rate Blood Pressure 136/55 H 135/59 H 140/52 H O2 Saturation 91 L 94 93 Oxygen O2 Source [] Room air O2 Source Nasal cannula Oxygen Flow Rate 3 - Labs Labs: Laboratory Tests 01/25/22 01/25/22 01/25/22 09:35 09:35 09:35 WBC 8.6 RBC 3.70 L Hgb 12.2 Hct 37.6 MCV 101.6 H MCH 33.0 H MCHC 32.4 RDW 13.6 Plt Count 279 MPV 9.2 Neut # (Auto) 5.8 Lymph # (Auto) 1.7 [place] # (Auto) 0.6 Eos # (Auto) 0.5 Baso # (Auto) 0.0 Absolute Nucleated RBC 0.00 Nucleated RBC % 0.0 Bld Gas Analysis Time Sample Site ABG pH ABG pCO2 ABG pO2 ABG HCO3 ABG Total CO2 ABG O2 Saturation ABG Base Excess Ethan Test O2 Delivery Device O2 Liters/Min Sodium 141 Potassium 3.4 L Chloride 102 Carbon Dioxide 24 Anion Gap 15.0 H BUN 34 H Creatinine 1.4 H Estimated GFR (MDRD) 36 L Glucose 132 H Calcium 9.2 Total Bilirubin 0.8 AST 18 ALT 18 Alkaline Phosphatase 74 B-Natriuretic Peptide 348 H Total Protein 7.6 Albumin 3.7 Globulin 3.9 Albumin/Globulin Ratio 0.9 L Lipase 35 Nasal Adenovirus (PCR) Nasal B. parapertussis DNA (PCR) Nasal Coronavir 229E PCR Nasal Coronavir HKU1 PCR Nasal Coronavir NL63 PCR Nasal Coronavir OC43 PCR Nasal Enterovir/Rhinovir PCR Nasal Influenza B PCR Nasal Influenza A PCR Nasal Parainfluen 1 PCR Nasal Parainfluen 2 PCR Nasal Parainfluen 3 PCR Nasal Parainfluen 4 PCR Nasal RSV (PCR) Nasal B.pertussis DNA PCR Nasal C.pneumoniae (PCR) Cedric Human Metapneumo PCR Nasal M.pneumoniae (PCR) Nasal SARS-CoV-2 (PCR) 01/25/22 01/25/22 09:40 10:38 WBC RBC Hgb Hct MCV MCH MCHC RDW Plt Count MPV Neut # (Auto) Lymph # (Auto) [place] # (Auto) Eos # (Auto) Baso # (Auto) Absolute Nucleated RBC Nucleated RBC % Bld Gas Analysis Time 0940 Sample Site LEFT BRACHIAL ABG pH 7.45 ABG pCO2 32 L ABG pO2 68 L ABG HCO3 22.0 ABG Total CO2 23.0 ABG O2 Saturation 93 L ABG Base Excess -1.2 Ethan Test POSITIVE O2 Delivery Device NASAL CANNULA O2 Liters/Min 3.00 Sodium Potassium Chloride Carbon Dioxide Anion Gap BUN Creatinine Estimated GFR (MDRD) Glucose Calcium Total Bilirubin AST ALT Alkaline Phosphatase B-Natriuretic Peptide Total Protein Albumin Globulin Albumin/Globulin Ratio Lipase Nasal Adenovirus (PCR) NOT DETECTED Nasal B. parapertussis DNA (PCR) NOT DETECTED Nasal Coronavir 229E PCR NOT DETECTED Nasal Coronavir HKU1 PCR NOT DETECTED Nasal Coronavir NL63 PCR NOT DETECTED Nasal Coronavir OC43 PCR NOT DETECTED Nasal Enterovir/Rhinovir PCR NOT DETECTED Nasal Influenza B PCR NOT DETECTED Nasal Influenza A PCR NOT DETECTED Nasal Parainfluen 1 PCR NOT DETECTED Nasal Parainfluen 2 PCR NOT DETECTED Nasal Parainfluen 3 PCR NOT DETECTED Nasal Parainfluen 4 PCR NOT DETECTED Nasal RSV (PCR) NOT DETECTED Nasal B.pertussis DNA PCR NOT DETECTED Nasal C.pneumoniae (PCR) NOT DETECTED Cedric Human Metapneumo PCR NOT DETECTED Nasal M.pneumoniae (PCR) NOT DETECTED Nasal SARS-CoV-2 (PCR) NOT DETECTED - Rads (name of study) Chest x-ray Radiology: Final report received, EMP read indepedently, See rad report (Pulmonary edema) PD MEDICAL DECISION MAKING - ED course Complexity details: reviewed old records, reviewed results, re-evaluated patient, considered differential, d/w patient ED course: The patient is an external O2 saturation was 62% with a good waveform on her usual 3 L of oxygen. However, the patient had good color and did not clinically appear to be that low. She was placed on a nonrebreather mask and her oxygen saturation did come up to 100%. Over the next approximately 20 minutes, she was weaned down to 40% and actually was still demonstrating oxygen saturations in the mid 90s on this. She is given a DuoNeb and IV Decadron, followed by another albuterol nebulizer treatment. The patient reported feeling only mildly better. Her chest x-ray showed some pulmonary edema and she was given an IV dose of Lasix, within an hour of which she did put out 300 cc of urine. The patient clinically appeared reasonably well sitting in the bed, though her respirations were mildly labored and she was somewhat tachypneic in the low 20s; however, whenever she was gotten up even to the bedside commode, her oxygen saturation would immediately drop into the 70s and the patient would become extremely short of breath. At this point, I felt she should be admitted to the hospital for further treatment of her COPD and CHF exacerbations. I spoke with Dr. Askew, who did agree to admit the patient to her service. Departure - Departure Disposition: ED Place in Observation Clinical Impression: COPD exacerbation CHF exacerbation Qualifiers: Heart failure type: unspecified Qualified Code(s): I50.9 - Heart failure, unspecified Condition: Serious
[2022-01-25] MEDS ORDERED: SODIUM CHLORIDE FLUSH 0.9% 10 ML SYRINGE IVP PRN (13:06)
[2022-01-25] MEDS ORDERED: ONDANSETRON 4 MG/2 ML VIAL IVP PRN (13:06)
[2022-01-25] MEDS ORDERED: AZITHROMYCIN 250 MG TABLET PO STA (13:11)
[2022-01-25] MEDS ORDERED: POTASSIUM CHLORIDE 20 MEQ TABLET PO STA (13:14)
[2022-01-25] MEDS ORDERED: ALBUTEROL NEB 2.5 MG/3 ML INH PRN (13:15)
--- NOTE | 2022-01-25 13:19 | HISTORY & PHYSICAL EXAMINATION ---
Chief Complaint - Chief Complaint Chief Complaint: shortness of breath History of Present Illness - Admitted From Admitted From:: medical floor - History Obtained From Records Reviewed: [facility], ER note History obtained from: pt Exam Limitations: no limited - History of Present Illness HPI Comment/Other: This is a 81-yrs old female with a past medical history significant for COPD with home 3 LPM of oxygen usage, Congestive heart failure, Hypertension, High cholesterol, Coronary artery disease, Peripheral Vascular Disease, Arrhythmia, Sleep apnea, CPAP use, HyPOthyroidism, GERD, C.difficile, Chronic vision loss, Depression, Anxiety, Chronic back pain, who present ER complain of shortness of breath. Pt report she has increased shortness of breath over last one week and felt she was getting progressively worse, " when I tried to get something out of the kitchen and couldn't breath. It takes me so long time to recover from difficult breath after I walk short distance". Pt can speak full sentences with some difficult. She denies fever, chill, chest pain, abdominal pain, nausea, vomiting or diarrhea. Patient report she takes 3 L oxygen at night, and on and off oxygen in the daytime and depend her need. Routine laboratory show patient had creatinine 1.4, elevated BNP 348. Chest x- ray show Increased pulmonary opacity suggestive of edema, however increases opacity within the right base is present which could represent edema plus developing atelectasis or pneumonia. Echo in 10/2020 revealed preserved EF with moderate right heart abnormal pressure and elevated RVSP 56mmHG. COVID-19 test is negative. In ER, patient had 79% oxygen saturation on room air. Her Oxygen saturation increases to 92% to 94% on 3 L oxygen. Patient present tachypnea as well. Patient was treated with Lasix, Decadron, DuoNeb, supplemental oxygen by ER but pt still present extremely shortness of breath special in exertion, and O2 sat was drop to 70s. Given above medical conditions, Medical team was consulted for admission. 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 Dad had heart attack, HTN. Brother with a bleeding disease. Sister of COPD Social History Notes: former smoker, 4 ppd for 35 years, quit 11/12/1990. drinks ~10 oz/week with two "BIG" vodka drinks a day. 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 [employer] Substance History Use: Uses substance without health or social issues: NONE - POLST Patient has POLST: No POLST Status: Full Code Meds/Allgy - Home Medications Home Medications: Ambulatory Orders Medication Instructions Recorded Confirmed Acetaminophen [Pain Relief] 1 - 2 tab PO Q6HR PRN 04/18/14 01/25/22 Rosuvastatin Calcium [Crestor] 40 mg PO QPM 04/18/14 01/25/22 Albuterol Sulf [Ventolin Hfa 1 - 2 puffs INH Q4HR PRN #1 inhaler 05/16/18 01/25/22 Inhaler] traZODone [Desyrel] 25 - 50 mg PO QPM PRN 07/06/19 01/25/22 Ipratropium [Atrovent] 2 puffs INH QID 10/26/20 01/25/22 Metoprolol Succinate [Toprol Xl] 150 mg PO DAILY 10/26/20 01/25/22 Potassium Chloride [Klor-Con 10] 20 meq PO DAILYWM 10/26/20 01/25/22 Umeclidinium Brm/Vilanterol Tr 1 puffs INH DAILY 10/26/20 01/25/22 [Anoro Ellipta 62.5-25 Mcg INH] Aspirin Chewable [St Eduardo 81 mg PO DAILY 12/01/20 01/25/22 Aspirin] Cetirizine [ZyrTEC] 10 mg PO DAILY PRN 12/01/20 01/25/22 Esomeprazole Magnesium [Nexium 20 mg PO QDAC 12/01/20 01/25/22 24Hr] Multivitamin/Iron/Folic Acid 1 tab PO DAILY 12/01/20 01/25/22 [Centrum Women Tablet] Amlodipine Besylate [Norvasc] 10 mg PO DAILY 07/19/21 01/25/22 Furosemide [Lasix] 40 mg PO DAILY 07/19/21 01/25/22 Levothyroxine Sodium [Levoxyl] 50 mcg PO QDAC 07/19/21 01/25/22 Sertraline [Zoloft] 50 mg PO DAILY 07/19/21 01/25/22 - Allergies Allergies/Adverse Reactions: Allergies Allergy/AdvReac Type Severity Reaction Status Date / Time meperidine HCl * Allergy Unknown Unknown Verified 01/25/22 09:29 [From Demerol] sulfamethoxazole Allergy Unknown Unknown Verified 01/25/22 09:29 [From Bactrim] trimethoprim [From Bactrim] Allergy Unknown Unknown Verified 01/25/22 09:29 morphine AdvReac Intermediate Nausea Verified 01/25/22 09:29 Review of Systems - Constitutional Constitutional: denies: Fever, Chills - Eyes Eyes: denies: Pain - Cardiovascular Cariovascular: reports: Exertional dyspnea, Decr. exercise tolerance. denies: Chest pain, Syncope - Respiratory Respiratory: reports: Cough, Wheezing, SOB at rest, SOB with exertion. denies: Sputum production - Gastrointestinal Gastrointestinal: denies: Abdominal pain, Diarrhea, Nausea, Vomiting - Neurological Neurological: denies: Focal weakness, Headache, Dizziness, Abnormal gait, Seizures, Incoordination, Slurred speech Exam - Vital Signs Vital Signs: Vital Signs x48h Pulse Resp BP Pulse Ox 01/25/22 13:00 90 27 H 140/52 H 93 01/25/22 12:30 92 31 H 135/59 H 94 01/25/22 12:00 94 27 H 136/55 H 91 L 01/25/22 11:30 90 18 131/57 H 92 01/25/22 11:00 88 26 H 141/61 H 94 01/25/22 10:56 80 21 01/25/22 10:30 83 33 H 148/58 H 94 01/25/22 10:00 81 20 100 01/25/22 09:40 84 24 01/25/22 09:37 96 03/02/22 09:30 85 19 145/75 H 94 01/25/22 09:24 85 20 144/54 H 79 L - Physical Exam General Appearance: positive: Alert, Mild distress. negative: Lethargic Eyes Bilateral: positive: Normal inspection, No lid inflammation ENT: positive: ENT inspection nml, No signs of dehydration. negative: Purulent nasal drainage Neck: positive: Nml inspection, Trachea midline. negative: Tracheal deviation Respiratory: positive: Chest non-tender, Wheezes, Rales Cardiovascular: positive: Regular rate & rhythm. negative: Tachycardia, Bradycardia, Systolic murmur Peripheral Pulses: positive: 2+ Abdomen: positive: Non-tender, Nml bowel sounds, No distention. negative: Tenderness Back: positive: Nml inspection Skin: positive: Color nml, Warm, Dry. negative: Cyanosis Extremities: positive: Non-tender, Full ROM, Nml appearance Neurologic/Psychiatric: positive: Oriented x3, Motor nml, Sensation nml. negative: Weakness, Sensory loss, Facial droop, Slurred/abnml speech, Depressed mood/affect Sepsis Event Note (H) - Evaluation Current Stage of Sepsis: Ruled out Conclusion/Plan - Problem List (1) COPD exacerbation Conclusion/Plan: Patient present extremely shortness of breathing at exertion and O2 sat was drop to 70s, and Tachypnea. Chest x-ray show Increased pulmonary opacity suggestive of edema, however increases opacity within the right base is present which could represent edema plus developing atelectasis or pneumonia. Pt has hx of COPD and she take 3 liter of oxygen at home. She denies fever, chill. COVID-19 test is negative. Pt was treated with Decatron, Duoneb NIH, Azithromycin in ER. We will continue patient intravenous Solu-Medrol, NIH Duoneb, Pulmicort treatment, Azithromycin PO and Supplemental oxygen as needed. (2) Acute on chronic diastolic heart failure Patient had hx of chronic diastolic heart failure, Echo in last time show patient had diastolic heart failure with preserved EF. patient had elevated BNP, chest x-ray show Pulmonary edema. Patient take oral Lasix in the home, we will give patient intravenous twice daily of Lasix. BNP monitor, Supplemental oxygen as needed. 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 She denies history of alcohol withdrawal. order of and vitamin B1. closely monitor pt if have alcohol withdrawal - Lab Results Fish Bones: 01/25/22 09:35 01/25/22 09:35 Core Measures - Anticipated LOS I expect patient to be DC'd or transferred within 96 hours.: Yes - DVT/VTE - Prophylaxis VTE/DVT Device ordered at admit?: Yes VTE/DVT Prophylaxis med ordered at admit?: Yes
[2022-01-25] MEDS: FUROSEMIDE 20 MG/2 ML VIAL IVP SCH (13:34)
[2022-01-25] MEDS ORDERED: CETIRIZINE 10 MG TABLET PO PRN (14:17)
--- NOTE | 2022-01-25 14:38 | PHARMACY PROGRESS NOTE ---
- Best Possible Medication History Admit Date and Time: 01/25/22 130 Processed by: Pharmacy Medication History completed: Yes Patient Interview: Pt unable to participate Secondary Source(s): Physician records, Pharmacy records, Insurance records, Previous admit records As the person ultimately responsible for medication therapy, providers are able to order a medication from an existing home medication list in [facility] via the "Reconcile Routine" prior to Confirmation of that medication by technical support manager. Such practice is discouraged except when the physician, in their clinical judgment, deems that a medical need exists for a medication without regard to previous use.
[2022-01-25] MEDS ORDERED: PRENATAL VITAMIN TABLET PO SCH (16:00)
[2022-01-25] MEDS: IPRATROPIUM/ALBUTEROL 3 ML NEB INH SCH ×2 (16:26→18:58)
[2022-01-25] MEDS ORDERED: LORazepam 0.5 MG TABLET PO PRN (17:10)
[2022-01-25] MEDS: THIAMINE 100 MG TABLET PO SCH (18:11)
[2022-01-25] MEDS: methylPREDNISolone SUCCINATE 40 MG/ML VIAL IVP SCH ×2 (18:11→21:12)
[2022-01-25] MEDS: SODIUM CHLORIDE FLUSH 0.9% 10 ML SYRINGE IVP SCH (18:11)
[2022-01-25] MEDS: ACETAMINOPHEN 325 MG TABLET PO PRN (18:25)
[2022-01-25] MEDS: BUDESONIDE 0.5 MG/2 ML NEB INH SCH (18:58)
[2022-01-25] MEDS: ATORVASTATIN 40 MG TABLET PO SCH (21:09)
[2022-01-25] MEDS: traZODone 50 MG TABLET PO PRN (21:12)
[2022-01-26] MEDS: SODIUM CHLORIDE FLUSH 0.9% 10 ML SYRINGE IVP SCH ×3 (00:45→21:43)
[2022-01-26 05:46] LABS: BASOPHILS % (AUTO) 0.2 %; EOSINOPHILS # (AUTO) 0.2 10^3/uL (0.0-0.7); EOSINOPHILS % (AUTO) 3.2 %; HCT - HEMATOCRIT 33.9 % (37.0-47.0); HGB - HEMOGLOBIN 10.9 g/dL (12.0-16.0); LYMPHOCYTES # (AUTO) 0.5 10^3/uL (1.5-3.5); LYMPHOCYTES % (AUTO) 9.1 %; MEAN CORPUSCULAR HEMOGLOBIN 32.7 pg (27.0-31.0); MEAN CORPUSCULAR HGB CONC 32.2 g/dL (32.0-36.0); MEAN CORPUSCULAR VOLUME 101.8 fL (81.0-99.0); MEAN PLATELET VOLUME 9.1 fL (7.9-10.8); MONOCYTES # (AUTO) 0.1 10^3/uL (0.0-1.0); MONOCYTES % (AUTO) 2.5 %; NEUTROPHILS # (AUTO) 4.7 10^3/uL (1.5-6.6); NEUTROPHILS % (AUTO) 84.1 %; PLT - PLATELET COUNT 264 10^3/uL (130-450); RED BLOOD COUNT 3.33 10^6/uL (4.20-5.40); RED CELL DISTRIBUTION WIDTH 13.6 % (12.0-15.0); WHITE BLOOD COUNT 5.6 x10^3/uL (4.8-10.8)
[2022-01-26 05:48] LABS: CALCIUM 8.7 mg/dL (8.5-10.3); CREATININE 1.5 mg/dL (0.4-1.0); POTASSIUM 3.9 mmol/L (3.5-5.0)
[2022-01-26] MEDS: LEVOTHYROXINE 25 MCG TABLET PO SCH (06:23)
[2022-01-26] MEDS: methylPREDNISolone SUCCINATE 40 MG/ML VIAL IVP SCH ×3 (06:24→21:44)
[2022-01-26] MEDS: FUROSEMIDE 20 MG/2 ML VIAL IVP SCH ×2 (06:24→14:25)
[2022-01-26] MEDS: BUDESONIDE 0.5 MG/2 ML NEB INH SCH ×2 (07:35→20:30)
[2022-01-26] MEDS: IPRATROPIUM/ALBUTEROL 3 ML NEB INH SCH ×4 (07:36→20:30)
[2022-01-26] MEDS: ASPIRIN CHEW 81 MG TABLET PO SCH (08:27)
[2022-01-26] MEDS: AZITHROMYCIN 250 MG TABLET PO SCH (08:27)
[2022-01-26] MEDS: ENOXAPARIN 30 MG/0.3 ML SYRINGE SUBQ SCH (08:27)
[2022-01-26] MEDS: POTASSIUM CHLORIDE 20 MEQ TABLET PO SCH (08:27)
[2022-01-26] MEDS: THIAMINE 100 MG TABLET PO SCH (08:27)
[2022-01-26] MEDS: MULTIVITAMIN W/MINERALS TABLET PO SCH (08:27)
[2022-01-26] MEDS: METOPROLOL SUCCINATE 50 MG TABLET PO SCH (08:27)
[2022-01-26] MEDS: SERTRALINE 50 MG TABLET PO SCH (08:27)
[2022-01-26] MEDS ORDERED: BENZONATATE 100 MG CAPSULE PO PRN (08:56)
[2022-01-26] MEDS ORDERED: BENZONATATE 100 MG CAPSULE PO STA (08:56)
--- NOTE | 2022-01-26 11:48 | PROVIDER PROGRESS NOTE ---
Assessment/Plan - Problem List (1) COPD exacerbation Assessment/Plan: 3/3 pt still report shortness of breath on exertion. RT report pt's O2 sat drop to 80s with 3 liter of O2 on exertion. order D-dimer, pt has elevated d-dimer, but also elevated creatinine, order V/Q scan to r/o PE. continue steroid iV, continue scheduled Duoneb and Pulmicort, And albuterol. Supplemental oxygen as needed. Patient present extremely shortness of breathing at exertion and O2 sat was drop to 70s, and Tachypnea. Chest x-ray show Increased pulmonary opacity suggestive of edema, however increases opacity within the right base is present which could represent edema plus developing atelectasis or pneumonia. Pt has hx of COPD and she take 3 liter of oxygen at home. She denies fever, chill. COVID-19 test is negative. Pt was treated with Decatron, Duoneb NIH, Azithromycin in ER. We will continue patient intravenous Solu-Medrol, NIH Duoneb, Pulmicort treatment, Azithromycin PO and Supplemental oxygen as needed. (2) Acute on chronic diastolic heart failure 3/3 ECHO study show preserved EF and improved RVST and right heart pressure. BNP is still mild elevated, pt still present SOB at exertion. continue IV of Lasix, daily weight, fluid restriction, I&Os. Patient had hx of chronic diastolic heart failure, Echo in last time show patient had diastolic heart failure with preserved EF. patient had elevated BNP, chest x-ray show Pulmonary edema. Patient take oral Lasix in the home, we will give patient intravenous twice daily of Lasix. BNP monitor, Supplemental oxygen as needed. 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 She denies history of alcohol withdrawal. order of and vitamin B1. closely monitor pt if have alcohol withdrawal - Current Meds Current Meds: Current Medications Generic Name Dose Route Start Last Admin Trade Name Freq PRN Reason Stop Dose Admin Acetaminophen 650 mg 01/25/22 13:06 01/25/22 18:25 Acetaminophen 325 Mg Tablet PO 650 mg Q4HR PRN Administration Pain 1 to 4 Albuterol/Ipratropium 3 ml 01/25/22 15:00 01/26/22 07:36 Ipratropium/Albuterol 3 Ml Neb INH 3 ml RTQID ROSA Administration Aspirin 81 mg 01/26/22 09:00 01/26/22 08:27 Aspirin Chew 81 Mg Tablet PO 81 mg DAILY ROSA Administration Atorvastatin Calcium 80 mg 01/25/22 21:00 01/25/22 21:09 Atorvastatin 40 Mg Tablet PO 80 mg QPM ROSA Administration Azithromycin 250 mg 01/26/22 09:00 01/26/22 08:27 Azithromycin 250 Mg Tablet PO 250 mg DAILY ROSA Administration Budesonide 0.5 mg 01/25/22 19:00 01/26/22 07:35 Budesonide 0.5 Mg/2 Ml Neb INH 0.5 mg RTBID ROSA Administration Enoxaparin Sodium 30 mg 01/26/22 09:00 01/26/22 08:27 Enoxaparin 30 Mg/0.3 Ml Syringe SUBQ 30 mg DAILY ROSA Administration Furosemide 20 mg 01/25/22 14:00 01/26/22 06:24 Furosemide 20 Mg/2 Ml Vial IVP 20 mg BIDDIURETIC ROSA Administration Levothyroxine Sodium 50 mcg 01/26/22 07:00 01/26/22 06:23 Levothyroxine 25 Mcg Tablet PO 50 mcg QDAC ROSA Administration Methylprednisolone 40 mg 01/25/22 14:00 01/26/22 06:24 Methylprednisolone Succinate 40 Mg/Ml Vial IVP 40 mg TID ROSA Administration Metoprolol Succinate 150 mg 01/26/22 09:00 01/26/22 08:27 Metoprolol Succinate 50 Mg Tablet PO Not Given DAILY [facility] Multivitamins/Minerals 1 tab 01/26/22 08:00 01/26/22 08:27 Multivitamin W/Minerals Tablet PO 1 tab DAILYWM ROSA Administration Ondansetron HCl 4 mg 01/25/22 13:06 01/25/22 13:34 Ondansetron 4 Mg/2 Ml Vial IVP 4 mg Q6HR PRN Administration Nausea / Vomiting Potassium Chloride 20 meq 01/26/22 08:00 01/26/22 08:27 Potassium Chloride 20 Meq Tablet PO 20 meq DAILYWM ROSA Administration Sertraline HCl 50 mg 01/26/22 09:00 01/26/22 08:27 Sertraline 50 Mg Tablet PO 50 mg DAILY ROSA Administration Sodium Chloride 10 ml 01/25/22 17:00 01/26/22 08:27 Sodium Chloride Flush 0.9% 10 Ml Syringe IVP 10 ml 0100,0900,1700 ROSA Administration Thiamine HCl 100 mg 01/25/22 15:51 01/26/22 08:27 Thiamine 100 Mg Tablet PO 100 mg DAILY ROSA Administration Trazodone HCl 25 mg 01/25/22 14:21 01/25/22 21:12 Trazodone 50 Mg Tablet PO 25 mg QPM PRN Administration Insomnia - Lab Result Fish Bone Diagrams: 01/26/22 05:26 01/26/22 05:26 - Additional Planning My Orders: My Active Orders 01/25/22 13:06 Activity Orders [RC] Q2HR IO [RC] IOSHIFT Initiate Bowel Care Protocol [RC] .protocol Initiate Line Care Protocol [RC] QSHIFT Initiate Personal Care Protoco [RC] .protocol Telemetry- [RC] Q4HR Vital Signs [RC] Q4H Acetaminophen [Tylenol] 650 mg PO Q4HR PRN Ondansetron Inj [Zofran Inj] 4 mg IVP Q6HR PRN Sodium Chloride Flush 0.9% [Normal Saline Flush 0.9%] 10 ml IVP PRN PRN Code Status [OTHERS] Routine Condition of Patient [OTHERS] Routine DVT Prophylaxis [OTHERS] Routine 01/25/22 13:08 SCDs [RC] QSHIFT 01/25/22 13:12 Echo Transthoracic Complete [ECHO] Stat 01/25/22 13:15 Albuterol 2.5 mg INH RTQ4H PRN 01/25/22 14:00 FUROSEMIDE INJ 20mg VIAL [LASIX INJ 20mg VIAL] 20 mg IVP BIDDIURETIC methylPREDNISolone SUCCINATE [SOLU-Medrol (40MG VIAL)] 40 mg IVP TID 01/25/22 14:17 Cetirizine [ZyrTEC] 10 mg PO DAILY PRN 01/25/22 14:21 traZODone [Desyrel] 25 mg PO QPM PRN 01/25/22 15:00 Ipratropium/Albuterol [Duoneb] 3 ml INH RTQID 01/25/22 15:51 Thiamine [Vitamin B-1] 100 mg PO DAILY 01/25/22 16:47 RT [Nebulizer/MDI Tx.] [RC] .qid/bid/q4prn 01/25/22 16:49 RT [Oxygen Therapy] [RC] .PRN 01/25/22 17:00 Sodium Chloride Flush 0.9% [Normal Saline Flush 0.9%] 10 ml IVP 0100,0900,1700 01/25/22 17:10 LORazepam [Ativan] 0.5 mg PO Q12H PRN 01/25/22 17:33 Daily Weight [RC] 0600 01/25/22 19:00 Budesonide [Pulmicort] 0.5 mg INH RTBID 01/25/22 21:00 Atorvastatin [Lipitor] 80 mg PO QPM 01/26/22 Breakfast Cardiac Diet [DIET] 01/26/22 07:00 Levothyroxine [Synthroid] 50 mcg PO QDAC 01/26/22 08:00 Multivitamin W/Minerals [Theragran M] 1 tab PO DAILYWM Potassium Chloride [K-Dur] 20 meq PO DAILYWM 01/26/22 08:56 Benzonatate [Tessalon] 100 mg PO TID PRN 01/26/22 09:00 Aspirin Chewable [St Eduardo Aspirin] 81 mg PO DAILY Azithromycin [Zithromax] 250 mg PO DAILY Enoxaparin [Lovenox] 30 mg SUBQ DAILY Metoprolol Succinate [Toprol Xl] 150 mg PO DAILY Sertraline [Zoloft] 50 mg PO DAILY 01/26/22 09:02 Oxygen Desat. Study w/Exercise [RC] .ONCE 01/26/22 10:31 Lung Vent/Perf V/Q [NM] Stat 01/27/22 05:00 BMP - BASIC METABOLIC PANEL [CHEM] DAILYLAB BNP - B-NATRIURETIC PEPTIDE [IAI] DAILYLAB CBC - COMP BLD CT W/AUTO DIFF [HEME] DAILYLAB 01/28/22 05:00 BMP - BASIC METABOLIC PANEL [CHEM] DAILYLAB BNP - B-NATRIURETIC PEPTIDE [IAI] DAILYLAB CBC - COMP BLD CT W/AUTO DIFF [HEME] DAILYLAB 01/29/22 05:00 BMP - BASIC METABOLIC PANEL [CHEM] DAILYLAB CBC - COMP BLD CT W/AUTO DIFF [HEME] DAILYLAB 01/30/22 05:00 BMP - BASIC METABOLIC PANEL [CHEM] DAILYLAB CBC - COMP BLD CT W/AUTO DIFF [HEME] DAILYLAB 01/31/22 05:00 BMP - BASIC METABOLIC PANEL [CHEM] DAILYLAB CBC - COMP BLD CT W/AUTO DIFF [HEME] DAILYLAB Subjective - Subjective Patient Reports: Resting Comfortably Objective Vital Signs: Vital Signs - 24 hr 01/25/22 01/25/22 01/25/22 12:00 12:30 13:00 Temperature Heart Rate 94 92 90 Heart Rate [ Brachial] Heart Rate [ Monitoring electrodes] Respiratory 27 H 31 H 27 H Rate Blood Pressure 136/55 H 135/59 H 140/52 H Blood Pressure [Left Brachial artery] Blood Pressure [Right Brachial artery] O2 Saturation 91 L 94 93 01/25/22 01/25/22 01/25/22 13:35 14:00 14:24 Temperature 36.6 C Heart Rate 88 85 Heart Rate [ Brachial] Heart Rate [ 90 Monitoring electrodes] Respiratory 22 26 H 20 Rate Blood Pressure 150/52 H 111/53 L Blood Pressure [Left Brachial artery] Blood Pressure 130/66 [Right Brachial artery] O2 Saturation 92 91 L 94 01/25/22 01/25/22 01/25/22 15:46 16:50 19:00 Temperature 36.5 C Heart Rate 89 85 Heart Rate [ Brachial] Heart Rate [ 88 Monitoring electrodes] Respiratory 24 24 20 Rate Blood Pressure Blood Pressure 117/46 L [Left Brachial artery] Blood Pressure [Right Brachial artery] O2 Saturation 95 01/25/22 01/26/22 01/26/22 20:14 01:27 07:36 Temperature 36.3 C L 36.4 C L Heart Rate 85 Heart Rate [ 82 Brachial] Heart Rate [ 91 Monitoring electrodes] Respiratory 24 18 22 Rate Blood Pressure Blood Pressure 127/51 L [Left Brachial artery] Blood Pressure 111/37 L [Right Brachial artery] O2 Saturation 93 94 01/26/22 01/26/22 07:45 08:25 Temperature 36.3 C L Heart Rate Heart Rate [ 84 96 Brachial] Heart Rate [ Monitoring electrodes] Respiratory 20 Rate Blood Pressure Blood Pressure 99/50 L [Left Brachial artery] Blood Pressure 136/52 H [Right Brachial artery] O2 Saturation 98 Oxygen O2 Source [Without Activity] Room air O2 Source Nasal cannula Oxygen Flow Rate 3 I&O (Last 24 Hrs): Intake and Output Totals x24h 01/24/22 01/25/22 01/26/22 23:59 23:59 23:59 Intake Total 700 300 Output Total 200 100 Balance 500 200 General: Alert, Oriented x3, Cooperative, No acute distress HEENT: Atraumatic Neck: Supple Lymphatic: no adenopathy Neuro: Alert, Non Focal, Oriented Times 3 Cardiovascular: Regular rate, Normal S1, Normal S2 Respiratory: Chest non-tender, No respiratory distress Abdomen: Normal bowel sounds, Soft, No tenderness Extremities: Normal pulses - Results Results: Laboratory Results WBC 5.6 x10^3/uL (4.8-10.8) 01/26/22 05:26 RBC 3.33 10^6/uL (4.20-5.40) L 01/26/22 05:26 Hgb 10.9 g/dL (12.0-16.0) L 01/26/22 05:26 Hct 33.9 % (37.0-47.0) L 01/26/22 05:26 MCV 101.8 fL (81.0-99.0) H 01/26/22 05:26 MCH 32.7 pg (27.0-31.0) H 01/26/22 05:26 MCHC 32.2 g/dL (32.0-36.0) 01/26/22 05:26 RDW 13.6 % (12.0-15.0) 01/26/22 05:26 Plt Count 264 10^3/uL (130-450) 01/26/22 05:26 MPV 9.1 fL (7.9-10.8) 01/26/22 05:26 Neut # (Auto) 4.7 10^3/uL (1.5-6.6) 01/26/22 05:26 Lymph # (Auto) 0.5 10^3/uL (1.5-3.5) L 01/26/22 05:26 Ashe # (Auto) 0.1 10^3/uL (0.0-1.0) 01/26/22 05:26 Eos # (Auto) 0.2 10^3/uL (0.0-0.7) 01/26/22 05:26 Baso # (Auto) 0.0 10^3/uL (0.0-0.1) 01/26/22 05:26 Absolute Nucleated RBC 0.00 x10^3/uL 01/26/22 05:26 Nucleated RBC % 0.0 /100WBC 01/26/22 05:26 D-Dimer 458.2 ng/mL (200.0-255.0) H 01/26/22 09:39 Bld Gas Analysis Time 0940 01/25/22 09:40 Sample Site LEFT BRACHIAL 01/25/22 09:40 ABG pH 7.45 (7.35-7.45) 01/25/22 09:40 ABG pCO2 32 mmHg (34-45) L 01/25/22 09:40 ABG pO2 68 mmHg (80-100) L 01/25/22 09:40 ABG HCO3 22.0 mmol/L (22.0-26.0) 01/25/22 09:40 ABG Total CO2 23.0 MMOL/L (21.0-29.0) 01/25/22 09:40 ABG O2 Saturation 93 % (94-98) L 01/25/22 09:40 ABG Base Excess -1.2 mmol/L (-2.0-3.0) 01/25/22 09:40 Ethan Test POSITIVE 01/25/22 09:40 O2 Delivery Device NASAL CANNULA 01/25/22 09:40 O2 Liters/Min 3.00 LPM 01/25/22 09:40 Sodium 140 mmol/L (135-145) 01/26/22 05:26 Potassium 3.9 mmol/L (3.5-5.0) 01/26/22 05:26 Chloride 102 mmol/L (101-111) 01/26/22 05:26 Carbon Dioxide 24 mmol/L (21-32) 01/26/22 05:26 Anion Gap 14.0 (6-13) H 01/26/22 05:26 BUN 40 mg/dL (6-20) H 01/26/22 05:26 Creatinine 1.5 mg/dL (0.4-1.0) H 01/26/22 05:26 Estimated GFR (MDRD) 33 (>89) L 01/26/22 05:26 Glucose 169 mg/dL (70-100) H 01/26/22 05:26 Calcium 8.7 mg/dL (8.5-10.3) 01/26/22 05:26 Total Bilirubin 0.8 mg/dL (0.2-1.0) 01/25/22 09:35 AST 18 IU/L (10-42) 01/25/22 09:35 ALT 18 IU/L (10-60) 01/25/22 09:35 Alkaline Phosphatase 74 IU/L (42-121) 01/25/22 09:35 B-Natriuretic Peptide 384 pg/mL (5-100) H 01/26/22 05:26 Total Protein 7.6 g/dL (6.7-8.2) 01/25/22 09:35 Albumin 3.7 g/dL (3.2-5.5) 01/25/22 09:35 Globulin 3.9 g/dL (2.1-4.2) 01/25/22 09:35 Albumin/Globulin Ratio 0.9 (1.0-2.2) L 01/25/22 09:35 Lipase 35 U/L (22-51) 01/25/22 09:35 Vitamin B12 423 pg/mL (180-914) 01/26/22 05:26 Folate 39.00 ng/mL (5.90 - >24.8) 01/26/22 05:26 TSH 2.47 uIU/mL (0.34-5.60) 01/25/22 09:35 Nasal Adenovirus (PCR) NOT DETECTED 01/25/22 10:38 Nasal B. parapertussis DNA (PCR) NOT DETECTED 01/25/22 10:38 Nasal Coronavir 229E PCR NOT DETECTED 01/25/22 10:38 Nasal Coronavir HKU1 PCR NOT DETECTED 01/25/22 10:38 Nasal Coronavir NL63 PCR NOT DETECTED 01/25/22 10:38 Nasal Coronavir OC43 PCR NOT DETECTED 01/25/22 10:38 Nasal Enterovir/Rhinovir PCR NOT DETECTED 01/25/22 10:38 Nasal Influenza B PCR NOT DETECTED 01/25/22 10:38 Nasal Influenza A PCR NOT DETECTED 01/25/22 10:38 Nasal Parainfluen 1 PCR NOT DETECTED 01/25/22 10:38 Nasal Parainfluen 2 PCR NOT DETECTED 01/25/22 10:38 Nasal Parainfluen 3 PCR NOT DETECTED 01/25/22 10:38 Nasal Parainfluen 4 PCR NOT DETECTED 01/25/22 10:38 Nasal RSV (PCR) NOT DETECTED 01/25/22 10:38 Nasal B.pertussis DNA PCR NOT DETECTED 01/25/22 10:38 Nasal C.pneumoniae (PCR) NOT DETECTED 01/25/22 10:38 Cedric Human Metapneumo PCR NOT DETECTED 01/25/22 10:38 Nasal M.pneumoniae (PCR) NOT DETECTED 01/25/22 10:38 Nasal SARS-CoV-2 (PCR) NOT DETECTED 01/25/22 10:38 - Procedures Procedures: Procedures REPLACEMENT OF LEFT LENS WITH SYNTH SUB, PERC APPROACH (06/07/16) REPLACEMENT OF RIGHT LENS WITH SYNTH SUB, PERC APPROACH (05/24/16) Sepsis Event Note (H) - Evaluation Current Stage of Sepsis: Ruled out ABX Reporting Has patient been on IV antibiotics over the past 48 hours?: Yes Current Medications - Current Medications Current Medications: Active Medications Acetaminophen (Acetaminophen 325 Mg Tablet) 650 mg PO Q4HR PRN PRN Reason: Pain 1 to 4 Last Admin: 01/25/22 18:25 Dose: 650 mg Albuterol (Albuterol Neb 2.5 Mg/3 Ml) 2.5 mg INH RTQ4H PRN PRN Reason: Wheezing Albuterol/Ipratropium (Ipratropium/Albuterol 3 Ml Neb) 3 ml INH RTQID [facility] Last Admin: 01/26/22 07:36 Dose: 3 ml Aspirin (Aspirin Chew 81 Mg Tablet) 81 mg PO DAILY [facility] Last Admin: 01/26/22 08:27 Dose: 81 mg Atorvastatin Calcium (Atorvastatin 40 Mg Tablet) 80 mg PO QPM [facility] Last Admin: 01/25/22 21:09 Dose: 80 mg Azithromycin (Azithromycin 250 Mg Tablet) 250 mg PO DAILY [facility] Last Admin: 01/26/22 08:27 Dose: 250 mg Benzonatate (Benzonatate 100 Mg Capsule) 100 mg PO TID PRN PRN Reason: Cough Budesonide (Budesonide 0.5 Mg/2 Ml Neb) 0.5 mg INH RTBID [facility] Last Admin: 01/26/22 07:35 Dose: 0.5 mg Cetirizine HCl (Cetirizine 10 Mg Tablet) 10 mg PO DAILY PRN PRN Reason: Allergy Symptoms Enoxaparin Sodium (Enoxaparin 30 Mg/0.3 Ml Syringe) 30 mg SUBQ DAILY [facility] Last Admin: 01/26/22 08:27 Dose: 30 mg Furosemide (Furosemide 20 Mg/2 Ml Vial) 20 mg IVP BIDDIURETIC [facility] Last Admin: 01/26/22 06:24 Dose: 20 mg Levothyroxine Sodium (Levothyroxine 25 Mcg Tablet) 50 mcg PO QDAC [facility] Last Admin: 01/26/22 06:23 Dose: 50 mcg Lorazepam (Lorazepam 0.5 Mg Tablet) 0.5 mg PO Q12H PRN PRN Reason: Anxiety Methylprednisolone (Methylprednisolone Succinate 40 Mg/Ml Vial) 40 mg IVP TID [facility] Last Admin: 01/26/22 06:24 Dose: 40 mg Metoprolol Succinate (Metoprolol Succinate 50 Mg Tablet) 150 mg PO DAILY [facility] Last Admin: 01/26/22 08:27 Dose: Not Given Multivitamins/Minerals (Multivitamin W/Minerals Tablet) 1 tab PO DAILYWM [facility] Last Admin: 01/26/22 08:27 Dose: 1 tab Ondansetron HCl (Ondansetron 4 Mg/2 Ml Vial) 4 mg IVP Q6HR PRN PRN Reason: Nausea / Vomiting Last Admin: 01/25/22 13:34 Dose: 4 mg Potassium Chloride (Potassium Chloride 20 Meq Tablet) 20 meq PO DAILYWM [facility] Last Admin: 01/26/22 08:27 Dose: 20 meq Sertraline HCl (Sertraline 50 Mg Tablet) 50 mg PO DAILY [facility] Last Admin: 01/26/22 08:27 Dose: 50 mg Sodium Chloride (Sodium Chloride Flush 0.9% 10 Ml Syringe) 10 ml IVP PRN PRN PRN Reason: NEEDED PER PROVIDER ORDERS Sodium Chloride (Sodium Chloride Flush 0.9% 10 Ml Syringe) 10 ml IVP 0100,0900 ,1700 [facility] Last Admin: 01/26/22 08:27 Dose: 10 ml Thiamine HCl (Thiamine 100 Mg Tablet) 100 mg PO DAILY [facility] Last Admin: 01/26/22 08:27 Dose: 100 mg Trazodone HCl (Trazodone 50 Mg Tablet) 25 mg PO QPM PRN PRN Reason: Insomnia Last Admin: 01/25/22 21:12 Dose: 25 mg Acetaminophen [Pain Relief] 1 - 2 tab PO Q6HR PRN 05/24/14 Rosuvastatin Calcium [Crestor] 40 mg PO QPM 04/18/14 traZODone [Desyrel] 25 - 50 mg PO QPM PRN 07/06/19 Ipratropium [Atrovent] 2 puffs INH QID 10/26/20 Metoprolol Succinate [Toprol Xl] 150 mg PO DAILY 10/26/20 Potassium Chloride [Klor-Con 10] 20 meq PO DAILYWM 10/26/20 Umeclidinium Brm/Vilanterol Tr [Anoro Ellipta 62.5-25 Mcg INH] 1 puffs INH DAILY 10/26/20 Aspirin Chewable [St Eduardo Aspirin] 81 mg PO DAILY 12/01/20 Cetirizine [ZyrTEC] 10 mg PO DAILY PRN 12/01/20 Esomeprazole Magnesium [Nexium 24Hr] 20 mg PO QDAC 12/01/20 Multivitamin/Iron/Folic Acid [Centrum Women Tablet] 1 tab PO DAILY 12/01/20 Amlodipine Besylate [Norvasc] 10 mg PO DAILY 07/19/21 Furosemide [Lasix] 40 mg PO DAILY 07/19/21 Levothyroxine Sodium [Levoxyl] 50 mcg PO QDAC 07/19/21 Sertraline [Zoloft] 50 mg PO DAILY 07/19/21
--- NOTE | 2022-01-26 13:33 | Nuclear Medicine Report ---
PROCEDURE: Lung Vent/Perf V/Q INDICATIONS: SOB, r/o PE, elevated d-dimer RADIOPHARMACEUTICAL: <2 mCi Tc-99m DTPA aerosol by inhalation and 5.2 mCi Tc-99m MAA intravenously. TECHNIQUE: Ventilation images were obtained first with Tc-99m DTPA aerosol. Subsequently, perfusion images were acquired after intravenous injection of Tc-99m MAA. Anterior, posterior, ALVAREZ, HONDURAN, RPO, LPO, left and right lateral views were obtained. COMPARISON: Chest x-ray one view, 01/25/2022. FINDINGS: The portable chest x-ray demonstrated mild bilateral interstitial infiltrates and small pl eural effusions compatible with pulmonary edema. Technetium 99 DTPA ventilation images demonstrate ce ntral airway deposition of aerosol. There is otherwise physiological activity bilaterally. Perfusion images demonstrate no pleural-based, segmental or subsegmental ventilation/perfusion mismatches. Jerrod r perfusion irregularities are noted. IMPRESSION: 1. Very low probability for pulmonary embolism. 2. Intra-aortic deposition of aerosol consistent with reactive airway disease. Reviewed by: Skip Siegel MD on 01/26/2022 1:32 PM PST Approved by: Skip Siegel MD on 01/26/2022 1:32 PM PST Station ID: [id number]
[2022-01-26] MEDS: ATORVASTATIN 40 MG TABLET PO SCH (21:43)
[2022-01-26] MEDS: traZODone 50 MG TABLET PO PRN (21:43)
[2022-01-26] MEDS: ACETAMINOPHEN 325 MG TABLET PO PRN (22:21)
[2022-01-27] MEDS: SODIUM CHLORIDE FLUSH 0.9% 10 ML SYRINGE IVP SCH ×2 (00:15→07:53)
[2022-01-27 05:42] LABS: BASOPHILS % (AUTO) 0.1 %; HCT - HEMATOCRIT 34.5 % (37.0-47.0); HGB - HEMOGLOBIN 11.1 g/dL (12.0-16.0); LYMPHOCYTES # (AUTO) 0.6 10^3/uL (1.5-3.5); LYMPHOCYTES % (AUTO) 6.1 %; MEAN CORPUSCULAR HEMOGLOBIN 32.7 pg (27.0-31.0); MEAN CORPUSCULAR HGB CONC 32.2 g/dL (32.0-36.0); MEAN CORPUSCULAR VOLUME 101.8 fL (81.0-99.0); MEAN PLATELET VOLUME 9.2 fL (7.9-10.8); MONOCYTES # (AUTO) 0.2 10^3/uL (0.0-1.0); MONOCYTES % (AUTO) 1.7 %; NEUTROPHILS # (AUTO) 8.4 10^3/uL (1.5-6.6); NEUTROPHILS % (AUTO) 91.8 %; PLT - PLATELET COUNT 288 10^3/uL (130-450); RED BLOOD COUNT 3.39 10^6/uL (4.20-5.40); RED CELL DISTRIBUTION WIDTH 13.6 % (12.0-15.0); WHITE BLOOD COUNT 9.2 x10^3/uL (4.8-10.8)
[2022-01-27 05:51] LABS: CREATININE 1.6 mg/dL (0.4-1.0); POTASSIUM 4.1 mmol/L (3.5-5.0)
[2022-01-27] MEDS: LEVOTHYROXINE 25 MCG TABLET PO SCH (06:36)
[2022-01-27] MEDS: FUROSEMIDE 20 MG/2 ML VIAL IVP SCH ×2 (06:36→14:08)
[2022-01-27] MEDS: methylPREDNISolone SUCCINATE 40 MG/ML VIAL IVP SCH ×2 (06:36→14:08)
[2022-01-27] MEDS: METOPROLOL SUCCINATE 50 MG TABLET PO SCH (07:52)
[2022-01-27] MEDS: ASPIRIN CHEW 81 MG TABLET PO SCH (07:52)
[2022-01-27] MEDS: ENOXAPARIN 30 MG/0.3 ML SYRINGE SUBQ SCH (07:52)
[2022-01-27] MEDS: MULTIVITAMIN W/MINERALS TABLET PO SCH (07:53)
[2022-01-27] MEDS: POTASSIUM CHLORIDE 20 MEQ TABLET PO SCH (07:53)
[2022-01-27] MEDS: THIAMINE 100 MG TABLET PO SCH (07:53)
[2022-01-27] MEDS: SERTRALINE 50 MG TABLET PO SCH (07:53)
[2022-01-27] MEDS: AZITHROMYCIN 250 MG TABLET PO SCH (07:53)
[2022-01-27] MEDS: IPRATROPIUM/ALBUTEROL 3 ML NEB INH SCH ×2 (08:29→11:11)
[2022-01-27] MEDS: BUDESONIDE 0.5 MG/2 ML NEB INH SCH (08:29)
--- NOTE | 2022-01-27 11:35 | Discharge Plan ---
Discharge Plan Problem Reviewed?: Yes Disposition: Home, Self Care Condition: Stable Prescriptions: Albuterol 2.5 mg INH RTQ4H PRN #100 neb PRN Reason: Wheezing predniSONE [Deltasone] 20 mg PO [id number] 5 Days #11 tab Ipratropium/Albuterol [Duoneb] 3 ml INH RTQID PRN #100 neb PRN Reason: Shortness Of Air/Wheezing Thiamine [Vitamin B-1] 100 mg PO DAILY #30 tablet Azithromycin [Zithromax] 250 mg PO DAILY #3 tablet Diet: Regular Activity Restrictions: Activity as Tolerated Shower Restrictions: No (fall precaution) Instruction Topics: COPD, Nebulizer Use, Albuterol Ipratropium inhalation aerosol, Albuterol inhalation solution, Prednisone tablets, Azithromycin tablets, Heart Failure, Heart Failure Coping, Thiamine Vitamin B1 tablets Health Concerns: COPD exacerbation Plan of Treatment: After you were treated at hospital for COPD exacerbation and fluid overloaded, and you had Oxygen desaturation study, you became stable and return to your baseline, your acute respiratory distress are improved and resolved. You hope you can be discharged to home. You are prescribed Nebulizer new machine, Albuterol and DuoNeb medication for Nebulizer, and taper of Prednisone and short term of Azithromycin. You may follow-up with your PCP in 1 week and follow-up resource conservationist as outpatient Care Goals: Stabilization and improvement of your medical conditions Assessment: Discussed the care plan in detail with you, answered your questions, you understood and agreed Additional Instructions or Follow Up instructions: You may follow-up with your PCP in 1 week, follow-up with resource conservationist as outpatient. should your symptoms return or worse, you may present to the ER or call 911 for help Follow-Up Care: [facility] - Pulmonary No Smoking: If you smoke, Please STOP! Call for help. Follow-up with: Indira Ledesma ARNP [Primary Care Provider] -
--- NOTE | 2022-01-27 11:53 | DISCHARGE SUMMARY ---
Discharge Summary Admit Date: 01/25/22 Discharge Date: 01/27/22 Discharging Provider: Tod Santos Primary Care Provider: Dr. Russell Condition at Discharge: Stable Discharge Disposition: 01 Home, Self Care Discharge Facility Name: home - DIAGNOSES Discharge Diagnoses with Status of Each Condition: (1) COPD exacerbation pt's acute respiratory distress is resolved. Pt has O2 desat study. pt has 93% O2 sat on 3 liter of O2 at rest, and has 91% O2 sat on 3 liter of O2 at exertion. pt took 3 liter of O2 by NC as her baseline. I order A home nebulizer machine to administer bronchodilators to treat patient's COPD. Patient is prescribed albuterol, Ipratropium solution for nebulizer. Patient is also prescribed taper prednisone dosage and 3 days of Azithromycin. Patient may follow-up with pulmonary rehab, and followup with plumonologist as out-pt. (2) pulmonary edema Significantly improved. pt report she feel much better. pt's acute respiratory distress is resolved. Pt has O2 desat study. pt has 93% O2 sat on 3 liter of O2 at rest, and has 91% O2 sat on 3 liter of O2 at exertion. ECHO study show prese rved EF and improved RVST and right heart pressure. pt was treated with Lasix IV at hospital. pt may resume home Lasix, and other home medications as the schedule. (3) CKD (chronic kidney disease) stage 3, GFR 30-59 ml/min stable (4)Hypertension Stable, resume home meds (5)Hypothyroidism TSH is normal, resume home meds (6)alcohol abuse pt has no Alcohol withdrawal symptoms In hospital, patient is prescribed vitamin B1, Resume home . social organization professor help pt make an appointment to see her PCP Dr. Russell on 02/06/22. - HPI History of Present Illness: This is a 81-yrs old female with a past medical history significant for COPD with home 3 LPM of oxygen usage, Congestive heart failure, Hypertension, High cholesterol, Coronary artery disease, Peripheral Vascular Disease, Arrhythmia, Sleep apnea, CPAP use, HyPOthyroidism, GERD, C.difficile, Chronic vision loss, Depression, Anxiety, Chronic back pain, who present ER complain of shortness of breath. Pt report she has increased shortness of breath over last one week and felt she was getting progressively worse, " when I tried to get something out of the kitchen and couldn't breath. It takes me so long time to recover from difficult breath after I walk short distance". Pt can speak full sentences with some difficult. She denies fever, chill, chest pain, abdominal pain, nausea, vomiting or diarrhea. Patient report she takes 3 L oxygen at night, and on and off oxygen in the daytime and depend her need. Routine laboratory show patient had creatinine 1.4, elevated BNP 348. Chest x- ray show Increased pulmonary opacity suggestive of edema, however increases opacity within the right base is present which could represent edema plus developing atelectasis or pneumonia. Echo in 10/2020 revealed preserved EF with moderate right heart abnormal pressure and elevated RVSP 56mmHG. COVID-19 test is negative. In ER, patient had 79% oxygen saturation on room air. Her Oxygen saturation increases to 92% to 94% on 3 L oxygen. Patient present tachypnea as well. Patient was treated with Lasix, Decadron, DuoNeb, supplemental oxygen by ER but pt still present extremely shortness of breath special in exertion, and O2 sat was drop to 70s. Given above medical conditions, Medical team was consulted for admission. Discussed the care goal with the patient, patient request full code - ALLERGIES Allergies/Adverse Reactions: Allergies Allergy/AdvReac Type Severity Reaction Status Date / Time meperidine HCl * Allergy Unknown Unknown Verified 01/25/22 09:29 [From Demerol] sulfamethoxazole Allergy Unknown Unknown Verified 01/25/22 09:29 [From Bactrim] trimethoprim [From Bactrim] Allergy Unknown Unknown Verified 01/25/22 09:29 morphine AdvReac Intermediate Nausea Verified 01/25/22 09:29 - MEDICATIONS Home Medications: Ambulatory Orders Medication Instructions Recorded Confirmed Acetaminophen [Pain Relief] 1 - 2 tab PO Q6HR PRN 04/18/14 01/25/22 Rosuvastatin Calcium [Crestor] 40 mg PO QPM 04/18/14 01/25/22 Albuterol Sulf [Ventolin Hfa 1 - 2 puffs INH Q4HR PRN #1 inhaler 05/16/18 01/25/22 Inhaler] traZODone [Desyrel] 25 - 50 mg PO QPM PRN 07/06/19 01/25/22 Ipratropium [Atrovent] 2 puffs INH QID 10/26/20 01/25/22 Metoprolol Succinate [Toprol Xl] 150 mg PO DAILY 10/26/20 01/25/22 Potassium Chloride [Klor-Con 10] 20 meq PO DAILYWM 10/26/20 01/25/22 Umeclidinium Brm/Vilanterol Tr 1 puffs INH DAILY 10/26/20 01/25/22 [Anoro Ellipta 62.5-25 Mcg INH] Aspirin Chewable [St Eduardo 81 mg PO DAILY 12/01/20 01/25/22 Aspirin] Cetirizine [ZyrTEC] 10 mg PO DAILY PRN 12/01/20 01/25/22 Esomeprazole Magnesium [Nexium 20 mg PO QDAC 12/01/20 01/25/22 24Hr] Multivitamin/Iron/Folic Acid 1 tab PO DAILY 12/01/20 01/25/22 [Centrum Women Tablet] Amlodipine Besylate [Norvasc] 10 mg PO DAILY 07/19/21 01/25/22 Furosemide [Lasix] 40 mg PO DAILY 07/19/21 01/25/22 Levothyroxine Sodium [Levoxyl] 50 mcg PO QDAC 07/19/21 01/25/22 Sertraline [Zoloft] 50 mg PO DAILY 07/19/21 01/25/22 Albuterol 2.5 mg INH RTQ4H PRN #100 neb 01/27/22 Azithromycin [Zithromax] 250 mg PO DAILY #3 tablet 01/27/22 Ipratropium [Atrovent] 0.5 mg INH RTQ4H PRN #200 neb 01/27/22 Thiamine [Vitamin B-1] 100 mg PO DAILY #30 tablet 01/27/22 predniSONE [Deltasone] 20 mg PO [id number] 5 Days #11 tab 01/27/22 - PHYSICAL EXAM AT DISCHARGE General Appearance: positive: No acute distress, Alert. negative: Lethargic Eyes Bilateral: positive: Normal inspection, No lid inflammation ENT: positive: ENT inspection nml, No signs of dehydration. negative: Purulent nasal drainage Neck: positive: Nml inspection, Trachea midline. negative: Tracheal deviation Respiratory: positive: Chest non-tender, No respiratory distress. negative: Wheezes Cardiovascular: positive: Regular rate & rhythm. negative: Tachycardia, Bradycardia, Systolic murmur Peripheral Pulses: positive: 2+ Abdomen: positive: Non-tender, Nml bowel sounds. negative: Tenderness Back: positive: Nml inspection Skin: positive: Color nml, Warm, Dry. negative: Cyanosis Extremities: positive: Non-tender, Full ROM, Nml appearance Neurologic/Psychiatric: positive: Oriented x3, Motor nml, Sensation nml, Mood/affect nml. negative: Weakness, Sensory loss, Facial droop, Slurred/abnml speech, Depressed mood/affect - LABS Result Diagrams: 01/27/22 05:30 01/27/22 05:30 - SEPSIS Current Stage of Sepsis: Ruled out - FOLLOW UP Follow Up: After you were treated at hospital for COPD exacerbation and fluid overloaded, and you had Oxygen desaturation study, you became stable and return to your baseline, your acute respiratory distress are improved and resolved. You hope you can be discharged to home. You are prescribed Nebulizer new machine, Albu terol and Ipratropium medication for Nebulizer, and taper of Prednisone and short term of Azithromycin. You may follow-up with your PCP in 1 week and follow-up tub rider as outpatient. You may follow-up with your PCP in 1 week, follow-up with tub rider as outpatient. should your symptoms return or worse, you may present to the ER or call 911 for help - TIME SPENT Time Spent in Discharge (Minutes): 30
[2022-01-27 12:27] VITALS: BP 127/45
[2022-01-27] MEDS ORDERED: IPRATROPIUM 0.2 MG/ML NEB INH SCH (15:00)
== END 2022-01-27 14:45 | disposition home or self-care (01) ==
LOC: ED 09:18 → MS2 13:06
PROVIDERS: ADMIT Nurse Practitioner Gerontology; ATTEND Nurse Practitioner Gerontology
DX: J44.1 Chronic obstructive pulmonary disease with (acute) exacerbation (principal); Z99.81 Dependence on supplemental oxygen; Z87.891 Personal history of nicotine dependence; I13.0 Hypertensive heart and chronic kidney disease with heart failure and stage 1 through stage 4 chronic kidney disease, or unspecified chronic kidney disease; I50.33 Acute on chronic diastolic (congestive) heart failure; N18.30 Chronic kidney disease, stage 3 unspecified; E03.9 Hypothyroidism, unspecified; F10.10 Alcohol abuse, uncomplicated; I25.10 Atherosclerotic heart disease of native coronary artery without angina pectoris; I73.9 Peripheral vascular disease, unspecified; G47.30 Sleep apnea, unspecified; E78.00 Pure hypercholesterolemia, unspecified; K21.9 Gastro-esophageal reflux disease without esophagitis; F32.A Depression, unspecified; F41.9 Anxiety disorder, unspecified; M54.9 Dorsalgia, unspecified; G89.29 Other chronic pain; Z79.899 Other long term (current) drug therapy; Z20.822 Contact with and (suspected) exposure to COVID-19; Z79.82 Long term (current) use of aspirin
CPT/HCPCS: 36415; 36600; 71045; 78582; 80048; 80053; 82607; 82746; 82803; 83690; 83880; 84443; 85025; 85379; 87631; 93005; 93306; 94640; 94664; 94761; 96372; 96374; 96375; 96376; 99285; A9270; G0378; J1650; J2060; J7626; 0202U

== ENCOUNTER 2022-05-30 08:44 | Outpatient (CLI) | payer MEDICARE ==
[2022-05-30 14:35] LABS: BASOPHILS % (AUTO) 0.3 %; EOSINOPHILS # (AUTO) 0.2 10^3/uL (0.0-0.7); EOSINOPHILS % (AUTO) 2.7 %; HCT - HEMATOCRIT 43.7 % (37.0-47.0); HGB - HEMOGLOBIN 14.2 g/dL (12.0-16.0); LYMPHOCYTES # (AUTO) 2.2 10^3/uL (1.5-3.5); LYMPHOCYTES % (AUTO) 34.2 %; MEAN CORPUSCULAR HEMOGLOBIN 33.3 pg (27.0-31.0); MEAN CORPUSCULAR HGB CONC 32.5 g/dL (32.0-36.0); MEAN CORPUSCULAR VOLUME 102.3 fL (81.0-99.0); MEAN PLATELET VOLUME 9.3 fL (7.9-10.8); MONOCYTES # (AUTO) 0.5 10^3/uL (0.0-1.0); MONOCYTES % (AUTO) 8.1 %; NEUTROPHILS # (AUTO) 3.5 10^3/uL (1.5-6.6); NEUTROPHILS % (AUTO) 54.4 %; PLT - PLATELET COUNT 250 10^3/uL (130-450); RED BLOOD COUNT 4.27 10^6/uL (4.20-5.40); RED CELL DISTRIBUTION WIDTH 13.7 % (12.0-15.0); WHITE BLOOD COUNT 6.4 x10^3/uL (4.8-10.8)
[2022-05-30 15:20] LABS: ALBUMIN 4.1 g/dL (3.2-5.5); ALBUMIN/GLOBULIN RATIO 1.3 (1.0-2.2); ALKALINE PHOSPHATASE 55 IU/L (42-121); ALT ALANINE AMINOTRANSFERASE 24 IU/L (10-60); AST ASPARTATE AMINOTRANSFERASE 29 IU/L (10-42); BILIRUBIN,TOTAL 0.7 mg/dL (0.2-1.0); BUN - BLOOD UREA NITROGEN 47 mg/dL (6-20); CALCIUM 9.8 mg/dL (8.5-10.3); CARBON DIOXIDE - CO2 30 mmol/L (21-32); CHLORIDE 98 mmol/L (101-111); CHOL/HDL RATIO 3.5 (<4.4); CHOLESTEROL 221 mg/dL; CREATININE 1.7 mg/dL (0.4-1.0); GFR - MDRD 29 (>89); GLUCOSE 115 mg/dL (70-100); HDL CHOLESTEROL 64 mg/dL; LDL CHOLESTEROL,CALCULATED 113 mg/dL; LDL/HDL RATIO 1.8 (<4.4); SODIUM 141 mmol/L (135-145); TOTAL PROTEIN 7.3 g/dL (6.7-8.2); TRIGLYCERIDES 221 mg/dL; VLDL CHOLESTEROL 44 mg/dL
== END 2022-05-30 08:45 | disposition home or self-care (01) ==
LOC: LAB.S 08:44
PROVIDERS: ATTEND Registered Nurse
DX: I50.9 Heart failure, unspecified (principal); N18.4 Chronic kidney disease, stage 4 (severe); J44.9 Chronic obstructive pulmonary disease, unspecified; E78.5 Hyperlipidemia, unspecified; R03.0 Elevated blood-pressure reading, without diagnosis of hypertension
CPT/HCPCS: 36415; 80053; 80061; 83721; 84443; 85025

== ENCOUNTER 2022-06-22 10:23 | Outpatient (CLI) | payer MEDICARE ==
[2022-06-22 11:30] VITALS: BP 116/81
--- NOTE | 2022-06-22 11:30 | SLEEP CARE CONSULTATION ---
Information from patient questionnaire entered by Seferino Kirby MA. I have reviewed and concur with the information entered by Seferino Kirby MA. This document represents the service I personally performed and the decisions made by , Elinor Owen ARNP. History of Present Illness Service Date and Time: 06/22/2022 1023 Previous diagnosis: Moderate, Obstructive Sleep Apnea-Hypopnea Syndrome AHI: 25.3 (in 2016) Reason for follow up: annual (LAST SEEN 01/2020, VILMA, WEBBER 08/12/2015, NEW RX? ) Accompanied by: Caregiver Equipment type: CPAP Equipment obtained from: [facility] (not getting supplies) Mask style: Full face Backup mask available: No (needs supplies) Last cushion change: couple years HPI additional information: FELICIA FABIAN was diagnosed to have moderate, AHI 25.3, obstructive sleep apnea- hypopnea syndrome and returned today with Cassie her caregiver for CPAP therapy annual follow-up. CPAP Compliance Data - Data Reviewed with Patient Average duration of nightly device use: 9 HOURS 45 MINUTES Compliance rate %: 98.9 (03/23/22-06/20/22; 90/90 days used) Current pressure setting (cmH2O): 9 Humidity settin Heated hose setting: OFF Average residual AHI: 0.5 Average large leak: 4 HOURS 43 MINUTES 34 SECONDS Subjective Patient concerns: reports: air blowing in eyes (needs new mask cushion), nasal congestion (all then time, allergies), other (machine is turning off twice a n ight, will go back on; about 2 weeks ago). denies: aerophagia, mask discomfort, mask leak noise, condensation in mask/hose, dry mouth, nose, throat, epistaxis Observed to snore while using device: No Current pressure setting perceived as: comfortable On therapy, patient: reports: sleeping better, awakening more refreshed, being more awake and alert during the day, more rested overall. denies: drowsiness while driving Initial [place] Sleepiness Scale score: 0 Current [place] Sleepiness Scale score: 1 Allergies and Home Medications Home medication list reviewed: Yes Allergy and home medication list: Allergies meperidine HCl * [From Demerol] Allergy (Unknown, Verified 01/25/22 09:29) Unknown sulfamethoxazole [From Bactrim] Allergy (Unknown, Verified 01/25/22 09:29) Unknown trimethoprim [From Bactrim] Allergy (Unknown, Verified 01/25/22 09:29) Unknown morphine Adverse Reaction (Intermediate, Verified 01/25/22:29) Nausea Medications: see updated list scanned in today Albuterol 0.5 mg nebulizer treatment bid Review of Systems Review of systems same as previous: No (COPD, on 2L/NC all the time; CHF) Physical Exam Vital signs obtained and entered by: Chico KIRBY CMA AASHANA Blood Pressure: 116/81 (RESP 18, PULSE 78, RIGHT,) Heart Rate: 78 O2 Saturation: 94 (PAPER MASK / 2X 94) Height: 4 ft 10 in Weight: 182 lb (CLOTHES) Body Mass Index: 38.0 BMI Classification: Obese Impression and Plan 1. Obstructive Sleep Apnea-Hypopnea Syndrome, moderate, with good treatment compliance and excellent apnea control. On CPAP therapy, the patient has better sleep quality and is more rested overall. Patient was 84% on 2 L oxygen nasal cannula. She has COPD and is on oxygen 24 hours a day. We rechecked her oxygen after she had been sitting during her appointment and it was at 94% on 2 L oxygen nasal cannula. Patient does bleed in 2 L oxygen at night with her CPAP. Patient states recently her CPAP is shutting off on its own accord a couple of times a night. It would turn right back on and run fine. This just started about 2 weeks ago. Patient used to get her supplies at [facility] who no longer deal with CPAP supplies. For patient supply concerns, I will have my advertising operations coordinator inform of DME options. A DWO prescription will then be made. Patient advised to contact this office if further supply problems. Patient last updated her CPAP in 2014. The patients CPAP is over 5 years old and of reasonable use. In addition, it is starting to shut off during the night, a sign of malfunction. Thus, the CPAP will be updated. The new CPAPs also have a better humidity system which could assist control of patients dryness symptoms. A DWO prescription will be made. Compliance guidelines for new device and follow up discussed. Patient's apnea severity and rationale for treatment to reduce apnea, improve sleep quality and reduce cardiovascular and cerebrovascular events was reviewed. I also reviewed the benefit of consistent device use of CPAP for hypertension, cardiac disease (CHF), arrhythmia and depression. 2. Obesity, unspecified. Currently patients BMI is 38.0. Obesity increases the risk of apnea, CPAP pressure requirements and overall health risks especially cardiovascular and diabetes. Thus patient is advised to lose weight. Weight loss can be done with reducing portion size, reducing refined foods and balancing content with vegetables, fruit and whole grain foods. In addition, patient encouraged to get regular exercise. * Continue CPAP pressure at 9 cmH2O * Transfer DME * Update device * Update supplies * Notify me if snoring with mask or feeling that the pressure is too much or too little * Attempt to lose weight * Call this office if any problems using CPAP * Return for follow up one month after obtaining new CPAP machine, or sooner if concerns arise Counseling Topics: Spare mask, Weight loss health impact Visit Type: In Office Time Spent with Patient (minutes): 24 Provider Statement: I spent 100% of the Face to Face Visit with the patient with greater than 50% spent counseling the patient and coordination of care.
== END 2022-06-22 10:24 | disposition home or self-care (01) ==
LOC: SC 10:23
PROVIDERS: ATTEND Nurse Practitioner Family
DX: G47.33 Obstructive sleep apnea (adult) (pediatric) (principal); E66.9 Obesity, unspecified; Z68.38 Body mass index [BMI] 38.0-38.9, adult
CPT/HCPCS: 99213; G0463; 99212

== ENCOUNTER 2022-12-12 10:15 | Emergency (ER) | payer MEDICARE ==
--- OUTSIDE RECORDS SUMMARY | 2022-12-12 10:48 | EXTERNAL MEDICAL SUMMARY RPT | Continuity of Care Document ---
:1940 Author Organization [facility] Address [address] [place] [address] Phone Care Team Providers Name Role Phone Maia Jose Indira Unavailable Unavailable Allergies No information. Encounters No information. Functional Status No information. Immunizations No information. Medications date description facility 2022-09-14 00:00 VITAMIN B 50 All 2022-09-14 00:00 [id number] acid All 2022-09-14 00:00 ESOMEPRAZOLE MAGNESIUM All 2022-09-14 00:00 ipratropium-albuterol All 2022-09-14 00:00 ASCORBIC ACID All 2022-09-14 00:00 saccharomyces boulardii All 2022-09-14 00:00 thiamine hcl (vitamin b1) All 2022-09-14 00:00 aspirin All 2022-09-14 00:00 cetirizine All 2022-09-14 00:00 ipratropium-albuterol All 2022-09-14 00:00 ipratropium-albuterol All 2022-09-14 00:00 aspirin All 2022-09-14 00:00 ASCORBIC ACID All 2022-09-14 00:00 thiamine hcl (vitamin b1) All 2022-09-14 00:00 ASCORBIC ACID All 2022-09-14 00:00 CALCIUM CARBONATE All 2022-09-14 00:00 cetirizine All 2022-09-14 00:00 thiamine hcl (vitamin b1) All 2022-09-14 00:00 CALCIUM CARBONATE All 2022-09-14 00:00 CALCIUM CARBONATE All 2022-09-14 00:00 cetirizine All 2022-09-14 00:00 ipratropium-albuterol All 2022-09-14 00:00 saccharomyces boulardii All 2022-09-14 00:00 ESOMEPRAZOLE MAGNESIUM All 2022-09-14 00:00 saccharomyces boulardii All 2022-09-14 00:00 cetirizine All 2022-09-14 00:00 ESOMEPRAZOLE MAGNESIUM All 2022-09-14 00:00 aspirin All 2022-09-14 00:00 ESOMEPRAZOLE MAGNESIUM All 2022-09-14 00:00 thiamine hcl (vitamin b1) All 2022-09-14 00:00 ASCORBIC ACID All 2022-09-14 00:00 CALCIUM CARBONATE All 2022-09-14 00:00 saccharomyces boulardii All 2022-09-14 00:00 ipratropium bromide All Problems No information. Procedures No information. Results/Labs No information. Social History No information. Vital Signs No information.
[2022-12-12] MEDS ORDERED: IPRATROPIUM/ALBUTEROL 3 ML NEB INH STA (11:05)
[2022-12-12] MEDS ORDERED: ALBUTEROL NEB 2.5 MG/3 ML INH STA (11:13)
[2022-12-12] MEDS ORDERED: predniSONE 20 MG TABLET PO STA (11:13)
--- NOTE | 2022-12-12 11:19 | ED Physician Documentation ---
History of Present Illness - Stated complaint Stated Complaint: SOA,COPD - Chief complaint Chief Complaint: Resp - History obtained from History obtained from: Patient, Other (Good historian) - Additonal information Additional information: 82-year-old female presents to the emergency department now with 4 days of worsening dyspnea and shortness of air. She does have a history of congestive heart failure as well as COPD. She is on baseline 2 to 3 L nasal cannula. This morning her nasal cannula saturations were 89% and with increasing dyspnea she presents to the emergency department. She denies any leg swelling or chest pain. No nausea or vomiting. On presentation to this emergency department 3 L nasal cannula saturations were 84%. Oxygen was increased to 6 L with resultant rise in saturations to 96%. Review of Systems Constitutional: denies: Fever, Chills Cardiac: denies: Chest pain / pressure, Palpitations Respiratory: reports: Dyspnea, Cough, Wheezing GI: denies: Abdominal Pain, Nausea, Vomiting : reports: Reviewed and negative Skin: reports: Reviewed and negative Musculoskeletal: reports: Reviewed and negative PD PAST MEDICAL HISTORY - Past Medical History Cardiovascular: Congestive heart failure, Hypertension, High cholesterol, Coronary artery disease, Peripheral Vascular Disease, Arrhythmia Respiratory: COPD, Sleep apnea, CPAP use Neuro: None Endocrine/Autoimmune: HyPOthyroidism, Other GI: GERD, C.difficile, Other TOMOGRAPHIC TECH: None : Other HEENT: Chronic vision loss, Other Psych: Depression, Anxiety Musculoskeletal: Chronic back pain, Other Derm: None - Past Surgical History Past Surgical History: Yes Ortho: Other Cardiovascular: Fempop bypass HEENT: Cataracts Derm: Skin cancer surgery - Present Medications Home Medications: Ambulatory Orders Medication Instructions Recorded Confirmed Acetaminophen [Pain Relief] 1 - 2 tab PO Q6HR PRN 04/18/14 01/25/22 Rosuvastatin Calcium [Crestor] 40 mg PO QPM 04/18/14 01/25/22 traZODone [Desyrel] 25 - 50 mg PO QPM PRN 07/06/19 01/25/22 Metoprolol Succinate [Toprol Xl] 150 mg PO DAILY 10/26/20 01/25/22 Potassium Chloride [Klor-Con 10] 20 meq PO DAILYWM 10/26/20 01/25/22 Umeclidinium Brm/Vilanterol Tr 1 puffs INH DAILY 10/26/20 01/25/22 [Anoro Ellipta 62.5-25 Mcg INH] Aspirin Chewable [St Eduardo 81 mg PO DAILY 12/01/20 01/25/22 Aspirin] Cetirizine [ZyrTEC] 10 mg PO DAILY PRN 12/01/20 01/25/22 Esomeprazole Magnesium [Nexium 20 mg PO QDAC 12/01/20 01/25/22 24Hr] Multivitamin/Iron/Folic Acid 1 tab PO DAILY 12/01/20 01/25/22 [Centrum Women Tablet] Amlodipine Besylate [Norvasc] 10 mg PO DAILY 07/19/21 01/25/22 Furosemide [Lasix] 40 mg PO DAILY 07/19/21 01/25/22 Levothyroxine Sodium [Levoxyl] 50 mcg PO QDAC 07/19/21 01/25/22 Sertraline [Zoloft] 50 mg PO DAILY 07/19/21 01/25/22 Albuterol 2.5 mg INH RTQ4H PRN #100 neb 01/27/22 Azithromycin [Zithromax] 250 mg PO DAILY #3 tablet 01/27/22 Nebulizer [Altera Nebulizer] 1 each MC Q4H PRN #1 each 01/27/22 Thiamine [Vitamin B-1] 100 mg PO DAILY #30 tablet 01/27/22 predniSONE [Deltasone] 20 mg PO [id number] 5 Days #11 tab 01/27/22 Ipratropium [Atrovent] 0.5 mg INH RTQ4H PRN #200 ml 07/06/22 dexAMETHasone [Decadron] 4 mg PO DAILY #5 tablet 07/06/22 - Allergies Allergies/Adverse Reactions: Allergies Allergy/AdvReac Type Severity Reaction Status Date / Time meperidine HCl * Allergy Unknown Unknown Verified 12/12/22 10:51 [From Demerol] sulfamethoxazole Allergy Unknown Unknown Verified 12/12/22 10:51 [From Bactrim] trimethoprim [From Bactrim] Allergy Unknown Unknown Verified 12/12/22 10:51 morphine AdvReac Intermediate Nausea Verified 12/12/22 10:51 - Social History Does the pt smoke?: No Smoking Status: Former smoker Does the pt drink ETOH?: Yes Does the pt have substance abuse?: No - Immunizations Immunizations are current?: Yes - POLST Patient has POLST: No POLST Status: Full Code PD ED PE NORMAL - General General: Alert and oriented X 3, Well developed/nourished (Obese). No: No acute distress (Dyspneic) - HEENT HEENT: Atraumatic, Moist mucous membranes - Neck Neck: Supple, no meningeal sign, No adenopathy - Cardiac Cardiac: RRR, No murmur - Respiratory Respiratory: Clear bilaterally (Generally clear breath sounds though faint scattered expiratory wheeze. Mildly tachypneic in the mid to high 20s. 3 L nasal cannula saturations now 92%). 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 Eye Opening: Spontaneous Motor: Obeys Commands Verbal: Oriented GCS Score: 15 Results - Vitals Vitals: Vital Signs - 24 hr 12/12/22 12/12/22 12/12/22 10:46 11:10 11:32 Temperature 36.9 C Heart Rate 76 79 80 Respiratory 28 H 22 22 Rate Blood Pressure 149/62 H 145/83 H O2 Saturation 84 L 95 If not protocol 6 3 : Oxygen Flow, liters/minute 12/12/22 12/12/22 12/12/22 12:16 12:42 13:14 Temperature Heart Rate 113 H 83 83 Respiratory 28 H 22 18 Rate Blood Pressure 154/59 H 169/72 H 143/77 H O2 Saturation 93 93 92 If not protocol : Oxygen Flow, liters/minute Oxygen O2 Source [] Room air O2 Source Nasal cannula Oxygen Flow Rate 3 - EKG (time done) 1248 Rate: Rate (enter#) (75) Rhythm: NSR [place]: Normal Intervals: Prolonged QT QRS: Normal Ischemia: Non specific changes Compare to prior EKG: Unchanged from prior EKG Computer interpretation: Agree with computer - Labs Labs: Laboratory Tests 12/12/22 12/12/22 12/12/22 11:18 11:18 11:18 WBC 7.3 RBC 4.13 L Hgb 13.3 Hct 42.2 MCV 102.2 H MCH 32.2 H MCHC 31.5 L RDW 14.2 Plt Count 208 MPV 8.9 Neut # (Auto) 5.8 Lymph # (Auto) 1.0 L [place] # (Auto) 0.4 Eos # (Auto) 0.1 Baso # (Auto) 0.0 Absolute Nucleated RBC 0.00 Nucleated RBC % 0.0 Sodium 140 Potassium 3.7 Chloride 101 Carbon Dioxide 26 Anion Gap 13.0 BUN 33 H Creatinine 1.4 H Estimated GFR (MDRD) 36 L Glucose 119 H Calcium 9.0 Total Bilirubin 0.8 AST 27 ALT 24 Alkaline Phosphatase 72 B-Natriuretic Peptide 345 H Total Protein 7.6 Albumin 4.2 Globulin 3.4 Albumin/Globulin Ratio 1.2 Lipase 37 Nasal Adenovirus (PCR) Nasal B. parapertussis DNA (PCR) Nasal Coronavir 229E PCR Nasal Coronavir HKU1 PCR Nasal Coronavir NL63 PCR Nasal Coronavir OC43 PCR Nasal Enterovir/Rhinovir PCR Nasal Influenza B PCR Nasal Influenza A PCR Nasal Parainfluen 1 PCR Nasal Parainfluen 2 PCR Nasal Parainfluen 3 PCR Nasal Parainfluen 4 PCR Nasal RSV (PCR) Nasal B.pertussis DNA PCR Nasal C.pneumoniae (PCR) Cedric Human Metapneumo PCR Nasal M.pneumoniae (PCR) Nasal SARS-CoV-2 (PCR) 12/12/22 12:00 WBC RBC Hgb Hct MCV MCH MCHC RDW Plt Count MPV Neut # (Auto) Lymph # (Auto) [place] # (Auto) Eos # (Auto) Baso # (Auto) Absolute Nucleated RBC Nucleated RBC % Sodium Potassium Chloride Carbon Dioxide Anion Gap BUN Creatinine Estimated GFR (MDRD) Glucose Calcium Total Bilirubin AST ALT Alkaline Phosphatase B-Natriuretic Peptide Total Protein Albumin Globulin Albumin/Globulin Ratio Lipase Nasal Adenovirus (PCR) NOT DETECTED Nasal B. parapertussis DNA (PCR) NOT DETECTED Nasal Coronavir 229E PCR NOT DETECTED Nasal Coronavir HKU1 PCR NOT DETECTED Nasal Coronavir NL63 PCR NOT DETECTED Nasal Coronavir OC43 PCR NOT DETECTED Nasal Enterovir/Rhinovir PCR NOT DETECTED Nasal Influenza B PCR NOT DETECTED Nasal Influenza A PCR NOT DETECTED Nasal Parainfluen 1 PCR NOT DETECTED Nasal Parainfluen 2 PCR NOT DETECTED Nasal Parainfluen 3 PCR NOT DETECTED Nasal Parainfluen 4 PCR NOT DETECTED Nasal RSV (PCR) NOT DETECTED Nasal B.pertussis DNA PCR NOT DETECTED Nasal C.pneumoniae (PCR) NOT DETECTED Cedric Human Metapneumo PCR NOT DETECTED Nasal M.pneumoniae (PCR) NOT DETECTED Nasal SARS-CoV-2 (PCR) NOT DETECTED - Rads (name of study) cxr Radiology: Final report received (Cardiomegaly with trace effusions and increased vascularity suggestive of edema) PD Medical Decision Making - ED course Complexity details: reviewed results, re-evaluated patient, considered differential, d/w patient ED course: 82-year-old female presents emergency department for evaluation of 4 days dyspnea. She does have a history of oxygen dependent COPD typically on 2 to 3 L. Over the last 4 days that she has found that she is orthopneic. 3 L nasal cannula saturations at this morning were noted to be 84% though she was given 6 L nasal cannula with resultant rise to 95%. On exam she was moderately dyspneic though very faint wheezes were known. Her chest x-ray however suggested some volume overload. She does have a BNP in the 300s which is higher than it has historically been here. I did give her 40 mg of Lasix and she had diuresed nearly a liter here in the emergency department. On reevaluation she had improved dyspnea. She was no longer tachypneic and her 3 L nasal cannula saturations were 94%. Patient and her doctor did have a lot of questions regarding long-term management of CHF and COPD. We discussed that both these conditions are ultimately terminal and I encourage them to discuss long-term goals of care which could include palliative care should her symptoms progressively worsen. I suspect that the cause of her exacerbation was a CHF exacerbation and not COPD. I was able to review the echocardiogram completed in January of this last year and do note a preserved ejection fraction with an EF of 65 to 70% however she had modestly elevated right ventricular systolic pressures. It is likely that she is developing some cor pulmonale associated with her COPD. I have encouraged patient to follow closely with her environmental tech as well as her primary care doctor. Routine emergent return precautions were discussed. Departure - Departure Disposition: 01 Home, Self Care Clinical Impression: Dyspnea Qualifiers: Dyspnea type: unspecified Qualified Code(s): R06.00 - Dyspnea, unspecified Congestive heart failure Qualifiers: Heart failure type: unspecified Heart failure chronicity: acute on chronic Qualified Code(s): I50.9 - Heart failure, unspecified COPD (chronic obstructive pulmonary disease) Qualifiers: COPD type: unspecified COPD Qualified Code(s): J44.9 - Chronic obstructive pulmonary disease, unspecified Condition: Serious Instructions: ED CHF Right Side Comments: Misty alvarez are seen today in the emergency department because for the last 4 days you have had worsening shortness of air. You do have a history of COPD and are on oxygen. As we discussed at the bedside I suspect that the increasing shortness of air is more likely due to congestive heart failure rather than COPD though this may be contributing. When we look at your chest x-ray today it does suggest some volume overload or excess water in your lungs. In order to manage this we did give you some Lasix here in the ER and you are breathing more easily. For the next 4 to 5 days I would like you to double your dose of Lasix to 80 mg daily. Please follow very closely with your primary care doctor as well as your environmental tech. It is important that you discuss long-term goals of care with regards to your COPD and congestive heart failure. Return to the ER if you find that your symptoms are not improving as anticipated, you have oxygen saturations less than 88% on 4 to 6 L of oxygen or have any chest pain or fainting episodes.
[2022-12-12 11:22] LABS: BASOPHILS % (AUTO) 0.1 %; EOSINOPHILS # (AUTO) 0.1 10^3/uL (0.0-0.7); EOSINOPHILS % (AUTO) 1.4 %; HCT - HEMATOCRIT 42.2 % (37.0-47.0); HGB - HEMOGLOBIN 13.3 g/dL (12.0-16.0); LYMPHOCYTES % (AUTO) 13.2 %; MEAN CORPUSCULAR HEMOGLOBIN 32.2 pg (27.0-31.0); MEAN CORPUSCULAR HGB CONC 31.5 g/dL (32.0-36.0); MEAN CORPUSCULAR VOLUME 102.2 fL (81.0-99.0); MEAN PLATELET VOLUME 8.9 fL (7.9-10.8); MONOCYTES # (AUTO) 0.4 10^3/uL (0.0-1.0); MONOCYTES % (AUTO) 5.4 %; NEUTROPHILS # (AUTO) 5.8 10^3/uL (1.5-6.6); NEUTROPHILS % (AUTO) 79.6 %; PLT - PLATELET COUNT 208 10^3/uL (130-450); RED BLOOD COUNT 4.13 10^6/uL (4.20-5.40); RED CELL DISTRIBUTION WIDTH 14.2 % (12.0-15.0); WHITE BLOOD COUNT 7.3 x10^3/uL (4.8-10.8)
--- NOTE | 2022-12-12 11:27 | XRAY Report ---
PROCEDURE: Chest 1 View X-Ray INDICATIONS: chest pain TECHNIQUE: One view of the chest was acquired. COMPARISON: Chest x-ray 07/06/2022 FINDINGS: Surgical changes and devices: None. Lungs and pleura: There is an overall appearance of increased pulmonary vascularity. Mild blunting o f the costophrenic angles are present bilaterally. Mediastinum: Mediastinal contours appear normal. Heart size is enlarged. Bones and chest wall: No suspicious bony lesions. Overlying soft tissues appear unremarkable. IMPRESSION: Cardiomegaly with trace effusions and increased vascularity suggestive of edema. Reviewed by: Zaida Dalton MD on 12/12/2022 11:26 AM PST Approved by: Zaida Dalton MD on 12/12/2022 11:26 AM PST Station ID: [id number]
[2022-12-12 11:35] LABS: ALBUMIN 4.2 g/dL (3.2-5.5); ALBUMIN/GLOBULIN RATIO 1.2 (1.0-2.2); BILIRUBIN,TOTAL 0.8 mg/dL (0.2-1.0); CREATININE 1.4 mg/dL (0.4-1.0); POTASSIUM 3.7 mmol/L (3.5-5.0); TOTAL PROTEIN 7.6 g/dL (6.7-8.2)
[2022-12-12] MEDS ORDERED: FUROSEMIDE 40 MG/4 ML VIAL IVP STA (11:36)
[2022-12-12 13:28] LABS: B. PARAPERTUSSIS- RESP PCR PAN NOT DETECTED; B. PERTUSSIS- RESP PCR PANEL NOT DETECTED; C. PNEUMONIAE- RESP PCR PANEL NOT DETECTED; CORONAVIRUS 229E-RESP PCR NOT DETECTED; CORONAVIRUS HKU1-RESP PCR NOT DETECTED; CORONAVIRUS NL63-RESP PCR NOT DETECTED; CORONAVIRUS OC43-RESP PCR NOT DETECTED; HUMAN METAPNEUMOVIRUS NOT DETECTED; INFLUENZA A- RESP PCR PANEL NOT DETECTED; INFLUENZA B - RESP PCR PANEL NOT DETECTED; M. PNEUMONIAE- RESP PCR PANEL NOT DETECTED; PARAINFLUENZA VIRUS 1 NOT DETECTED; PARAINFLUENZA VIRUS 2 NOT DETECTED; PARAINFLUENZA VIRUS 3 NOT DETECTED; PARAINFLUENZA VIRUS 4 NOT DETECTED; RHINOVIRUS/ENTEROVIRUS NOT DETECTED; RSV- RESP PCR PANEL NOT DETECTED; SARS-CoV-2 -RESP PCR PANEL NOT DETECTED
[2022-12-12 13:53] VITALS: BP 165/66
== END 2022-12-12 13:53 | disposition home or self-care (01) ==
LOC: ED 10:15
DX: R06.00 Dyspnea, unspecified (principal); I50.9 Heart failure, unspecified; J44.9 Chronic obstructive pulmonary disease, unspecified; Z87.891 Personal history of nicotine dependence; Z99.81 Dependence on supplemental oxygen; Z20.822 Contact with and (suspected) exposure to COVID-19
CPT/HCPCS: 36415; 71045; 80053; 83690; 83880; 85025; 87633; 93005; 94640; 96374; 99284; J7512

== ENCOUNTER 2022-12-27 12:32 | Outpatient (CLI) | payer MEDICARE ==
[2022-12-27 15:35] LABS: ALBUMIN 3.9 g/dL (3.2-5.5); ALBUMIN/GLOBULIN RATIO 1.1 (1.0-2.2); BILIRUBIN,TOTAL 0.9 mg/dL (0.2-1.0); CALCIUM 9.4 mg/dL (8.5-10.3); CREATININE 1.4 mg/dL (0.4-1.0); TOTAL PROTEIN 7.3 g/dL (6.7-8.2)
== END 2022-12-27 12:33 | disposition home or self-care (01) ==
LOC: LAB.S 12:32
PROVIDERS: ATTEND Nurse Practitioner
DX: I50.9 Heart failure, unspecified (principal); N18.4 Chronic kidney disease, stage 4 (severe); J44.9 Chronic obstructive pulmonary disease, unspecified; R06.09 Other forms of dyspnea
CPT/HCPCS: 36415; 80053; 83880

== ENCOUNTER 2023-03-29 22:17 | Outpatient (CLI) | payer MEDICARE | END 2023-03-29 23:59 | disposition critical access hospital (66) | LOC: EMS 22:17 | DX: R06.02 Shortness of breath (principal); R05.9 Cough, unspecified; S51.812A Laceration without foreign body of left forearm, initial encounter; W01.0XXA Fall on same level from slipping, tripping and stumbling without subsequent striking against object, initial encounter; Y92.003 Bedroom of unspecified non-institutional (private) residence as the place of occurrence of the external cause; Z99.81 Dependence on supplemental oxygen; J44.9 Chronic obstructive pulmonary disease, unspecified | CPT/HCPCS: A0425; A0427 ==

== ENCOUNTER 2023-04-07 13:21 | Outpatient (CLI) | payer MEDICARE | END 2023-04-07 23:59 | LOC: EMS 13:21 | PROVIDERS: ATTEND Specialist | DX: J96.21 Acute and chronic respiratory failure with hypoxia (principal); J18.9 Pneumonia, unspecified organism; J40 Bronchitis, not specified as acute or chronic; B97.81 Human metapneumovirus as the cause of diseases classified elsewhere; I50.33 Acute on chronic diastolic (congestive) heart failure; G47.33 Obstructive sleep apnea (adult) (pediatric) | CPT/HCPCS: A0425; A0428 ==

== ENCOUNTER 2023-06-21 13:31 | Outpatient (CLI) | payer MEDICARE ==
[2023-06-21 19:53] LABS: BASOPHILS % (AUTO) 0.3 %; EOSINOPHILS # (AUTO) 0.2 10^3/uL (0.0-0.7); EOSINOPHILS % (AUTO) 2.6 %; HCT - HEMATOCRIT 43.7 % (37.0-47.0); HGB - HEMOGLOBIN 14.1 g/dL (12.0-16.0); LYMPHOCYTES # (AUTO) 1.8 10^3/uL (1.5-3.5); LYMPHOCYTES % (AUTO) 24.3 %; MEAN CORPUSCULAR HGB CONC 32.3 g/dL (32.0-36.0); MEAN CORPUSCULAR VOLUME 99.1 fL (81.0-99.0); MEAN PLATELET VOLUME 9.2 fL (7.9-10.8); MONOCYTES # (AUTO) 0.5 10^3/uL (0.0-1.0); MONOCYTES % (AUTO) 6.2 %; NEUTROPHILS # (AUTO) 4.8 10^3/uL (1.5-6.6); NEUTROPHILS % (AUTO) 66.3 %; PLT - PLATELET COUNT 261 10^3/uL (130-450); RED BLOOD COUNT 4.41 10^6/uL (4.20-5.40); WHITE BLOOD COUNT 7.3 x10^3/uL (4.8-10.8)
[2023-06-21 20:08] LABS: ALBUMIN 4.5 g/dL (3.2-5.5); ALBUMIN/GLOBULIN RATIO 1.6 (1.0-2.2); ALKALINE PHOSPHATASE 72 IU/L (42-121); ALT ALANINE AMINOTRANSFERASE 19 IU/L (10-60); AST ASPARTATE AMINOTRANSFERASE 22 IU/L (10-42); BILIRUBIN,TOTAL 0.5 mg/dL (0.2-1.0); BUN - BLOOD UREA NITROGEN 48 mg/dL (6-20); CALCIUM 9.8 mg/dL (8.5-10.3); CARBON DIOXIDE - CO2 28 mmol/L (21-32); CHLORIDE 104 mmol/L (101-111); CHOL/HDL RATIO 3.3 (<4.4); CHOLESTEROL 222 mg/dL; CREATININE 1.7 mg/dL (0.6-1.3); GFR - MDRD 29 (>89); GLUCOSE 111 mg/dL (74-104); HDL CHOLESTEROL 67 mg/dL; LDL CHOLESTEROL,CALCULATED 99 mg/dL; LDL/HDL RATIO 1.5 (<4.4); SODIUM 143 mmol/L (135-145); TOTAL PROTEIN 7.4 g/dL (6.4-8.9); TRIGLYCERIDES 282 mg/dL (48-352); VLDL CHOLESTEROL 56 mg/dL
[2023-06-21 20:20] LABS: THYROID STIMULATING HORMONE 2.26 uIU/mL (0.34-5.60)
== END 2023-06-21 13:32 | disposition home or self-care (01) ==
LOC: LAB.S 13:31
PROVIDERS: ATTEND Registered Nurse
DX: N18.9 Chronic kidney disease, unspecified (principal); Z79.899 Other long term (current) drug therapy; Z13.220 Encounter for screening for lipoid disorders; E03.9 Hypothyroidism, unspecified
CPT/HCPCS: 36415; 80053; 80061; 83721; 84443; 85025

== ENCOUNTER 2024-08-08 09:04 | Outpatient (CLI) | payer MEDICARE ==
[2024-08-08 15:30] LABS: CALCIUM 9.7 mg/dL (8.5-10.3); CREATININE 1.8 mg/dL (0.6-1.3); POTASSIUM 3.8 mmol/L (3.5-4.5)
[2024-08-08 20:18] LABS: CREATININE,URINE 21.6 mg/dL; MICROALBUM/CREATININE RATIO,UR 393.5 ug/mg (<30.0); MICROALBUMIN,URINE 8.5 mg/dL
== END 2024-08-08 09:05 | disposition home or self-care (01) ==
LOC: LAB.S 09:04
PROVIDERS: ATTEND Registered Nurse
DX: N17.9 Acute kidney failure, unspecified (principal); N18.9 Chronic kidney disease, unspecified
CPT/HCPCS: 36415; 80048; 82043; 82570

== ENCOUNTER 2024-09-10 09:03 | Inpatient (IN) ==
--- NOTE | 2024-09-10 09:26 | ED Physician Documentation ---
History of Present Illness Stated complaint Stated Complaint: SOA Chief complaint Chief Complaint: Resp History obtained from History obtained from: Patient Additonal information Additional information: Patient comes to the emergency department chief complaint of shortness of breath and mildly productive cough for the last couple of weeks. She has not measured any fevers but felt chilled this morning. She states that she is fine at rest but when she tries to ambulate, she does get more short of breath than usual. She has a history of COPD and CHF and is home O2 dependent with her baseline sats being 88 to 90% on 2 L of oxygen per nasal cannula. She states she has been having to turn the oxygen up because of the shortness of breath. EMS reports that the patient required 4 L of oxygen to get up to 90%. She had Solu- Medrol administered but did not receive any nebulizer treatments. The patient states she does take nebs at home and her last one was last night. She states does not really feel like they have been helping. The patient denies any swelling in her legs. No chest pain. No other symptoms of illness besides just feeling generally weak and the respiratory symptoms. No other complaints at this time. Meds/Allgy Home Medications Ambulatory Orders Medication Instructions Recorded Confirmed acetaminophen 325 mg tablet 650 mg (2 x 325 mg) PO Q6HR PRN 04/07/23 09/10/24 Pain 1 to 4, or Fever #40 tabs amlodipine 10 mg tablet (Norvasc) 10 mg PO DAILY #30 tabs 04/07/23 09/10/24 aspirin 81 mg chewable tablet 81 mg PO DAILY #30 tabs 04/07/23 09/10/24 esomeprazole magnesium 20 mg 20 mg PO QDAC #30 caps 04/07/23 09/10/24 capsule,delayed release (Nexium 24HR) levothyroxine 50 mcg tablet 50 mcg PO QDAC #30 tabs 04/07/23 09/10/24 (Levoxyl) metoprolol succinate 50 mg 150 mg (3 x 50 mg) PO DAILY #30 04/07/23 09/10/24 tablet,extended release 24 hr tabs multivitamin-ferrous 1 tab PO DAILY #30 tabs 04/07/23 09/10/24 fumarate-folic acid 18 mg-400 mcg tablet (Centrum Women) potassium chloride 20 mEq 20 meq PO DAILYWM #30 tabs 04/07/23 09/10/24 tablet,extended release(part/cryst) (Klor-Con M) rosuvastatin 40 mg tablet (Crestor) 40 mg PO QPM #30 tabs 04/07/23 09/10/24 sertraline 50 mg tablet 50 mg PO DAILY #30 tabs 04/07/23 09/10/24 thiamine mononitrate (vit B1) 100 100 mg PO DAILY #30 tabs 04/07/23 09/10/24 mg tablet (Vitamin B-1 (mononitrate)) trazodone 50 mg tablet 50 mg PO QPM #30 tabs 04/07/23 09/10/24 umeclidinium 62.5 mcg-vilanterol 1 puff inhalation DAILY #30 ea 04/07/23 09/10/24 25 mcg/actuation powdr for inhalation (Anoro Ellipta) albuterol sulfate 90 mcg/actuation 1 puff inhalation Q4H PRN 09/10/24 09/10/24 aerosol inhaler shortness of breath or wheezing cetirizine 10 mg tablet (24Hour 10 mg PO DAILY 09/10/24 09/10/24 Allergy) furosemide 40 mg tablet 40 mg PO DAILY 09/10/24 09/10/24 ipratropium 0.5 mg-albuterol 3 mg 3 ml inhalation Q6H PRN shortness 09/10/24 09/10/24 (2.5 mg base)/3 mL nebulization of breath or wheezing soln prednisone 1 mg tablet 2 mg PO DAILY 09/10/24 09/10/24 Allergies Allergies Allergy/AdvReac Type Severity Reaction Status Date / Time trimethoprim (From Bactrim) Allergy Unknown Unknown Verified 09/10/24 09:17 morphine AdvReac Intermediate Nausea Verified 09/10/24 09:17 meperidine HCl * (From AdvReac Mild Unknown Verified 09/10/24 09:17 Demerol) sulfamethoxazole (From AdvReac Mild Unknown Verified 09/10/24 09:17 Bactrim) PFSH Social History Social History Smoking Status: Former smoker If you are a former smoker, when did you quit? (Date/Year): 1994 Number of Years Smoked: 30 How many cigarettes a day do you smoke? (20 cigarettes=1 Pk): 40 Do you dip or chew tobacco?: No Do you vape?: No Patient requests smoking cessation consult: No Initiate information on smoking cessation: No Living arrangement: At home Living Condition: Alone Relationship: Level: Assisted Home Mobility Equipment: Wheeled walker Do you feel safe in your home environment?: Yes Suffered physical, verbal, emotional, or financial abuse?: No History of Abuse: No Frequency: Daily Substance Use: denies use Are you sexually active?: No POLST Patient has POLST: No POLST Status: Full Code Exam Constitutional normal general appearance and no apparent distress HENMT normocephalic, head/scalp atraumatic, external nose normal and oral mucous membranes normal Eyes EOMs intact bilaterally Neck/C-Spine visual inspection normal and supple Respiratory breath sounds equal bilaterally and clear to auscultation bilaterally Moderately diminished air movement through bilateral lung luna. No accessory sounds. Mild laboring of respirations at rest. Cardiovascular normal heart rate noted, regular rhythm noted and no edema Gastrointestinal abdomen normal to inspection, abdomen soft to palpation, nontender to palpation and nondistended Genitourinary no CVA tenderness Extremities normal to inspection No lower extremity edema. Neurology Alert, grossly intact Psychiatry mental status grossly normal Skin skin color normal Results Vitals Vitals: Vital Signs - 24 hr 09/10/24 09:10 09/10/24 09:30 09/10/24 09:40 Temperature 36.8 C Temperature Source Oral Pulse Rate 77 75 Respiratory Rate 22 26 H Blood Pressure 145/66 H 154/62 H O2 Saturation 83 L 88 L Oxygen Delivery Method Nasal Cannula O2 Source Nasal cannula Nasal cannula If not protocol: Oxygen Flow, liters/minute 3 4 4 Pain Intensity 0 09/10/24 10:10 09/10/24 10:30 Temperature Temperature Source Pulse Rate 76 77 Respiratory Rate 20 20 Blood Pressure 153/65 H O2 Saturation 88 L Oxygen Delivery Method O2 Source Nasal cannula Nasal cannula If not protocol: Oxygen Flow, liters/minute 2 4 Pain Intensity Oxygen O2 Source [With Activity] Nasal cannula O2 Source [Without Activity] Nasal cannula O2 Source Nasal cannula Labs Labs: Laboratory Tests 09/10/24 09/10/24 09/10/24 09:25 09:33 09:36 WBC 7.9 RBC 4.18 L Hgb 13.8 Hct 43.6 MCV 104.3 H MCH 33.0 H MCHC 31.7 L RDW 14.6 Plt Count 281 MPV 9.1 Neut # (Auto) 5.2 Lymph # (Auto) 1.3 L [place] # (Auto) 0.5 Eos # (Auto) 0.8 H Baso # (Auto) 0.1 Absolute Nucleated RBC 0.00 Nucleated RBC % 0.0 Bld Gas Analysis Time Sample Site ABG pH ABG pCO2 ABG pO2 ABG HCO3 ABG Total CO2 ABG O2 Saturation ABG Base Excess Ethan Test O2 Delivery Device O2 Liters/Min Sodium 139 Potassium 4.2 Chloride 105 Carbon Dioxide 22 Anion Gap 12.0 BUN 35 H Creatinine 1.8 H Estimated GFR (MDRD) 27 L Glucose 116 H Calcium 9.9 Total Bilirubin 0.5 AST 19 ALT 22 Alkaline Phosphatase 81 B-Natriuretic Peptide 329 H Total Protein 7.7 Albumin 4.1 Globulin 3.6 Albumin/Globulin Ratio 1.1 Lipase 46 Vitamin B12 742 Nasal Adenovirus (PCR) NOT DETECTED Nasal B. parapertussis DNA (PCR) NOT DETECTED Nasal Coronavir 229E PCR NOT DETECTED Nasal Coronavir HKU1 PCR NOT DETECTED Nasal Coronavir NL63 PCR NOT DETECTED Nasal Coronavir OC43 PCR NOT DETECTED Nasal Enterovir/Rhinovir PCR NOT DETECTED Nasal Influenza B PCR NOT DETECTED Nasal Influenza A PCR NOT DETECTED Nasal Parainfluen 1 PCR NOT DETECTED Nasal Parainfluen 2 PCR NOT DETECTED Nasal Parainfluen 3 PCR NOT DETECTED Nasal Parainfluen 4 PCR NOT DETECTED Nasal RSV (PCR) NOT DETECTED Nasal B.pertussis DNA PCR NOT DETECTED Nasal C.pneumoniae (PCR) NOT DETECTED Cedric Human Metapneumo PCR NOT DETECTED Nasal M.pneumoniae (PCR) NOT DETECTED Nasal SARS-CoV-2 (PCR) NOT DETECTED 09/10/24 10:10 WBC RBC Hgb Hct MCV MCH MCHC RDW Plt Count MPV Neut # (Auto) Lymph # (Auto) [place] # (Auto) Eos # (Auto) Baso # (Auto) Absolute Nucleated RBC Nucleated RBC % Bld Gas Analysis Time 1016 Sample Site RIGHT RADIAL ABG pH 7.39 ABG pCO2 35 ABG pO2 51 L ABG HCO3 20.5 L ABG Total CO2 21.6 ABG O2 Saturation 85 L* ABG Base Excess -3.7 L Ethan Test POSITIVE O2 Delivery Device NASAL CANNULA O2 Liters/Min 2.00 Sodium Potassium Chloride Carbon Dioxide Anion Gap BUN Creatinine Estimated GFR (MDRD) Glucose Calcium Total Bilirubin AST ALT Alkaline Phosphatase B-Natriuretic Peptide Total Protein Albumin Globulin Albumin/Globulin Ratio Lipase Vitamin B12 Nasal Adenovirus (PCR) Nasal B. parapertussis DNA (PCR) Nasal Coronavir 229E PCR Nasal Coronavir HKU1 PCR Nasal Coronavir NL63 PCR Nasal Coronavir OC43 PCR Nasal Enterovir/Rhinovir PCR Nasal Influenza B PCR Nasal Influenza A PCR Nasal Parainfluen 1 PCR Nasal Parainfluen 2 PCR Nasal Parainfluen 3 PCR Nasal Parainfluen 4 PCR Nasal RSV (PCR) Nasal B.pertussis DNA PCR Nasal C.pneumoniae (PCR) Cedric Human Metapneumo PCR Nasal M.pneumoniae (PCR) Nasal SARS-CoV-2 (PCR) Rads (name of study) Chest x-ray: Relevant Findings:: Final report received and See rad report (CHF versus extensive interstitial pulmonary infiltrates and edema) PD Medical Decision Making ED course Complexity details: reviewed old records, reviewed results, re-evaluated patient, considered differential and d/w patient ED course: The patient was worked up with chest x-ray, respiratory PCR panel, and laboratory studies, and given a DuoNeb in the emergency department. She was found to have saturation upon arrival in the ED on our monitors of mid to upper 80s on 4 L oxygen per nasal cannula. However, there did seem to be a lot of rapid variation despite a good waveform, so to get a clear picture of the patient's oxygenation status, I did order an ABG. The patient was found to have a PaO2 on 2 L of oxygen per nasal cannula of 50. She was not feeling much better after the DuoNeb and steroids. Her x-ray showed what appeared to probably be CHF, so I ordered a dose of IV Lasix for her. The patient was continuing to have a saturation on her baseline oxygen of 84 to 85% which was below her normal and I feel she should be admitted to the hospital. I spoke with the hospitalist KOMAL who did agree to go and evaluate the patient. Discharge Plan Discharge Patient Disposition: ED Place in Observation Condition: Serious Clinical Impression: COPD exacerbation, Hypoxia CHF exacerbation Qualifiers: Heart failure type: unspecified Qualified Code(s): I50.9 - Heart failure, unspecified Interventions: ED Admission Assessment Last Done: 09/10/24 11:26
[2024-09-10] MEDS ORDERED: IPRATROPIUM/ALBUTEROL 3 ML NEB INH ONE (09:36)
[2024-09-10] MEDS: IPRATROPIUM/ALBUTEROL 3 ML NEB INH STA (09:39)
[2024-09-10 09:43] LABS: BASOPHILS # (AUTO) 0.1 10^3/uL (0.0-0.1); BASOPHILS % (AUTO) 0.6 %; EOSINOPHILS # (AUTO) 0.8 10^3/uL (0.0-0.7); EOSINOPHILS % (AUTO) 9.8 %; HCT - HEMATOCRIT 43.6 % (37.0-47.0); HGB - HEMOGLOBIN 13.8 g/dL (12.0-16.0); LYMPHOCYTES # (AUTO) 1.3 10^3/uL (1.5-3.5); LYMPHOCYTES % (AUTO) 16.4 %; MEAN CORPUSCULAR HGB CONC 31.7 g/dL (32.0-36.0); MEAN CORPUSCULAR VOLUME 104.3 fL (81.0-99.0); MEAN PLATELET VOLUME 9.1 fL (7.9-10.8); MONOCYTES # (AUTO) 0.5 10^3/uL (0.0-1.0); MONOCYTES % (AUTO) 6.5 %; NEUTROPHILS # (AUTO) 5.2 10^3/uL (1.5-6.6); NEUTROPHILS % (AUTO) 66.2 %; PLT - PLATELET COUNT 281 10^3/uL (130-450); RED BLOOD COUNT 4.18 10^6/uL (4.20-5.40); RED CELL DISTRIBUTION WIDTH 14.6 % (12.0-15.0); WHITE BLOOD COUNT 7.9 x10^3/uL (4.8-10.8)
--- NOTE | 2024-09-10 09:49 | XRAY Report ---
PROCEDURE: XR Chest 1V INDICATIONS: cough/sob TECHNIQUE: One view of the chest was acquired. COMPARISON: 03/31/2023. FINDINGS: Surgical changes and devices: None. Lungs and pleura: Compared to previous study, there is increase interstitial opacity throughout bila teral lung luna suggestive of extensive pulmonary interstitial infiltrates and superimposed interst itial pulmonary edema. Trace bilateral pleural effusion is likely present. No gross pneumothorax. Mediastinum: Mediastinal contours appear normal. Heart size is enlarged. Bones and chest wall: No suspicious bony lesions. Overlying soft tissues appear unremarkable. IMPRESSION: Finding may represent CHF versus extensive interstitial pulmonary infiltrates and pulmonary edema. No gross pneumothorax. Reviewed by: Silverio Velarde MD on 09/10/2024 9:47 AM PDT Approved by: Silverio Velarde MD on 09/10/2024 9:47 AM PDT Station ID: [id number]
[2024-09-10 09:57] LABS: ALBUMIN 4.1 g/dL (3.2-5.5); ALBUMIN/GLOBULIN RATIO 1.1 (1.0-2.2); BILIRUBIN,TOTAL 0.5 mg/dL (0.2-1.0); CALCIUM 9.9 mg/dL (8.5-10.3); CREATININE 1.8 mg/dL (0.6-1.3); POTASSIUM 4.2 mmol/L (3.5-4.5); TOTAL PROTEIN 7.7 g/dL (6.4-8.9)
[2024-09-10 10:17] LABS: ABG BASE EXCESS -3.7 mmol/L (-2.0-3.0); ABG HCO3 20.5 mmol/L (22.0-26.0); ABG PCO2 35 mmHg (34-45); ABG PH 7.39 (7.35-7.45); ABG PO2 51 mmHg (80-100); ABG TCO2 21.6 MMOL/L (21.0-29.0)
[2024-09-10 10:18] LABS: ALLEN TEST POSITIVE
[2024-09-10 10:21] LABS: ABG OXYGEN SATURATION 85 % (94-98)
[2024-09-10 10:43] LABS: B. PARAPERTUSSIS- RESP PCR PAN NOT DETECTED; B. PERTUSSIS- RESP PCR PANEL NOT DETECTED; C. PNEUMONIAE- RESP PCR PANEL NOT DETECTED; CORONAVIRUS 229E-RESP PCR NOT DETECTED; CORONAVIRUS HKU1-RESP PCR NOT DETECTED; CORONAVIRUS NL63-RESP PCR NOT DETECTED; CORONAVIRUS OC43-RESP PCR NOT DETECTED; HUMAN METAPNEUMOVIRUS NOT DETECTED; M. PNEUMONIAE- RESP PCR PANEL NOT DETECTED; PARAINFLUENZA VIRUS 4 NOT DETECTED; RHINOVIRUS/ENTEROVIRUS NOT DETECTED; RSV- RESP PCR PANEL NOT DETECTED; SARS-CoV-2 -RESP PCR PANEL NOT DETECTED
[2024-09-10 10:44] LABS: INFLUENZA A- RESP PCR PANEL NOT DETECTED; INFLUENZA B - RESP PCR PANEL NOT DETECTED; PARAINFLUENZA VIRUS 1 NOT DETECTED; PARAINFLUENZA VIRUS 2 NOT DETECTED; PARAINFLUENZA VIRUS 3 NOT DETECTED
[2024-09-10] MEDS: FUROSEMIDE 40 MG/4 ML VIAL IVP STA (10:45)
[2024-09-10] MEDS ORDERED: SODIUM CHLORIDE FLUSH 0.9% 10 ML SYRINGE IVP PRN (11:42)
[2024-09-10] MEDS ORDERED: ONDANSETRON 4 MG/2 ML VIAL IVP PRN (11:42)
[2024-09-10] MEDS ORDERED: NON FORMULARY MED (Albuterol Sulfate 90 mcg/actuation HFA aerosol inhaler) INH PRN (11:42)
[2024-09-10] MEDS: predniSONE 20 MG TABLET PO SCH (12:13)
[2024-09-10] MEDS: AZITHROMYCIN 250 MG TABLET PO SCH (12:14)
--- NOTE | 2024-09-10 12:49 | PHARMACY PROGRESS NOTE ---
Best Possible Medication History Admit Date and Time: 09/10/24 [id number] Processed by: Pharmacy Medications reviewed in ED?: No Medication History completed: Yes Patient Interview: Completed Secondary Source(s): Insurance records [facility] Statement: As the person ultimately responsible for medication therapy, providers are able to order a medication from an existing home medication list in [facility] via the "Reconcile Routine" prior to Confirmation of that medication by nursing support worker. Such practice is discouraged except when the physician, in their clinical judgment, deems that a medical need exists for a medication without regard to previous use.
--- NOTE | 2024-09-10 14:00 | HISTORY & PHYSICAL EXAMINATION ---
Chief Complaint Chief Complaint Chief Complaint: Shortness of breath History of Present Illness Admitted From Admitted From:: ED History Obtained From Records Reviewed: yes History obtained from: patient Exam Limitations: none History of Present Illness HPI Comment/Other: 84-year-old female past medical history significant for CKD, COPD, AASHISH, diastolic heart failure, hypertension, hypothyroidPresented to the ED with shortness of breath and wet nonproductive coughFor the past few weeks. She denies fevers, but does report chills. She says that this shortness of breath is worse with activity, and she can only get about 10 feet before she runs out of breath. She normally wears 2 L O2 at home. In the ER, she was noted to have O2 sats in the high 80s. ABG was obtained which showed A critically low O2 of 85. Patient received Solu-Medrol IV per EMS. Hospitalist was contacted for admission for acute hypoxic on chronic hypercapnic respiratory failure Meds/Allgy Home Medications Ambulatory Orders Medication Instructions Recorded Confirmed acetaminophen 325 mg tablet 650 mg (2 x 325 mg) PO Q6HR PRN 04/07/23 09/10/24 Pain 1 to 4, or Fever #40 tabs amlodipine 10 mg tablet (Norvasc) 10 mg PO DAILY #30 tabs 04/07/23 09/10/24 aspirin 81 mg chewable tablet 81 mg PO DAILY #30 tabs 04/07/23 09/10/24 esomeprazole magnesium 20 mg 20 mg PO QDAC #30 caps 04/07/23 09/10/24 capsule,delayed release (Nexium 24HR) levothyroxine 50 mcg tablet 50 mcg PO QDAC #30 tabs 04/07/23 09/10/24 (Levoxyl) metoprolol succinate 50 mg 150 mg (3 x 50 mg) PO DAILY #30 04/07/23 09/10/24 tablet,extended release 24 hr tabs multivitamin-ferrous 1 tab PO DAILY #30 tabs 04/07/23 09/10/24 fumarate-folic acid 18 mg-400 mcg tablet (Centrum Women) potassium chloride 20 mEq 20 meq PO DAILYWM #30 tabs 04/07/23 09/10/24 tablet,extended release(part/cryst) (Klor-Con M) rosuvastatin 40 mg tablet (Crestor) 40 mg PO QPM #30 tabs 04/07/23 09/10/24 sertraline 50 mg tablet 50 mg PO DAILY #30 tabs 04/07/23 09/10/24 thiamine mononitrate (vit B1) 100 100 mg PO DAILY #30 tabs 04/07/23 09/10/24 mg tablet (Vitamin B-1 (mononitrate)) trazodone 50 mg tablet 50 mg PO QPM #30 tabs 04/07/23 09/10/24 umeclidinium 62.5 mcg-vilanterol 1 puff inhalation DAILY #30 ea 04/07/23 09/10/24 25 mcg/actuation powdr for inhalation (Anoro Ellipta) albuterol sulfate 90 mcg/actuation 1 puff inhalation Q4H PRN 09/10/24 09/10/24 aerosol inhaler shortness of breath or wheezing cetirizine 10 mg tablet (24Hour 10 mg PO DAILY 09/10/24 09/10/24 Allergy) furosemide 40 mg tablet 40 mg PO DAILY 09/10/24 09/10/24 ipratropium 0.5 mg-albuterol 3 mg 3 ml inhalation Q6H PRN shortness 09/10/24 09/10/24 (2.5 mg base)/3 mL nebulization of breath or wheezing soln prednisone 1 mg tablet 2 mg PO DAILY 09/10/24 09/10/24 Allergies Allergies Allergy/AdvReac Type Severity Reaction Status Date / Time trimethoprim (From Bactrim) Allergy Unknown Unknown Verified 09/10/24 09:17 morphine AdvReac Intermediate Nausea Verified 09/10/24 09:17 meperidine HCl * (From AdvReac Mild Unknown Verified 09/10/24 09:17 Demerol) sulfamethoxazole (From AdvReac Mild Unknown Verified 09/10/24 09:17 Bactrim) PFSH Social History Social History Smoking Status: Former smoker If you are a former smoker, when did you quit? (Date/Year): 1994 Number of Years Smoked: 30 How many cigarettes a day do you smoke? (20 cigarettes=1 Pk): 40 Do you dip or chew tobacco?: No Do you vape?: No Patient requests smoking cessation consult: No Initiate information on smoking cessation: No Living arrangement: At home Living Condition: Alone Relationship: Level: Assisted Home Mobility Equipment: Wheeled walker Do you feel safe in your home environment?: Yes Suffered physical, verbal, emotional, or financial abuse?: No History of Abuse: No Frequency: Daily Substance Use: denies use Are you sexually active?: No POLST Patient has POLST: No POLST Status: Full Code Review of Systems Status of ROS: 10 or more systems reviewed and unremarkable except as noted in history and below Constitutional Reports: Chills; Denies: Fever Cardiovascular Reports: shortness of breath with exertion; Denies: Irregular heart rate, chest pain or palpitations Respiratory Reports: Shortness of breath and Cough; Denies: Sputum production Gastrointestinal Denies: Abdominal pain or Abdominal distention Genitourinary Denies: Painful urination or Urinary frequency Musculoskeletal Denies: Back pain Integumentary/Breast Denies: Rash Neurological Denies: Headache or General weakness Psychiatric Denies: Depression or Anxiety Exam Constitutional Chronically ill-appearing elderly female, mild respiratory discomfort HENMT normocephalic and head/scalp atraumatic Eyes PERRL Neck/C-Spine visual inspection normal Lymph no lymphadenopathy noted Chest inspection of chest normal and palpation of chest normal Respiratory wheezing noted (expiratory wheezes) and rales noted (throughout) Cardiovascular normal heart rate noted and regular rhythm noted Gastrointestinal abdomen normal to inspection and abdomen soft to palpation Genitourinary no CVA tenderness and bladder normal to palpation Back/Pelvis spine normal to inspection Extremities normal to inspection 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 Received 20 mg Lasix IV per ER provider. She reports normal urine output and some weight loss recently. I will cautiously continue her home diuretics as this may help her overall picture (2) COPD exacerbation: Plan: Per chart, patient received Solu-Medrol IV from EMS Prednisone 40 mg p.o. daily x 5 days Continue home inhaler regimen Pulmonary hygiene Will go ahead and order azithromycin for atypical pneumonia coverage, though bacterial pneumonia is not likely. She will likely benefit from the anti- inflammatory properties of azithromycin (3) CKD (chronic kidney disease) stage 3, GFR 30-59 ml/min: Plan: Exercising caution with nephrotoxic agent use BMP in a.m. Plan Patient has had multiple admissions at this point for acute on chronic respiratory failure. She has COPD requiring 2 L home O2 use continuously. I discussed CODE STATUS with her while admitted. She is agreeable to full code at this time and says that her primary decision makers are her live-in caregiver and her brother Lab Results Lab results reviewed: Yes 09/10/24 09:33 09/10/24 09:33 Diagnostic Imaging Results Diagnostic Imaging Results: positive Final report reviewed Diagnostic Imaging Results Comments: CXR with CHF versus pulmonary infiltrate/pulmonary edema Core Measures Anticipated LOS I expect patient to be DC'd or transferred within 96 hours.: Yes DVT/VTE - Prophylaxis VTE/DVT Device ordered at admit?: No VTE/DVT Prophylaxis med ordered at admit?: Yes
[2024-09-10] MEDS ORDERED: ZINC OXIDE 20% OINT 30 GM TUBE TOP PRN (14:21)
[2024-09-10] MEDS: IPRATROPIUM 0.2 MG/ML NEB INH SCH (15:05)
[2024-09-10] MEDS: SODIUM CHLORIDE FLUSH 0.9% 10 ML SYRINGE IVP SCH (17:43)
[2024-09-10] MEDS ORDERED: IPRATROPIUM/ALBUTEROL 3 ML NEB INH SCH (19:00)
[2024-09-10] MEDS: ATORVASTATIN 40 MG TABLET PO SCH (20:40)
[2024-09-10] MEDS: traZODone 50 MG TABLET PO SCH (20:40)
[2024-09-10] MEDS: HEPARIN 5,000 UNIT/ML VIAL SUBQ SCH (20:41)
[2024-09-10] MEDS: ACETAMINOPHEN 325 MG TABLET PO PRN (20:50)
[2024-09-10] MEDS ORDERED: MONTELUKAST 10 MG TABLET PO SCH (21:00)
[2024-09-10] MEDS ORDERED: NON FORMULARY MED (Rosuvastatin [Crestor] 40 MG tablet) PO SCH (21:00)
[2024-09-10] MEDS: FORMOTEROL FUMARATE NEB 20 MCG/2 ML INH SCH (21:12)
[2024-09-11 05:39] LABS: BASOPHILS % (AUTO) 0.3 %; EOSINOPHILS % (AUTO) 0.3 %; HGB - HEMOGLOBIN 13.3 g/dL (12.0-16.0); LYMPHOCYTES # (AUTO) 0.6 10^3/uL (1.5-3.5); LYMPHOCYTES % (AUTO) 16.2 %; MEAN CORPUSCULAR HEMOGLOBIN 32.6 pg (27.0-31.0); MEAN CORPUSCULAR HGB CONC 31.7 g/dL (32.0-36.0); MEAN CORPUSCULAR VOLUME 102.9 fL (81.0-99.0); MONOCYTES # (AUTO) 0.2 10^3/uL (0.0-1.0); MONOCYTES % (AUTO) 5.1 %; NEUTROPHILS # (AUTO) 2.9 10^3/uL (1.5-6.6); NEUTROPHILS % (AUTO) 77.3 %; PLT - PLATELET COUNT 288 10^3/uL (130-450); RED BLOOD COUNT 4.08 10^6/uL (4.20-5.40); RED CELL DISTRIBUTION WIDTH 14.2 % (12.0-15.0); WHITE BLOOD COUNT 3.7 x10^3/uL (4.8-10.8)
[2024-09-11 05:59] LABS: CALCIUM 9.6 mg/dL (8.5-10.3); CREATININE 1.7 mg/dL (0.6-1.3); POTASSIUM 3.7 mmol/L (3.5-4.5)
[2024-09-11] MEDS: LEVOTHYROXINE 25 MCG TABLET PO SCH (06:09)
[2024-09-11] MEDS: PANTOPRAZOLE 40 MG TABLET PO SCH (06:09)
[2024-09-11] MEDS ORDERED: [UNRECOGNIZED DRUG - OTHER] PO SCH (07:00)
[2024-09-11] MEDS ORDERED: ESOMEPRAZOLE MAGNESIUM 20 MG PO SCH (07:00)
[2024-09-11] MEDS: ALBUTEROL NEB 2.5 MG/3 ML INH PRN (07:20)
[2024-09-11] MEDS: FUROSEMIDE 40 MG TABLET PO SCH (08:53)
[2024-09-11] MEDS: POTASSIUM CHLORIDE 20 MEQ TABLET PO SCH (08:53)
[2024-09-11] MEDS: CETIRIZINE 10 MG TABLET PO SCH (08:53)
[2024-09-11] MEDS: SERTRALINE 50 MG TABLET PO SCH (08:55)
[2024-09-11] MEDS: PRENATAL VITAMIN TABLET PO SCH (08:55)
[2024-09-11] MEDS: ASPIRIN CHEW 81 MG TABLET PO SCH (08:55)
[2024-09-11] MEDS: THIAMINE 100 MG TABLET PO SCH (08:55)
[2024-09-11] MEDS: METOPROLOL SUCCINATE 50 MG TABLET PO SCH (08:55)
[2024-09-11] MEDS: amLODIPine 5 MG TABLET PO SCH (08:55)
[2024-09-11] MEDS ORDERED: VILANTEROL INH SCH (09:00)
[2024-09-11] MEDS ORDERED: MULTIVITAMIN IRON FOLIC ACID PO SCH (09:00)
[2024-09-11] MEDS ORDERED: ENOXAPARIN 40 MG/0.4 ML SYRINGE SUBQ SCH (09:00)
[2024-09-11] MEDS ORDERED: UMECLIDINIUM INH SCH (09:00)
--- NOTE | 2024-09-11 11:06 | PROVIDER PROGRESS NOTE ---
Documented by User: Any Maya 09/11/24 11:34 Subjective Prog Note Date Prog Note Date: 09/11/24 Prog Note Time: 11:05 Subjective Pt reports feeling: No change Subjective: Patient here for acute respiratory failure with hypoxia and COPD exacerbation. She uses 2 L of oxygen at home and is on 4 L here with oxygen saturation at 95%. She was given a nebulizer treatment this morning and "felt a little bit better" afterwards. She currently lives alone and has a caregiver that comes to visit her for 1 to 2 hours a day. We discussed her POLST wishes with her and she says that she would prefer intubation without CPR. Her brother is her closest living relative who currently lives in [place]. 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 Patient states she has plans to move to [place] within the next few months. Patient states that she currently drinks 2 glasses of 4 ounces each of vodka daily. Her last drink was Sunday night. She states that she felt a little shaky earlier, but is feeling better now. Patient states that she does not wish to go through any alcohol withdrawal protocol. Current Medications Current Medications Current Medications: Current Medications Generic Name Dose Route Start Last Admin Trade Name Freq PRN Reason Stop Dose Admin Acetaminophen 650 mg 09/10/24 11:42 09/10/24 20:50 Acetaminophen 325 Mg Tablet PO 650 mg Q4HR PRN Administration Pain 1 to 4, or Fever Albuterol 2.5 mg 09/10/24 12:57 09/11/24 07:20 Albuterol Neb 2.5 Mg/3 Ml INH 2.5 mg RTQ4H PRN Administration Wheezing Albuterol/Ipratropium 3 ml 09/10/24 11:42 Ipratropium/Albuterol 3 Ml Neb INH Q4HR PRN Wheezing Amlodipine Besylate 10 mg 09/11/24 09:00 09/11/24 08:55 Amlodipine 5 Mg Tablet PO 10 mg DAILY ROSA Administration Aspirin 81 mg 09/11/24 09:00 09/11/24 08:55 Aspirin Chew 81 Mg Tablet PO 81 mg DAILY ROSA Administration Atorvastatin Calcium 80 mg 09/10/24 21:00 09/10/24 20:40 Atorvastatin 40 Mg Tablet PO 80 mg QPM ROAS Administration Azithromycin 500 mg 09/10/24 12:00 09/11/24 08:55 Azithromycin 250 Mg Tablet PO 09/13/24 11:59 500 mg DAILY ROSA Administration Cetirizine HCl 10 mg 09/11/24 09:00 09/11/24 08:53 Cetirizine 10 Mg Tablet PO 10 mg DAILY ROSA Administration Formoterol Fumarate 20 mcg 09/10/24 19:00 09/11/24 07:20 Formoterol Fumarate Neb 20 Mcg/2 Ml INH 20 mcg RTBID ROSA Administration Furosemide 40 mg 09/11/24 09:00 09/11/24 08:53 Furosemide 40 Mg Tablet PO 40 mg DAILY ROSA Administration Heparin Sodium (Porcine) 5,000 unit 09/10/24 21:00 09/11/24 09:01 Heparin 5,000 Unit/Ml Vial SUBQ 5,000 unit BID ROSA Administration Ipratropium Hawkins 0.5 mg 09/10/24 15:00 09/11/24 07:20 Ipratropium 0.2 Mg/Ml Neb INH 0.5 mg RTQID ROSA Administration Levothyroxine Sodium 50 mcg 09/11/24 07:00 09/11/24 06:09 Levothyroxine 25 Mcg Tablet PO 50 mcg QDAC ROSA Administration Metoprolol Succinate 150 mg 09/11/24 09:00 09/11/24 08:55 Metoprolol Succinate 50 Mg Tablet PO 150 mg DAILY ROSA Administration Multi-Ingredient Ointment 1 applic 09/10/24 14:21 Zinc Oxide 20% Oint 30 Gm Tube TOP PRN PRN Skin Care Ondansetron HCl 4 mg 09/10/24 11:42 Ondansetron 4 Mg/2 Ml Vial IVP Q6HR PRN Nausea / Vomiting Pantoprazole Sodium 40 mg 09/11/24 07:00 09/11/24 06:09 Pantoprazole 40 Mg Tablet PO 40 mg QDAC ROSA Administration Potassium Chloride 20 meq 09/11/24 08:00 09/11/24 08:53 Potassium Chloride 20 Meq Tablet PO 20 meq DAILYWM ROSA Administration Prednisone 40 mg 09/10/24 11:18 09/11/24 08:55 Prednisone 20 Mg Tablet PO 09/15/24 11:17 40 mg DAILY ROSA Administration Multivit/Folic Acid/Iron 1 tab 09/11/24 08:00 09/11/24 08:55 Vitamin Tablet PO 1 tab DAILYWM ROSA Administration Sertraline HCl 50 mg 09/11/24 09:00 09/11/24 08:55 Sertraline 50 Mg Tablet PO 50 mg DAILY ROSA Administration Sodium Chloride 10 ml 09/10/24 11:42 Sodium Chloride Flush 0.9% 10 Ml Syringe IVP PRN PRN NEEDED PER PROVIDER ORDERS Sodium Chloride 10 ml 09/10/24 17:00 09/11/24 09:00 Sodium Chloride Flush 0.9% 10 Ml Syringe IVP 10 ml 0100,0900,1700 ROSA Administration Thiamine HCl 100 mg 09/11/24 09:00 09/11/24 08:55 Thiamine 100 Mg Tablet PO 100 mg DAILY ROSA Administration Trazodone HCl 50 mg 09/10/24 21:00 09/10/24 20:40 Trazodone 50 Mg Tablet PO 50 mg QPM ROSA Administration Objective Vital Signs/Intake & Output Reviewed Vital Signs: Yes Vital Signs: Vital Signs x48h Temp Pulse Pulse Resp BP Pulse Ox O2 Flow Rate 09/11/24 08:15 36.6 C 96 H 20 150/62 H 94 3 09/11/24 07:21 4 09/11/24 07:21 88 22 09/11/24 04:33 36.5 C 69 18 136/68 H 94 4 Intake & Output: Intake & Output 09/09/24 09/10/24 09/11/24 09/12/24 05:59 05:59 05:59 05:59 Intake Total 918 / 918 360 / 360 Output Total 1050 / 1050 Balance -132 / -132 360 / 360 Weight (kg) 74 kg Objective General Appearance: positive No acute distress Eyes Bilateral: positive Normal inspection ENT: negative Purulent nasal drainage Neck: positive Nml inspection Respiratory: positive No respiratory distress Cardiovascular: positive Regular rate & rhythm Abdomen: positive Non-tender Rectal: negative Black stool or Bloody stool Back: negative CVA tenderness (R) or CVA tenderness (L) Skin: positive Color nml Extremities: positive Non-tender and Nml appearance Neurologic/Psychiatric: positive Oriented x3 Lab Results 09/11/24 05:10 09/11/24 05:10 Other Labs: Lab Results x24hrs 09/11/24 09/10/24 Range/Units 05:10 09:33 WBC 3.7 L (4.8-10.8) x10^3/uL RBC 4.08 L (4.20-5.40) 10^6/uL Hgb 13.3 (12.0-16.0) g/dL Hct 42.0 (37.0-47.0) % MCV 102.9 H (81.0-99.0) fL MCH 32.6 H (27.0-31.0) pg MCHC 31.7 L (32.0-36.0) g/dL RDW 14.2 (12.0-15.0) % Plt Count 288 (130-450) 10^3/uL MPV 9.0 (7.9-10.8) fL Neut # (Auto) 2.9 (1.5-6.6) 10^3/uL Lymph # (Auto) 0.6 L (1.5-3.5) 10^3/uL Stewart # (Auto) 0.2 (0.0-1.0) 10^3/uL Eos # (Auto) 0.0 (0.0-0.7) 10^3/uL Baso # (Auto) 0.0 (0.0-0.1) 10^3/uL Absolute Nucleated RBC 0.00 x10^3/uL Nucleated RBC % 0.0 /100WBC Sodium 141 (135-145) mmol/L Potassium 3.7 (3.5-4.5) mmol/L Chloride 106 (101-111) mmol/L Carbon Dioxide 24 (21-32) mmol/L Anion Gap 11.0 (6-13) BUN 46 H (6-20) mg/dL Creatinine 1.7 H (0.6-1.3) mg/dL Estimated GFR (MDRD) 28 L (>89) Glucose 133 H (74-104) mg/dL Calcium 9.6 (8.5-10.3) mg/dL Vitamin B12 742 (180-914) pg/mL Diagnostic Imaging Diagnostic Imaging Results: positive Prelim report reviewed ABX Reporting Has patient been on IV antibiotics over the past 48 hours?: No Sepsis Event Note (H) Evaluation Current Stage of Sepsis: Ruled out Assessment/Plan Problem List (1) Acute and chronic respiratory failure with hypoxia: Impression: Pt is comfortable at rest, no signs of respiratory distress or splinting. Currently on 4 L of 02, up from home baseline of 2 L. (2) COPD exacerbation: Impression: Given nebulizer treatment this morning and pt reported it was helpful. Pt not currently coughing or producing phlegm. (3) CKD (chronic kidney disease) stage 3, GFR 30-59 ml/min: Impression: GFR yesterday of 28. Has been similar for last 3 months. Qualifiers: Chronic kidney disease stage 3 subtype: stage 3b (GFR 30-44) Qualified Code(s): N18.32 - Chronic kidney disease, stage 3b Documented by User: [email or web address] Gilliam 09/11/24 13:38 Objective Lab Results 09/11/24 05:10 09/11/24 05:10 Assessment/Plan Problem List (1) Acute and chronic respiratory failure with hypoxia: (2) COPD exacerbation: (3) CKD (chronic kidney disease) stage 3, GFR 30-59 ml/min: Qualifiers: Chronic kidney disease stage 3 subtype: stage 3b (GFR 30-44) Qualified Code(s): N18.32 - Chronic kidney disease, stage 3b
[2024-09-11] MEDS: IPRATROPIUM/ALBUTEROL 3 ML NEB INH PRN (11:08)
[2024-09-12 05:55] LABS: BASOPHILS % (AUTO) 0.2 %; EOSINOPHILS # (AUTO) 0.1 10^3/uL (0.0-0.7); EOSINOPHILS % (AUTO) 1.9 %; HCT - HEMATOCRIT 41.7 % (37.0-47.0); HGB - HEMOGLOBIN 13.2 g/dL (12.0-16.0); LYMPHOCYTES # (AUTO) 1.3 10^3/uL (1.5-3.5); LYMPHOCYTES % (AUTO) 20.2 %; MEAN CORPUSCULAR HEMOGLOBIN 32.8 pg (27.0-31.0); MEAN CORPUSCULAR HGB CONC 31.7 g/dL (32.0-36.0); MEAN CORPUSCULAR VOLUME 103.5 fL (81.0-99.0); MEAN PLATELET VOLUME 8.8 fL (7.9-10.8); MONOCYTES # (AUTO) 0.4 10^3/uL (0.0-1.0); MONOCYTES % (AUTO) 6.5 %; NEUTROPHILS # (AUTO) 4.4 10^3/uL (1.5-6.6); NEUTROPHILS % (AUTO) 70.7 %; PLT - PLATELET COUNT 290 10^3/uL (130-450); RED BLOOD COUNT 4.03 10^6/uL (4.20-5.40); RED CELL DISTRIBUTION WIDTH 14.4 % (12.0-15.0); WHITE BLOOD COUNT 6.3 x10^3/uL (4.8-10.8)
[2024-09-12 06:12] LABS: CALCIUM 9.4 mg/dL (8.5-10.3); CREATININE 1.6 mg/dL (0.6-1.3); MAGNESIUM 2.4 mg/dL (1.7-2.3); POTASSIUM 3.8 mmol/L (3.5-4.5)
[2024-09-12 07:38] VITALS: O2SAT 91
[2024-09-12] MEDS: polyethylene glycoL 3350 17 GM PACKET PO SCH (08:21)
--- NOTE | 2024-09-12 09:19 | Discharge Summary ---
"Discharge Summary Admit Date: 09/10/24 Discharge Date: 09/12/24 Discharging Provider: Akosua Celeste PA-C Primary Care Provider: PARVIN Shepard Code Status: Attempt Resuscitation DIAGNOSES Admission Diagnoses: Acute and chronic respiratory failure with hypoxia COPD exacerbation Chronic kidney disease Discharge Diagnoses with Status of Each Condition: 1. Acute on chronic respiratory failure. She is on 2 L via nasal cannula at home, she was increased to 4L NC at rest. Chest x-ray on admission shows atypical pneumonia versus pulmonary edema. Her BNP on admission was 329. She does have a stated history of CHF. We have maintained her home dose of Lasix, 40 mg daily. On exam, her lungs are clear to auscultation this morning. She did not have worsening dyspnea, with treatment of the COPD, therefore I did not repeat the BNP. She has improved with treatment of her COPD exacerbation to a new baseline as listed below. Oxygen desaturation test summary: Patient already wears home O2, 2 L/min continuous from [employer]. Oxygen desaturation test conducted here in hospital O2 sats at rest, room air: 87% Oxygen saturations at rest, 2 L/min nasal cannula: 92% With exertion on 2 L/min nasal cannula, her O2 sats were 83%, 3 L/min were 85%, and finally on 5 L/min were 89%. I am increasing her home oxygen orders to 2 L/min at rest, and 5 L/min with exertion to treat her COPD and hypoxemia. She has not been evaluated by pulmonology in the past. She had an appointment with pulmonology back in 2019 but that was canceled due to the COVID pandemic and she has never been able to reinstitute this relationship. Giving her increasing hypoxia and oxygen requirements I would recommend that she be evaluated by pulmonology. 2. COPD exacerbation She has completed 3 days of Zithromax. She has completed 3 out of 5 days of prednisone, 40 mg a day. She will complete her prednisone treatment at home and resume her normal prednisone dosing after that. 3. Chronic kidney disease, stage III. She has an established relationship with nephrology, Dr. Ybarra. She was due to follow-up with nephrology but missed her appointment due to this admission. She will reschedule this follow-up. Laboratory Tests 09/10/24 09/11/24 09/12/24 09:33 05:10 05:41 Creatinine 1.8 H 1.7 H 1.6 H Estimated GFR (MDRD) 27 L 28 L 31 L 4. Leukopenia Resolved. It looks like she has had several low white blood cell counts in the past. Laboratory Tests 04/06/23 09/10/24 09/11/24 04:58 09:33 05:10 WBC 4.5 L 7.9 3.7 L 09/12/24 05:41 WBC 6.3 5. Ambulatory dysfunction She continues to have increased oxygen requirements. Please see her oxygen desaturation study results above. She ambulates with a walker at home and lives alone with some caregiver assistance. She is considering moving across the state to live with her brother in [place]. She requires assistance with shopping, food preparations, bathing and cleaning. She ambulates about 10 feet with a walker at home. She is significantly deconditioned from this admission. She was seen by physical therapy who recommended SNF placement. She does not want to go to [facility] for rehab. She wishes to go home. 6. Hypothyroidism home med 50 mcg of Synthroid was continued during this admission 7. Hyperlipidemia She will restart her Crestor 40 mg a day upon discharge. She was given atorvastatin 80 mg daily during this admission due to formulary constraints. HPI History of Present Illness: 84-year-old female past medical history significant for CKD, COPD, AASHISH, diastolic heart failure, hypertension, hypothyroidPresented to the ED with shortness of breath and wet nonproductive coughFor the past few weeks. She denies fevers, but does report chills. She says that this shortness of breath is worse with activity, and she can only get about 10 feet before she runs out of breath. She normally wears 2 L O2 at home. In the ER, she was noted to have O2 sats in the high 80s. ABG was obtained which showed A critically low O2 of 85. Patient received Solu-Medrol IV per EMS. Hospitalist was contacted for admission for acute hypoxic on chronic hypercapnic respiratory failure CONSULTS | PROCEDURES Consultations: none Procedures: Chest x-ray: Finding may represent CHF versus extensive interstitial pulmonary infiltrates and pulmonary edema. No pneumothorax. HOSPITAL COURSE Hospital Course: Admitted with acute hypoxemic respiratory failure with increasing shortness of breath and nonproductive cough over several weeks prior to admission. Her ambulation distances at home had been reduced to about 10 feet. With severe dyspnea. She was admitted and received oxygen for respiratory support. By hospital day 3 her requirements were decreasing but she still required 2 L of oxygen via nasal cannula at rest and 5 L on exertion. She completed 3 days of Zithromax and 3 days of prednisone. She will be discharged home with an additional 2 days of prednisone before resuming her home prednisone dosing. CODE STATUS was discussed with this patient. She has a full code POLST at home she reports. I do not see a record of this on file with our organization. She was counseled regarding the potential outcomes of a cardiac arrest in a person of her age and health status. She states she will consider changing her CODE STATUS to DO NOT RESUSCITATE but at this juncture would like to remain full code. I have encouraged her to discuss this with her primary care provider. ALLERGIES Allergies Allergy/AdvReac Type Severity Reaction Status Date / Time trimethoprim (From Bactrim) Allergy Unknown Unknown Verified 09/10/24 09:17 morphine AdvReac Intermediate Nausea Verified 09/10/24 09:17 meperidine HCl * (From AdvReac Mild Unknown Verified 09/10/24 09:17 Demerol) sulfamethoxazole (From AdvReac Mild Unknown Verified 09/10/24 09:17 Bactrim) MEDICATIONS Ambulatory Orders Medication Instructions Recorded Confirmed acetaminophen 325 mg tablet 650 mg (2 x 325 mg) PO Q6HR PRN 04/07/23 09/10/24 Pain 1 to 4, or Fever #40 tabs amlodipine 10 mg tablet (Norvasc) 10 mg PO DAILY #30 tabs 04/07/23 09/10/24 aspirin 81 mg chewable tablet 81 mg PO DAILY #30 tabs 04/07/23 09/10/24 esomeprazole magnesium 20 mg 20 mg PO QDAC #30 caps 04/07/23 09/10/24 capsule,delayed release (Nexium 24HR) levothyroxine 50 mcg tablet 50 mcg PO QDAC #30 tabs 04/07/23 09/10/24 (Levoxyl) metoprolol succinate 50 mg 150 mg (3 x 50 mg) PO DAILY #30 04/07/23 09/10/24 tablet,extended release 24 hr tabs multivitamin-ferrous 1 tab PO DAILY #30 tabs 04/07/23 09/10/24 fumarate-folic acid 18 mg-400 mcg tablet (Centrum Women) potassium chloride 20 mEq 20 meq PO DAILYWM #30 tabs 04/07/23 09/10/24 tablet,extended release(part/cryst) (Klor-Con M) rosuvastatin 40 mg tablet (Crestor) 40 mg PO QPM #30 tabs 04/07/23 09/10/24 sertraline 50 mg tablet 50 mg PO DAILY #30 tabs 04/07/23 09/10/24 thiamine mononitrate (vit B1) 100 100 mg PO DAILY #30 tabs 04/07/23 09/10/24 mg tablet (Vitamin B-1 (mononitrate)) trazodone 50 mg tablet 50 mg PO QPM #30 tabs 04/07/23 09/10/24 umeclidinium 62.5 mcg-vilanterol 1 puff inhalation DAILY #30 ea 04/07/23 09/10/24 25 mcg/actuation powdr for inhalation (Anoro Ellipta) albuterol sulfate 90 mcg/actuation 1 puff inhalation Q4H PRN 09/10/24 09/10/24 aerosol inhaler shortness of breath or wheezing cetirizine 10 mg tablet (24Hour 10 mg PO DAILY 09/10/24 09/10/24 Allergy) furosemide 40 mg tablet 40 mg PO DAILY 09/10/24 09/10/24 ipratropium 0.5 mg-albuterol 3 mg 3 ml inhalation Q6H PRN shortness 09/10/24 09/10/24 (2.5 mg base)/3 mL nebulization of breath or wheezing soln prednisone 1 mg tablet 2 mg PO DAILY 09/10/24 09/10/24 potassium chloride 20 mEq 20 meq PO DAILYWM #30 tabs 09/12/24 tablet,extended release(part/cryst) (Klor-Con M) prednisone 20 mg tablet 40 mg (2 x 20 mg) PO DAILY #4 tabs 09/12/24 PHYSICAL EXAM AT DISCHARGE General Appearance: positive No acute distress and Alert Eyes Bilateral: positive Normal inspection ENT: positive ENT inspection nml Neck: positive Nml inspection Respiratory: positive No respiratory distress and Breath sounds nml; negative Wheezes Cardiovascular: positive Regular rate & rhythm Abdomen: positive Non-tender and No distention Skin: positive Color nml Extremities: positive Non-tender and No pedal edema Neurologic/Psychiatric: positive Oriented x3 LABS 09/12/24 05:41 09/12/24 05:41 SEPSIS Current Stage of Sepsis: Ruled out FOLLOW UP Follow Up: Lillie Ledemsa, PCP Dr. ybarra, nephrology Recommend pulmonary referral TIME SPENT Time Spent in Discharge (Minutes): 48 Discharge Plan Discharge Patient Disposition: Home, Self Care Condition: Serious Prescriptions: New prednisone 20 mg Tablet 40 mg PO DAILY Qty: 4 0RF Rx Instructions: 2 tabs in the morning, w food for 2 days only Klor-Con M20 20 mEq Tablet,Er Particles/Crystals 20 meq PO DAILYWM Qty: 30 0RF Continued acetaminophen 325 MG tablet 650 mg PO Q6HR PRN (Reason: Pain 1 to 4, or Fever) Qty: 40 0RF trazodone 50 MG tablet 50 mg PO QPM Qty: 30 0RF Klor-Con M20 20 MEQ tablet,ER particles/crystals 20 meq PO DAILYWM Qty: 30 0RF sertraline 50 MG tablet 50 mg PO DAILY Qty: 30 0RF metoprolol succinate 50 MG tablet extended release 24 hr 150 mg PO DAILY Qty: 30 0RF Norvasc 10 MG tablet 10 mg PO DAILY Qty: 30 0RF Levoxyl 50 MCG tablet 50 mcg PO QDAC Qty: 30 0RF aspirin 81 MG tablet,chewable 81 mg PO DAILY Qty: 30 0RF Nexium 24HR 20 MG capsule,delayed release(DR/EC) 20 mg PO QDAC Qty: 30 0RF Crestor 40 MG tablet 40 mg PO QPM Qty: 30 0RF Centrum Women 1 EACH tablet 1 tab PO DAILY Qty: 30 0RF Vitamin B-1 (mononitrate) 100 MG tablet 100 mg PO DAILY Qty: 30 0RF Anoro Ellipta 1 EACH blister with device 1 puff inhalation DAILY Qty: 30 0RF furosemide 40 mg tablet 40 mg PO DAILY ipratropium-albuterol 0.5 mg-3 mg(2.5 mg base)/3 mL solution for nebulization 3 ml INHALATION Q6H PRN (Reason: shortness of breath or wheezing) prednisone 1 mg tablet 2 mg PO DAILY albuterol sulfate 90 mcg/actuation HFA aerosol inhaler 1 puff INHALATION Q4H PRN (Reason: shortness of breath or wheezing) 24Hour Allergy 10 mg tablet 10 mg PO DAILY Activity Restrictions: No Restrictions Activity Restrictions/Additional Instructions: always use your oxygen! Diet: Cardiac Health Concerns: You came into the hospital because you were having a lot of difficulty breathing. It sounds like this has been a problem at home for several days and your ability to get around was much worse. You have a past medical history of COPD as well as CHF. You also have some issues with your kidneys. This looks like you are roughly at your new baseline which is a creatinine of around 1.6 and a GFR in the low 30s. While you were here we talked briefly about your CODE STATUS. You were thinking more about this and not sure that you want to remain full code. At this time we have documented your CODE STATUS is full code. It is probably worth a discussion with your primary care provider to talk about whether or not this is the right thing for you. As you go home I want you to take prednisone 40 mg a day on Sunday and Sunday. You should take this in the morning with food. I want you to resume all of your home breathing medications. It looks like you were normally on a milligram of prednisone every day. When you are done with the Sunday and Sunday doses I would like you to resume your previous prednisone regimen. Your potassium was a little bit low when you came into the hospital. For this reason I am prescribing potassium for you to take once daily with food. I would like your primary care provider to check your potassium in the outpatient setting. Additionally, you need to follow-up with your bed and breakfast innkeeper. I know that you missed an appointment while you were here in the hospital but we should be able to get that rescheduled. I think it would be a good idea for you to see a dirt bike mechanic, also known as a lung doctor. I know this was in your plans and then COVID happened and so you never got to see the lung specialist. Given your current problems with needing increased oxygen and having increased shortness of breath it would be a good idea. Care Plan Goals: Follow-up with Dr. Ybarra your kidney doctor See a dirt bike mechanic, also known as a lung doctor Follow-up with your primary care provider in 7 to 10 days. Call the [facility], they will have an appointment held for you. Assessment: COPD exacerbation. Print Language: Pakistani Patient Instructions: COPD Follow-up Care: Indira Ledesma ARNP [Primary Care Provider] -"
== END 2024-09-12 14:30 | disposition home or self-care (01) | DRG 189 ==
LOC: ED 09:03 → MS2 09:03
PROVIDERS: ADMIT Nurse Practitioner Acute Care; ATTEND Nurse Practitioner Acute Care
DX: E03.9 Hypothyroidism, unspecified; N18.30 Chronic kidney disease, stage 3 unspecified; J44.0 Chronic obstructive pulmonary disease with (acute) lower respiratory infection; J18.9 Pneumonia, unspecified organism; I13.0 Hypertensive heart and chronic kidney disease with heart failure and stage 1 through stage 4 chronic kidney disease, or unspecified chronic kidney disease; Z99.81 Dependence on supplemental oxygen; G47.33 Obstructive sleep apnea (adult) (pediatric); J96.22 Acute and chronic respiratory failure with hypercapnia; Z87.891 Personal history of nicotine dependence; I50.30 Unspecified diastolic (congestive) heart failure; D72.819 Decreased white blood cell count, unspecified; J96.21 Acute and chronic respiratory failure with hypoxia; N18.32 Chronic kidney disease, stage 3b; E78.5 Hyperlipidemia, unspecified; J44.1 Chronic obstructive pulmonary disease with (acute) exacerbation; Z60.2 Problems related to living alone; R53.1 Weakness

== ENCOUNTER 2024-10-06 09:42 | Observation (INO) ==
[2024-10-06] MEDS ORDERED: METOPROLOL 5 MG/5 ML VIAL IVP STA (10:07)
--- NOTE | 2024-10-06 10:07 | ED Physician Documentation ---
PD HPI DYSPNEA Stated complaint Stated Complaint: SOA Chief complaint Chief Complaint: Resp History obtained from History obtained from: Patient and EMS History of Present Illness Timing - onset during: Rest and Light activity Timing - duration: Days Timing - details: Gradual onset and Still present (worsened breathing the past day, with notable dyspnea today, and called EMS. They noted her oxygen sats in 80s% on 4 lpm NC. Given nebs and Solumedrol enroute. ) Inciting event(s): No Out of meds or Immobilization/travel Improved by: O2 and Inhaler/neb Worsened by: Exertion (even just walking to bathroom now) and Coughing Associated symptoms: Cough, Wheezing and Palpitations (the past day or so. ); No Fever, Hemoptysis, Chest pain / discomfort or Bilateral edema Similar symptoms before: Diagnosis (hospitalized a month ago for similar. ) Recently seen: Admitted Meds/Allgy Home Medications Ambulatory Orders Medication Instructions Recorded Confirmed acetaminophen 325 mg tablet 650 mg (2 x 325 mg) PO Q6HR PRN 04/07/23 10/06/24 Pain 1 to 4, or Fever #40 tabs amlodipine 10 mg tablet (Norvasc) 10 mg PO DAILY #30 tabs 04/07/23 10/06/24 aspirin 81 mg chewable tablet 81 mg PO DAILY #30 tabs 04/07/23 10/06/24 esomeprazole magnesium 20 mg 20 mg PO QDAC #30 caps 04/07/23 10/06/24 capsule,delayed release (Nexium 24HR) levothyroxine 50 mcg tablet 50 mcg PO QDAC #30 tabs 04/07/23 10/06/24 (Levoxyl) metoprolol succinate 50 mg 150 mg (3 x 50 mg) PO DAILY #30 04/07/23 10/06/24 tablet,extended release 24 hr tabs multivitamin-ferrous 1 tab PO DAILY #30 tabs 04/07/23 10/06/24 fumarate-folic acid 18 mg-400 mcg tablet (Centrum Women) rosuvastatin 40 mg tablet (Crestor) 40 mg PO QPM #30 tabs 04/07/23 10/06/24 sertraline 50 mg tablet 50 mg PO DAILY #30 tabs 04/07/23 10/06/24 thiamine mononitrate (vit B1) 100 100 mg PO DAILY #30 tabs 04/07/23 10/06/24 mg tablet (Vitamin B-1 (mononitrate)) umeclidinium 62.5 mcg-vilanterol 1 puff inhalation DAILY #30 ea 04/07/23 10/06/24 25 mcg/actuation powdr for inhalation (Anoro Ellipta) albuterol sulfate 90 mcg/actuation 1 puff inhalation Q4H PRN 09/10/24 10/06/24 aerosol inhaler shortness of breath or wheezing cetirizine 10 mg tablet (24Hour 10 mg PO DAILY 09/10/24 10/06/24 Allergy) furosemide 40 mg tablet 40 mg PO DAILY 09/10/24 10/06/24 ipratropium 0.5 mg-albuterol 3 mg 3 ml inhalation Q6H PRN shortness 09/10/24 10/06/24 (2.5 mg base)/3 mL nebulization of breath or wheezing soln prednisone 1 mg tablet 2 mg PO DAILY 09/10/24 10/06/24 potassium chloride 20 mEq 20 meq PO DAILYWM #30 tabs 09/12/24 10/06/24 tablet,extended release(part/cryst) (Klor-Con M) Saccharomyces boulardii 250 mg 250 mg PO BID 09/19/24 10/06/24 capsule (Florastor) trazodone 50 mg tablet 50 mg PO QPM 09/19/24 10/06/24 Allergies Allergies Allergy/AdvReac Type Severity Reaction Status Date / Time trimethoprim (From Bactrim) Allergy Unknown Unknown Verified 10/06/24 10:17 morphine AdvReac Intermediate Nausea Verified 10/06/24 10:17 meperidine HCl * (From AdvReac Mild Unknown Verified 10/06/24 10:17 Demerol) sulfamethoxazole (From AdvReac Mild Unknown Verified 10/06/24 10:17 Bactrim) PFSH Medical History Medical History (Updated 10/06/24 @ 19:15 by Paola Askew MD) Femoral-femoral bypass graft thrombosis, left Bronchitis due to human metapneumovirus (hMPV) Alcohol use Obstructive sleep apnea on CPAP Acute on chronic diastolic heart failure Acute and chronic respiratory failure with hypoxia Infection due to human metapneumovirus (hMPV) Alcoholism Hypothyroidism Acute respiratory failure with hypoxia Mild chronic obstructive pulmonary disease Dyspnea Family History Family History (Updated 10/06/24 @ 19:08 by Paola Askew MD) Father Heart attack Mother Esophageal cancer Brother GERD (gastroesophageal reflux disease) Social History Social History (Updated 10/06/24 @ 19:10 by Paola Askew MD) Smoking Status: Former smoker If you are a former smoker, when did you quit? (Date/Year): 1994 Number of Years Smoked: 30 How many cigarettes a day do you smoke? (20 cigarettes=1 Pk): 40 Second hand tobacco smoke exposure: No Do you dip or chew tobacco?: No Do you vape?: No Patient requests smoking cessation consult: No Initiate information on smoking cessation: No Living arrangement: At home Marital Status: Single Living Condition: Alone More Information: has caregiver Lor that comes to the house Relationship: Caregiver Physical Activity: Walking Level: Assisted Home Mobility Equipment: Walker Do you feel safe in your home environment?: Yes Suffered physical, verbal, emotional, or financial abuse?: No History of Abuse: No Frequency: Daily Substance Use: denies use Are you sexually active?: No 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: Yes Known occupational exposures/hazards (Current/Previous): none Service: No Are you following a diet prescribed by a doctor: Yes Are you following a special diet: Yes Special Diet Details: low salt POLST Patient has POLST: No POLST Status: Full Code Exam Constitutional normal general appearance and average body habitus HENMT TMs normal bilaterally and oropharynx normal Neck/C-Spine visual inspection normal Lymph no lymphadenopathy noted Respiratory breath sounds equal bilaterally (but diminished), abnormal respiratory effort (labored) and wheezing noted (expiratory wheezes) and (inspiratory wheezes) Cardiovascular heart rate abnormal (tachycardic), rhythm abnormal (irregular), no JVD and no edema Extremities no tenderness Psychiatry mental status grossly normal, oriented x3 and thought process normal Results Vitals Vitals: Vital Signs - 24 hr 10/06/24 09:44 10/06/24 10:15 10/06/24 10:21 Temperature 36.8 C Temperature Source Temporal Artery Scan Pulse Rate 103 H Respiratory Rate 20 Blood Pressure 136/72 H O2 Saturation 90 L Oxygen Delivery Method Nasal Cannula Nasal Cannula O2 Source Nasal cannula Oxygen Flow Rate If not protocol: Oxygen Flow, liters/minute 4 4 Pain Intensity 0 10/06/24 10:23 10/06/24 10:23 10/06/24 11:00 Temperature Temperature Source Pulse Rate 116 H 120 H Respiratory Rate 20 Blood Pressure 124/66 O2 Saturation Oxygen Delivery Method Nasal Cannula O2 Source Oxygen Flow Rate 4 If not protocol: Oxygen Flow, liters/minute Pain Intensity 10/06/24 11:05 10/06/24 11:10 10/06/24 11:16 Temperature Temperature Source Pulse Rate 98 H 90 101 H Respiratory Rate 20 Blood Pressure 122/80 125/82 125/83 O2 Saturation 91 L Oxygen Delivery Method O2 Source Nasal cannula Oxygen Flow Rate If not protocol: Oxygen Flow, liters/minute 4 Pain Intensity 0 10/06/24 11:30 10/06/24 12:13 Temperature Temperature Source Pulse Rate 100 H 98 H Respiratory Rate 24 Blood Pressure 127/82 O2 Saturation Oxygen Delivery Method O2 Source Oxygen Flow Rate If not protocol: Oxygen Flow, liters/minute Pain Intensity Oxygen O2 Source [With Activity] Nasal cannula O2 Source [Without Activity] Nasal cannula O2 Source Nasal cannula Oxygen Flow Rate 4 EKG (time done) 10:10: EKG releavant findings:: EKG personally interpreted by author of this note. Relevant findings are: Rate: Rate (enter#) (103) Rhythm: Atrial fibrillation [place]: Normal Ischemia: Normal ST segments; No ST elevation c/w ischemia or ST depression Compare to prior EKG: Changed from prior EKG (telemetry strips from August 2024 admission were NSR. ) Labs Labs: Laboratory Tests 10/06/24 10/06/24 10:25 10:33 WBC 4.5 L RBC 3.95 L Hgb 13.2 Hct 40.4 MCV 102.3 H MCH 33.4 H MCHC 32.7 RDW 15.3 H Plt Count 189 MPV 8.9 Neut # (Auto) 2.8 Lymph # (Auto) 1.3 L [place] # (Auto) 0.2 Eos # (Auto) 0.1 Baso # (Auto) 0.0 Absolute Nucleated RBC 0.00 Nucleated RBC % 0.0 Sodium 139 Potassium 3.8 Chloride 103 Carbon Dioxide 24 Anion Gap 12.0 BUN 33 H Creatinine 1.4 H Estimated GFR (MDRD) 36 L Glucose 122 H Calcium 9.2 Total Bilirubin 0.6 AST 20 ALT 17 Alkaline Phosphatase 65 Troponin I High Sens 6.8 B-Natriuretic Peptide 568 H Total Protein 6.9 Albumin 4.5 Globulin 2.4 Albumin/Globulin Ratio 1.9 Lipase 48 Nasal Adenovirus (PCR) NOT DETECTED Nasal B. parapertussis DNA (PCR) NOT DETECTED Nasal Coronavir 229E PCR NOT DETECTED Nasal Coronavir HKU1 PCR NOT DETECTED Nasal Coronavir NL63 PCR NOT DETECTED Nasal Coronavir OC43 PCR NOT DETECTED Nasal Enterovir/Rhinovir PCR NOT DETECTED Nasal Influenza B PCR NOT DETECTED Nasal Influenza A PCR NOT DETECTED Nasal Parainfluen 1 PCR NOT DETECTED Nasal Parainfluen 2 PCR NOT DETECTED Nasal Parainfluen 3 PCR NOT DETECTED Nasal Parainfluen 4 PCR NOT DETECTED Nasal RSV (PCR) NOT DETECTED Nasal B.pertussis DNA PCR NOT DETECTED Nasal C.pneumoniae (PCR) NOT DETECTED Cedric Human Metapneumo PCR NOT DETECTED Nasal M.pneumoniae (PCR) NOT DETECTED Nasal SARS-CoV-2 (PCR) NOT DETECTED Rads (name of study) chest xray: Relevant Findings:: Final report received and EMP independent interpretation of test (no infiltrates. ) PD Medical Decision Making ED course Complexity details: reviewed old records (admission to hospital a month ago for similar. ), reviewed results, re-evaluated patient (she is still needing higher than usual oxygen amount to maintain over 90% and also has new onset atrial fib with mild tachycardia in 100-110 range. Does not appear to have CHF per se, but could be contributing to dyspnea. Improved work of breathing with repeatd nebs. ), considered differential (seems exac CHF. Not having bronchitis symptoms per se. No noted environmental stiggers, except she said weather has been nitin so sitting outside smoking more. BNP moderate and CXR does not appear vascular congestion. Might be mixed but mostly COPD. ), d/w patient and d/w foreign legal consultant (Hospitalist Dr. Askew) Discharge Plan Discharge Patient Disposition: [facility] DC/Xfer Condition: Stable Clinical Impression: Acute exacerbation of chronic obstructive pulmonary disease, Atrial fibrillation, new onset, COPD with hypoxia CKD (chronic kidney disease) stage 3, GFR 30-59 ml/min Qualifiers: Chronic kidney disease stage 3 subtype: stage 3b (GFR 30-44) Qualified Code(s): N18.32 - Chronic kidney disease, stage 3b Interventions: ED Admission Assessment Last Done: 10/06/24 13:40
[2024-10-06] MEDS: ALBUTEROL NEB 2.5 MG/3 ML INH STA (10:19)
--- NOTE | 2024-10-06 10:35 | XRAY Report ---
PROCEDURE: XR Chest 1V INDICATIONS: Chest Pain TECHNIQUE: One view of the chest was acquired. COMPARISON: 09/10/2024. FINDINGS: Surgical changes and devices: None. Lungs and pleura: Small bilateral pleural effusion and bibasilar atelectasis is seen. Pulmonary vascu lar congestion and mild pulmonary edema is also noted. No pneumothorax. Mediastinum: Mediastinal contours appear normal. Heart size is enlarged. Bones and chest wall: No suspicious bony lesions. Overlying soft tissues appear unremarkable. IMPRESSION: Finding is suggestive of CHF. Small bibasilar infiltrate versus atelectasis cannot be excluded. No pn eumothorax. Reviewed by: Silverio Velarde MD on 10/06/2024 10:34 AM PST Approved by: Silverio Velarde MD on 10/06/2024 10:34 AM PST Station ID: [id number]
[2024-10-06 10:47] LABS: BASOPHILS % (AUTO) 0.2 %; EOSINOPHILS # (AUTO) 0.1 10^3/uL (0.0-0.7); EOSINOPHILS % (AUTO) 2.9 %; HCT - HEMATOCRIT 40.4 % (37.0-47.0); HGB - HEMOGLOBIN 13.2 g/dL (12.0-16.0); LYMPHOCYTES # (AUTO) 1.3 10^3/uL (1.5-3.5); LYMPHOCYTES % (AUTO) 29.9 %; MEAN CORPUSCULAR HEMOGLOBIN 33.4 pg (27.0-31.0); MEAN CORPUSCULAR HGB CONC 32.7 g/dL (32.0-36.0); MEAN CORPUSCULAR VOLUME 102.3 fL (81.0-99.0); MEAN PLATELET VOLUME 8.9 fL (7.9-10.8); MONOCYTES # (AUTO) 0.2 10^3/uL (0.0-1.0); MONOCYTES % (AUTO) 4.9 %; NEUTROPHILS # (AUTO) 2.8 10^3/uL (1.5-6.6); NEUTROPHILS % (AUTO) 61.9 %; PLT - PLATELET COUNT 189 10^3/uL (130-450); RED BLOOD COUNT 3.95 10^6/uL (4.20-5.40); RED CELL DISTRIBUTION WIDTH 15.3 % (12.0-15.0); WHITE BLOOD COUNT 4.5 x10^3/uL (4.8-10.8)
[2024-10-06] MEDS: METOPROLOL 5 MG/5 ML VIAL IVP STA (10:55)
[2024-10-06 11:04] LABS: ALBUMIN 4.5 g/dL (3.2-5.5); ALBUMIN/GLOBULIN RATIO 1.9 (1.0-2.2); BILIRUBIN,TOTAL 0.6 mg/dL (0.2-1.0); CALCIUM 9.2 mg/dL (8.5-10.3); CREATININE 1.4 mg/dL (0.6-1.3); POTASSIUM 3.8 mmol/L (3.5-4.5); TOTAL PROTEIN 6.9 g/dL (6.4-8.9)
[2024-10-06 11:07] LABS: TROPONIN I HIGH SENSITIVITY 6.8 ng/L (2.3-14.8)
[2024-10-06 11:18] LABS: B. PARAPERTUSSIS- RESP PCR PAN NOT DETECTED; B. PERTUSSIS- RESP PCR PANEL NOT DETECTED; C. PNEUMONIAE- RESP PCR PANEL NOT DETECTED; CORONAVIRUS 229E-RESP PCR NOT DETECTED; CORONAVIRUS HKU1-RESP PCR NOT DETECTED; CORONAVIRUS NL63-RESP PCR NOT DETECTED; CORONAVIRUS OC43-RESP PCR NOT DETECTED; HUMAN METAPNEUMOVIRUS NOT DETECTED; INFLUENZA A- RESP PCR PANEL NOT DETECTED; INFLUENZA B - RESP PCR PANEL NOT DETECTED; M. PNEUMONIAE- RESP PCR PANEL NOT DETECTED; PARAINFLUENZA VIRUS 1 NOT DETECTED; PARAINFLUENZA VIRUS 2 NOT DETECTED; PARAINFLUENZA VIRUS 3 NOT DETECTED; PARAINFLUENZA VIRUS 4 NOT DETECTED; RHINOVIRUS/ENTEROVIRUS NOT DETECTED; RSV- RESP PCR PANEL NOT DETECTED; SARS-CoV-2 -RESP PCR PANEL NOT DETECTED
[2024-10-06] MEDS: IPRATROPIUM/ALBUTEROL 3 ML NEB INH STA (12:13)
[2024-10-06] MEDS ORDERED: SODIUM CHLORIDE FLUSH 0.9% 10 ML SYRINGE IVP PRN (13:46)
[2024-10-06] MEDS ORDERED: ONDANSETRON ODT 4 MG TABLET TL PRN (13:46)
[2024-10-06] MEDS ORDERED: ONDANSETRON 4 MG/2 ML VIAL IVP PRN (13:46)
[2024-10-06] MEDS ORDERED: oxyCODONE 5 MG TABLET PO PRN (13:46)
--- NOTE | 2024-10-06 14:35 | PHARMACY PROGRESS NOTE ---
Best Possible Medication History Admit Date and Time: 10/06/24 1226 Home Medications Medication Instructions Recorded Confirmed Type acetaminophen 325 mg tablet 650 mg (2 x 325 mg) PO Q6HR PRN 04/07/23 10/06/24 Rx Pain 1 to 4, or Fever #40 tabs amlodipine 10 mg tablet (Norvasc) 10 mg PO DAILY #30 tabs 04/07/23 10/06/24 Rx aspirin 81 mg chewable tablet 81 mg PO DAILY #30 tabs 04/07/23 10/06/24 Rx esomeprazole magnesium 20 mg 20 mg PO QDAC #30 caps 04/07/23 10/06/24 Rx capsule,delayed release (Nexium 24HR) levothyroxine 50 mcg tablet 50 mcg PO QDAC #30 tabs 04/07/23 10/06/24 Rx (Levoxyl) metoprolol succinate 50 mg 150 mg (3 x 50 mg) PO DAILY #30 04/07/23 10/06/24 Rx tablet,extended release 24 hr tabs multivitamin-ferrous 1 tab PO DAILY #30 tabs 04/07/23 10/06/24 Rx fumarate-folic acid 18 mg-400 mcg tablet (Centrum Women) rosuvastatin 40 mg tablet (Crestor) 40 mg PO QPM #30 tabs 04/07/23 10/06/24 Rx sertraline 50 mg tablet 50 mg PO DAILY #30 tabs 04/07/23 10/06/24 Rx thiamine mononitrate (vit B1) 100 100 mg PO DAILY #30 tabs 04/07/23 10/06/24 Rx mg tablet (Vitamin B-1 (mononitrate)) umeclidinium 62.5 mcg-vilanterol 1 puff inhalation DAILY #30 ea 04/07/23 10/06/24 Rx 25 mcg/actuation powdr for inhalation (Anoro Ellipta) albuterol sulfate 90 mcg/actuation 1 puff inhalation Q4H PRN 09/10/24 10/06/24 History aerosol inhaler shortness of breath or wheezing cetirizine 10 mg tablet (24Hour 10 mg PO DAILY 09/10/24 10/06/24 History Allergy) furosemide 40 mg tablet 40 mg PO DAILY 09/10/24 10/06/24 History ipratropium 0.5 mg-albuterol 3 mg 3 ml inhalation Q6H PRN shortness 09/10/24 10/06/24 History (2.5 mg base)/3 mL nebulization of breath or wheezing soln prednisone 1 mg tablet 2 mg PO DAILY 09/10/24 10/06/24 History potassium chloride 20 mEq 20 meq PO DAILYWM #30 tabs 09/12/24 10/06/24 Rx tablet,extended release(part/cryst) (Klor-Con M) Saccharomyces boulardii 250 mg 250 mg PO BID 09/19/24 10/06/24 History capsule (Florastor) trazodone 50 mg tablet 50 mg PO QPM 09/19/24 10/06/24 History Processed by: Pharmacy Medications reviewed in ED?: No Medication History completed: Yes Patient Interview: Completed Secondary Source(s): Written medication list and Insurance records [facility] Statement: As the person ultimately responsible for medication therapy, providers are able to order a medication from an existing home medication list in [facility] via the "Reconcile Routine" prior to Confirmation of that medication by collection support specialist. Such practice is discouraged except when the physician, in their clinical judgment, deems that a medical need exists for a medication without regard to previous use.
[2024-10-06] MEDS: IPRATROPIUM/ALBUTEROL 3 ML NEB INH SCH (15:35)
--- NOTE | 2024-10-06 16:38 | HISTORY & PHYSICAL EXAMINATION ---
Chief Complaint <North Hoff - Last Filed: 10/06/24 19:18> Chief Complaint Chief Complaint: Can't breath, anxious. History of Present Illness <North Hoff - Last Filed: 10/06/24 19:18> Admitted From Admitted From:: ER History Obtained From History obtained from: Patient and chart History of Present Illness HPI Comment/Other: Misty is an 84 year old female complaining of difficulty breathing, chest tightness, and anxiety. Patient was admitted from the ER, being brought in by ambulance after stating she was feeling short of breath for approximately the last two weeks. Throughout past two weeks, patient noted periods of tripod positioning to help reduce breathing difficulty. She also mentions feeling generally weak and wobbly while walking. Patient denies any noticeable change in her condition which prompted in calling 911. Patient denies any chest pain, abdominal pain, fever, chills, unusual weight changes. Patient states she is unsure if current home prescriptions have done anything to help relieve her shortness of breath. Condition is exacerbated with exertion. Patient states she was seen in the hospital last month for COPD exacerbation and that this episode feels similar. <Paola Askew MD - Last Filed: 10/06/24 19:51> History Obtained From Records Reviewed: expanse Exam Limitations: none History of Present Illness HPI Comment/Other: Misty is an 84 year old female complaining of difficulty breathing, chest tightness, and anxiety. Patient was admitted from the ER, being brought in by ambulance after stating she was feeling short of breath for approximately the last two weeks. Throughout past two weeks, patient noted periods of tripod positioning to help reduce breathing difficulty. She also mentions feeling generally weak and wobbly while walking. Patient denies any noticeable change in her condition which prompted in calling 911. Patient denies any chest pain, abdominal pain, fever, chills, unusual weight changes. Patient states she is unsure if current home prescriptions have done anything to help relieve her shortness of breath. Condition is exacerbated with exertion. Patient states she was seen in the hospital last month for COPD exacerbation and that this episode feels similar. She states she is compliant with meds and diet. If she gains a few lbs of water weight will take and extra diuretic tablet. but in spite of this has felt worse over the last 5-7 days. Denies cp, palpitations, orthopnea. Denies fever, chills, phlegm. Meds/Allgy <North Hoff - Last Filed: 10/06/24 19:18> Home Medications Ambulatory Orders Medication Instructions Recorded Confirmed acetaminophen 325 mg tablet 650 mg (2 x 325 mg) PO Q6HR PRN 04/07/23 10/06/24 Pain 1 to 4, or Fever #40 tabs amlodipine 10 mg tablet (Norvasc) 10 mg PO DAILY #30 tabs 04/07/23 10/06/24 aspirin 81 mg chewable tablet 81 mg PO DAILY #30 tabs 04/07/23 10/06/24 esomeprazole magnesium 20 mg 20 mg PO QDAC #30 caps 04/07/23 10/06/24 capsule,delayed release (Nexium 24HR) levothyroxine 50 mcg tablet 50 mcg PO QDAC #30 tabs 04/07/23 10/06/24 (Levoxyl) metoprolol succinate 50 mg 150 mg (3 x 50 mg) PO DAILY #30 04/07/23 10/06/24 tablet,extended release 24 hr tabs multivitamin-ferrous 1 tab PO DAILY #30 tabs 04/07/23 10/06/24 fumarate-folic acid 18 mg-400 mcg tablet (Centrum Women) rosuvastatin 40 mg tablet (Crestor) 40 mg PO QPM #30 tabs 04/07/23 10/06/24 sertraline 50 mg tablet 50 mg PO DAILY #30 tabs 04/07/23 10/06/24 thiamine mononitrate (vit B1) 100 100 mg PO DAILY #30 tabs 04/07/23 10/06/24 mg tablet (Vitamin B-1 (mononitrate)) umeclidinium 62.5 mcg-vilanterol 1 puff inhalation DAILY #30 ea 04/07/23 10/06/24 25 mcg/actuation powdr for inhalation (Anoro Ellipta) albuterol sulfate 90 mcg/actuation 1 puff inhalation Q4H PRN 09/10/24 10/06/24 aerosol inhaler shortness of breath or wheezing cetirizine 10 mg tablet (24Hour 10 mg PO DAILY 09/10/24 10/06/24 Allergy) furosemide 40 mg tablet 40 mg PO DAILY 09/10/24 10/06/24 ipratropium 0.5 mg-albuterol 3 mg 3 ml inhalation Q6H PRN shortness 09/10/24 10/06/24 (2.5 mg base)/3 mL nebulization of breath or wheezing soln prednisone 1 mg tablet 2 mg PO DAILY 09/10/24 10/06/24 potassium chloride 20 mEq 20 meq PO DAILYWM #30 tabs 09/12/24 10/06/24 tablet,extended release(part/cryst) (Klor-Con M) Saccharomyces boulardii 250 mg 250 mg PO BID 09/19/24 10/06/24 capsule (Florastor) trazodone 50 mg tablet 50 mg PO QPM 09/19/24 10/06/24 Allergies Allergies Allergy/AdvReac Type Severity Reaction Status Date / Time trimethoprim (From Bactrim) Allergy Unknown Unknown Verified 10/06/24 10:17 morphine AdvReac Intermediate Nausea Verified 10/06/24 10:17 meperidine HCl * (From AdvReac Mild Unknown Verified 10/06/24 10:17 Demerol) sulfamethoxazole (From AdvReac Mild Unknown Verified 10/06/24 10:17 Bactrim) PFSH <North Hoff - Last Filed: 10/06/24 19:18> Medical History Medical History (Updated 10/06/24 @ 19:15 by Paola Askew MD) Femoral-femoral bypass graft thrombosis, left Bronchitis due to human metapneumovirus (hMPV) Alcohol use Obstructive sleep apnea on CPAP Acute on chronic diastolic heart failure Acute and chronic respiratory failure with hypoxia Infection due to human metapneumovirus (hMPV) Alcoholism Hypothyroidism Acute respiratory failure with hypoxia Mild chronic obstructive pulmonary disease Dyspnea Family History Family History (Updated 10/06/24 @ 19:08 by Paola Askew MD) Father Heart attack Mother Esophageal cancer Brother GERD (gastroesophageal reflux disease) Social History Social History (Updated 10/06/24 @ 19:10 by Paola Askew MD) Smoking Status: Former smoker If you are a former smoker, when did you quit? (Date/Year): 1994 Number of Years Smoked: 30 How many cigarettes a day do you smoke? (20 cigarettes=1 Pk): 40 Second hand tobacco smoke exposure: No Do you dip or chew tobacco?: No Do you vape?: No Patient requests smoking cessation consult: No Initiate information on smoking cessation: No Living arrangement: At home Marital Status: Single Living Condition: Alone More Information: has caregiver Lor that comes to the house Relationship: Caregiver Physical Activity: Walking Level: Assisted Home Mobility Equipment: Walker Do you feel safe in your home environment?: Yes Suffered physical, verbal, emotional, or financial abuse?: No History of Abuse: No Frequency: Daily Substance Use: denies use Are you sexually active?: No 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 Known occupational exposures/hazards (Current/Previous): none Service: No Are you following a diet prescribed by a doctor: Yes Are you following a special diet: Yes Special Diet Details: low salt POLST Patient has POLST: No POLST Status: Full Code Review of Systems <North Hoff - Last Filed: 10/06/24 19:18> Constitutional Reports: Fatigue and Weakness Cardiovascular Reports: chest pain, palpitations and shortness of breath with exertion Respiratory Reports: Shortness of breath Psychiatric Reports: Anxiety Endocrine Reports: Fatigue <Paola Askew MD - Last Filed: 10/06/24 19:51> Eyes Denies: Pain, Irritation or Amaurosis Ears, nose, mouth, and throat Denies: Ear pain, Hearing loss, Nasal congestion, Post nasal drip, Difficulty swallowing or Throat swelling Cardiovascular Reports: chest pain (chest tightness not pain), edema and swelling of feet/ankles Respiratory Reports: SOB with exertion; Denies: Sputum production, Coughing up blood or Orthopnea Gastrointestinal Reports: Heartburn; Denies: Abdominal pain, Abdominal distention, Nausea, Vomiting or Difficulty swallowing Genitourinary Reports: Urinary frequency; Denies: Urinary urgency, Nocturia, Urinary incontinence, Difficulty voiding, Decreased urine ouput or Pelvic pain Musculoskeletal Reports: Extremity swelling and Other (feels wobbly with walking); Denies: Back pain, Extremity pain, Gout or Joint pain Integumentary/Breast Denies: Rash, Itching, Dryness or Redness Neurological Reports: General weakness and Weakness in extremities; Denies: Headache, Focal weakness, Numbness in extremities, Lack of coordination, Confusion or Memory problems Hematologic/Lymphatic Denies: Anemia or Easy bruising Allergic/Immunologic Denies: Hives or Throat swelling <Paola Askew MD - Last Filed: 10/06/24 19:51> Prior Level of Functionality: Thriving 2 months ago. Just does not feel safe. Walks in her own home with a walker. Has a caregiver that comes to help her with cooking, cleaning, bathing. Gets out to go to the [employer] game once a week. Vertigo have drinks with the girls at the golf club. But they drive her there. Exam <North Hoff - Last Filed: 10/06/24 19:18> Constitutional normal general appearance and average body habitus Patient appears well nourished but slightly uncomfortable. No significant or life threatening distress noted. HENMT normocephalic Eyes PERRL Neck/C-Spine visual inspection normal and trachea midline Lymph no lymphadenopathy noted Respiratory breath sounds equal bilaterally Breath sounds equal and clear bilaterally, performed right as nebulizer treatment being completed. Cardiovascular no gallop, no rub and no murmur regularly irregular. Gastrointestinal abdomen soft to palpation, nondistended and normoactive bowel sounds Back/Pelvis spine normal to inspection Extremities +1 pedal edema. Neurology no movement abnormality noted, no focal motor deficit noted, no sensory deficits noted, gait normal, speech normal and coordination normal Skin skin color normal <Paola Askew MD - Last Filed: 10/06/24 19:51> Exam short statured, elderly, obese pleasant female, sitting up in chair and able to complete full sentences without tripod or tachypnea. Eyes EOMs intact bilaterally Respiratory no wheezes, no rales, no retractions and no use of accessory muscles Cardiovascular regularly irregular. 90s to low 100s. 120 at her highest. Extremities full ROM Neurology GCS 15 Conclusion/Plan <North Hoff - Last Filed: 10/06/24 19:18> Problem List (1) Acute cor pulmonale: (2) Atrial fibrillation, new onset: Plan: 1. Continue cardiac monitoring and oxygen supplementation. 2. Refer patient to primary care for termite technician management with anticoagulation. (3) Acute exacerbation of chronic obstructive pulmonary disease: Plan: 1. Continue oxygen supplementation as needed to maintain adequate perfusion. 2. Administer prednisone and roopa/laba treatment for COPD. 3. Patient discussed previous referral to log deckman for specialty care. (4) Hypertension: Plan: Continue monitoring, no pharmacologic intervention required currently. BP is within normal limits with exception during or shortly after albuterol administration. (5) At risk for accident in home: Lab Results Lab results reviewed: Yes 10/06/24 10:33 10/06/24 10:33 <Paola Askew MD - Last Filed: 10/06/24 19:51> Problem List (1) Acute cor pulmonale: Plan: The patient describes a baseline heart failure with preserved ejection fraction. Echocardiogram done March 2023 has an EF of 60 to 65%. Right ventricular size is normal. Systolic function is normal. She had mildly abnormal right heart pressures with an RVSP at rest of 43 mmHg. She did not have any significant valvular heart disease specifically she did not have severe tricuspid regurgitation. My thought process is that she has baseline mild pulmonary hypertension, baseline mild COPD, and that the atrial fibrillation has caused decompensation with loss of ejection fraction up to 18%. Plan: Rate control and anticoagulation with diltiazem (her ejection fraction is intact) and Eliquis respectively.Eliquis is what we have on formulary. At discharge I will be changing her to what ever her insurance company covers. When that was slowing down her heart rate, this will then help with a little bit of congestive heart failure that she has, and then the cor pulmonale. (2) Atrial fibrillation, new onset: Plan: 1. Continue cardiac monitoring and oxygen supplementation. 2. Patient has Vascor is 5 points. Stroke risk is 7.2 %/year and a 10% risk of TIA or systemic embolization. She should be started on anticoagulation. I will be using Eliquis. 3. Since her ejection fraction is intact, I will be using Cardizem to slow down her heart rate. (3) Acute exacerbation of chronic obstructive pulmonary disease: (4) Hypertension: (5) At risk for accident in home: Plan: Advance care planning conversation held with the patient. Please see under separate dictation. She is recognizing that her body is failing her. And her plan is to be living in [place] in an assisted living facility with her brother by November 2024. She has been reluctant to be a DO NOT RESUSCITATE. Core Measures <Paola Askew MD - Last Filed: 10/06/24 19:51> Anticipated LOS I expect patient to be DC'd or transferred within 96 hours.: Yes DVT/VTE - Prophylaxis VTE/DVT Prophylaxis med ordered at admit?: Yes
--- NOTE | 2024-10-06 17:43 | ADVANCE CARE PLANNING NOTE ---
Advance Care Planning Planning Encounter Date: 10/06/24 Time: 17:42 Purpose: Goals of care and CODE STATUS Parties in Attendance: Hospitalist, patient, and Merged with [facility] Rosalinda SAUCEDA student Decisional Capacity of the Patient: Alert and oriented to person place and time, no dyspnea with exertion, lucid historian Diagnosis for Encounter (1) Acute exacerbation of chronic obstructive pulmonary disease: Summary: Morbidly obese, short statured, has obstructive sleep apnea with probable pulmonary hypertension from that. Developed COPD, not clear why. She did smoke for 30 years and quit in 1994 after a [id number] history. That contributed to pulmonary hypertension as well. She then developed pneumonia in March 2023 and has been on home oxygen since that time. She has not seen a carrot grader inspector. She did see her primary care provider September 23 and was referred to pulmonology. She does not have a visit until November 2024. By then she will be moving to [place]. 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 She lives between [facility], and [place] for her career. She never . Has no children. Settled in [facility] in [place] when she came to visit her girlfriend[place]. She has a diverse social support network. Neighbors. But mainly the country club where she used to play golf. She still meets their 2 or 3 times a week. They play bridge. They get together for drinks. Have dinner. She has been reluctant to leave [place] because she has been very happy here. But since last couple of years had made it more more difficult to be mobile because of dyspnea on exertion. And weight. She thinks that the last time she ever felt "normal" was before COVID in 2019. She has had increasing mobility issues because of dyspnea on exertion. And finally on oxygen since March 2022. She has a caregiver named Lor. She is slowly been coming to the realization she needs to live in an assisted living facility. With her admission September 12 she made a decision to go live near her brother in [place]. That can happen in November 2024. She is overwhelmed at the idea of deciding what to take with her, put the rest of the stuff on the market, and sell her house. She is already met with a real estate economist. Dyspnea on exertion is her main issue. Not pain. Her DURABLE POWER OF INCOME TAX CONSULTANT is her brother. With her last admission she did discuss CODE STATUS with the primary care provider on service. She hates to think about the end and as such responded that she wanted to be a full code. Since that time she has had a couple of conversation with girlfriends and they are aghast at her desire to stay alive. They point out that she would not be having much of her life if she is able to survive the event. She already dislikes the lowered standard of quality of life she has right now, they cannot imagine her having an even worse quality of life and still wanting to live. She is starting to realize that maybe she does not want to be a full code. But she has not had that conversation with her brother. Objective/Medical Story: Morbidly obese, short statured, has obstructive sleep apnea with probable pulmonary hypertension from that. Developed COPD, not clear why. She did smoke for 30 years and quit in 1994 after a [id number] history. That contributed to pulmonary hypertension as well. She then developed pneumonia in March 2023 and has been on home oxygen since that time. She has not seen a carrot grader inspector. She did see her primary care provider September 23 and was referred to pulmonology. She does not have a visit until November 2024. By then she will be moving to [place]. Between her admission in August 2016 through August 2018 she is compliant with her medication. She is followed through with her primary care provider. She is eating a low-salt diet. She is not abusing alcohol. In spite of that she started feeling short of breath within days of discharge. Edema has come and gone. She will take an extra tablet to diurese herself and feel little bit better but then it comes back the next day. Shortness of breath has become so progressive that she had to come back to the emergency room tonight. Goals of Care: 1. She has no specific timeframe that she is aiming for. Another words or is in the worship, a wedding, or some special event she wants to make it to. But she is not ready to consider that this is the end of her life. 2. She just wants to get through the next 2 to 3 months of selling her house, moving to [facility] living [facility] and being close to her brother. Plan: 1. I have encouraged her to speak to her brother about her POLST. And CODE STATUS. And with anybody she feels it is important enough to give her their advice. When she comes to conclusion to please let us know. Hopefully this admission. We can fill out a POLST form. 2. I also like her to bring her DURABLE POWER OF INCOME TAX CONSULTANT from her brother so I can put that in the chart as well. Code Status: Attempt Resuscitation Time spent on advance care plannin minutes
[2024-10-06] MEDS: BUDESONIDE 0.5 MG/2 ML NEB INH SCH (18:09)
[2024-10-06] MEDS: FORMOTEROL FUMARATE NEB 20 MCG/2 ML INH SCH (18:10)
[2024-10-06] MEDS: SODIUM CHLORIDE FLUSH 0.9% 10 ML SYRINGE IVP SCH (18:43)
[2024-10-06] MEDS: diltiaZEM CD 120 MG CAPSULE PO STA (19:27)
[2024-10-06] MEDS: SACCHAROMYCES BOULARDII 250 MG CAPSULE PO SCH (20:32)
[2024-10-06] MEDS: traZODone 50 MG TABLET PO SCH (20:32)
[2024-10-06] MEDS: APIXABAN 5 MG TABLET PO SCH (20:33)
[2024-10-07] MEDS: ACETAMINOPHEN 325 MG TABLET PO PRN (00:04)
[2024-10-07] MEDS: LEVOTHYROXINE 25 MCG TABLET PO SCH (06:06)
[2024-10-07 08:14] LABS: EOSINOPHILS % (AUTO) 0.3 %; HCT - HEMATOCRIT 39.5 % (37.0-47.0); HGB - HEMOGLOBIN 13.1 g/dL (12.0-16.0); LYMPHOCYTES # (AUTO) 0.9 10^3/uL (1.5-3.5); LYMPHOCYTES % (AUTO) 23.7 %; MEAN CORPUSCULAR HEMOGLOBIN 33.9 pg (27.0-31.0); MEAN CORPUSCULAR HGB CONC 33.2 g/dL (32.0-36.0); MEAN CORPUSCULAR VOLUME 102.3 fL (81.0-99.0); MEAN PLATELET VOLUME 8.9 fL (7.9-10.8); MONOCYTES # (AUTO) 0.3 10^3/uL (0.0-1.0); MONOCYTES % (AUTO) 7.5 %; NEUTROPHILS # (AUTO) 2.6 10^3/uL (1.5-6.6); NEUTROPHILS % (AUTO) 68.2 %; PLT - PLATELET COUNT 185 10^3/uL (130-450); RED BLOOD COUNT 3.86 10^6/uL (4.20-5.40); RED CELL DISTRIBUTION WIDTH 15.6 % (12.0-15.0); WHITE BLOOD COUNT 3.8 x10^3/uL (4.8-10.8)
[2024-10-07] MEDS: FUROSEMIDE 40 MG TABLET PO SCH (08:14)
[2024-10-07] MEDS: METOPROLOL SUCCINATE 50 MG TABLET PO SCH (08:14)
[2024-10-07] MEDS: POTASSIUM CHLORIDE 20 MEQ TABLET PO SCH (08:14)
[2024-10-07] MEDS: SERTRALINE 50 MG TABLET PO SCH (08:14)
[2024-10-07] MEDS: THIAMINE 100 MG TABLET PO SCH (08:15)
[2024-10-07] MEDS: CETIRIZINE 10 MG TABLET PO SCH (08:15)
[2024-10-07] MEDS: ASPIRIN CHEW 81 MG TABLET PO SCH (08:15)
[2024-10-07 08:19] LABS: CALCIUM 9.3 mg/dL (8.5-10.3); CREATININE 1.2 mg/dL (0.6-1.3); POTASSIUM 3.9 mmol/L (3.5-4.5)
[2024-10-07] MEDS ORDERED: diltiaZEM CD 120 MG CAPSULE PO SCH (09:00)
[2024-10-07] MEDS ORDERED: amLODIPine 5 MG TABLET PO SCH (09:00)
[2024-10-07] MEDS ORDERED: ENOXAPARIN 40 MG/0.4 ML SYRINGE SUBQ SCH (09:00)
--- NOTE | 2024-10-07 14:58 | PROVIDER PROGRESS NOTE ---
Current Medications Current Medications Current Medications: Current Medications Generic Name Dose Route Start Last Admin Trade Name Freq PRN Reason Stop Dose Admin Acetaminophen 650 mg 10/06/24 13:46 10/07/24 00:04 Acetaminophen 325 Mg Tablet PO 650 mg Q6HR PRN Administration Pain 1 to 4, or Fever Albuterol/Ipratropium 3 ml 10/06/24 13:46 10/07/24 13:20 Ipratropium/Albuterol 3 Ml Neb INH 3 ml Q4HR ROSA Administration Apixaban 5 mg 10/06/24 21:00 10/07/24 08:15 Apixaban 5 Mg Tablet PO 5 mg BID ROSA Administration Aspirin 81 mg 10/07/24 09:00 10/07/24 08:15 Aspirin Chew 81 Mg Tablet PO 81 mg DAILY ROSA Administration Budesonide 0.5 mg 10/06/24 19:00 10/07/24 07:42 Budesonide 0.5 Mg/2 Ml Neb INH 0.5 mg RTBID ROSA Administration Cetirizine HCl 10 mg 10/07/24 09:00 10/07/24 08:15 Cetirizine 10 Mg Tablet PO 10 mg DAILY ROSA Administration Formoterol Fumarate 20 mcg 10/06/24 19:00 10/07/24 07:42 Formoterol Fumarate Neb 20 Mcg/2 Ml INH 20 mcg RTBID ROSA Administration Furosemide 40 mg 10/07/24 09:00 10/07/24 08:14 Furosemide 40 Mg Tablet PO 40 mg DAILY ROSA Administration Levothyroxine Sodium 50 mcg 10/07/24 07:00 10/07/24 06:06 Levothyroxine 25 Mcg Tablet PO 50 mcg QDAC ROSA Administration Metoprolol Succinate 150 mg 10/07/24 09:00 10/07/24 08:14 Metoprolol Succinate 50 Mg Tablet PO 150 mg DAILY ROSA Administration Ondansetron HCl 4 mg 10/06/24 13:46 Ondansetron Odt 4 Mg Tablet TL Q6HR PRN Nausea / Vomiting Ondansetron HCl 4 mg 10/06/24 13:46 Ondansetron 4 Mg/2 Ml Vial IVP Q6HR PRN Nausea / Vomiting Oxycodone HCl 5 mg 10/06/24 13:46 Oxycodone 5 Mg Tablet PO Q4HR PRN Pain 5 to 7 Potassium Chloride 20 meq 10/07/24 08:00 10/07/24 08:14 Potassium Chloride 20 Meq Tablet PO 20 meq DAILYWM ROSA Administration Saccharomyces Boulardii 250 mg 10/06/24 21:00 10/07/24 08:15 Saccharomyces Boulardii 250 Mg Capsule PO 250 mg BID ROSA Administration Sertraline HCl 50 mg 10/07/24 09:00 10/07/24 08:14 Sertraline 50 Mg Tablet PO 50 mg DAILY ROSA Administration Sodium Chloride 10 ml 10/06/24 13:46 Sodium Chloride Flush 0.9% 10 Ml Syringe IVP PRN PRN NEEDED PER PROVIDER ORDERS Sodium Chloride 10 ml 10/06/24 17:00 10/07/24 08:18 Sodium Chloride Flush 0.9% 10 Ml Syringe IVP 10 ml 0100,0900,1700 ROSA Administration Thiamine HCl 100 mg 10/07/24 09:00 10/07/24 08:15 Thiamine 100 Mg Tablet PO 100 mg DAILY ROSA Administration Trazodone HCl 50 mg 10/06/24 21:00 10/06/24 20:32 Trazodone 50 Mg Tablet PO 50 mg QPM ROSA Administration Objective Vital Signs/Intake & Output Vital Signs: Vital Signs x48h Temp Pulse Pulse Resp BP Pulse Ox O2 Flow Rate 10/07/24 13:37 36.9 C 63 19 107/60 93 10/07/24 08:20 36.5 C 102 H 16 148/71 H 91 L 5 10/07/24 07:43 5 10/07/24 07:43 78 20 Intake & Output: Intake & Output 10/05/24 10/06/24 10/07/24 10/08/24 05:59 05:59 05:59 05:59 Intake Total 940 / 940 480 / 480 Output Total 400 / 400 500 / 500 Balance 540 / 540 -20 / -20 Weight (kg) 76.5 kg Lab Results 10/07/24 08:00 10/07/24 08:00 Other Labs: Lab Results x24hrs 10/07/24 Range/Units 08:00 WBC 3.8 L (4.8-10.8) x10^3/uL RBC 3.86 L (4.20-5.40) 10^6/uL Hgb 13.1 (12.0-16.0) g/dL Hct 39.5 (37.0-47.0) % MCV 102.3 H (81.0-99.0) fL MCH 33.9 H (27.0-31.0) pg MCHC 33.2 (32.0-36.0) g/dL RDW 15.6 H (12.0-15.0) % Plt Count 185 (130-450) 10^3/uL MPV 8.9 (7.9-10.8) fL Neut # (Auto) 2.6 (1.5-6.6) 10^3/uL Lymph # (Auto) 0.9 L (1.5-3.5) 10^3/uL [place] # (Auto) 0.3 (0.0-1.0) 10^3/uL Eos # (Auto) 0.0 (0.0-0.7) 10^3/uL Baso # (Auto) 0.0 (0.0-0.1) 10^3/uL Absolute Nucleated RBC 0.00 x10^3/uL Nucleated RBC % 0.0 /100WBC Sodium 142 (135-145) mmol/L Potassium 3.9 (3.5-4.5) mmol/L Chloride 105 (101-111) mmol/L Carbon Dioxide 27 (21-32) mmol/L Anion Gap 10.0 (6-13) BUN 33 H (6-20) mg/dL Creatinine 1.2 (0.6-1.3) mg/dL Estimated GFR (MDRD) 43 L (>89) Glucose 114 H (74-104) mg/dL Calcium 9.3 (8.5-10.3) mg/dL B-Natriuretic Peptide 892 H (5-100) pg/mL Assessment/Plan Problem List (1) Acute cor pulmonale: (2) Atrial fibrillation, new onset: (3) Acute exacerbation of chronic obstructive pulmonary disease: (4) Hypertension: (5) At risk for accident in home:
--- NOTE | 2024-10-07 16:50 | PROVIDER PROGRESS NOTE ---
Documented by User: [place] 10/07/24 17:22 Subjective Subjective Pt reports feeling: Improved Subjective: Patient states she feels better at rest, but was walked with RT approximately 15 feet and felt significantly short of breath and not to her baseline. In talking with the patient, she agrees with providers assessment to stay another night and reevaluate her condition tomorrow for possible discharge. Current Medications Current Medications Current Medications: Current Medications Generic Name Dose Route Start Last Admin Trade Name Freq PRN Reason Stop Dose Admin Acetaminophen 650 mg 10/06/24 13:46 10/07/24 00:04 Acetaminophen 325 Mg Tablet PO 650 mg Q6HR PRN Administration Pain 1 to 4, or Fever Albuterol/Ipratropium 3 ml 10/06/24 13:46 10/07/24 14:41 Ipratropium/Albuterol 3 Ml Neb INH Not Given Q4HR ROSA Apixaban 5 mg 10/06/24 21:00 10/07/24 08:15 Apixaban 5 Mg Tablet PO 5 mg BID ROSA Administration Aspirin 81 mg 10/07/24 09:00 10/07/24 08:15 Aspirin Chew 81 Mg Tablet PO 81 mg DAILY ROSA Administration Budesonide 0.5 mg 10/06/24 19:00 10/07/24 07:42 Budesonide 0.5 Mg/2 Ml Neb INH 0.5 mg RTBID ROSA Administration Cetirizine HCl 10 mg 10/07/24 09:00 10/07/24 08:15 Cetirizine 10 Mg Tablet PO 10 mg DAILY ROSA Administration Formoterol Fumarate 20 mcg 10/06/24 19:00 10/07/24 07:42 Formoterol Fumarate Neb 20 Mcg/2 Ml INH 20 mcg RTBID ROSA Administration Furosemide 40 mg 10/07/24 09:00 10/07/24 08:14 Furosemide 40 Mg Tablet PO 40 mg DAILY ROSA Administration Levothyroxine Sodium 50 mcg 10/07/24 07:00 10/07/24 06:06 Levothyroxine 25 Mcg Tablet PO 50 mcg QDAC ROSA Administration Metoprolol Succinate 150 mg 10/07/24 09:00 10/07/24 08:14 Metoprolol Succinate 50 Mg Tablet PO 150 mg DAILY ROSA Administration Ondansetron HCl 4 mg 10/06/24 13:46 Ondansetron Odt 4 Mg Tablet TL Q6HR PRN Nausea / Vomiting Ondansetron HCl 4 mg 10/06/24 13:46 Ondansetron 4 Mg/2 Ml Vial IVP Q6HR PRN Nausea / Vomiting Oxycodone HCl 5 mg 10/06/24 13:46 Oxycodone 5 Mg Tablet PO Q4HR PRN Pain 5 to 7 Potassium Chloride 20 meq 10/07/24 08:00 10/07/24 08:14 Potassium Chloride 20 Meq Tablet PO 20 meq DAILYWM ROSA Administration Saccharomyces Boulardii 250 mg 10/06/24 21:00 10/07/24 08:15 Saccharomyces Boulardii 250 Mg Capsule PO 250 mg BID ROSA Administration Sertraline HCl 50 mg 10/07/24 09:00 10/07/24 08:14 Sertraline 50 Mg Tablet PO 50 mg DAILY ROSA Administration Sodium Chloride 10 ml 10/06/24 13:46 Sodium Chloride Flush 0.9% 10 Ml Syringe IVP PRN PRN NEEDED PER PROVIDER ORDERS Sodium Chloride 10 ml 10/06/24 17:00 10/07/24 08:18 Sodium Chloride Flush 0.9% 10 Ml Syringe IVP 10 ml 0100,0900,1700 ROSA Administration Thiamine HCl 100 mg 10/07/24 09:00 10/07/24 08:15 Thiamine 100 Mg Tablet PO 100 mg DAILY ROSA Administration Trazodone HCl 50 mg 10/06/24 21:00 10/06/24 20:32 Trazodone 50 Mg Tablet PO 50 mg QPM ORSA Administration Objective Vital Signs/Intake & Output Reviewed Vital Signs: Yes Vital Signs: Vital Signs x48h Temp Pulse Resp BP Pulse Ox O2 Flow Rate 10/07/24 15:54 36.5 C 85 19 133/59 H 93 5 10/07/24 13:37 36.9 C 63 19 107/60 93 Intake & Output: Intake & Output 10/05/24 10/06/24 10/07/24 10/08/24 05:59 05:59 05:59 05:59 Intake Total 940 / 940 480 / 480 Output Total 400 / 400 3400 / 3400 Balance 540 / 540 -2920 / -2920 Weight (kg) 76.5 kg Objective General Appearance: positive Alert and Mild distress Eyes Bilateral: positive Normal inspection and PERRL Respiratory: positive Breath sounds nml Cardiovascular: positive Irregularly irregular Abdomen: positive Non-tender and Nml bowel sounds Back: positive Nml inspection Skin: positive Color nml Extremities: positive Non-tender, Full ROM and Pedal edema Neurologic/Psychiatric: positive Oriented x3, CN's nml (2-12), Motor nml, Sensation nml and Mood/affect nml Lab Results 10/07/24 08:00 10/07/24 08:00 Other Labs: Lab Results x24hrs 10/07/24 Range/Units 08:00 WBC 3.8 L (4.8-10.8) x10^3/uL RBC 3.86 L (4.20-5.40) 10^6/uL Hgb 13.1 (12.0-16.0) g/dL Hct 39.5 (37.0-47.0) % MCV 102.3 H (81.0-99.0) fL MCH 33.9 H (27.0-31.0) pg MCHC 33.2 (32.0-36.0) g/dL RDW 15.6 H (12.0-15.0) % Plt Count 185 (130-450) 10^3/uL MPV 8.9 (7.9-10.8) fL Neut # (Auto) 2.6 (1.5-6.6) 10^3/uL Lymph # (Auto) 0.9 L (1.5-3.5) 10^3/uL [place] # (Auto) 0.3 (0.0-1.0) 10^3/uL Eos # (Auto) 0.0 (0.0-0.7) 10^3/uL Baso # (Auto) 0.0 (0.0-0.1) 10^3/uL Absolute Nucleated RBC 0.00 x10^3/uL Nucleated RBC % 0.0 /100WBC Sodium 142 (135-145) mmol/L Potassium 3.9 (3.5-4.5) mmol/L Chloride 105 (101-111) mmol/L Carbon Dioxide 27 (21-32) mmol/L Anion Gap 10.0 (6-13) BUN 33 H (6-20) mg/dL Creatinine 1.2 (0.6-1.3) mg/dL Estimated GFR (MDRD) 43 L (>89) Glucose 114 H (74-104) mg/dL Calcium 9.3 (8.5-10.3) mg/dL B-Natriuretic Peptide 892 H (5-100) pg/mL ABX Reporting Has patient been on IV antibiotics over the past 48 hours?: No Assessment/Plan Problem List (1) Acute cor pulmonale: Impression: Continue monitoring and treatment as prescribed, but showing significant overall improvement. (2) Atrial fibrillation, new onset: Impression: Atrial fibrillation is now showing signs of control with rate being <100. Also noted that patient has been having occasional runs of atrial flutter. (3) Acute exacerbation of chronic obstructive pulmonary disease: Impression: Continue monitoring and treatment as prescribed, but showing overall improvement. (4) Hypertension: Impression: Continue monitoring and treatment as prescribed. (5) At risk for accident in home: Impression: Home accident risk is due to patient getting short of breath while walking, leading to an unintentional fall. Patient was walked with RT approximately 15 feet and experienced notable shortness of breath that is not at her baseline. Patient will remain another night for observation and be reevaluated tomorrow for possible discharge. Documented by User: Paola Askew MD 10/07/24 18:50 Objective Lab Results 10/07/24 08:00 10/07/24 08:00 Assessment/Plan Problem List (1) Acute cor pulmonale: (2) Atrial fibrillation, new onset: (3) Acute exacerbation of chronic obstructive pulmonary disease: (4) Hypertension: (5) At risk for accident in home:
[2024-10-08 05:44] LABS: BASOPHILS % (AUTO) 0.4 %; EOSINOPHILS # (AUTO) 0.2 10^3/uL (0.0-0.7); EOSINOPHILS % (AUTO) 3.7 %; HCT - HEMATOCRIT 40.7 % (37.0-47.0); HGB - HEMOGLOBIN 12.5 g/dL (12.0-16.0); LYMPHOCYTES # (AUTO) 1.2 10^3/uL (1.5-3.5); LYMPHOCYTES % (AUTO) 25.4 %; MEAN CORPUSCULAR HEMOGLOBIN 32.3 pg (27.0-31.0); MEAN CORPUSCULAR HGB CONC 30.7 g/dL (32.0-36.0); MEAN CORPUSCULAR VOLUME 105.2 fL (81.0-99.0); MEAN PLATELET VOLUME 8.8 fL (7.9-10.8); MONOCYTES # (AUTO) 0.3 10^3/uL (0.0-1.0); MONOCYTES % (AUTO) 5.7 %; NEUTROPHILS # (AUTO) 2.9 10^3/uL (1.5-6.6); NEUTROPHILS % (AUTO) 64.6 %; PLT - PLATELET COUNT 187 10^3/uL (130-450); RED BLOOD COUNT 3.87 10^6/uL (4.20-5.40); RED CELL DISTRIBUTION WIDTH 15.8 % (12.0-15.0); WHITE BLOOD COUNT 4.6 x10^3/uL (4.8-10.8)
[2024-10-08 06:03] LABS: CALCIUM 9.1 mg/dL (8.5-10.3); CREATININE 1.3 mg/dL (0.6-1.3); POTASSIUM 4.1 mmol/L (3.5-4.5)
--- NOTE | 2024-10-08 10:37 | Discharge Summary ---
"Discharge Summary Admit Date: 10/06/24 Discharge Date: 10/08/24 Discharging Provider: Paola Askew MD Primary Care Provider: AMINATA Shepard Code Status: Attempt Resuscitation DIAGNOSES Discharge Diagnoses with Status of Each Condition: 1. Atrial fibrillation with RVR. Rate is now stable. 2. Acute diastolic heart failure secondary to #1 3. COPD 4. Chronic respiratory failure with hypoxia on nasal cannula O2 5. Obstructive sleep apnea on CPAP 6. Hypertension 7. At risk for accidents at home HPI History of Present Illness: Misty is an 84 year old female complaining of difficulty breathing, chest tightness, and anxiety. Patient was admitted from the ER, being brought in by ambulance after stating she was feeling short of breath for approximately the last two weeks. Throughout past two weeks, patient noted periods of tripod positioning to help reduce breathing difficulty. She also mentions feeling generally weak and wobbly while walking. Patient denies any noticeable change in her condition which prompted in calling 911. Patient denies any chest pain, abdominal pain, fever, chills, unusual weight changes. Patient states she is unsure if current home prescriptions have done anything to help relieve her shortness of breath. Condition is exacerbated with exertion. Patient states she was seen in the hospital last month for COPD exacerbation and that this episode feels similar. She states she is compliant with meds and diet. If she gains a few lbs of water weight will take and extra diuretic tablet. but in spite of this has felt worse over the last 5-7 days. Denies cp, palpitations, orthopnea. Denies fever, chills, phlegm. She has a history of an echo being done for CHF exacerbation with diastolic heart failure in March 2023. At that time it was a technically difficult study because of her obesity. Her underlying rhythm was sinus. Mild concentric left ventricular hypertrophy. LVEF 60 to 65%. No regional wall motion abnormalities. Right ventricle size and systolic function normal. RVSP at rest was 43 mmHg. She had bilateral atrial enlargement. Aortic sclerosis without stenosis. Moderate mitral calcification with mild MR. CONSULTS | PROCEDURES Procedures: Chest x-ray has small bilateral pleural effusion and bibasilar atelectasis. Pulmonary vascular congestion and mild pulmonary edema. No pneumothorax. No acute infiltrate. HOSPITAL COURSE Hospital Course: On admission she had minimal findings of COPD exacerbation. While she was definitely more hypoxic than usual, she did not have wheezing, crackles, rhonchi. No use of accessory muscles. She appeared fatigued with mild pedal edema. She was placed on Cardizem to slow down her heart rate. 120 mg of long- acting Cardizem achieved adequate control to a rate in the 70s. She has a history of paroxysmal atrial fibrillation in the past. She was started on Eliquis for stroke reduction but it is not covered by her pharmacy insurance plan. By 2 days she was ambulatory, feeling less short of breath, and able to use her walker to walk across the room. While here she did not like our BiPAP machine. And for her last night here she used her home CPAP. She is anywhere between 3 to 5 L of nasal cannula to maintain O2 sats. I am asking her to follow-up with her primary care provider. That way her primary care provider can know that she is on Cardizem and Pradaxa. Pradaxa is covered by the insurance plan. The patient has already been referred to pulmonology. However her first visit will not be until November. By then the patient will be living in [place] so the patient will be asking for referral to a hospital educator in [place]. ALLERGIES Allergies Allergy/AdvReac Type Severity Reaction Status Date / Time trimethoprim (From Bactrim) Allergy Unknown Unknown Verified 10/06/24 10:17 morphine AdvReac Intermediate Nausea Verified 10/06/24 10:17 meperidine HCl * (From AdvReac Mild Unknown Verified 10/06/24 10:17 Demerol) sulfamethoxazole (From AdvReac Mild Unknown Verified 10/06/24 10:17 Bactrim) MEDICATIONS Ambulatory Orders Medication Instructions Recorded Confirmed acetaminophen 325 mg tablet 650 mg (2 x 325 mg) PO Q6HR PRN 04/07/23 10/06/24 Pain 1 to 4, or Fever #40 tabs amlodipine 10 mg tablet (Norvasc) 10 mg PO DAILY #30 tabs 04/07/23 10/06/24 esomeprazole magnesium 20 mg 20 mg PO QDAC #30 caps 04/07/23 10/06/24 capsule,delayed release (Nexium 24HR) levothyroxine 50 mcg tablet 50 mcg PO QDAC #30 tabs 04/07/23 10/06/24 (Levoxyl) metoprolol succinate 50 mg 150 mg (3 x 50 mg) PO DAILY #30 04/07/23 10/06/24 tablet,extended release 24 hr tabs multivitamin-ferrous 1 tab PO DAILY #30 tabs 04/07/23 10/06/24 fumarate-folic acid 18 mg-400 mcg tablet (Centrum Women) rosuvastatin 40 mg tablet (Crestor) 40 mg PO QPM #30 tabs 04/07/23 10/06/24 sertraline 50 mg tablet 50 mg PO DAILY #30 tabs 04/07/23 10/06/24 thiamine mononitrate (vit B1) 100 100 mg PO DAILY #30 tabs 04/07/23 10/06/24 mg tablet (Vitamin B-1 (mononitrate)) umeclidinium 62.5 mcg-vilanterol 1 puff inhalation DAILY #30 ea 04/07/23 10/06/24 25 mcg/actuation powdr for inhalation (Anoro Ellipta) albuterol sulfate 90 mcg/actuation 1 puff inhalation Q4H PRN 09/10/24 10/06/24 aerosol inhaler shortness of breath or wheezing cetirizine 10 mg tablet (24Hour 10 mg PO DAILY 09/10/24 10/06/24 Allergy) furosemide 40 mg tablet 40 mg PO DAILY 09/10/24 10/06/24 ipratropium 0.5 mg-albuterol 3 mg 3 ml inhalation Q6H PRN shortness 09/10/24 10/06/24 (2.5 mg base)/3 mL nebulization of breath or wheezing soln prednisone 1 mg tablet 2 mg PO DAILY 09/10/24 10/06/24 potassium chloride 20 mEq 20 meq PO DAILYWM #30 tabs 09/12/24 10/06/24 tablet,extended release(part/cryst) (Klor-Con M) Saccharomyces boulardii 250 mg 250 mg PO BID 09/19/24 10/06/24 capsule (Florastor) trazodone 50 mg tablet 50 mg PO QPM 09/19/24 10/06/24 dabigatran etexilate 75 mg capsule 75 mg PO BID #60 caps 10/08/24 (Pradaxa) diltiazem HCl 120 mg 120 mg PO DAILY #30 tabs 10/08/24 tablet,extended release 24 hr (Cardizem LA) PHYSICAL EXAM AT DISCHARGE General Appearance: positive No acute distress and Alert Eyes Bilateral: positive PERRL, EOMI and Other (Conjunctiva slightly swollen and pink) ENT: positive No signs of dehydration and Other (Mild rhinorrhea) Neck: positive No JVD; negative Stiff neck or Carotid bruit Respiratory: positive No respiratory distress and Breath sounds nml; negative Wheezes, Rales or Rhonchi Cardiovascular: positive Regular rate & rhythm (I am not hearing irregularly irregular. Patient is off telemetry now. I will be ordering EKG before discharge to confirm rhythm) and Systolic murmur Abdomen: positive Non-tender, No organomegaly, Nml bowel sounds and Other (Centripetal obesity with a large abdominal pannus) Extremities: positive Full ROM and No pedal edema Neurologic/Psychiatric: positive Oriented x3 and CN's nml (2-12) LABS 10/08/24 05:28 10/08/24 05:28 TIME SPENT Time Spent in Discharge (Minutes): 40 Discharge Plan Discharge Patient Disposition: 01 Home, Self Care Condition: Stable Medically Cleared Date:: 10/08/24 Prescriptions: New diltiazem HCl [Cardizem LA] 120 mg tablet extended release 24 hr 120 mg PO DAILY Qty: 30 2RF dabigatran etexilate [Pradaxa] 75 mg capsule 75 mg PO BID Qty: 60 2RF Continued acetaminophen 325 MG tablet 650 mg PO Q6HR PRN (Reason: Pain 1 to 4, or Fever) Qty: 40 0RF sertraline 50 MG tablet 50 mg PO DAILY Qty: 30 0RF metoprolol succinate 50 MG tablet extended release 24 hr 150 mg PO DAILY Qty: 30 0RF amlodipine [Norvasc] 10 MG tablet 10 mg PO DAILY Qty: 30 0RF levothyroxine [Levoxyl] 50 MCG tablet 50 mcg PO QDAC Qty: 30 0RF esomeprazole magnesium [Nexium 24HR] 20 MG capsule,delayed release(DR/EC) 20 mg PO QDAC Qty: 30 0RF rosuvastatin [Crestor] 40 MG tablet 40 mg PO QPM Qty: 30 0RF Centrum Women 1 EACH tablet 1 tab PO DAILY Qty: 30 0RF thiamine mononitrate (vit B1) [Vitamin B-1 (mononitrate)] 100 MG tablet 100 mg PO DAILY Qty: 30 0RF Anoro Ellipta 1 EACH blister with device 1 puff inhalation DAILY Qty: 30 0RF furosemide 40 mg tablet 40 mg PO DAILY Rx Instructions: takes an additional tablet if gains >1lb ipratropium-albuterol 0.5 mg-3 mg(2.5 mg base)/3 mL solution for nebulization 3 ml INHALATION Q6H PRN (Reason: shortness of breath or wheezing) prednisone 1 mg tablet 2 mg PO DAILY albuterol sulfate 90 mcg/actuation HFA aerosol inhaler 1 puff INHALATION Q4H PRN (Reason: shortness of breath or wheezing) cetirizine [24Hour Allergy] 10 mg tablet 10 mg PO DAILY potassium chloride [Klor-Con M20] 20 mEq Tablet,Er Particles/Crystals 20 meq PO DAILYWM Qty: 30 0RF trazodone 50 mg tablet 50 mg PO QPM Saccharomyces boulardii [Florastor] 250 mg capsule 250 mg PO BID Discontinued aspirin 81 MG tablet,chewable 81 mg PO DAILY Qty: 30 0RF Diet: Regular Health Concerns: You presented to the emergency room with worsening shortness of breath. You have known COPD, obstructive sleep apnea. You were admitted September 10 with exacerbation of your emphysema resulting in a lower than normal oxygen. You were discharged September 12 and feel like you never really got back to normal. You also have a remote history of atrial fibrillation a few years back. With this episode, you began getting more short of breath with simple exertion. In the emergency room we found you to have atrial fibrillation with a rate that was too fast. That resulted in your heart beating and efficiently as well as irregularly and caused you to have mild congestive heart failure. Once we slow down your heart rate you have felt better. I am going to be putting you on a blood thinner to reduce your risk of stroke. Care Plan Goals: 1. You are equivocal about whether you want to be resuscitated or not. You will think about it and speak to your primary care provider and family about DO NOT RESUSCITATE status. 2. You are recognizing that you may need more help down the road and have decided to move near earlier your brother and DPOA in [place]. You think that may be happening around November. Assessment: Patient is alert, oriented to person, place, time and situation Plan of Treatment: 1. Please see your primary care provider in follow-up in the next week. They need to know about your new Cardizem medication and your new Pradaxa. The Cardizem is to slow down your heart rate. And the Pradaxa is to be the blood thinner that reduces your risk of stroke. 2. Please stop aspirin. 3. Make sure you drink at least a liter of water a day. And I would avoid alcohol. That only serves to dehydrate you as well as stimulate you to go into atrial fibrillation. 4. You do have high blood pressure. You already take Norvasc for that. Because you will be started the Cardizem, please discontinue Norvasc. Make sure your primary care provider checks her blood pressure because you may need a second medication. Print Language: [place] Patient Instructions: Stroke Prevent Live W Atrial Fib, Atrial Fibrillation Follow-up Care: Indira Ledesma ARNP [Primary Care Provider] -"
[2024-10-08] MEDS: PRENATAL VITAMIN TABLET PO SCH (11:29)
[2024-10-08 14:15] VITALS: O2SAT 92
== END 2024-10-08 15:43 | disposition home or self-care (01) ==
LOC: EDBD → ED 09:42 → MS2 09:42
PROVIDERS: ADMIT Specialist; ATTEND Specialist
DX: R53.1 Weakness; F41.9 Anxiety disorder, unspecified; J44.1 Chronic obstructive pulmonary disease with (acute) exacerbation; I48.91 Unspecified atrial fibrillation; Z87.891 Personal history of nicotine dependence; I13.0 Hypertensive heart and chronic kidney disease with heart failure and stage 1 through stage 4 chronic kidney disease, or unspecified chronic kidney disease; E03.9 Hypothyroidism, unspecified; Z99.81 Dependence on supplemental oxygen; N18.32 Chronic kidney disease, stage 3b; I27.81 Cor pulmonale (chronic); G47.33 Obstructive sleep apnea (adult) (pediatric); I50.33 Acute on chronic diastolic (congestive) heart failure; E66.9 Obesity, unspecified; Z68.30 Body mass index [BMI] 30.0-30.9, adult; J96.21 Acute and chronic respiratory failure with hypoxia

== ENCOUNTER 2024-10-20 15:21 | Inpatient (IN) ==
--- NOTE | 2024-10-20 15:45 | ED Physician Documentation ---
History of Present Illness Stated complaint Stated Complaint: SOA Chief complaint Chief Complaint: Resp Additonal information Additional information: She has a history of COPD on home oxygen, hypertension, recent diagnosis of A- fib on both beta-blockade and calcium channel blockade as well as Pradaxa. She also has peripheral vascular disease with a left femorofemoral bypass, acute on chronic diastolic heart failure with a relatively normal echo earlier this month. She was admitted with metapneumovirus earlier this month. Comes in today by ambulance with basically chronic shortness of breath. She says she not worse per se. Had a breathing treatment en route that she says was not helpful. It was felt that her prior admission this earlier this month was multifactorial with mom mild pulmonary hypertension, COPD, and A-fib in the metapneumovirus. She denies any chest pains. A little bit of pedal edema. She wears oxygen at home and has a pulse oximeter and states that did she does desat with exertion. Meds/Allgy Home Medications Ambulatory Orders Medication Instructions Recorded Confirmed acetaminophen 325 mg tablet 650 mg (2 x 325 mg) PO Q6HR PRN 04/07/23 10/15/24 Pain 1 to 4, or Fever #40 tabs esomeprazole magnesium 20 mg 20 mg PO QDAC #30 caps 04/07/23 10/15/24 capsule,delayed release (Nexium 24HR) levothyroxine 50 mcg tablet 50 mcg PO QDAC #30 tabs 04/07/23 10/15/24 (Levoxyl) multivitamin-ferrous 1 tab PO DAILY #30 tabs 04/07/23 10/15/24 fumarate-folic acid 18 mg-400 mcg tablet (Centrum Women) rosuvastatin 40 mg tablet (Crestor) 40 mg PO QPM #30 tabs 04/07/23 10/15/24 sertraline 50 mg tablet 50 mg PO DAILY #30 tabs 04/07/23 10/15/24 thiamine mononitrate (vit B1) 100 100 mg PO DAILY #30 tabs 04/07/23 10/15/24 mg tablet (Vitamin B-1 (mononitrate)) umeclidinium 62.5 mcg-vilanterol 1 puff inhalation DAILY #30 ea 04/07/23 10/15/24 25 mcg/actuation powdr for inhalation (Anoro Ellipta) albuterol sulfate 90 mcg/actuation 1 puff inhalation Q4H PRN 09/10/24 10/15/24 aerosol inhaler shortness of breath or wheezing cetirizine 10 mg tablet (24Hour 10 mg PO DAILY 09/10/24 10/15/24 Allergy) furosemide 40 mg tablet 40 mg PO DAILY 09/10/24 10/15/24 ipratropium 0.5 mg-albuterol 3 mg 3 ml inhalation Q6H PRN shortness 09/10/24 10/15/24 (2.5 mg base)/3 mL nebulization of breath or wheezing soln prednisone 1 mg tablet 2 mg PO DAILY 09/10/24 10/15/24 potassium chloride 20 mEq 20 meq PO DAILYWM #30 tabs 09/12/24 10/15/24 tablet,extended release(part/cryst) (Klor-Con M) trazodone 50 mg tablet 50 mg PO QPM 09/19/24 10/15/24 diltiazem HCl 120 mg 120 mg PO DAILY #30 tabs 10/08/24 10/15/24 tablet,extended release 24 hr (Cardizem LA) budesonide 160 mcg-glycopyr 9 2 inh inhalation BID 30 days #10.7 10/15/24 10/15/24 mcg-formot 4.8 mcg/actuation HFA grams inhaler (Breztri Aerosphere) lisinopril 10 mg tablet 10 mg PO QDAY 30 days #30 tabs 10/15/24 10/15/24 rivaroxaban 15 mg tablet 15 mg PO QPM 30 days #30 tabs 10/16/24 10/16/24 Allergies Allergies Allergy/AdvReac Type Severity Reaction Status Date / Time trimethoprim (From Bactrim) Allergy Unknown Unknown Verified 10/20/24 15:31 morphine AdvReac Intermediate Nausea Verified 10/20/24 15:31 meperidine HCl * (From AdvReac Mild Unknown Verified 10/20/24 15:31 Demerol) sulfamethoxazole (From AdvReac Mild Unknown Verified 10/20/24 15:31 Bactrim) PFSH Medical History Medical History Acute cor pulmonale COPD with hypoxia Atrial fibrillation, new onset Hypertension CKD (chronic kidney disease) stage 3, GFR 30-59 ml/min 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) Chronic kidney disease, stage 4 (severe) (10/02/16) Cellulitis of left leg (11/13/07) Paroxysmal atrial fibrillation (12/15/13) Arthritis of right knee (11/04/20) Depression with anxiety (10/10/12) Fasting hyperglycemia (01/02/07) Hypertension, benign essential, age 0-18 (01/02/07) Osteoarthritis of left knee (03/21/18) Osteoarthritis of right knee (12/18/14) Pressure ulcer, stage II (04/24/14) Swelling, mass, or lump in head and neck (05/27/10) Gastro-esophageal reflux (07/15/09) COPD (chronic obstructive pulmonary disease) (10/06/16) Allergic urticaria (03/05/15) Hypothyroidism (06/21/15) Dyspnea on exertion (10/13/16) Depression (11/04/20) Clostridium difficile colitis (07/13/14) Systolic murmur (12/23/12) Sprain of radiocarpal joint of left wrist, subsequent encounter (06/25/18) Sleep apnea (06/27/13) Salivary gland calculus (10/14/18) Requires supplemental oxygen (07/18/19) Rectal bleeding (05/08/08) Pneumonia (05/09/23) Peripheral vascular disease (06/27/13) Palpitations (04/14/22) Obesity (04/18/07) Hypertrophy of salivary gland (01/14/09) Helicobacter pylori gastritis (09/12/12) Chronic back pain (02/23/22) Anemia in chronic kidney disease (05/08/14) Actinic keratosis (05/27/10) Femoral-femoral bypass graft thrombosis, left Bronchitis due to human metapneumovirus (hMPV) Alcohol use Obstructive sleep apnea on CPAP Acute on chronic diastolic heart failure Acute and chronic respiratory failure with hypoxia Infection due to human metapneumovirus (hMPV) Alcoholism Hypothyroidism Acute respiratory failure with hypoxia Mild chronic obstructive pulmonary disease Dyspnea Family History Family History Father Heart attack Mother Esophageal cancer Brother GERD (gastroesophageal reflux disease) Social History Social History Smoking Status: Former smoker If you are a former smoker, when did you quit? (Date/Year): 1994 Number of Years Smoked: 30 How many cigarettes a day do you smoke? (20 cigarettes=1 Pk): 40 Second hand tobacco smoke exposure: No Do you dip or chew tobacco?: No Do you vape?: No Patient requests smoking cessation consult: No Initiate information on smoking cessation: No Living arrangement: At home Marital Status: Single Living Condition: Alone Relationship: Physical Activity: Walking Level: Assisted Home Mobility Equipment: Walker Do you feel safe in your home environment?: Yes Suffered physical, verbal, emotional, or financial abuse?: No History of Abuse: No ETOH Use: Liquor Frequency: Daily ETOH Use Details: vodka Substance Use: denies use Are you sexually active?: No 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 No murmur. Extremities 1+ pitting pedal edema, symmetric Results Vitals Vitals: Vital Signs - 24 hr 10/20/24 15:31 10/20/24 15:38 Temperature 36.7 C Temperature Source Oral Pulse Rate 94 H Respiratory Rate 22 Blood Pressure 170/57 H O2 Saturation 94 Oxygen Delivery Method Nasal Cannula O2 Source Nasal cannula If not protocol: Oxygen Flow, liters/minute 4 4 Pain Intensity 4 Oxygen O2 Source [With Activity] Nasal cannula O2 Source [Without Activity] Nasal cannula O2 Source Nasal cannula Labs Labs: Laboratory Tests 10/20/24 16:00 WBC 5.8 RBC 3.91 L Hgb 12.8 Hct 41.4 MCV 105.9 H MCH 32.7 H MCHC 30.9 L RDW 15.9 H Plt Count 224 MPV 8.9 Neut # (Auto) 4.3 Lymph # (Auto) 1.1 L [place] # (Auto) 0.4 Eos # (Auto) 0.1 Baso # (Auto) 0.0 Absolute Nucleated RBC 0.00 Nucleated RBC % 0.0 VBG pH 7.449 H VBG pCO2 29.4 L VBG pO2 61.9 H VBG HCO3 19.9 L VBG Total CO2 20.8 L VBG O2 Saturation 93.3 H VBG Base Excess -2.8 L Sodium 139 Potassium 4.7 H Chloride 105 Carbon Dioxide 20 L Anion Gap 14.0 H BUN 38 H Creatinine 2.1 H Estimated GFR (MDRD) 22 L Glucose 116 H Calcium 9.1 Total Bilirubin 0.4 AST 24 ALT 18 Alkaline Phosphatase 71 B-Natriuretic Peptide 368 H Total Protein 7.0 Albumin 4.4 Globulin 2.6 Albumin/Globulin Ratio 1.7 Rads (name of study) Single view chest x-ray demonstrates pulmonary edema with bilateral pleural effusions and right basilar atelectasis versus infiltrate.: Relevant Findings:: Final report received and EMP independent interpretation of test PD Medical Decision Making ED course ED course: This is an 84-year-old woman with history of A-fib, AASHISH on CPAP, acute on chronic diastolic heart failure with elevated pulmonary pressures on home oxygen who presents with shortness of breath. She is not hypoxic at rest but reports hypoxemia with any exertion at home. She had received a breathing treatment en route and she vacillates as to whether that was helpful or not, she does not think it was. Workup demonstrates some SIA with elevated BNP and chest x-ray showing pulmonary edema. Seemingly today the bulk of her issue is probably the CHF. Given her worsening kidney function and home hypoxemia on exertion the hospitalist team agreed to observe with serial labs and diuresis. The patient and family are counseled as to the diagnosis and need for admission. This document was made in part using voice recognition software, while efforts are made to proofread this document, sound alike an grammatical errors may occur. Discharge Plan Discharge Patient Disposition: ED Place in Observation Condition: Fair Clinical Impression: Hypoxia CHF (congestive heart failure) Qualifiers: Heart failure type: unspecified Heart failure chronicity: acute on chronic Qualified Code(s): I50.9 - Heart failure, unspecified Prescriptions: No Action acetaminophen 325 MG tablet 650 mg PO Q6HR PRN (Reason: Pain 1 to 4, or Fever) Qty: 40 0RF sertraline 50 MG tablet 50 mg PO DAILY Qty: 30 0RF levothyroxine [Levoxyl] 50 MCG tablet 50 mcg PO QDAC Qty: 30 0RF esomeprazole magnesium [Nexium 24HR] 20 MG capsule,delayed release(DR/EC) 20 mg PO QDAC Qty: 30 0RF rosuvastatin [Crestor] 40 MG tablet 40 mg PO QPM Qty: 30 0RF Centrum Women 1 EACH tablet 1 tab PO DAILY Qty: 30 0RF thiamine mononitrate (vit B1) [Vitamin B-1 (mononitrate)] 100 MG tablet 100 mg PO DAILY Qty: 30 0RF Anoro Ellipta 1 EACH blister with device 1 puff inhalation DAILY Qty: 30 0RF furosemide 40 mg tablet 40 mg PO DAILY Rx Instructions: takes an additional tablet if gains >1lb ipratropium-albuterol 0.5 mg-3 mg(2.5 mg base)/3 mL solution for nebulization 3 ml INHALATION Q6H PRN (Reason: shortness of breath or wheezing) prednisone 1 mg tablet 2 mg PO DAILY albuterol sulfate 90 mcg/actuation HFA aerosol inhaler 1 puff INHALATION Q4H PRN (Reason: shortness of breath or wheezing) cetirizine [24Hour Allergy] 10 mg tablet 10 mg PO DAILY potassium chloride [Klor-Con M20] 20 mEq Tablet,Er Particles/Crystals 20 meq PO DAILYWM Qty: 30 0RF diltiazem HCl [Cardizem LA] 120 mg tablet extended release 24 hr 120 mg PO DAILY Qty: 30 2RF lisinopril 10 mg tablet 10 mg PO QDAY 30 Days Qty: 30 2RF Rx Instructions: Discontinue Metoprolol Megha Aerosphere 160-9-4.8 mcg/actuation HFA aerosol inhaler 2 inh inhalation BID 30 Days Qty: 10.7 2RF Rx Instructions: Replaces Anoro rivaroxaban 15 mg tablet 15 mg PO QPM 30 Days Qty: 30 2RF Rx Instructions: must administer with evening meal Replaces Plavix trazodone 50 mg tablet 50 mg PO QPM Print Language: Brazilian Stand Alone Forms: PCP List
[2024-10-20 16:10] LABS: BASOPHILS % (AUTO) 0.2 %; EOSINOPHILS # (AUTO) 0.1 10^3/uL (0.0-0.7); EOSINOPHILS % (AUTO) 0.9 %; HCT - HEMATOCRIT 41.4 % (37.0-47.0); HGB - HEMOGLOBIN 12.8 g/dL (12.0-16.0); LYMPHOCYTES # (AUTO) 1.1 10^3/uL (1.5-3.5); LYMPHOCYTES % (AUTO) 18.1 %; MEAN CORPUSCULAR HEMOGLOBIN 32.7 pg (27.0-31.0); MEAN CORPUSCULAR HGB CONC 30.9 g/dL (32.0-36.0); MEAN CORPUSCULAR VOLUME 105.9 fL (81.0-99.0); MEAN PLATELET VOLUME 8.9 fL (7.9-10.8); MONOCYTES # (AUTO) 0.4 10^3/uL (0.0-1.0); MONOCYTES % (AUTO) 6.4 %; NEUTROPHILS # (AUTO) 4.3 10^3/uL (1.5-6.6); NEUTROPHILS % (AUTO) 74.1 %; PLT - PLATELET COUNT 224 10^3/uL (130-450); RED BLOOD COUNT 3.91 10^6/uL (4.20-5.40); RED CELL DISTRIBUTION WIDTH 15.9 % (12.0-15.0); WHITE BLOOD COUNT 5.8 x10^3/uL (4.8-10.8)
[2024-10-20 16:12] LABS: VBG BASE EXCESS -2.8 mmol/L (-2 - +2); VBG HCO3 19.9 mmol/L (23-28); VBG OXYGEN SATURATION 93.3 % (60-80); VBG PCO2 29.4 mmHg (41-51); VBG PH 7.449 (7.31-7.41); VBG PO2 61.9 mmHg (25-47); VBG TOTAL CO2 20.8 mmol/L (24-29)
--- NOTE | 2024-10-20 16:14 | XRAY Report ---
PROCEDURE: XR Chest 1V INDICATIONS: dyspnea TECHNIQUE: One view of the chest was acquired. COMPARISON: 10/06/2024 FINDINGS: Surgical changes and devices: None. Lungs and pleura: Peribronchial cuffing and increased pulmonary markings. Moderate bilateral pleural effusions with right basilar atelectasis versus consolidation. Mediastinum: Mediastinal contours appear normal. Heart size is enlarged. Bones and chest wall: No suspicious bony lesions. Overlying soft tissues appear unremarkable. IMPRESSION: Moderate pulmonary edema. Moderate pleural effusions. Right basilar atelectasis versus consolidation. Reviewed by: Reji Robbins MD on 10/20/2024 4:13 PM PST Approved by: Reji Robbins MD on 10/20/2024 4:13 PM PST Station ID: [id number]
[2024-10-20 16:28] LABS: ALBUMIN 4.4 g/dL (3.2-5.5); ALBUMIN/GLOBULIN RATIO 1.7 (1.0-2.2); BILIRUBIN,TOTAL 0.4 mg/dL (0.2-1.0); CALCIUM 9.1 mg/dL (8.5-10.3); CREATININE 2.1 mg/dL (0.6-1.3); POTASSIUM 4.7 mmol/L (3.5-4.5)
[2024-10-20] MEDS: FUROSEMIDE 100 MG/10 ML VIAL IVP STA (17:36)
--- NOTE | 2024-10-20 17:36 | HISTORY & PHYSICAL EXAMINATION ---
Chief Complaint Chief Complaint Chief Complaint: Shortness of breath History of Present Illness History Obtained From History obtained from: patient and chart review History of Present Illness HPI Comment/Other: 84-year-old female PMH significant for CHF, COPD,Who was discharged from this hospital on 10/08/2024 after stay for acute on chronic respiratory failure. She was sent home on home O2, and states that she has few steps dyspnea now at baseline. She says over the past day it has gotten worse to the point where she is dyspneic at rest. In the ER, Workup was significant for creatinine 2.1, CO2 20, anion gap 14. Chest x-ray was performed which showed moderate pulmonary edema and moderate pleural effusions as well as right basilar atelectasis versus consolidation. Of note, she takes 40 mg Lasix p.o. daily, has not received today's dose. 80 mg IV Lasix was ordered by ER provider and hospitalist was contacted for admission for heart failure exacerbation Meds/Allgy Home Medications Ambulatory Orders Medication Instructions Recorded Confirmed acetaminophen 325 mg tablet 650 mg (2 x 325 mg) PO Q6HR PRN 04/07/23 10/15/24 Pain 1 to 4, or Fever #40 tabs esomeprazole magnesium 20 mg 20 mg PO QDAC #30 caps 04/07/23 10/15/24 capsule,delayed release (Nexium 24HR) levothyroxine 50 mcg tablet 50 mcg PO QDAC #30 tabs 04/07/23 10/15/24 (Levoxyl) multivitamin-ferrous 1 tab PO DAILY #30 tabs 04/07/23 10/15/24 fumarate-folic acid 18 mg-400 mcg tablet (Centrum Women) rosuvastatin 40 mg tablet (Crestor) 40 mg PO QPM #30 tabs 04/07/23 10/15/24 sertraline 50 mg tablet 50 mg PO DAILY #30 tabs 04/07/23 10/15/24 thiamine mononitrate (vit B1) 100 100 mg PO DAILY #30 tabs 04/07/23 10/15/24 mg tablet (Vitamin B-1 (mononitrate)) umeclidinium 62.5 mcg-vilanterol 1 puff inhalation DAILY #30 ea 04/07/23 10/15/24 25 mcg/actuation powdr for inhalation (Anoro Ellipta) albuterol sulfate 90 mcg/actuation 1 puff inhalation Q4H PRN 09/10/24 10/15/24 aerosol inhaler shortness of breath or wheezing cetirizine 10 mg tablet (24Hour 10 mg PO DAILY 09/10/24 10/15/24 Allergy) furosemide 40 mg tablet 40 mg PO DAILY 09/10/24 10/15/24 ipratropium 0.5 mg-albuterol 3 mg 3 ml inhalation Q6H PRN shortness 09/10/24 10/15/24 (2.5 mg base)/3 mL nebulization of breath or wheezing soln prednisone 1 mg tablet 2 mg PO DAILY 09/10/24 10/15/24 potassium chloride 20 mEq 20 meq PO DAILYWM #30 tabs 09/12/24 10/15/24 tablet,extended release(part/cryst) (Klor-Con M) trazodone 50 mg tablet 50 mg PO QPM 09/19/24 10/15/24 diltiazem HCl 120 mg 120 mg PO DAILY #30 tabs 10/08/24 10/15/24 tablet,extended release 24 hr (Cardizem LA) budesonide 160 mcg-glycopyr 9 2 inh inhalation BID 30 days #10.7 10/15/24 10/15/24 mcg-formot 4.8 mcg/actuation HFA grams inhaler (Breztri Aerosphere) lisinopril 10 mg tablet 10 mg PO QDAY 30 days #30 tabs 10/15/24 10/15/24 rivaroxaban 15 mg tablet 15 mg PO QPM 30 days #30 tabs 10/16/24 10/16/24 Allergies Allergies Allergy/AdvReac Type Severity Reaction Status Date / Time trimethoprim (From Bactrim) Allergy Unknown Unknown Verified 10/20/24 15:31 morphine AdvReac Intermediate Nausea Verified 10/20/24 15:31 meperidine HCl * (From AdvReac Mild Unknown Verified 10/20/24 15:31 Demerol) sulfamethoxazole (From AdvReac Mild Unknown Verified 10/20/24 15:31 Bactrim) PFSH Medical History Medical History Acute cor pulmonale COPD with hypoxia Atrial fibrillation, new onset Hypertension CKD (chronic kidney disease) stage 3, GFR 30-59 ml/min 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) Chronic kidney disease, stage 4 (severe) (10/02/16) Cellulitis of left leg (11/13/07) Paroxysmal atrial fibrillation (12/15/13) Arthritis of right knee (11/04/20) Depression with anxiety (10/10/12) Fasting hyperglycemia (01/02/07) Hypertension, benign essential, age 0-18 (01/02/07) Osteoarthritis of left knee (03/21/18) Osteoarthritis of right knee (12/18/14) Pressure ulcer, stage II (04/24/14) Swelling, mass, or lump in head and neck (05/27/10) Gastro-esophageal reflux (07/15/09) COPD (chronic obstructive pulmonary disease) (10/06/16) Allergic urticaria (03/05/15) Hypothyroidism (06/21/15) Dyspnea on exertion (10/13/16) Depression (11/04/20) Clostridium difficile colitis (07/13/14) Systolic murmur (12/23/12) Sprain of radiocarpal joint of left wrist, subsequent encounter (06/25/18) Sleep apnea (06/27/13) Salivary gland calculus (10/14/18) Requires supplemental oxygen (07/18/19) Rectal bleeding (05/08/08) Pneumonia (05/09/23) Peripheral vascular disease (06/27/13) Palpitations (04/14/22) Obesity (04/18/07) Hypertrophy of salivary gland (01/14/09) Helicobacter pylori gastritis (09/12/12) Chronic back pain (02/23/22) Anemia in chronic kidney disease (05/08/14) Actinic keratosis (05/27/10) Femoral-femoral bypass graft thrombosis, left Bronchitis due to human metapneumovirus (hMPV) Alcohol use Obstructive sleep apnea on CPAP Acute on chronic diastolic heart failure Acute and chronic respiratory failure with hypoxia Infection due to human metapneumovirus (hMPV) Alcoholism Hypothyroidism Acute respiratory failure with hypoxia Mild chronic obstructive pulmonary disease Dyspnea Family History Family History Father Heart attack Mother Esophageal cancer Brother GERD (gastroesophageal reflux disease) Social History Social History Smoking Status: Former smoker If you are a former smoker, when did you quit? (Date/Year): 1994 Number of Years Smoked: 30 How many cigarettes a day do you smoke? (20 cigarettes=1 Pk): 40 Second hand tobacco smoke exposure: No Do you dip or chew tobacco?: No Do you vape?: No Patient requests smoking cessation consult: No Initiate information on smoking cessation: No Living arrangement: At home Marital Status: Single Living Condition: Alone Relationship: Physical Activity: Walking Level: Assisted Home Mobility Equipment: Walker Do you feel safe in your home environment?: Yes Suffered physical, verbal, emotional, or financial abuse?: No History of Abuse: No ETOH Use: Liquor Frequency: Daily ETOH Use Details: vodka Substance Use: denies use Are you sexually active?: No 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 Known occupational exposures/hazards (Current/Previous): none Service: No Are you following a diet prescribed by a doctor: Yes Are you following a special diet: Yes Special Diet Details: low salt POLST Patient has POLST: No POLST Status: Full Code Review of Systems Status of ROS: 10 or more systems reviewed and unremarkable except as noted in history and below Constitutional Reports: Fatigue (Related to dyspnea); Denies: Fever or Chills Eyes Denies: Pain Ears, nose, mouth, and throat Denies: Ear pain or Ear discharge Cardiovascular Reports: shortness of breath with exertion, shortness of breath when lying down and Decreased exercise tolerance; Denies: Irregular heart rate, chest pain, palpitations, edema or swelling of feet/ankles Respiratory Reports: Shortness of breath and SOB with exertion; Denies: Cough or Sputum production Gastrointestinal Denies: Abdominal pain or Abdominal distention Genitourinary Denies: Painful urination or Urinary frequency Musculoskeletal Denies: Back pain Integumentary/Breast Denies: Rash Neurological Denies: Headache or General weakness Endocrine Reports: Fatigue (Related to dyspnea) Exam Constitutional Obese elderly female, speaking in short sentences HENMT normocephalic and head/scalp atraumatic Eyes PERRL and EOMs intact bilaterally Neck/C-Spine visual inspection normal Lymph no lymphadenopathy noted Chest inspection of chest normal and palpation of chest normal Respiratory rales noted Cardiovascular normal heart rate noted, regular rhythm noted and peripheral pulses 2+ throughout Gastrointestinal abdomen normal to inspection Genitourinary no CVA tenderness Back/Pelvis spine normal to inspection Extremities normal to inspection 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 She has a low CO2 on chemistry and an anion gap of 14. Sodium bicarb p.o. for renal protection May benefit from transition to Bumex at discharge Qualifiers: Chronic kidney disease stage 3 subtype: stage 3b (GFR 30-44) Qualified Code(s): N18.32 - Chronic kidney disease, stage 3b (3) Requires supplemental oxygen: Plan: On home O2 level RT consult Continue home inhaler regimen (4) Atrial fibrillation: Plan: Continue home diltiazem Xarelto Qualifiers: Atrial fibrillation type: unspecified Qualified Code(s): I48.91 - Unspecified atrial fibrillation Plan Placed in observation to optimize her fluid status and improve her SIA She wishes to be DNR Lab Results Lab results reviewed: Yes 10/20/24 16:00 10/20/24 16:00 Diagnostic Imaging Results Diagnostic Imaging Results: positive Final report reviewed and Read independently Diagnostic Imaging Results Comments: CXR with moderate pulmonary edema, pleural effusions, worse from prior Core Measures Anticipated LOS I expect patient to be DC'd or transferred within 96 hours.: Yes Issues Hospital Issues and Management Plan: CHF exacerbation and acute kidney injury on top of CKD DVT/VTE - Prophylaxis VTE/DVT Device ordered at admit?: No VTE/DVT Prophylaxis med ordered at admit?: Yes
[2024-10-20] MEDS ORDERED: SODIUM CHLORIDE FLUSH 0.9% 10 ML SYRINGE IVP PRN (18:26)
[2024-10-20] MEDS ORDERED: ONDANSETRON ODT 4 MG TABLET TL PRN (18:26)
[2024-10-20] MEDS ORDERED: IPRATROPIUM/ALBUTEROL 3 ML NEB INH PRN (18:26)
[2024-10-20] MEDS ORDERED: ONDANSETRON 4 MG/2 ML VIAL IVP PRN (18:26)
[2024-10-20] MEDS ORDERED: ALBUTEROL NEB 2.5 MG/3 ML INH PRN (18:35)
[2024-10-20] MEDS: lisinopriL 5 MG TABLET PO SCH (19:28)
[2024-10-20] MEDS ORDERED: RIVAROXABAN 15 MG PO SCH (21:00)
[2024-10-20] MEDS ORDERED: NON FORMULARY MED (Budesonide-Glycopyr-Formoterol [Breztri Aerosphere] 160-9-4.8 mcg/actua INH SCH (21:00)
[2024-10-20] MEDS ORDERED: NON FORMULARY MED (Rosuvastatin [Crestor] 40 MG tablet) PO SCH (21:00)
[2024-10-20] MEDS: APIXABAN 2.5 MG TABLET PO SCH (22:04)
[2024-10-20] MEDS: traZODone 50 MG TABLET PO SCH (22:04)
[2024-10-20] MEDS: ACETAMINOPHEN 325 MG TABLET PO PRN (22:04)
[2024-10-20] MEDS: SODIUM BICARBONATE 650 MG TABLET PO SCH (22:05)
[2024-10-20] MEDS: ATORVASTATIN 40 MG TABLET PO SCH (22:05)
[2024-10-21] MEDS: SODIUM CHLORIDE FLUSH 0.9% 10 ML SYRINGE IVP SCH (00:19)
[2024-10-21] MEDS: BUDESONIDE 0.5 MG/2 ML NEB INH SCH (02:00)
[2024-10-21] MEDS: FORMOTEROL FUMARATE NEB 20 MCG/2 ML INH SCH (02:01)
[2024-10-21] MEDS: IPRATROPIUM 0.2 MG/ML NEB INH SCH (02:01)
[2024-10-21] MEDS: LEVOTHYROXINE 25 MCG TABLET PO SCH (06:13)
[2024-10-21] MEDS: FUROSEMIDE 40 MG/4 ML VIAL IVP SCH (06:13)
[2024-10-21] MEDS: PANTOPRAZOLE 40 MG TABLET PO SCH (06:13)
[2024-10-21] MEDS ORDERED: ESOMEPRAZOLE MAGNESIUM 20 MG PO SCH (07:00)
[2024-10-21] MEDS ORDERED: [UNRECOGNIZED DRUG - OTHER] PO SCH (07:00)
[2024-10-21] MEDS: diltiaZEM CD 120 MG CAPSULE PO SCH (08:16)
[2024-10-21] MEDS: THIAMINE 100 MG TABLET PO SCH (08:16)
[2024-10-21] MEDS: CETIRIZINE 10 MG TABLET PO SCH (08:16)
[2024-10-21] MEDS: SERTRALINE 50 MG TABLET PO SCH (08:16)
[2024-10-21] MEDS: POTASSIUM CHLORIDE 20 MEQ TABLET PO SCH (08:16)
[2024-10-21] MEDS: MULTIVITAMIN W/MINERALS TABLET PO SCH (08:16)
[2024-10-21] MEDS: predniSONE 5 MG TABLET PO SCH (08:17)
[2024-10-21 08:46] LABS: BASOPHILS % (AUTO) 0.3 %; EOSINOPHILS # (AUTO) 0.1 10^3/uL (0.0-0.7); EOSINOPHILS % (AUTO) 1.8 %; HCT - HEMATOCRIT 42.7 % (37.0-47.0); HGB - HEMOGLOBIN 13.7 g/dL (12.0-16.0); LYMPHOCYTES # (AUTO) 0.9 10^3/uL (1.5-3.5); LYMPHOCYTES % (AUTO) 23.9 %; MEAN CORPUSCULAR HEMOGLOBIN 33.2 pg (27.0-31.0); MEAN CORPUSCULAR HGB CONC 32.1 g/dL (32.0-36.0); MEAN CORPUSCULAR VOLUME 103.4 fL (81.0-99.0); MEAN PLATELET VOLUME 8.8 fL (7.9-10.8); MONOCYTES # (AUTO) 0.2 10^3/uL (0.0-1.0); MONOCYTES % (AUTO) 6.2 %; NEUTROPHILS # (AUTO) 2.6 10^3/uL (1.5-6.6); NEUTROPHILS % (AUTO) 67.5 %; PLT - PLATELET COUNT 218 10^3/uL (130-450); RED BLOOD COUNT 4.13 10^6/uL (4.20-5.40); RED CELL DISTRIBUTION WIDTH 15.9 % (12.0-15.0); WHITE BLOOD COUNT 3.9 x10^3/uL (4.8-10.8)
[2024-10-21 08:58] LABS: CALCIUM 9.6 mg/dL (8.5-10.3); CREATININE 1.9 mg/dL (0.6-1.3); POTASSIUM 3.4 mmol/L (3.5-4.5)
[2024-10-21] MEDS ORDERED: MULTIVITAMIN IRON FOLIC ACID PO SCH (09:00)
[2024-10-21] MEDS ORDERED: VILANTEROL INH SCH (09:00)
[2024-10-21] MEDS ORDERED: PREDNISONE 1 MG PO SCH (09:00)
[2024-10-21] MEDS ORDERED: UMECLIDINIUM INH SCH (09:00)
[2024-10-21 09:06] LABS: TROPONIN I HIGH SENSITIVITY 11.1 ng/L (2.3-14.8)
--- NOTE | 2024-10-21 11:08 | PHARMACY PROGRESS NOTE ---
Best Possible Medication History Admit Date and Time: 10/20/24 1728 Home Medications Medication Instructions Recorded Confirmed Type acetaminophen 325 mg tablet 650 mg (2 x 325 mg) PO Q6HR PRN 04/07/23 10/21/24 Rx Pain 1 to 4, or Fever #40 tabs esomeprazole magnesium 20 mg 20 mg PO QDAC #30 caps 04/07/23 10/21/24 Rx capsule,delayed release (Nexium 24HR) levothyroxine 50 mcg tablet 50 mcg PO QDAC #30 tabs 04/07/23 10/21/24 Rx (Levoxyl) multivitamin-ferrous 1 tab PO DAILY #30 tabs 04/07/23 10/21/24 Rx fumarate-folic acid 18 mg-400 mcg tablet (Centrum Women) rosuvastatin 40 mg tablet (Crestor) 40 mg PO QPM #30 tabs 04/07/23 10/21/24 Rx sertraline 50 mg tablet 50 mg PO DAILY #30 tabs 04/07/23 10/21/24 Rx thiamine mononitrate (vit B1) 100 100 mg PO DAILY #30 tabs 04/07/23 10/21/24 Rx mg tablet (Vitamin B-1 (mononitrate)) albuterol sulfate 90 mcg/actuation 1 puff inhalation Q4H PRN 09/10/24 10/21/24 History aerosol inhaler shortness of breath or wheezing cetirizine 10 mg tablet (24Hour 10 mg PO DAILY 09/10/24 10/21/24 History Allergy) furosemide 40 mg tablet 40 mg PO DAILY 09/10/24 10/21/24 History ipratropium 0.5 mg-albuterol 3 mg 3 ml inhalation Q6H PRN shortness 09/10/24 10/21/24 History (2.5 mg base)/3 mL nebulization of breath or wheezing soln prednisone 1 mg tablet 2 mg PO DAILY 09/10/24 10/21/24 History potassium chloride 20 mEq 20 meq PO DAILYWM #30 tabs 09/12/24 10/21/24 Rx tablet,extended release(part/cryst) (Klor-Con M) trazodone 50 mg tablet 50 mg PO QPM 09/19/24 10/21/24 History diltiazem HCl 120 mg 120 mg PO DAILY #30 tabs 10/08/24 10/21/24 Rx tablet,extended release 24 hr (Cardizem LA) budesonide 160 mcg-glycopyr 9 2 inh inhalation BID 30 days #10.7 10/15/24 10/21/24 Rx mcg-formot 4.8 mcg/actuation HFA grams inhaler (Breztri Aerosphere) rivaroxaban 15 mg tablet 15 mg PO QPM 30 days #30 tabs 10/16/24 10/21/24 Rx lisinopril 10 mg tablet 10 mg PO DAILY 10/21/24 10/21/24 History Processed by: Pharmacy (Medication Reconciliation completed by Claim TakerCarolann.) Medication History completed: Yes Patient Interview: Completed Secondary Source(s): Insurance records [facility] Statement: As the person ultimately responsible for medication therapy, providers are able to order a medication from an existing home medication list in [facility] via the "Reconcile Routine" prior to Confirmation of that medication by database support. Such practice is discouraged except when the physician, in their clinical judgment, deems that a medical need exists for a medication without regard to previous use.
--- NOTE | 2024-10-21 14:57 | PROVIDER PROGRESS NOTE ---
Subjective Prog Note Date Prog Note Date: 10/21/24 Prog Note Time: 11:30 Subjective Pt reports feeling: Improved Subjective: She states she is feeling better, but is overall disheartened because she remains with MARY that seems to be her new baseline. [place] [facility]. She has put off seeing pulmonology here because she wants to move all of her care there. She was started on a new inhaler (Breztri) by her PCP, but has not been able to get it yet- it should be in the mail. Current Medications Current Medications Current Medications: Current Medications Generic Name Dose Route Start Last Admin Trade Name Freq PRN Reason Stop Dose Admin Acetaminophen 650 mg 10/20/24 18:26 10/20/24 22:04 Acetaminophen 325 Mg Tablet PO 650 mg Q6HR PRN Administration Pain 1 to 4, or Fever Albuterol 2.5 mg 10/20/24 18:35 Albuterol Neb 2.5 Mg/3 Ml INH RTQ4H PRN shortness of breath or wheezing Albuterol/Ipratropium 3 ml 10/20/24 18:26 Ipratropium/Albuterol 3 Ml Neb INH Q6H PRN shortness of breath or wheezing Apixaban 2.5 mg 10/20/24 21:00 10/21/24 08:17 Apixaban 2.5 Mg Tablet PO 2.5 mg BID ROSA Administration Atorvastatin Calcium 80 mg 10/20/24 21:00 10/20/24 22:05 Atorvastatin 40 Mg Tablet PO 80 mg QPM ROSA Administration Budesonide 0.5 mg 10/20/24 19:00 10/21/24 07:17 Budesonide 0.5 Mg/2 Ml Neb INH 0.5 mg RTBID ROSA Administration Cetirizine HCl 10 mg 10/21/24 09:00 10/21/24 08:16 Cetirizine 10 Mg Tablet PO 10 mg DAILY ROSA Administration Diltiazem HCl 120 mg 10/21/24 09:00 10/21/24 08:16 Diltiazem Cd 120 Mg Capsule PO 120 mg DAILY ROSA Administration Formoterol Fumarate 20 mcg 10/20/24 19:00 10/21/24 07:17 Formoterol Fumarate Neb 20 Mcg/2 Ml INH 20 mcg RTBID ROSA Administration Furosemide 40 mg 10/21/24 14:00 Furosemide 40 Mg Tablet PO BIDDIURETIC ROSA Ipratropium [place] 0.5 mg 10/20/24 19:00 10/21/24 11:20 Ipratropium 0.2 Mg/Ml Neb INH 0.5 mg RTQID ROSA Administration Levothyroxine Sodium 50 mcg 10/21/24 07:00 10/21/24 06:13 Levothyroxine 25 Mcg Tablet PO 50 mcg QDAC ROSA Administration Lisinopril 10 mg 10/20/24 18:26 10/20/24 19:28 Lisinopril 5 Mg Tablet PO 10 mg QD ROSA Administration Multivitamins/Minerals 1 tab 10/21/24 08:00 10/21/24 08:16 Multivitamin W/Minerals Tablet PO 1 tab DAILYWM ROSA Administration Ondansetron HCl 4 mg 10/20/24 18:26 Ondansetron Odt 4 Mg Tablet TL Q6HR PRN Nausea / Vomiting Ondansetron HCl 4 mg 10/20/24 18:26 Ondansetron 4 Mg/2 Ml Vial IVP Q6HR PRN Nausea / Vomiting Pantoprazole Sodium 40 mg 10/21/24 07:00 10/21/24 06:13 Pantoprazole 40 Mg Tablet PO 40 mg QDAC ROSA Administration Potassium Chloride 20 meq 10/21/24 08:00 10/21/24 08:16 Potassium Chloride 20 Meq Tablet PO 20 meq DAILYWM ORSA Administration Prednisone 2.5 mg 10/21/24 08:00 10/21/24 08:17 Prednisone 5 Mg Tablet PO 2.5 mg DAILYWM ROSA Administration Sertraline HCl 50 mg 10/21/24 09:00 10/21/24 08:16 Sertraline 50 Mg Tablet PO 50 mg DAILY ROSA Administration Sodium Bicarbonate 1,300 mg 10/20/24 21:00 10/21/24 08:16 Sodium Bicarbonate 650 Mg Tablet PO 1,300 mg BID ROSA Administration Sodium Chloride 10 ml 10/20/24 18:26 Sodium Chloride Flush 0.9% 10 Ml Syringe IVP PRN PRN NEEDED PER PROVIDER ORDERS Sodium Chloride 10 ml 10/21/24 01:00 10/21/24 08:17 Sodium Chloride Flush 0.9% 10 Ml Syringe IVP 10 ml 0100,0900,1700 ROSA Administration Thiamine HCl 100 mg 10/21/24 09:00 10/21/24 08:16 Thiamine 100 Mg Tablet PO 100 mg DAILY ROSA Administration Trazodone HCl 50 mg 10/20/24 21:00 10/20/24 22:04 Trazodone 50 Mg Tablet PO 50 mg QPM ROSA Administration Objective Vital Signs/Intake & Output Reviewed Vital Signs: Yes Vital Signs: Vital Signs x48h Temp Pulse Pulse Resp BP Pulse Ox O2 Flow Rate 10/21/24 12:54 36.4 C L 102 H 20 129/59 L 95 4 10/21/24 11:26 78 22 10/21/24 07:55 36.6 C 97 H 18 152/69 H 95 4 10/21/24 07:23 3.5 10/21/24 07:23 95 H 20 Intake & Output: Intake & Output 10/19/24 10/20/24 10/21/24 10/22/24 05:59 05:59 05:59 05:59 Intake Total 200 / 200 960 / 960 Output Total 1000 / 1000 1000 / 1000 Balance -800 / -800 -40 / -40 Weight (kg) 75.5 kg Objective General Appearance: positive Alert and Mild distress Eyes Bilateral: positive Normal inspection and PERRL Respiratory: positive Breath sounds nml Cardiovascular: positive Irregularly irregular Abdomen: positive Non-tender and Nml bowel sounds Back: positive Nml inspection Skin: positive Color nml Extremities: positive Non-tender, Full ROM and Pedal edema Neurologic/Psychiatric: positive Oriented x3, CN's nml (2-12), Motor nml, Sensation nml and Mood/affect nml Lab Results 10/21/24 08:40 10/21/24 08:40 Other Labs: Lab Results x24hrs 10/21/24 10/20/24 Range/Units 08:40 16:00 WBC 3.9 L 5.8 (4.8-10.8) x10^3/uL RBC 4.13 L 3.91 L (4.20-5.40) 10^6/uL Hgb 13.7 12.8 (12.0-16.0) g/dL Hct 42.7 41.4 (37.0-47.0) % MCV 103.4 H 105.9 H (81.0-99.0) fL MCH 33.2 H 32.7 H (27.0-31.0) pg MCHC 32.1 30.9 L (32.0-36.0) g/dL RDW 15.9 H 15.9 H (12.0-15.0) % Plt Count 218 224 (130-450) 10^3/uL MPV 8.8 8.9 (7.9-10.8) fL Neut # (Auto) 2.6 4.3 (1.5-6.6) 10^3/uL Lymph # (Auto) 0.9 L 1.1 L (1.5-3.5) 10^3/uL [place] # (Auto) 0.2 0.4 (0.0-1.0) 10^3/uL Eos # (Auto) 0.1 0.1 (0.0-0.7) 10^3/uL Baso # (Auto) 0.0 0.0 (0.0-0.1) 10^3/uL Absolute Nucleated RBC 0.00 0.00 x10^3/uL Nucleated RBC % 0.0 0.0 /100WBC VBG pH 7.449 H (7.31-7.41) VBG pCO2 29.4 L (41-51) mmHg VBG pO2 61.9 H (25-47) mmHg VBG HCO3 19.9 L (23-28) mmol/L VBG Total CO2 20.8 L (24-29) mmol/L VBG O2 Saturation 93.3 H (60-80) % VBG Base Excess -2.8 L (-2 - +2) mmol/L Sodium 141 139 (135-145) mmol/L Potassium 3.4 L 4.7 H (3.5-4.5) mmol/L Chloride 103 105 (101-111) mmol/L Carbon Dioxide 28 20 L (21-32) mmol/L Anion Gap 10.0 14.0 H (6-13) BUN 35 H 38 H (6-20) mg/dL Creatinine 1.9 H 2.1 H (0.6-1.3) mg/dL Estimated GFR (MDRD) 25 L 22 L (>89) Glucose 137 H 116 H (74-104) mg/dL Calcium 9.6 9.1 (8.5-10.3) mg/dL Total Bilirubin 0.4 (0.2-1.0) mg/dL AST 24 (10-42) IU/L ALT 18 (10-60) IU/L Alkaline Phosphatase 71 (42-121) IU/L Troponin I High Sens 11.1 (2.3-14.8) ng/L B-Natriuretic Peptide 368 H (5-100) pg/mL Total Protein 7.0 (6.4-8.9) g/dL Albumin 4.4 (3.2-5.5) g/dL Globulin 2.6 (2.1-4.2) g/dL Albumin/Globulin Ratio 1.7 (1.0-2.2) ABX Reporting Has patient been on IV antibiotics over the past 48 hours?: No Assessment/Plan Problem List (1) Acute on chronic heart failure with preserved ejection fraction (HFpEF): Impression: 80 mg Lasix given by ER provider Placed in observation May benefit from cardiopulmonary rehab Echocardiogram 10/08/2024 shows normal left vent size, mild concentric left ventricular hypertrophy, EF 55 to 60% Lasix 40 mg IV Twice daily Troponin 11.1, I will not trend this. (2) CKD (chronic kidney disease) stage 3, GFR 30-59 ml/min: Impression: Cr downtrending slightly. 2 Laboratory Tests 10/20/24 10/21/24 16:00 08:40 Creatinine 2.1 H 1.9 H . Sodium bicarb p.o. for renal protection May benefit from transition to Bumex at discharge Qualifiers: Chronic kidney disease stage 3 subtype: stage 3b (GFR 30-44) Qualified Code(s): N18.32 - Chronic kidney disease, stage 3b (3) Requires supplemental oxygen: Impression: She remains on 4L [place] which is her home baseline. She should have her new inhaler for home use soon- Breztri (budesonide/glycopyrrolate/formoterol). I had a conversation with her about her level of dysfunction today. She is frustrated and angry because she is not better. Even if she is able to move closer to her brother she is still going to struggle with this shortness of breath. She agrees today that we should fill out a POLST form. This was done, DNR/DNI. This was a brief discussion,and therefore I will not document a formal ACP discussion. (4) Atrial fibrillation: Impression: 2 Selected Entries 10/21/24 07:55 10/21/24 11:26 10/21/24 12:54 Pulse Rate 78 Pulse Rate [Brachial] 97 H 102 H Blood Pressure [Right Brachial artery] 152/69 H 129/59 L 10/21/24 15:14 10/21/24 15:50 Pulse Rate 74 Pulse Rate [Brachial] 96 H Blood Pressure [Right Brachial artery] 123/53 L She is on her home dose of diltiazem. Qualifiers: Atrial fibrillation type: unspecified Qualified Code(s): I48.91 - Unspecified atrial fibrillation (5) Acute cor pulmonale: Impression: Continue monitoring and treatment as prescribed, but showing significant overall improvement. (6) Atrial fibrillation, new onset: Impression: Heart rate is consistently less than 100.. (7) Acute exacerbation of chronic obstructive pulmonary disease: Impression: Continue monitoring and treatment as prescribed, but showing overall improvement. (8) Hypertension: Impression: Continue monitoring and treatment as prescribed. (9) At risk for accident in home: Impression: Home accident risk is due to patient getting short of breath while walking, leading to an unintentional fall. Patient was walked with RT approximately 15 feet and experienced notable shortness of breath. This seems to be her new baseline. I have spent 45 minutes in the care of this patient today. This includes time [id number], review and ordering of diagnostic imaging and laboratory studies.. Monitoring the patient's signs symptoms, evaluation of medication effectiveness and patient's response to treatment. .
[2024-10-21] MEDS: FUROSEMIDE 40 MG TABLET PO SCH (15:06)
[2024-10-22 06:03] LABS: BASOPHILS % (AUTO) 0.5 %; EOSINOPHILS # (AUTO) 0.1 10^3/uL (0.0-0.7); EOSINOPHILS % (AUTO) 2.3 %; HCT - HEMATOCRIT 42.1 % (37.0-47.0); HGB - HEMOGLOBIN 13.2 g/dL (12.0-16.0); LYMPHOCYTES # (AUTO) 1.5 10^3/uL (1.5-3.5); LYMPHOCYTES % (AUTO) 35.7 %; MEAN CORPUSCULAR HEMOGLOBIN 32.7 pg (27.0-31.0); MEAN CORPUSCULAR HGB CONC 31.4 g/dL (32.0-36.0); MEAN CORPUSCULAR VOLUME 104.2 fL (81.0-99.0); MEAN PLATELET VOLUME 9.2 fL (7.9-10.8); MONOCYTES # (AUTO) 0.4 10^3/uL (0.0-1.0); MONOCYTES % (AUTO) 9.4 %; NEUTROPHILS # (AUTO) 2.2 10^3/uL (1.5-6.6); NEUTROPHILS % (AUTO) 51.9 %; PLT - PLATELET COUNT 218 10^3/uL (130-450); RED BLOOD COUNT 4.04 10^6/uL (4.20-5.40); RED CELL DISTRIBUTION WIDTH 15.7 % (12.0-15.0); WHITE BLOOD COUNT 4.3 x10^3/uL (4.8-10.8)
[2024-10-22 06:19] LABS: CALCIUM 9.3 mg/dL (8.5-10.3); POTASSIUM 3.5 mmol/L (3.5-4.5)
[2024-10-22 07:54] VITALS: TEMP 97.7
[2024-10-22 13:02] VITALS: BP 117/58; O2SAT 95
--- NOTE | 2024-10-22 13:55 | Discharge Summary ---
"Discharge Summary Admit Date: 10/20/24 Discharge Date: 10/22/24 Discharging Provider: Akosua Celeste PA-C Primary Care Provider: PARVIN Shepard Code Status: Do Not Attempt Resuscitation DIAGNOSES Discharge Diagnoses with Status of Each Condition: Acute on chronic CHF with preserved ejection fraction Chronic kidney disease stage III Supplemental oxygen Atrial fibrillation Acute cor pulmonale Atrial fibrillation Acute exacerbation of COPD Hypertension At risk for falls at home HPI History of Present Illness: 84-year-old female H significant for CHF, COPD,Who was discharged from this hospital on 10/08/2024 after stay for acute on chronic respiratory failure. She was sent home on home O2, and states that she has few steps dyspnea now at baseline. She says over the past day it has gotten worse to the point where she is dyspneic at rest. In the ER, Workup was significant for creatinine 2.1, CO2 20, anion gap 14. Chest x-ray was performed which showed moderate pulmonary edema and moderate pleural effusions as well as right basilar atelectasis versus consolidation. Of note, she takes 40 mg Lasix p.o. daily, has not received today's dose. 80 mg IV Lasix was ordered by ER provider and hospitalist was contacted for admission for heart failure exacerbation CONSULTS | PROCEDURES Procedures: CXR:Moderate pulmonary edema. Moderate pleural effusions. Right basilar atelectasis versus consolidation. HOSPITAL COURSE Hospital Course: (1) Acute on chronic heart failure with preserved ejection fraction (HFpEF): Impression: 80 mg Lasix given by ER provider Placed in observation May benefit from cardiopulmonary rehab Echocardiogram 10/08/2024 shows normal left vent size, mild concentric left ventricular hypertrophy, EF 55 to 60% Lasix 40 mg IV Twice daily Troponin 11.1, not trended . (2) CKD (chronic kidney disease) stage 3, GFR 30-59 ml/min: Impression: Cr downtrending slightly. Laboratory Tests 10/20/24 10/21/24 16:00 08:40 Creatinine 2.1 H 1.9 H . Sodium bicarb p.o. for renal protection continue lasix. Qualifiers: Chronic kidney disease stage 3 subtype: stage 3b (GFR 30-44) Qualified Code(s): N18.32 - Chronic kidney disease, stage 3b (3) Requires supplemental oxygen: Impression: She remains on 4L [place] which is her home baseline. She should have her new inhaler for home use soon- Breztri (budesonide/glycopyrrolate/formoterol). I had a conversation with her about her level of dysfunction. She is frustrated and angry because she is not better. Even if she is able to move closer to her brother she is still going to struggle with this shortness of breath. She agrees that we should fill out a POLST form. This was done, DNR/DNI. This was a brief discussion,and therefore I will not document a formal ACP discussion. I further discussed her situation on subsequent visits. She has been resistant to SNF placement, even though she qualifies. She has also been resistant to HH. finally, she admits to me, understandably so, that she is very depressed. I agree with her that she has every reason to be so. She agrees to HH. We will also increase her Sertraline from 50mg daily to 100mg daily. (4) Atrial fibrillation: Impression: Selected Entries 10/21/2407:55 10/21/2411:26 10/21/2412:54 Pulse Rate 78 Pulse Rate [Brachial] 97 H 102 H Blood Pressure [Right Brachial artery] 152/69 H 129/59 L 10/21/2415:14 10/21/2415:50 Pulse Rate 74 Pulse Rate [Brachial] 96 H Blood Pressure [Right Brachial artery] 123/53 L She is on her home dose of diltiazem. Qualifiers: Atrial fibrillation type: unspecified Qualified Code(s): I48.91 - Unspecified atrial fibrillation (5) Acute cor pulmonale: Impression: Continue monitoring and treatment as prescribed, but showing significant overall improvement. (6) Atrial fibrillation, new onset: Heart rate is consistently less than 100.. (7) Acute exacerbation of chronic obstructive pulmonary disease: Impression: Continue monitoring and treatment as prescribed, but showing overall improvement. (8) Hypertension: Impression: Continue monitoring and treatment as prescribed. (9) At risk for accident in home: Impression: Home accident risk is due to patient getting short of breath while walking, leading to an unintentional fall. Patient was walked with RT approximately 15 feet and experienced notable shortness of breath. This seems to be her new baseline. She is not agreeable to SNF, but will consent to HH services, referral was written ALLERGIES Allergies Allergy/AdvReac Type Severity Reaction Status Date / Time trimethoprim (From Bactrim) Allergy Unknown Unknown Verified 10/20/24 15:31 morphine AdvReac Intermediate Nausea Verified 10/20/24 15:31 meperidine HCl * (From AdvReac Mild Unknown Verified 10/20/24 15:31 Demerol) sulfamethoxazole (From AdvReac Mild Unknown Verified 10/20/24 15:31 Bactrim) MEDICATIONS Ambulatory Orders Medication Instructions Recorded Confirmed acetaminophen 325 mg tablet 650 mg (2 x 325 mg) PO Q6HR PRN 04/07/23 10/21/24 Pain 1 to 4, or Fever #40 tabs esomeprazole magnesium 20 mg 20 mg PO QDAC #30 caps 04/07/23 10/21/24 capsule,delayed release (Nexium 24HR) levothyroxine 50 mcg tablet 50 mcg PO QDAC #30 tabs 04/07/23 10/21/24 (Levoxyl) multivitamin-ferrous 1 tab PO DAILY #30 tabs 04/07/23 10/21/24 fumarate-folic acid 18 mg-400 mcg tablet (Centrum Women) rosuvastatin 40 mg tablet (Crestor) 40 mg PO QPM #30 tabs 04/07/23 10/21/24 thiamine mononitrate (vit B1) 100 100 mg PO DAILY #30 tabs 04/07/23 10/21/24 mg tablet (Vitamin B-1 (mononitrate)) albuterol sulfate 90 mcg/actuation 1 puff inhalation Q4H PRN 09/10/24 10/21/24 aerosol inhaler shortness of breath or wheezing cetirizine 10 mg tablet (24Hour 10 mg PO DAILY 09/10/24 10/21/24 Allergy) furosemide 40 mg tablet 40 mg PO DAILY 09/10/24 10/21/24 ipratropium 0.5 mg-albuterol 3 mg 3 ml inhalation Q6H PRN shortness 09/10/24 10/21/24 (2.5 mg base)/3 mL nebulization of breath or wheezing soln prednisone 1 mg tablet 2 mg PO DAILY 09/10/24 10/21/24 potassium chloride 20 mEq 20 meq PO DAILYWM #30 tabs 09/12/24 10/21/24 tablet,extended release(part/cryst) (Klor-Con M) trazodone 50 mg tablet 50 mg PO QPM 09/19/24 10/21/24 diltiazem HCl 120 mg 120 mg PO DAILY #30 tabs 10/08/24 10/21/24 tablet,extended release 24 hr (Cardizem LA) budesonide 160 mcg-glycopyr 9 2 inh inhalation BID 30 days #10.7 10/15/24 10/21/24 mcg-formot 4.8 mcg/actuation HFA grams inhaler (Breztri Aerosphere) rivaroxaban 15 mg tablet 15 mg PO QPM 30 days #30 tabs 10/16/24 10/21/24 lisinopril 10 mg tablet 10 mg PO DAILY 10/21/24 10/21/24 sertraline 50 mg tablet 100 mg (2 x 50 mg) PO DAILY #60 10/22/24 tabs sodium bicarbonate 650 mg tablet 1,300 mg (2 x 650 mg) PO BID #120 10/22/24 tabs PHYSICAL EXAM AT DISCHARGE General Appearance: positive No acute distress and Alert Eyes Bilateral: positive Normal inspection ENT: positive ENT inspection nml Neck: positive Nml inspection Respiratory: positive No respiratory distress and Breath sounds nml Cardiovascular: positive Irregularly irregular Abdomen: positive No distention Back: positive Nml inspection Skin: positive Color nml Extremities: positive No pedal edema Neurologic/Psychiatric: positive Oriented x3 LABS 10/22/24 05:38 10/22/24 05:38 FOLLOW UP Follow Up: PCP scheduled 10/28 TIME SPENT Time Spent in Discharge (Minutes): 40 Discharge Plan Discharge Patient Disposition: Home Health Service Condition: Fair Prescriptions: New sertraline 50 mg Tablet 100 mg PO DAILY Qty: 60 0RF sodium bicarbonate 650 mg Tablet 1,300 mg PO BID Qty: 120 0RF Continued acetaminophen 325 MG tablet 650 mg PO Q6HR PRN (Reason: Pain 1 to 4, or Fever) Qty: 40 0RF levothyroxine [Levoxyl] 50 MCG tablet 50 mcg PO QDAC Qty: 30 0RF esomeprazole magnesium [Nexium 24HR] 20 MG capsule,delayed release(DR/EC) 20 mg PO QDAC Qty: 30 0RF rosuvastatin [Crestor] 40 MG tablet 40 mg PO QPM Qty: 30 0RF Centrum Women 1 EACH tablet 1 tab PO DAILY Qty: 30 0RF thiamine mononitrate (vit B1) [Vitamin B-1 (mononitrate)] 100 MG tablet 100 mg PO DAILY Qty: 30 0RF furosemide 40 mg tablet 40 mg PO DAILY Rx Instructions: takes an additional tablet if gains >1lb ipratropium-albuterol 0.5 mg-3 mg(2.5 mg base)/3 mL solution for nebulization 3 ml INHALATION Q6H PRN (Reason: shortness of breath or wheezing) prednisone 1 mg tablet 2 mg PO DAILY albuterol sulfate 90 mcg/actuation HFA aerosol inhaler 1 puff INHALATION Q4H PRN (Reason: shortness of breath or wheezing) cetirizine [24Hour Allergy] 10 mg tablet 10 mg PO DAILY potassium chloride [Klor-Con M20] 20 mEq Tablet,Er Particles/Crystals 20 meq PO DAILYWM Qty: 30 0RF diltiazem HCl [Cardizem LA] 120 mg tablet extended release 24 hr 120 mg PO DAILY Qty: 30 2RF lisinopril 10 mg tablet 10 mg PO DAILY Rx Instructions: Discontinue Metoprolol Breztri Aerosphere 160-9-4.8 mcg/actuation HFA aerosol inhaler 2 inh inhalation BID 30 Days Qty: 10.7 2RF Rx Instructions: Replaces Anoro rivaroxaban 15 mg tablet 15 mg PO QPM 30 Days Qty: 30 2RF Rx Instructions: must administer with evening meal Replaces Plavix trazodone 50 mg tablet 50 mg PO QPM Discontinued sertraline 50 MG tablet 50 mg PO DAILY Qty: 30 0RF Activity Restrictions: Activity as Tolerated Diet: Cardiac Health Concerns: You came into the hospital with shortness of breath which is worsening. Overall your activity tolerance is worsening significantly. It is difficult because you have both congestive heart failure and COPD and things seem to have been getting worse over the last several months. In addition your kidneys are not working correctly. Overall you need to see a hand braille transcriber to see if we can get your lung disease better under control. I understand that you want to do this after you move close to your brother. In the meantime I need you to continue to follow-up with your primary care team. I believe you are scheduled to see them on October 28 in [place]. Things that need to be checked at the time of your follow-up are your kidney function and your potassium. I have made several changes to your medications I would like you to increase your sertraline from 50 mg to 100 mg a day. Additionally we are adding sodium bicarb to your medication regimen to help your kidneys. You are on your home level of oxygen and you should continue that. We have ordered home health but it will probably be sometime next week before they can come in assess you. Home health services can be helpful in making things easier around your house. They can look at your home environment and make suggestions for small changes that can make big differences. Print Language: Kiswahili Patient Instructions: COPD Dx, ED Dyspnea Shortness of Breath Follow-up Care: Indira Ledesma ARNP [Primary Care Provider] -"
== END 2024-10-22 14:25 | disposition home health service (06) | DRG 291 ==
LOC: ED 15:21 → MS2 15:21
PROVIDERS: ADMIT Nurse Practitioner Acute Care; ATTEND Nurse Practitioner Acute Care
DX: Z79.899 Other long term (current) drug therapy; Z79.890 Hormone replacement therapy; E66.9 Obesity, unspecified; N18.31 Chronic kidney disease, stage 3a; Z68.33 Body mass index [BMI] 33.0-33.9, adult; J44.1 Chronic obstructive pulmonary disease with (acute) exacerbation; I27.81 Cor pulmonale (chronic); Z99.81 Dependence on supplemental oxygen; J98.11 Atelectasis; N18.32 Chronic kidney disease, stage 3b; Z79.52 Long term (current) use of systemic steroids; G47.33 Obstructive sleep apnea (adult) (pediatric); I50.33 Acute on chronic diastolic (congestive) heart failure; Z79.01 Long term (current) use of anticoagulants; E03.9 Hypothyroidism, unspecified; I73.9 Peripheral vascular disease, unspecified; I13.0 Hypertensive heart and chronic kidney disease with heart failure and stage 1 through stage 4 chronic kidney disease, or unspecified chronic kidney disease; Z66 Do not resuscitate; I48.91 Unspecified atrial fibrillation; Z87.891 Personal history of nicotine dependence